=== PATIENT | female | born 1940 | race Caucasian/White ===

== ENCOUNTER 2017-12-13 06:09 | Inpatient (IN) | payer MEDICARE, BC ==
--- NOTE | 2017-12-02 13:29 | HP ---
HISTORY AND PHYSICAL: DATE OF ADMISSION/SURGERY: 12/13/17 DATE OF OFFICE VISIT: 11/30/17 SURGEON: Riya Calderon MD * (DICTATED BY SUSI EASTON) PROCEDURE: Left total knee arthroplasty. CHIEF COMPLAINT: Left knee pain. HISTORY OF PRESENT ILLNESS: Ms. Means is a 77-year-old female with complaints of left knee pain. She has failed conservative treatment and elected to proceed with a left total knee arthroplasty. PAST MEDICAL HISTORY: Parkinson's, sleep apnea, glaucoma, high cholesterol, pulmonary embolism in 2002, TIA, and anxiety. PAST SURGICAL HISTORY: Appendectomy, cholecystectomy, hernia repair, cataract removal. CURRENT MEDICATIONS: 1. Amantadine 50 mg/5 mL. 2. Mirapex 0.5 mg 4 caps daily. 3. Biotin 1000 mcg daily. 4. Latanoprost 2.5% one drop in each eye daily. 5. Carbidopa/levodopa 25/100 mg 1 tab 3 times a day. 6. Azilect 1 mg tab daily. 7. Dorzolamide HCl/timolol maleate 22.3/6.8 mg/mL. 8. Vitamin D. 9. Gabapentin 100 mg 2 tabs every night. 10. Calcium. 11. Acetaminophen as needed. ALLERGIES: CEFTIN and CIPRO. FAMILY HISTORY: Diabetes, stroke, AL, and DVT. SOCIAL HISTORY: She is a 77-year-old female. She lives with her spouse. She does not smoke, use drugs or alcohol. REVIEW OF SYSTEMS: A complete 14-point review of systems was reviewed with the patient. It was positive for history of a TIA and pulmonary embolism in 2002. She denies a history of hepatitis, HIV, MRSA, or anesthesia problems. PHYSICAL EXAMINATION GENERAL: She is well developed, well nourished, in no acute distress. VITAL SIGNS: She stands 60 inches tall. Blood pressure is 124/82, heart rate 60. HEENT: Normocephalic, atraumatic. NECK: Supple. No palpable lymph nodes. PULMONARY: The lungs are clear to auscultation bilaterally. The abdomen is soft, nontender, nondistended. CARDIO: Regular rate and rhythm. Strong S1 and S2. MUSCULOSKELETAL: Left lower extremity: The skin is intact. She has no open wounds or abrasions. She has a moderate joint effusion. Some tenderness over the medial and lateral joint line. Range of motion is 10 to 125 degrees of flexion with patellofemoral crepitus and there is a 15-degree valgus deformity. She has 2+ dorsalis pedis pulse, intact sensation. Her lower extremity muscle group strengths are intact at 5/5. NEUROLOGIC: She is alert and oriented x3. ASSESSMENT AND PLAN: Ms. Means is a 77-year-old female with end-stage osteoarthritis of the left knee. She has failed conservative treatment and elected to proceed with a left total knee arthroplasty, which is scheduled for 12/13/[address] Calderon discussed the risks and benefits of the surgery at today's visit and all of her questions were answered. She will follow up with Dr. Calderon 2 weeks after the surgery. NO TXA FOR THIS PATIENT. SUSI EASTON [id number]/[facility] #: [id number] [place]
[~2017-12-13 06:09] MED LIST: Buffered Lidocaine 0.9% SYRIN* 5 ML/SYR SYRINGE INTRADERM ONE
[2017-12-13] MEDS ORDERED: ceFAZolin 2 GM in NS PREMIX(*) 2 GM/100 ML BAG IVPB ONE (06:16)
--- OUTSIDE RECORDS SUMMARY | 2017-12-13 06:17 | XMS REPORT ---
:1940 External Reference #:[id number] Author Organization Owned it Address [address] [place] [address] [place] [address] Phone [phone] Care Team Providers Name Role Phone Darrel Griffin III, MD Primary Care Physician Unavailable Payers Type Date Identification Numbers Payment Provider Subscriber Medicare Primary Policy Number: [id number] Medicare Marlen Means PayID: [id number] [address] [place] [address] Medigap Part B Effective: 2011 Policy Number: JOVANNA [facility] Marlen Means [id number] PayID: [id number] [address] [place] [address] Commercial Policy Number: [id number] [facility] Marlen Means PayID: [id number] [address] [place] [address] Medigap Part B Expires: 2009 Policy Number: BS ERICK Means [id number] Group Number: [id number] [address] PayID: [id number] [address] [place] [address] Advance Directives Type Date Description Status Comment Other Directive 03/08/2016 Health Care Proxy Current and Verified Other Directive 02/05/2016 Current and Verified Other Directive 03/02/2012 Power Of Stone Circular Sawyer Current and Verified Other Directive 10/23/2009 Health Care Proxy/Living Will Current and Verified Other Directive 03/09/2006 Living Will Current and Verified Problems Date Description Provider Status Onset: 12/08/2010 Pure hypercholesterolemia Darrel Griffin M.D. Active Onset: 02/01/2011 Shoulder joint pain Darrel Griffin M.D. Active Onset: 08/30/2011 Impaired fasting glycaemia Darrel Griffin M.D. Active Onset: 08/30/2011 Sleep apnea Darrel Griffin M.D. Active Onset: 08/30/2011 Parkinson's disease Darrel Griffin M.D. Active Note: MoCA 03/05: , 03/06: Onset: 09/20/2011 Nonvenomous insect bite of Blossom Fanny-Jaimes, N.P. Active thigh without infection Onset: 12/02/2011 Urgent desire to urinate Darrel Griffin M.D. Active Onset: 02/23/2012 Left lower quadrant pain Blossom Fanny-Theodore, N.P. Active Onset: 08/10/2013 Osteochondropathy Darrel Griffin M.D. Active Onset: 01/02/2015 Disorder of bone Darrel Griffin M.D. Active Onset: 07/02/2015 Headache Carmen Jean M.D. Active Onset: 08/15/2015 Pain in limb Peter Serna MD Active Onset: 03/01/2016 Chest pain Tristin Luna M.D., [facility], Active FASNC Onset: 03/29/2016 Peripheral venous insufficiency Tristin Luna M.D., [facility], Active FASNC Onset: 11/17/2016 Knee pain Darrel Griffin M.D. 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 Cigarette Use Former Cigarette Smoker ETOH Use 08/24/2012 Denies alcohol use ETOH Use Has consumed alcohol in the past Smoking Patient is a former smoker quit ~ 1985 Recreational Drug Use Denies Drug Use Daily Caffeine Consumes on average 2 cups of regular coffee per day Daily Caffeine Consumes on average 1 cup of hot tea per day Exercise Type/Frequency Exercises regularly walks, yoga, weights Allergies, Adverse Reactions, Alerts Date Description Reaction Status Severity Comments 09/28/2006 Ceftin active GI 12/02/2011 Cipro colitis active Medications Medication Date Status Form Strength Qnty SIG Indications Ordering Provider TMelaniEStanton 09/26 Active Misc 2unit wear during R60.0 Eveline Anti-Embolism /2018 s the day, rt Dorothy, Stockings Knee 43cm, N.P. Length 20.5cm, 32cm; Lt 43cm, 20.5cm, 30.5cm (toe less) give 2 pairs Atorvastatin 03/26 Active Tablets 20mg 90tab Take One Darrel Mcgowan s Tablet By Gaby Mouth AT M.D. Bedtime Amantadine HCL 08/19 Active Syrup 50mg/5ML 900ml take 5ml by G20 Carmen mouth in in Cowdery, the morning M.D. and 5mls by mouth at noon as need for dyskinesias Mirapex 01/23 Active Tablets 0.5mg 360ta 1 tab by bs mouth 4 Cowdery, times daily M.D. Biotin Active Tablets 1000mcg 1 daily Latanoprost Active Solution 2.5% 1 drop in each eye once qhs Carbidopa-Levod Active Tablets 25-100mg 270ta 1 by mouth Carmen bs three times Cowdery, a day M.D. Azilect Active Tablets 1mg 90tab 1 tab by s mouth every Cowdery, day M.D. Dorzolamide Active Solution 22.3-6.8m instill 1 Unknown HCL/Timolol / g/ml drops each Maleate eye Am/PM Vitamin D Active Capsules 1000 1 tab po qam Unknown (Ergocalciferol ) Gabapentin Active Capsules 100mg 180ca Usually Carmen /0000 ps takes Cowdery, one---2 tab M.D. by mouth every night Calcium 00/00 Active Tablets 1 by mouth Unknown /0000 every day Acetaminophen 0000 Active Tablets 325mg 1 tablet by Unknown /0000 mouth every 6 hours as needed for pain/fever Hydrocodone-Colby 12/31 Hx Tablets 5-325mg 120ta 1-2 tabs by W10.9xxA Ricardo taminophen bs mouth q4 Jon, [employer] - hours as 08/13 needed pain /2016 limit 8 tabs per day Debrox 08/08 Hx Solution 6.5% 1bott 5 drops in 380.4 Eveline le each ear Dorothy, - every month N.P. 12/31 Lidoderm 11/12 Hx Patches 5% 30uni apply 724.1 Darrel E. ts topically Gaby, - every day as M.D. 10/04 needed Amantadine HCL 07/18 Hx Tablets 100mg 60tab 1 by mouth 333.85 Hattie s every Millicent, [employer] - morning. July 23 take 1 tab /2014 by mouth in afternoon if needed Xarelto 12/25 Hx Tablets 20mg 70tab 1 po qd with 415.1 Darrel E. /2012 s evening meal Hannah Griffin M.D. 03/12 Enoxaparin 12/25 Hx Solution 60mg/0.6M 2unit prefilled 415.1 Darrel E. L s syringes 1 Gaby, - dose q 12 M.D. 01/11 Oxycodone/Aceta 11/24 Hx Tablets 5-325mg 15tab take 1 807.2 Heidi minophen s tablet by Laz, - mouth every M.D. 12/27 6 hours as needed Cymbalta 08/[address] 20mg 30cap take 2 po Carmen Part s qday Ted, - M.D. 11/16 Amoxicillin 07/07 Hx Capsules 500mg 20cap 1 cap bid 461.0 Eveline s for 10 days Dorothy, - N.P. 08/24 Robitussin DM 06/22 Hx Syrup 100-10mg/ 355ml take 1 786.2 Blossom 5ML teaspoons po [place]-W - q 4 hrs prn atson, 08/24 for cough N.P. /2012 Sinemet 03/05 Hx Tablets 25-100mg 360ta 1 po tid Hannah Lennon M.D. 01/28 Doxycycline 09/19 Hx Capsules 100mg 20cap take one 916.4 Blossom Hycl s pill twice [place]-W - daily for 10 atson, 12/01 days N.P. /2011 Effexor XR 07/03 Hx Caps ER 75mg 30cap 1 po qd Darrel Mcgowan 24HR Hannah Govea M.D. 07/03 Zoloft 07/03 Hx Tablets 100mg 90tab 1 po qd Darrel Mcgowan Hannah Govea M.D. 07/03 Septra DS 07/03 Hx Tablets 800-160mg 6tabs 1 po bid 788.1 Darrel Mcgowan Hannah Griffin M.D. 07/26 Robitussin With 11/20 Hx 6Oz 10 cc qhs Darrel Mcgowan Codeine and q 4 hrs Hannah Griffin M.D. 12/19 Zithromax Z-Yayo 11/20 Hx Tablets 250mg 1Pack as per Darrel Mcgowan directions Hannah Griffin M.D. 12/03 Septra DS 08/06 Hx Tablets 800-160mg 20tab 1 po bid Darrel Mcgowan Hannah Govea M.D. 11/20 Physical 01/22 Hx 20uni pt Darrel Mcgowan ts evaluation Letty Griffin 12/19 treatment for neck pain Lidocaine 04/03 Hx Solution 2% 100cc 3 tsp po q 3 Darrel Mcgowan hrs prn Hannah Griffin M.D. 12/30 Pravachol 03/27 Hx Tablets 20mg 90tab 1 Tablet PO Darrel Mcgowan s Hannah Murray M.D. 12/30 Zocor 11/26 Hx Tablets 20mg 90tab 1 po qhs Darrel Mcgowan Hannah Govea M.D. 02/01 Actonel 04/18 Hx Tablets 35mg 3Mont 1 po twice a Darrel E. h month to Gaby, - start on M.D. 12/30 2/03/28 Lipitor Hx Tablets 10mg 30tab 1 PO QHS Barken, s MD Bony - 11/26 Neurontin Hx Capsules 100mg 90cap 1 tabs by Carmen / s mouth every , - night at M.D. 03/15 bedtime Mirapex Hx Tablets 0.5mg 120ta 1 PO qid Cowdery, bs MD Carmen - 04/18 Zoloft Hx Tablets 25mg. 90tab 1 qod Cowdery, s MD Carmen - 08/06 Sinemet Hx Tablets 25/100 45tab 1 po tid Cowdery, s MD Carmen - 03/05 Aspirin Hx Tablets 325mg 1 PO qd Unknown / - 08/29 Nupro Hx Patch 2mg. Starting on 2 mg. patch MD Carmen - and will be 01/23 to 4 mg. patch on 2007 Flonase Hx Suspension 50mcg/Act 3unit 1 [place] Each Darrel E. s Nostril [facility] Hannah Griffin M.D. 01/23 Azilect Hx Tablets 1mg 90tab 1 tab PO Hattie / s daily PROSPER Ricks - 10/04 Xalatan Hx Solution 0.005% ou hs 1 ggt Unknown / - 08/29 Simvastatin Hx Tablets 20mg 90tab 1 po qd Darrel E. / s Hannah Griffin M.D. 12/27 Aspirin Low Hx Tablets 81mg 1 po qd Unknown Dose / - 12/01 Cosopt Hx Solution 22.3-6.8m 1 drop both Unknown / g/ml eyes qd - 12/01 Glucosamine-Cho Hx Capsules 500-400mg 60cap 1 tab po qd Unknown ndroitin / s - 02/28 Dorzolamide HCL 00/ Hx Solution 2% 22.3 gtts Unknown /0000 both eyes - bid 12/27 Calcium 00/00 Hx Tablets 400mg 60tab 1 po qd Unknown /0000 s - 07/19 Simvastatin 00/00 Hx Tablets 20mg 90tab 1 by mouth Darrel E. /0000 s every day Hannah Griffin M.D. 02/24 Evening 00/00 Hx Capsules 1 capsule Unknown [place] Oil /0000 daily - 11/12 Cholacol 00/ Hx Tablet 1 tablet Unknown /0000 daily - 08/24 Fish Oil 00/00 Hx Capsules 1000mg 1 po qd Unknown /0000 - 10/04 Co Q-10 Hx Capsules 30mg 1 PO qd Unknown /0000 - 02/28 Nasonex 00 Hx Suspension 50mcg/Act 17g 2 sprays in Unknown /0000 each nostril - once daily 08/24 Oxycodone/Aceta 00 Hx Tablets 5-325mg 1 tab po q Unknown minophen /0000 4-6 hrs prn - pain 12/27 Acetaminophen 00/ Hx Capsules 100ca take 2 Unknown /0000 ps tablets - three times 12/27 daily needed Cosopt 00/00 Hx Solution 22.3-6.8m 1 gtt each Unknown /0000 g/ml eye bid - 10/04 Lidoderm 00 Hx Patches 5% 30uni topical 10 Unknown /0000 ts hours - 12/27 Warfarin Sodium 00/00 Hx Tablets 5mg 90tab take as Unknown /0000 s directed - 12/27 Vitamin D-1000 00/ Hx Tablets 1000Unit 1 by mouth Unknown Maximum /0000 every day Strength - 10/04 Aspirin Ec 00/ Hx Tablets DR 81mg 90tab 1 tablet po Unknown Lo-Dose /0000 s daily. - 01/28 Acetaminophen 00/00 Hx Liquid 5ml take 1 Unknown /0000 tablets by - mouth every 02/28 6 hours needed for pain Evening 00/00 Hx Capsules 1000mg Unknown [place] Oil /0000 - 12/31 Hydrocodone-Colby 0000 Hx Tablets 5-325mg 1-2 tab po q Unknown taminophen /0000 4 hours prn - 12/31 Robitussin DM Hx Syrup 100-10mg/ 5-10 Unknown /0000 5ML milliliters - by mouth q 12/31 4 hours /2014 Ibuprofen Hx Tablets 200mg as needed Unknown /0000 - 09/26 Glucosamine Hx Tablets 1 tab po qd Unknown Chondroitin /0000 Complex - Advanced 11/30 Medications Administered in Office Medication Date Status Form Strength Qnty SIG Indications Ordering Provider Triamcinolone 10/03/ Administered Injection Keyla (Kenalog) 2017 JULIA Manzano Triamcinolone 07/21/ Administered Injection Zaneb (Kenalog) 2017 MD Edwar Triamcinolone 04/07/ Administered Injection Zaneb (Kenalog) 2017 MD Edwar Triamcinolone 04/07/ Administered Injection Zaneb (Kenalog) 2017 MD Edwar Triamcinolone 11/23/ Administered Injection Zaneb (Kenalog) 2016 MD Edwar Triamcinolone 11/23/ Administered Injection Zaneb (Kenalog) 2016 MD Edwar Inj, 03/17/ Administered Injection Tristin Efrain Regadenoson, 0.1 2015 Jeremy, MG M.D., [facility] Technetium TC 03/17/ Administered Injection Tristinamelia Zuniga 99M Tetrofosmin, 2016 Jeremy, Per Unit Dose Up M.D., To 40 [facility], Millicuries [facility] Influenza Virus 11/19/ Administered Injection Unknown Vaccine 2013 Immunizations CPT Code Status Date Vaccine Lot # [id number] Given 01/09/2016 Influenza Virus Vaccine, Quadrivalent, Split [id number] Virus, Im Use 61753 Given 01/01/2015 Influenza Virus Vaccine, Quadrivalent, Split, Preservative Free 66396 Given 08/02/2014 Pneumococcal Conjugate Vaccine 13 Valent For [id number] Intramuscular Use 56348 Given 08/10/2013 Tdap - Tetanus/Diptheria/Acellular Pertussis [id number] 86236 Given 01/11/2013 Flu Vaccine Split Virus Preservative Free For [id number] Indiv 3Yr Older [id number] Given 12/02/2011 Fluzone Vaccine [id number] 77911 Given 09/15/2011 Pneumonia Vaccine 29355 Given 09/15/2011 Pneumonia Vaccine [id number] 80546 Given 01/03/2010 Influenza Virus 3Yrs & Over 08221 Given 09/23/2009 Zoster (Zostavax) [id number] 71711 Given 12/31/2008 Influenza Virus 3Yrs & Over 22576 Given 12/31/2008 Influenza Virus 3Yrs & Over [id number] 01457 Given 12/18/2007 Influenza Virus 3Yrs & Over 81241 Given 12/18/2007 Influenza Virus 3Yrs & Over 51454 Given 12/26/2006 Influenza Virus 3Yrs & Over 28292 Given 12/26/2006 Influenza Virus 3Yrs & Over [id number] 38429 Given Unknown Flu Vaccine Split Virus Preservative Free For Indiv 3Yr Older 86725 Given Unknown Flu Vaccine Split Virus Preservative Free For Indiv 3Yr Older Vital Signs Date Vital Result Comment 12/01/2017 Height 60 inches 5'0" Weight 96.00 lb Heart Rate 96 /min BP Systolic Sitting 102 mmHg BP Diastolic Sitting 62 mmHg O2 % BldC Oximetry 97 % BMI (Body Mass Index) 18.7 kg/m2 11/30/2017 Height 60 inches 5'0" Weight 95.75 lb Heart Rate 60 /min BP Systolic Sitting 124 mmHg BP Diastolic Sitting 82 mmHg Respiratory Rate 16 /min Body Temperature 96.1 F Pain Level 5 BMI (Body Mass Index) 18.7 kg/m2 10/14/2017 Height 60 inches 5'0" Heart Rate 73 /min BP Systolic 126 mmHg BP Diastolic 82 mmHg Respiratory Rate 16 /min Body Temperature 97.2 F Pain Level 6 10/06/2017 Height 60 inches 5'0" Weight 93.00 lb Heart Rate 59 /min BP Systolic 118 mmHg BP Diastolic 66 mmHg O2 % BldC Oximetry 97 % BMI (Body Mass Index) 18.2 kg/m2 Last Menstrual Period [id number] 10/03/2017 Height 60 inches 5'0" Weight 93.00 lb BP Systolic 106 mmHg BP Diastolic 66 mmHg Body Temperature 97.7 F BMI (Body Mass Index) 18.2 kg/m2 09/26/2017 Weight 95.00 lb Heart Rate 78 /min BP Systolic Sitting 118 mmHg BP Diastolic Sitting 88 mmHg Respiratory Rate 20 /min Body Temperature 97.0 F 07/22/2017 Height 60 inches 5'0" Weight 93.00 lb Heart Rate 68 /min BP Systolic 128 mmHg BP Diastolic 88 mmHg Respiratory Rate 16 /min BMI (Body Mass Index) 18.2 kg/m2 07/21/2017 Height 60 inches 5'0" Weight 94.00 lb BP Systolic 118 mmHg BP Diastolic 68 mmHg Respiratory Rate 20 /min Pain Level 6 BMI (Body Mass Index) 18.4 kg/m2 07/07/2017 Weight 94.00 lb Heart Rate 67 /min BP Systolic Sitting 110 mmHg BP Diastolic Sitting 62 mmHg Pain Level 2 O2 % BldC Oximetry 98 % 06/24/2017 Weight 94.25 lb Heart Rate 69 /min BP Systolic Sitting 108 mmHg BP Diastolic Sitting 72 mmHg Respiratory Rate 20 /min Body Temperature 97.4 F O2 % BldC Oximetry 98 % 06/21/2017 Heart Rate 60 /min BP Systolic 118 mmHg BP Diastolic 78 mmHg Respiratory Rate 16 /min Body Temperature 97.1 F Pain Level 0 06/17/2017 Weight 93.00 lb Heart Rate 57 /min BP Systolic Sitting 112 mmHg BP Diastolic Sitting 82 mmHg Respiratory Rate 22 /min Body Temperature 97.0 F O2 % BldC Oximetry 99 % 05/30/2017 Weight 90.00 lb Heart Rate 71 /min BP Systolic Sitting 122 mmHg BP Diastolic Sitting 84 mmHg O2 % BldC Oximetry 98 % 04/07/2017 Height 60 inches 5'0" Weight 98.00 lb BP Systolic 120 mmHg BP Diastolic 74 mmHg Respiratory Rate 18 /min Pain Level 6 BMI (Body Mass Index) 19.1 kg/m2 03/16/2017 Height 60 inches 5'0" Weight 95.38 lb Heart Rate 60 /min BP Systolic Sitting 130 mmHg BP Diastolic Sitting 82 mmHg Respiratory Rate 16 /min BMI (Body Mass Index) 18.6 kg/m2 02/22/2017 Height 60 inches 5'0" Weight 98.00 lb BP Systolic 108 mmHg BP Diastolic 68 mmHg Respiratory Rate 18 /min Pain Level 0 BMI (Body Mass Index) 19.1 kg/m2 12/06/2016 Height 60 inches 5'0" Weight 956.00 lb Heart Rate 62 /min BP Systolic Sitting 108 mmHg BP Diastolic Sitting 62 mmHg Respiratory Rate 17 /min BMI (Body Mass Index) 186.7 kg/m2 11/23/2016 Height 60 inches 5'0" Weight 98.00 lb Heart Rate 60 /min BP Systolic 115 mmHg BP Diastolic 80 mmHg Respiratory Rate 15 /min Body Temperature 98.3 F BMI (Body Mass Index) 19.1 kg/m2 11/17/2016 Height 60 inches 5'0" Weight 98.12 lb Heart Rate 54 /min BP Systolic Sitting 128 mmHg BP Diastolic Sitting 80 mmHg Body Temperature 97.3 F O2 % BldC Oximetry 96 % BMI (Body Mass Index) 19.2 kg/m2 08/25/2016 Height 60 inches 5'0" Weight 98.50 lb Heart Rate 56 /min BP Systolic Sitting 142 mmHg BP Diastolic Sitting 80 mmHg Respiratory Rate 14 /min BMI (Body Mass Index) 19.2 kg/m2 07/29/2016 Weight 103.38 lb Heart Rate 61 /min BP Systolic Sitting 96 mmHg BP Diastolic Sitting 66 mmHg Respiratory Rate 20 /min Body Temperature 96.3 F O2 % BldC Oximetry 97 % 07/01/2016 Weight 99.25 lb Heart Rate 68 /min BP Systolic Sitting 112 mmHg BP Diastolic Sitting 68 mmHg Respiratory Rate 20 /min Body Temperature 96.0 F O2 % BldC Oximetry 98 % 06/28/2016 Height 59.9 inches 4'11.90" Weight 100.00 lb Heart Rate 72 /min BP Systolic Sitting 98 mmHg BP Diastolic Sitting 60 mmHg Respiratory Rate 14 /min BMI (Body Mass Index) 19.6 kg/m2 06/10/2016 Height 59.9 inches 4'11.90" Weight 100.25 lb Heart Rate 68 /min BP Systolic Sitting 90 mmHg BP Diastolic Sitting 64 mmHg Respiratory Rate 22 /min Body Temperature 96.3 F O2 % BldC Oximetry 99 % BMI (Body Mass Index) 19.6 kg/m2 03/29/2016 Height 60.25 inches 5'0.25" Weight 100.00 lb with shoes Heart Rate 62 /min BP Systolic Sitting 124 mmHg Rue reg cuff BP Diastolic Sitting 90 mmHg Rue reg cuff BP Systolic Standing 120 mmHg Rue reg cuff BP Diastolic Standing 82 mmHg Rue reg cuff Respiratory Rate 16 /min BMI (Body Mass Index) 19.4 kg/m2 Ejection Fraction 60-65% date 03/08/16 ECHO 03/01/2016 Height 60.25 inches 5'0.25" Weight 101.00 lb with shoes Heart Rate 60 /min BP Systolic 130 mmHg Rue reg cuff BP Diastolic 76 mmHg Rue reg cuff BP Systolic Sitting 128 mmHg Lue reg cuff BP Diastolic Sitting 72 mmHg Lue reg cuff BP Systolic Standing 116 mmHg Lue reg cuff BP Diastolic Standing 70 mmHg Lue reg cuff Respiratory Rate 16 /min BMI (Body Mass Index) 19.6 kg/m2 Ejection Fraction 60-65% date 07/30/13 ECHO 02/26/2016 Height 60 inches 5'0" Weight 99.38 lb Heart Rate 60 /min BP Systolic Sitting 104 mmHg BP Diastolic Sitting 68 mmHg Respiratory Rate 14 /min BMI (Body Mass Index) 19.4 kg/m2 02/10/2016 Weight 101.00 lb Heart Rate 58 /min BP Systolic Sitting 126 mmHg BP Diastolic Sitting 82 mmHg Body Temperature 97.2 F 10/20/2015 Height 59.5 inches 4'11.50" Weight 103.00 lb Heart Rate 80 /min BP Systolic Sitting 100 mmHg BP Diastolic Sitting 60 mmHg Respiratory Rate 17 /min BMI (Body Mass Index) 20.5 kg/m2 10/02/2015 Weight 103.38 lb Heart Rate 68 /min BP Systolic Sitting 102 mmHg BP Diastolic Sitting 72 mmHg Respiratory Rate 18 /min Body Temperature 96.9 F O2 % BldC Oximetry 98 % 09/17/2015 Weight 100.00 lb Heart Rate 59 /min BP Systolic Sitting 111 mmHg BP Diastolic Sitting 69 mmHg Body Temperature 96.4 F 08/15/2015 Height 59.5 inches 4'11.50" Weight 100.00 lb BP Systolic 119 mmHg BP Diastolic 81 mmHg BMI (Body Mass Index) 19.9 kg/m2 07/09/2015 Weight 100.00 lb Heart Rate 79 /min BP Systolic Sitting 126 mmHg BP Diastolic Sitting 72 mmHg Body Temperature 97.2 F 07/02/2015 Height 59.5 inches 4'11.50" Weight 101.38 lb Heart Rate 68 /min BP Systolic Sitting 116 mmHg BP Diastolic Sitting 82 mmHg Respiratory Rate 14 /min BMI (Body Mass Index) 20.1 kg/m2 01/08/2015 Height 59.5 inches 4'11.50" Weight 104.00 lb Heart Rate 60 /min BP Systolic Sitting 98 mmHg BP Diastolic Sitting 68 mmHg Respiratory Rate 16 /min BMI (Body Mass Index) 20.7 kg/m2 01/02/2015 Height 59.5 inches 4'11.50" Weight 104.00 lb Heart Rate 74 /min BP Systolic Sitting 117 mmHg BP Diastolic Sitting 71 mmHg Body Temperature 97.6 F BMI (Body Mass Index) 20.7 kg/m2 12/31/2014 Weight 103.00 lb Heart Rate 72 /min BP Systolic Sitting 122 mmHg BP Diastolic Sitting 76 mmHg Respiratory Rate 18 /min Pain Level 4 R lower rib cage O2 % BldC Oximetry 98 % 10/04/2014 Weight 107.00 lb Heart Rate 64 /min BP Systolic Sitting 96 mmHg BP Diastolic Sitting 62 mmHg Respiratory Rate 26 /min Body Temperature 97.4 F 08/19/2014 Height 60 inches 5'0" Weight 106.00 lb Heart Rate 60 /min BP Systolic Sitting 116 mmHg BP Diastolic Sitting 64 mmHg Respiratory Rate 16 /min BMI (Body Mass Index) 20.7 kg/m2 08/08/2014 Weight 107.25 lb Heart Rate 64 /min BP Systolic Sitting 100 mmHg BP Diastolic Sitting 66 mmHg Respiratory Rate 20 /min Body Temperature 96.5 F O2 % BldC Oximetry 98 % 08/02/2014 Height 60 inches 5'0" Weight 107.00 lb Heart Rate 72 /min BP Systolic Sitting 124 mmHg BP Diastolic Sitting 72 mmHg O2 % BldC Oximetry 97 % BMI (Body Mass Index) 20.9 kg/m2 06/25/2014 Height 60 inches 5'0" Weight 104.00 lb Heart Rate 60 /min BP Systolic Sitting 110 mmHg BP Diastolic Sitting 68 mmHg Body Temperature 98.2 F O2 % BldC Oximetry 97 % BMI (Body Mass Index) 20.3 kg/m2 03/06/2014 Height 60 inches 5'0" Weight 102.12 lb Heart Rate 67 /min BP Systolic Sitting 90 mmHg BP Diastolic Sitting 70 mmHg Respiratory Rate 15 /min BMI (Body Mass Index) 19.9 kg/m2 01/28/2014 Weight 102.50 lb Heart Rate 64 /min BP Systolic Sitting 110 mmHg BP Diastolic Sitting 68 mmHg Body Temperature 97.7 F O2 % BldC Oximetry 98 % 11/14/2013 Weight 103.25 lb Heart Rate 64 /min BP Systolic Sitting 104 mmHg BP Diastolic Sitting 60 mmHg Body Temperature 97.1 F 11/14/2013 Height 60.5 inches 5'0.50" Weight 102.00 lb BP Systolic Sitting 104 mmHg BP Diastolic Sitting 70 mmHg Respiratory Rate 16 /min BMI (Body Mass Index) 19.6 kg/m2 11/12/2013 Height 60.5 inches 5'0.50" Weight 102.75 lb Heart Rate 66 /min BP Systolic Sitting 98 mmHg BP Diastolic Sitting 58 mmHg Pain Level 2 R shoulder BMI (Body Mass Index) 19.7 kg/m2 10/08/2013 Height 60.5 inches 5'0.50" Weight 103.00 lb Heart Rate 62 /min BP Systolic 114 mmHg BP Diastolic 90 mmHg BMI (Body Mass Index) 19.8 kg/m2 09/12/2013 Height 60.5 inches 5'0.50" Weight 103.00 lb Heart Rate 65 /min BP Systolic 108 mmHg BP Diastolic 61 mmHg BMI (Body Mass Index) 19.8 kg/m2 09/07/2013 Height 60.5 inches 5'0.50" Weight 103.50 lb Heart Rate 64 /min BP Systolic Sitting 102 mmHg BP Diastolic Sitting 58 mmHg Body Temperature 97.8 F BMI (Body Mass Index) 19.9 kg/m2 09/03/2013 Height 60.5 inches 5'0.50" Weight 103.00 lb Heart Rate 67 /min BP Systolic Sitting 120 mmHg BP Diastolic Sitting 60 mmHg Respiratory Rate 16 /min BMI (Body Mass Index) 19.8 kg/m2 08/10/2013 Height 60.5 inches 5'0.50" Weight 103.00 lb Heart Rate 60 /min BP Systolic Sitting 116 mmHg BP Diastolic Sitting 72 mmHg BMI (Body Mass Index) 19.8 kg/m2 07/18/2013 Height 60.5 inches 5'0.50" Weight 103.00 lb Heart Rate 62 /min BP Systolic Sitting 110 mmHg BP Diastolic Sitting 60 mmHg Respiratory Rate 16 /min BMI (Body Mass Index) 19.8 kg/m2 07/12/2013 Height 60.5 inches 5'0.50" Weight 103.50 lb Heart Rate 64 /min BP Systolic Sitting 126 mmHg BP Diastolic Sitting 80 mmHg BMI (Body Mass Index) 19.9 kg/m2 06/27/2013 Height 60.5 inches 5'0.50" Weight 103.25 lb Heart Rate 60 /min BP Systolic Sitting 124 mmHg BP Diastolic Sitting 84 mmHg Body Temperature 97.4 F BMI (Body Mass Index) 19.8 kg/m2 03/12/2013 Heart Rate 76 /min BP Systolic Sitting 110 mmHg BP Diastolic Sitting 70 mmHg Respiratory Rate 16 /min 03/12/2013 Weight 105.00 lb Heart Rate 58 /min BP Systolic Sitting 108 mmHg BP Diastolic Sitting 62 mmHg 02/08/2013 Height 60 inches 5'0" Weight 106.00 lb Heart Rate 106 /min BP Systolic 106 mmHg BP Diastolic 60 mmHg Respiratory Rate 24 /min Body Temperature 97.2 F BMI (Body Mass Index) 20.7 kg/m2 01/31/2013 Weight 104.25 lb Heart Rate 66 /min BP Systolic Sitting 106 mmHg BP Diastolic Sitting 72 mmHg 01/11/2013 Height 60.25 inches 5'0.25" Weight 103.75 lb Heart Rate 64 /min BP Systolic Sitting 104 mmHg BP Diastolic Sitting 76 mmHg BMI (Body Mass Index) 20.1 kg/m2 12/27/2012 Heart Rate 60 /min BP Systolic Sitting 106 mmHg BP Diastolic Sitting 70 mmHg Respiratory Rate 16 /min 12/25/2012 Weight 103.25 lb Heart Rate 68 /min BP Systolic Sitting 114 mmHg BP Diastolic Sitting 72 mmHg O2 % BldC Oximetry 94 % 11/28/2012 Weight 106.50 lb 11/24/2012 Weight 106.00 lb Heart Rate 54 /min BP Systolic Sitting 125 mmHg BP Diastolic Sitting 72 mmHg 11/16/2012 Weight 104.25 lb Heart Rate 76 /min BP Systolic Sitting 112 mmHg BP Diastolic Sitting 66 mmHg 08/24/2012 Height 61 inches 5'1" Weight 103.50 lb Heart Rate 64 /min BP Systolic Sitting 104 mmHg BP Diastolic Sitting 76 mmHg BMI (Body Mass Index) 19.6 kg/m2 07/07/2012 Height 60.75 inches 5'0.75" Weight 103.00 lb Heart Rate 73 /min BP Systolic Sitting 102 mmHg BP Diastolic Sitting 62 mmHg Body Temperature 98.5 F O2 % BldC Oximetry 95 % BMI (Body Mass Index) 19.6 kg/m2 06/22/2012 Height 60 inches 5'0" Weight 102.00 lb Heart Rate 56 /min BP Systolic 104 mmHg BP Diastolic 62 mmHg Respiratory Rate 20 /min Body Temperature 96.9 F BMI (Body Mass Index) 19.9 kg/m2 03/01/2012 Height 60.75 inches 5'0.75" Weight 104.00 lb Heart Rate 60 /min BP Systolic Sitting 92 mmHg BP Diastolic Sitting 62 mmHg BMI (Body Mass Index) 19.8 kg/m2 02/23/2012 Height 60.75 inches 5'0.75" Weight 104.00 lb Heart Rate 62 /min BP Systolic Sitting 102 mmHg BP Diastolic Sitting 62 mmHg Body Temperature 96.3 F BMI (Body Mass Index) 19.8 kg/m2 12/02/2011 Height 60.75 inches 5'0.75" Weight 102.38 lb Heart Rate 64 /min BP Systolic Sitting 114 mmHg BP Diastolic Sitting 88 mmHg BMI (Body Mass Index) 19.5 kg/m2 09/20/2011 Heart Rate 68 /min BP Systolic 100 mmHg BP Diastolic 74 mmHg Respiratory Rate 16 /min Body Temperature 96.9 F 08/30/2011 Height 60.75 inches 5'0.75" Weight 102.25 lb Heart Rate 64 /min BP Systolic Sitting 98 mmHg BP Diastolic Sitting 70 mmHg BMI (Body Mass Index) 19.5 kg/m2 02/01/2011 Height 60.75 inches 5'0.75" Weight 105.00 lb Heart Rate 68 /min BP Systolic Sitting 100 mmHg BP Diastolic Sitting 65 mmHg BMI (Body Mass Index) 20.0 kg/m2 09/28/2010 Weight 105.00 lb Heart Rate 62 /min BP Systolic Sitting 118 mmHg BP Diastolic Sitting 62 mmHg 07/03/2010 Weight 108.00 lb Heart Rate 68 /min BP Systolic Sitting 128 mmHg BP Diastolic Sitting 80 mmHg 12/19/2009 Weight 108.00 lb Heart Rate 62 /min BP Systolic Sitting 120 mmHg BP Diastolic Sitting 64 mmHg 12/03/2009 Weight 105.00 lb Heart Rate 78 /min BP Systolic Sitting 118 mmHg BP Diastolic Sitting 70 mmHg 11/20/2009 Weight 109.00 lb Heart Rate 76 /min BP Systolic Sitting 124 mmHg BP Diastolic Sitting 80 mmHg 08/27/2009 Height 108 inches 9'0" Heart Rate 64 /min BP Systolic Sitting 98 mmHg BP Diastolic Sitting 68 mmHg 08/06/2009 Weight 108.00 lb Heart Rate 74 /min BP Systolic Sitting 100 mmHg BP Diastolic Sitting 60 mmHg 12/30/2008 Weight 110.00 lb Heart Rate 60 /min BP Systolic Sitting 114 mmHg BP Diastolic Sitting 74 mmHg 08/22/2008 Height 61 inches 5'1" Weight 111.00 lb Heart Rate 64 /min BP Systolic Sitting 110 mmHg BP Diastolic Sitting 74 mmHg BMI (Body Mass Index) 21.0 kg/m2 08/09/2008 Height 61 inches 5'1" Weight 111.00 lb Heart Rate 68 /min BP Systolic Sitting 110 mmHg BP Diastolic Sitting 70 mmHg BMI (Body Mass Index) 21.0 kg/m2 04/03/2008 Height 61 inches 5'1" Heart Rate 60 /min BP Systolic Sitting 120 mmHg BP Diastolic Sitting 76 mmHg 01/24/2008 Height 61 inches 5'1" Weight 110.00 lb Heart Rate 56 /min BP Systolic Sitting 120 mmHg BP Diastolic Sitting 86 mmHg BMI (Body Mass Index) 20.8 kg/m2 10/19/2007 Height 61 inches 5'1" Weight 109.00 lb Heart Rate 64 /min BP Systolic Sitting 116 mmHg BP Diastolic Sitting 72 mmHg BMI (Body Mass Index) 20.6 kg/m2 06/28/2007 Height 61 inches 5'1" Weight 107.00 lb Heart Rate 76 /min BP Systolic Sitting 130 mmHg BP Diastolic Sitting 82 mmHg BMI (Body Mass Index) 20.2 kg/m2 06/28/2007 Height 61 inches 5'1" 04/27/2007 Height 61 inches 5'1" Weight 109.00 lb Heart Rate 64 /min BP Systolic Sitting 120 mmHg BP Diastolic Sitting 82 mmHg BMI (Body Mass Index) 20.6 kg/m2 04/18/2007 Height 61 inches 5'1" Weight 110.00 lb Heart Rate 56 /min BP Systolic Sitting 100 mmHg BP Diastolic Sitting 70 mmHg BMI (Body Mass Index) 20.8 kg/m2 10/06/2006 Height 61 inches 5'1" BP Systolic Sitting 116 mmHg BP Diastolic Sitting 70 mmHg 09/28/2006 Height 61 inches 5'1" Weight 109.00 lb Heart Rate 68 /min BP Systolic Sitting 110 mmHg BP Diastolic Sitting 70 mmHg BMI (Body Mass Index) 20.6 kg/m2 Results Test Date Test Result H/L Range Note Comp Metabolic Panel 11/30/2017 Sodium 140 mmol/L 135-145 Potassium 4.8 mmol/L 3.5-5.0 Chloride 103 mmol/L 101-111 Co2 Carbon Dioxide 32 mmol/L 22-32 Anion Gap 5 mmol/L 2-11 Glucose 92 mg/dL 70-100 Blood Urea Nitrogen 14 mg/dL 6-24 Creatinine 0.53 mg/dL 0.51-0.95 BUN/Creatinine Ratio 26.4 High 8-20 Calcium 9.7 mg/dL 8.6-10.3 Total Protein 6.5 g/dL 6.4-8.9 Albumin 4.4 g/dL 3.2-5.2 Globulin 2.1 g/dL 2-4 Albumin/Globulin Ratio 2.1 1-3 Total Bilirubin 0.40 mg/dL 0.2-1.0 Alkaline Phosphatase 77 U/L 34-104 Alt < 3 U/L Low 7-52 Ast 17 U/L 13-39 Egfr Non- 111.6 >60 Egfr 135.0 >60 1 Inr/Protime 11/30/2017 Inr 0.90 0.77-1.02 Laboratory test finding 11/30/2017 Partial Thrombo Time 30.3 seconds 26.0 -36.3 PTT CBC Auto Diff 11/30/2017 White Blood Count 7.6 10^3/uL 3.5-10.8 Red Blood Count 4.33 10^6/uL 4.00-5.40 Hemoglobin 14.1 g/dL 12.0-16.0 Hematocrit 41 % 35-47 Mean Corpuscular Volume 96 fL 80-97 Mean Corpuscular Hemoglobin 33 pg High 27-31 Mean Corpuscular HGB Conc 34 g/dL 31-36 Red Cell Distribution Width 14 % 10.5-15 Platelet Count 327 10^3/uL 150-450 Mean Platelet Volume 7.2 um3 Low 7.4-10.4 Abs Neutrophils 5.1 10^3/uL 1.5-7.7 Abs Lymphocytes 1.7 10^3/uL 1.0-4.8 Abs Monocytes 0.7 10^3/uL 0-0.8 Abs Eosinophils 0.1 10^3/uL 0-0.6 Abs Basophils 0.1 10^3/uL 0-0.2 Abs Nucleated RBC 0 10^3/uL Granulocyte % 66.5 % 38-83 Lymphocyte % 21.9 % Low 25-47 Monocyte % 9.0 % High 0-7 Eosinophil % 1.8 % 0-6 Basophil % 0.8 % 0-2 Nucleated Red Blood Cells % 0 Type & Screen 11/30/2017 Patient Blood Type A Positive Antibody Screen NEGATIVE Urinalysis Profile 11/30/2017 Urine Color Yellow Urine Appearance Clear Urine Specific [place] 1.012 1.010-1.030 Urine pH 6.0 5-9 Urine Urobilinogen Negative Negative Urine Ketones Negative Negative Urine Protein Negative Negative Urine Leukocytes Negative Negative Urine Blood Negative Negative * * Negative 2 Urine Nitrite Negative Negative Urine Bilirubin Negative Negative Urine Glucose Negative Negative Urine Culture And Sensitivities 11/30/2017 Urine Culture SEE RESULT BELOW 3 Urine Culture And Sensitivities 09/08/2017 Urine Culture SEE RESULT BELOW 4 Urinalysis Profile 09/08/2017 Urine Color Yellow Urine Appearance Clear Urine Specific [place] 1.008 Low 1.010-1.030 Urine pH 8.0 5-9 Urine Urobilinogen Negative Negative Urine Ketones Negative Negative Urine Protein Negative Negative Urine Leukocytes Negative Negative Urine Blood Negative Negative Urine Nitrite Negative Negative Urine Bilirubin Negative Negative Urine Glucose Negative Negative Comp Metabolic Panel 05/31/2017 Sodium 138 mmol/L 133-145 Potassium 4.1 mmol/L 3.5-5.0 Chloride 102 mmol/L 101-111 Co2 Carbon Dioxide 32 mmol/L 22-32 Anion Gap 4 mmol/L 2-11 Glucose 102 mg/dL High 70-100 Blood Urea Nitrogen 13 mg/dL 6-24 Creatinine 0.59 mg/dL 0.51-0.95 BUN/Creatinine Ratio 22.0 High 8-20 Calcium 9.6 mg/dL 8.6-10.3 Total Protein 6.3 g/dL Low 6.4-8.9 Albumin 4.2 g/dL 3.2-5.2 Globulin 2.1 g/dL 2-4 Albumin/Globulin Ratio 2.0 1-3 Total Bilirubin 0.60 mg/dL 0.2-1.0 Alkaline Phosphatase 53 U/L 34-104 Alt 14 U/L 7-52 Ast 12 U/L Low 13-39 Egfr Non- 98.8 >60 Egfr 127.1 >60 5 Laboratory test finding 05/31/2017 C Reactive Protein < 1.00 mg/L < 5.00 6 Erythrocyte Sed Rate 10 mm/Hr 0-40 CBC Auto Diff 05/31/2017 White Blood Count 8.0 10^3/uL 3.5-10.8 Red Blood Count 4.45 10^6/uL 4.0-5.4 Hemoglobin 14.7 g/dL 12.0-16.0 Hematocrit 43 % 35-47 Mean Corpuscular Volume 97 fL 80-97 Mean Corpuscular Hemoglobin 33 pg High 27-31 Mean Corpuscular HGB Conc 34 g/dL 31-36 Red Cell Distribution Width 14 % 10.5-15 Platelet Count 296 10^3/uL 150-450 Mean Platelet Volume 8 um3 7.4-10.4 Abs Neutrophils 5.4 10^3/uL 1.5-7.7 Abs Lymphocytes 1.7 10^3/uL 1.0-4.8 Abs Monocytes 0.7 10^3/uL 0-0.8 Abs Eosinophils 0.2 10^3/uL 0-0.6 Abs Basophils 0.1 10^3/uL 0-0.2 Abs Nucleated RBC 0 10^3/uL Granulocyte % 67.1 % 38-83 Lymphocyte % 21.3 % Low 25-47 Monocyte % 8.9 % High 0-7 Eosinophil % 2.0 % 0-6 Basophil % 0.7 % 0-2 Nucleated Red Blood Cells % 0 Laboratory test finding 05/31/2017 TSH (Thyroid Stim Horm) 1.79 mcIU/mL 0.34-5.60 Free T4 (Free Thyroxine) 1.06 ng/dL 0.61-1.12 Lipid Profile (Trig/Chol/HDL) 05/31/2017 Triglycerides 88 mg/dL 7 Cholesterol 191 mg/dL 8 HDL Cholesterol 72.5 mg/dL 9 LDL Cholesterol 101 mg/dL 10 CBC Auto Diff 07/05/2016 White Blood Count 7.6 10^3/uL 3.5-10.8 11 Red Blood Count 4.50 10^6/uL 4.0-5.4 11 Hemoglobin 14.3 g/dL 12.0-16.0 11 Hematocrit 43 % 35-47 11 Mean Corpuscular Volume 95 fL 80-97 11 Mean Corpuscular Hemoglobin 32 pg High 27-31 11 Mean Corpuscular HGB Conc 34 g/dL 31-36 11 Red Cell Distribution Width 14 % 10.5-15 11 Platelet Count 271 10^3/uL 150-450 11 Mean Platelet Volume 8 um3 7.4-10.4 11 Abs Neutrophils 4.9 10^3/uL 1.5-7.7 11 Abs Lymphocytes 1.9 10^3/uL 1.0-4.8 11 Abs Monocytes 0.6 10^3/uL 0-0.8 11 Abs Eosinophils 0.2 10^3/uL 0-0.6 11 Abs Basophils 0.1 10^3/uL 0-0.2 11 Abs Nucleated RBC 0.01 10^3/uL 11 Granulocyte % 63.9 % 38-83 11 Lymphocyte % 24.5 % Low 25-47 11 Monocyte % 7.4 % 1-9 11 Eosinophil % 3.2 % 0-6 11 Basophil % 1.0 % 0-2 11 Nucleated Red Blood Cells % 0.1 11 Laboratory test 07/05/2016 TSH (Thyroid Stim 0.97 mcIU/mL 0.34-5.60 11, 12 finding Horm) Vitamin D Total 25(Oh) 38.9 ng/mL 30-50 11, 13 Urinalysis Profile 10/02/2015 Urine Color Yellow 14 Urine Appearance Clear 14 Urine Specific [place] 1.008 Low 1.010-1.030 14 Urine pH 6.0 5-9 14 Urine Urobilinogen Negative Negative 14 Urine Ketones Negative Negative 14 Urine Protein Negative Negative 14 Urine Leukocytes Negative Negative 14 Urine Blood Negative Negative 14 * * Negative 14, 15 Urine Nitrite Negative Negative 14 Urine Bilirubin Negative Negative 14 Urine Glucose Negative Negative 14 Urine Culture And 10/02/2015 Urine Culture SEE RESULT BELOW 14, 16 Sensitivities Laboratory test finding 09/17/2015 Magnesium 2.2 mg/dL 1.9-2.7 TSH (Thyroid Stim Horm) 1.47 ?IU/mL 0.34-5.60 Vitamin B12 And Folate Serum 09/17/2015 Vitamin B12 500 pg/mL 180-914 17 Folic Acid (Folate) 16.82 ng/mL >3.99 Laboratory test finding 09/17/2015 Zinc Serum 0.77 g/mL 0.66-1.10 18 Basic Metabolic Panel 09/17/2015 Sodium 136 mmol/L 133-145 Potassium 4.3 mmol/L 3.5-5.0 Chloride 101 mmol/L 101-111 Co2 Carbon Dioxide 30 mmol/L 22-32 Anion Gap 5 mmol/L 2-11 Glucose 92 mg/dL 70-100 Blood Urea Nitrogen 18 mg/dL 6-24 Creatinine 0.63 mg/dL 0.51-0.95 BUN/Creatinine Ratio 28.6 High 8-20 Calcium 9.4 mg/dL 8.6-10.3 Egfr Non- 92.1 >60 Egfr 118.5 >60 19 Connective Tissue Panel 07/02/2015 Anti-Nuclear Antibody 0.2 U 20 Cyclic Citrullinated Peptide <15.6 U 21 Interpretation See Comment 22 Laboratory test finding 07/02/2015 Erythrocyte Sed Rate 10 mm/Hr 0-40 Lipid Profile (Trig/Chol/HDL) 02/26/2015 Triglycerides 60 mg/dL 23, 24 Cholesterol 198 mg/dL 23, 25 HDL Cholesterol 84.1 mg/dL 23, 26 LDL Cholesterol 102 mg/dL 23, 27 Comp Metabolic Panel 02/26/2015 Sodium 137 mmol/L 133-145 23 Potassium 4.9 mmol/L 3.5-5.0 23 Chloride 100 mmol/L Low 101-111 23 Co2 Carbon Dioxide 32 mmol/L 22-32 23 Anion Gap 5 mmol/L 2-11 23 Glucose 93 mg/dL 70-100 23 Blood Urea Nitrogen 14 mg/dL 6-24 23 Creatinine 0.62 mg/dL 0.51-0.95 23 BUN/Creatinine Ratio 22.6 High 8-20 23 Calcium 9.7 mg/dL 8.6-10.3 23 Total Protein 6.6 g/dL 6.4-8.9 23 Albumin 4.6 g/dL 3.2-5.2 23 Globulin 2.0 g/dL 2-4 23 Albumin/Globulin Ratio 2.3 1-3 23 Total Bilirubin 0.70 mg/dL 0.2-1.0 23 Alkaline Phosphatase 64 U/L 34-104 23 Alt < 3 U/L Low 7-52 23 Ast 16 U/L 13-39 23 Egfr Non- 93.8 >60 23 Egfr 120.7 >60 23, 28 Laboratory test finding 10/04/2014 Culture Throat SEE RESULT BELOW 29 Lipid Profile (Trig/Chol/HDL) 07/16/2013 Triglycerides 86 mg/dL 30 Cholesterol 188 mg/dL 31 HDL Cholesterol 75.4 mg/dL 32 LDL Cholesterol 95 mg/dL 33 Comp Metabolic Panel 07/16/2013 Sodium 137 mmol/L 133-145 Potassium 4.7 mmol/L 3.7-5.6 Chloride 102 mmol/L 101-111 Co2 Carbon Dioxide 32 mmol/L 22-32 Anion Gap 3 mmol/L 2-11 Glucose 95 mg/dL 70-100 Blood Urea Nitrogen 19 mg/dL 6-24 Creatinine 0.59 mg/dL 0.51-0.95 BUN/Creatinine Ratio 32.2 High 8-20 Calcium 9.6 mg/dL 8.6-10.3 Total Protein 6.5 g/dL 6.4-8.9 Albumin 4.6 g/dL 3.2-5.2 Globulin 1.9 g/dL Low 2-4 Albumin/Globulin Ratio 2.4 1-3 Total Bilirubin 0.60 mg/dL 0.2-1.0 Alkaline Phosphatase 44 U/L 34-104 Alt 5 U/L Low 7-52 Ast 20 U/L 13-39 Egfr Non- 99.9 >60 Egfr 128.5 >60 34 Vitamin D, 25 Hydroxy 07/16/2013 25-Hydroxy Vitamin D2 <4.0 ng/mL 25-Hydroxy Vitamin D3 44 ng/mL 25-Hydroxy Vitamin D Total 44 ng/mL 35 Cytology Non-Pharmaceutical Botanist 03/08/2013 Janae RUN DATE: 36 03/08/ <SEE NOTE> Laboratory test 03/05/2013 D Dimer Quantitative < 200 ng/mL Less Than 230 37 finding Urinalysis 02/08/2013 Urine Color Yellow Urine Appearance Clear Urine Specific [place] 1.022 1.010-1.030 Urine Esterase Negative Negative Urine Nitrate Negative Negative Urine Urobilinogen Negative E.U./dL Negative Urine Protein Negative mg/dL Negative Urine pH 6.0 5-9 Urine Blood Negative Negative Urine Ketones Negative mg/dL Negative Urine Bilirubin Negative Negative Urine Glucose Negative mg/dL Negative Urine Culture And 02/08/2013 Urine Culture (SEE NOTE) 38 Sensitivities Laboratory test finding 01/26/2013 TSH (Thyroid 1.10 miu/mL 0.34-5.60 Stimulating Horm) Free T4 0.95 ng/mL 0.61-1.24 Protime W/ Inr 12/25/2012 Prothrombin Time 15.2 Inr 1.3 Laboratory test finding 12/24/2012 Inr 1.13 High 0.87-0.97 39 Laboratory test finding 12/20/2012 Creatine Kinase 43 U/L 0-200 40 Troponin I 0 ng/mL 0-0.06 41 B Type Natriuretic Peptide 126.0 pg/mL High 0-100 Comp Metabolic Panel 12/20/2012 Sodium 135 mmol/L 133-145 Potassium 3.7 mmol/L 3.5-5.0 Chloride 100 mmol/L Low 101-111 Co2 Carbon Dioxide 30.0 mmol/L 22-32 Anion Gap 5.0 mmol/L 2-11 Glucose 107 mg/dL High 70-100 Blood Urea Nitrogen 12 mg/dL 6-24 Creatinine 0.50 mg/dL 0.50-1.40 BUN/Creatinine Ratio 24.0 High 8-20 Calcium 9.1 mg/dL 8.1-9.9 Total Protein 6.6 g/dL 6.2-8.1 Albumin 3.7 g/dL 3.2-5.2 Globulin 2.9 g/dL 2-4 Albumin/Globulin Ratio 1.3 1-3 Total Bilirubin 0.8 mg/dL 0.4-1.5 Alkaline Phosphatase 73 U/L 30-110 Alt 5 U/L Low 14-54 Ast 15 U/L 12-42 Egfr Non- 120.9 >60 Egfr 155.5 >60 42 Laboratory test finding 12/20/2012 Activated Partial 27.8 seconds 22.18- 37.18 43 Thrombo Time Inr/Protime 12/20/2012 Inr 0.94 0.87-0.97 CBC Auto Diff 12/20/2012 White Blood Count 9.2 10^3/uL 4.8-10.8 Red Blood Count 3.90 10^6/uL Low 4.0-5.4 Hemoglobin 12.0 g/dL 12.0-16.0 Hematocrit 37 % 35-47 Mean Corpuscular Volume 95 fL 80-97 Mean Corpuscular Hemoglobin 31 pg 27-31 Mean Corpuscular HGB Conc 32 g/dL 31-36 Red Cell Distribution Width 13 % 10.5-15 Platelet Count 242 10^3/uL 150-450 Mean Platelet Volume 8 um3 7.4-10.4 Abs Neutrophils 6.6 10^3/uL 1.5-7.7 Abs Lymphocytes 1.5 10^3/uL 1.0-4.8 Abs Monocytes 0.8 10^3/uL 0-0.8 Abs Eosinophils 0.2 10^3/uL 0-0.6 Abs Basophils 0.1 10^3/uL 0-0.2 Abs Nucleated RBC 0 10^3/uL Granulocyte % 72.0 % 38-83 Lymphocyte % 16.4 % Low 25-47 Monocyte % 8.6 % 1-9 Eosinophil % 2.2 % 0-6 Basophil % 0.8 % 0-2 Nucleated Red Blood Cells % 0 CBC Auto Diff 11/26/2012 White Blood Count 6.3 10^3/uL 4.8-10.8 Red Blood Count 4.04 10^6/uL 4.0-5.4 Hemoglobin 13.5 g/dL 12.0-16.0 Hematocrit 39 % 35-47 Mean Corpuscular Volume 95 fL 80-97 Mean Corpuscular Hemoglobin 33 pg High 27-31 Mean Corpuscular HGB Conc 35 g/dL 31-36 Red Cell Distribution Width 13 % 10.5-15 Platelet Count 267 10^3/uL 150-450 Mean Platelet Volume 8 um3 7.4-10.4 Abs Neutrophils 3.9 10^3/uL 1.5-7.7 Abs Lymphocytes 1.6 10^3/uL 1.0-4.8 Abs Monocytes 0.5 10^3/uL 0-0.8 Abs Eosinophils 0.3 10^3/uL 0-0.6 Abs Basophils 0.1 10^3/uL 0-0.2 Abs Nucleated RBC 0 10^3/uL Granulocyte % 61.3 % 38-83 Lymphocyte % 24.5 % Low 25-47 Monocyte % 8.0 % 1-9 Eosinophil % 5.4 % 0-6 Basophil % 0.8 % 0-2 Nucleated Red Blood Cells % 0 Comp Metabolic Panel 11/26/2012 Sodium 136 mmol/L 133-145 Potassium 4.1 mmol/L 3.5-5.0 Chloride 100 mmol/L Low 101-111 Co2 Carbon Dioxide 29.0 mmol/L 22-32 Anion Gap 7.0 mmol/L 2-11 Glucose 101 mg/dL High 70-100 Blood Urea Nitrogen 16 mg/dL 6-24 Creatinine 0.60 mg/dL 0.50-1.40 BUN/Creatinine Ratio 26.7 High 8-20 Calcium 9.3 mg/dL 8.1-9.9 Total Protein 6.6 g/dL 6.2-8.1 Albumin 3.8 g/dL 3.2-5.2 Globulin 2.8 g/dL 2-4 Albumin/Globulin Ratio 1.4 1-3 Total Bilirubin 0.5 mg/dL 0.4-1.5 Alkaline Phosphatase 45 U/L 30-110 Alt 11 U/L Low 14-54 Ast 26 U/L 12-42 Egfr Non- 98.0 >60 Egfr 126.0 >60 44 Laboratory test finding 11/26/2012 Troponin I 0 ng/mL 0-0.06 45 Urinalysis W/Microscopic 11/16/2012 Urine Color Yellow Urine Appearance Clear Urine Specific [place] 1.010 1.010-1.030 Urine Esterase Negative Negative Urine Nitrate Negative Negative Urine Urobilinogen Negative E.U./dL Negative Urine Protein Negative mg/dL Negative Urine pH 6.5 5-9 Urine Blood Negative Negative Urine Ketones Negative mg/dL Negative Urine Bilirubin Negative Negative Urine Glucose Negative mg/dL Negative Urine WBC None Seen None Seen Urine RBC None Seen None Seen Bacteria Urine None Seen None Seen Urine Culture And Sensitivities 11/16/2012 Urine Culture (SEE NOTE) 46 Ua Routine 11/16/2012 Ua Specific [place] 1.005 Ua PH 5 Ua Color yellow Ua Appera clear Ua WBC neg Ua Protein neg Ua Glucose neg Ua Ketones neg Ua Bilirubin neg Ua Urobilinogen neg Ua Nitrite neg Ua Occult Blood neg Lipid Profile (Trig/Chol/HDL) 08/11/2012 Triglycerides 58 mg/dL 40-200 Cholesterol 216 mg/dL High Less than 200 HDL Cholesterol 97 mg/dL High 40-60 47 Cholesterol/HDL Ratio 2.2 Average 1-4.44 LDL Cholesterol 107.4 mg/dL High Less Than 100 48 Comp Metabolic Panel 08/11/2012 Sodium 138 mmol/L 133-145 Potassium 4.5 mmol/L 3.5-5.0 Chloride 102 mmol/L 101-111 Co2 Carbon Dioxide 31.0 mmol/L 22-32 Anion Gap 5.0 mmol/L 2-11 Glucose 93 mg/dL 70-100 Blood Urea Nitrogen 15 mg/dL 6-24 Creatinine 0.60 mg/dL 0.50-1.40 BUN/Creatinine Ratio 25.0 High 8-20 Calcium 9.7 mg/dL 8.1-9.9 Total Protein 6.3 g/dL 6.2-8.1 Albumin 4.2 g/dL 3.2-5.2 Globulin 2.1 g/dL 2-4 Albumin/Globulin Ratio 2.0 1-3 Total Bilirubin 0.9 mg/dL 0.4-1.5 Alkaline Phosphatase 53 U/L 30-110 Alt 27 U/L 14-54 Ast 24 U/L 12-42 Egfr Non- 98.3 >60 Egfr 126.4 >60 49 Laboratory test finding 08/11/2012 Hemoglobin A1c 5.6 % Less than 6.0 50 Laboratory test finding 03/01/2012 C Reactive Protein < 0.5 mg/dL Less than 0.5 Erythrocyte Sed Rate 10 mm/Hr 0-40 CBC Auto Diff 03/01/2012 White Blood Count 7.0 10^3/uL 4.8-10.8 Red Blood Count 4.14 10^6/uL 4.0-5.4 Hemoglobin 13.2 g/dL 12.0-16.0 Hematocrit 40 % 35-47 Mean Corpuscular Volume 96 fL 80-97 Mean Corpuscular Hemoglobin 32 pg High 27-31 Mean Corpuscular HGB Conc 33 g/dL 31-36 Red Cell Distribution Width 12 % 10.5-15 Platelet Count 294 10^3/uL 150-450 Mean Platelet Volume 8 um3 7.4-10.4 Abs Neutrophils 3.6 10^3/uL 1.5-7.7 Abs Lymphocytes 2.2 10^3/uL 1.0-4.8 Abs Monocytes 0.6 10^3/uL 0-0.8 Abs Eosinophils 0.5 10^3/uL 0-0.6 Abs Basophils 0.1 10^3/uL 0-0.2 Abs Nucleated RBC 0.02 10^3/uL Granulocyte % 51.7 % 38-83 Lymphocyte % 32.2 % 25-47 Monocyte % 8.8 % 1-9 Eosinophil % 6.5 % High 0-6 Basophil % 0.8 % 0-2 Nucleated Red Blood Cells % 0.3 Urine Culture And Sensitivities 02/12/2012 Urine Culture (SEE NOTE) 51 Urinalysis 10/05/2011 Ua Color YELLOW Yellow Appearance-Urine CLEAR Clear Specific [place]-Ur 1.026 1.010-1.030 Esterase-Urine NEGATIVE Negative Nitrite NEGATIVE Negative [id number] NEGATIVE Negative Protein-Urine NEGATIVE Negative PH-Urine 5.5 5-9 Blood-Urine NEGATIVE Negative Ketones-Urine TRACE Negative Bilirubin-Ur NEGATIVE Negative Glucose-Urine NEGATIVE Negative Urine Culture & 10/05/2011 M <SEE 52 Sensitivi NOTE> Laboratory test 09/20/2011 Lyme Disease Negative Negative 53 finding Serology Laboratory test 08/30/2011 Hemoglobin A1c 5.9 5-7 finding Lipid Profile 08/09/2011 Triglyceride 90 mg/dL 40-200 (Trig/Chol/HDL) Cholesterol 211 mg/dL High Less Than 200 54 High Density Lipoprotein 92 mg/dL High 40-60 55 Cholesterol/HDL Ratio 2.29 AVERAGE 1-4.44 Low Density Lipoprotein 101 mg/dL High Less Than 100 56 Comp Metabolic Panel 08/09/2011 Sodium 135 mmol/L 135-145 Potassium 4.7 mmol/L 3.5-5.0 Chloride 101 mmol/L 101-111 Co2 (Carbon Dioxide) 29.0 mmol/L 22-32 Anion Gap 5.0 mmol/L 2-11 57 Glucose 110 mg/dL High 70-100 BUN 16 mg/dL 6-24 Creatinine 0.9 mg/dL 0.50-1.40 One Over Creatinine 1.11 BUN/Creatinine Ratio 17.8 8-20 Calcium 9.8 mg/dL 8.1-9.9 Total Protein 6.8 GM/DL 6.2-8.1 Albumin 4.8 GM/DL 3.2-5.2 Globulin 2.0 GM/DL 2-4 Albumin/Globulin Ratio 2.4 1-3 Bilirubin Total 0.8 mg/dL 0.4-1.5 58 Alkaline Phosphatase 58 U/L 30-110 Alt (SGPT) 5 U/L Low 14-54 Ast (Sgot) 17 U/L 12-42 eGFR Non- 61.7 > 60 eGFR 79.4 > 60 59 Laboratory test finding 10/12/2010 Ast (Sgot) 18 U/L 12-42 Alt (SGPT) 7 U/L Low 14-54 Lipid Profile (Trig/Chol/HDL) 10/12/2010 Triglyceride 79 mg/dL 40-200 Cholesterol 205 mg/dL High Less Than 200 60 High Density Lipoprotein 91 mg/dL High 40-60 61 Cholesterol/HDL Ratio 2.25 AVERAGE 1-4.44 Low Density Lipoprotein 98 mg/dL Less Than 100 62 Laboratory test finding 07/20/2010 BUN 16 mg/dL 6-24 Creatinine 07/20/2010 Creatinine 0.70 mg/dL 0.50-1.40 One Over Creatinine 1.40 eGFR Non- 82.7 > 60 eGFR 106.4 > 60 63 Urinalysis 07/03/2010 Ua Color YELLOW Yellow Appearance-Urine CLEAR Clear Specific [place]-Ur 1.003 Low 1.010-1.030 Esterase-Urine NEGATIVE Negative Nitrite NEGATIVE Negative [id number] NEGATIVE Negative Protein-Urine NEGATIVE Negative PH-Urine 6.5 5-9 Blood-Urine NEGATIVE Negative Ketones-Urine NEGATIVE Negative Bilirubin-Ur NEGATIVE Negative Glucose-Urine NEGATIVE Negative Urine Culture & Sensitivi 07/03/2010 Urine Culture Sensitivi NG 64 Lipid Profile 03/06/2010 Triglyceride 95 mg/dL 40-200 (Trig/Chol/HDL) Cholesterol 215 mg/dL High Less Than 200 65 High Density Lipoprotein 98 mg/dL High 40-60 66 Cholesterol/HDL Ratio 2.19 AVERAGE 1-4.44 Low Density Lipoprotein 98 mg/dL Less Than 100 67 Liver Function Panel 03/06/2010 Total Protein 5.8 GM/DL Low 6.2-8.1 Albumin 4.0 GM/DL 3.2-5.2 Globulin 1.8 GM/DL Low 2-4 Albumin/Globulin Ratio 2.2 1-3 Bilirubin Total 0.8 mg/dL 0.4-1.5 68 Bilirubin Direct 0.1 mg/dL 0.1-0.5 Indirect Bilirubin 0.7 mg/dL 0.3-1.0 69 Alkaline Phosphatase 59 U/L 30-110 Alt (SGPT) 17 U/L 14-54 Ast (Sgot) 20 U/L 12-42 Laboratory test finding 03/06/2010 TSH 2.40 MIU/ML 0.34-5.60 Hemoglobin A1c 5.9 % Less Than 6.0 70 CBC With Electronic Diff 01/28/2010 White Blood Count 6.3 CUMM 4.8-10.8 Red Cell Count 4.32 CUMM 4.2-5.4 Hemoglobin 14.1 g/dL 12.0-16.0 Hematocrit 41 % 35-47 Mean Corpuscular Volume 95 um3 79-97 Mean Corpuscular Hemoglob 33 pg High 27-31 Mean Corpuscular HGB Cone 34 g/dL 32-36 Redcell Distribution WDTH 14 % 10.5-15 Platelet Count 313 CUMM 150-450 Mean Platelet Volume 6.5 um3 Low 7.4-10.4 Gran % 47.7 % 38-83 Lymph % 37.6 % 25-47 Mononuclear % 7.7 % 1-9 Eosinophil % 6.0 % 0-6 Basophil % 1.0 % 0-2 Abs Lymphs 2.4 1.0-4.8 Abs Mononuclear 0.5 0-0.8 Absolute Neutrophil Count 3.0 1.5-7.7 Abs Eosinophils 0.4 0-0.6 Abs Basophils 0.1 0-0.2 Comp Metabolic Panel 01/28/2010 Sodium 138 mmol/L 135-145 Potassium 3.7 mmol/L 3.5-5.0 Chloride 100 mmol/L Low 101-111 Co2 (Carbon Dioxide) 32.0 mmol/L 22-32 Anion Gap 6.0 mmol/L 2-11 71 Glucose 95 mg/dL 70-100 72 BUN 17 mg/dL 6-24 Creatinine 0.56 mg/dL 0.50-1.40 One Over Creatinine 1.70 BUN/Creatinine Ratio 30.4 High 8-20 Calcium 9.6 mg/dL 8.1-9.9 Total Protein 6.8 GM/DL 6.2-8.1 Albumin 4.3 GM/DL 3.2-5.2 Globulin 2.5 GM/DL 2-4 Albumin/Globulin Ratio 1.7 1-3 Bilirubin Total 0.6 mg/dL 0.4-1.5 73 Alkaline Phosphatase 53 U/L 30-110 Alt (SGPT) 6 U/L Low 14-54 Ast (Sgot) 23 U/L 12-42 eGFR Non- 113.7 > 60 eGFR 137.6 > 60 74 Laboratory test finding 01/28/2010 Troponin-I 0 NG/ML 0-0.06 75 Protime 01/28/2010 Inr 0.91 0.82-1.17 76 Protime 10.7 SEC 10.2-14.8 77 Laboratory test finding 01/28/2010 PTT (Aptt) 27.7 25.15-38.53 D Dimer Quantitative < 200 Less Than 230 CBC With Electronic Diff 11/19/2009 White Blood Count 5.7 CUMM 4.8-10.8 Red Cell Count 3.83 CUMM Low 4.2-5.4 Hemoglobin 12.5 g/dL 12.0-16.0 Hematocrit 36 % 35-47 Mean Corpuscular Volume 95 um3 79-97 Mean Corpuscular Hemoglob 33 pg High 27-31 Mean Corpuscular HGB Cone 35 g/dL 32-36 Redcell Distribution WDTH 13 % 10.5-15 Platelet Count 217 CUMM 150-450 Mean Platelet Volume 6.4 um3 Low 7.4-10.4 Gran % 66.3 % 38-83 Lymph % 19.5 % Low 25-47 Mononuclear % 11.7 % High 1-9 Eosinophil % 2.0 % 0-6 Basophil % 0.5 % 0-2 Abs Lymphs 1.1 1.0-4.8 Abs Mononuclear 0.7 0-0.8 Absolute Neutrophil Count 3.7 1.5-7.7 Abs Eosinophils 0.1 0-0.6 Abs Basophils 0 0-0.2 78 Comp Metabolic Panel 11/19/2009 Sodium 132 mmol/L Low 135-145 Potassium 3.9 mmol/L 3.5-5.0 Chloride 100 mmol/L Low 101-111 Co2 (Carbon Dioxide) 29.0 mmol/L 22-32 Anion Gap 3.0 mmol/L 2-11 79 Glucose 97 mg/dL 70-100 80 BUN 14 mg/dL 6-24 Creatinine 0.56 mg/dL 0.50-1.40 One Over Creatinine 1.70 BUN/Creatinine Ratio 25.0 High 8-20 Calcium 8.5 mg/dL 8.1-9.9 81 Total Protein 6.2 GM/DL 6.2-8.1 Albumin 3.7 GM/DL 3.2-5.2 Globulin 2.5 GM/DL 2-4 Albumin/Globulin Ratio 1.5 1-3 Bilirubin Total 0.7 mg/dL 0.4-1.5 82 Alkaline Phosphatase 53 U/L 30-110 Alt (SGPT) 4 U/L Low 14-54 Ast (Sgot) 18 U/L 12-42 eGFR Non- 113.7 > 60 eGFR 137.6 > 60 83 Laboratory test finding 11/19/2009 D Dimer Quantitative < 200 Less Than 230 Urinalysis W/Microscopic 08/06/2009 Ua Color YELLOW Yellow Appearance-Urine CLEAR Clear Specific [place]-Ur 1.021 1.010-1.030 Esterase-Urine NEGATIVE Negative Nitrite NEGATIVE Negative [id number] NEGATIVE Negative Protein-Urine NEGATIVE Negative PH-Urine 7.0 5-9 Blood-Urine NEGATIVE Negative Ketones-Urine TRACE Negative Bilirubin-Ur NEGATIVE Negative Glucose-Urine NEGATIVE Negative WBC-Urine RARE 0-5 RBC-Urine NONE SEEN 0-2 Epith Cells-Ur SMALL None Bacteria-Urine 1+ None CBC With Electronic Diff 07/21/2009 White Blood Count 5.8 CUMM 4.8-10.8 Red Cell Count 4.18 CUMM Low 4.2-5.4 Hemoglobin 13.6 g/dL 12.0-16.0 Hematocrit 40 % 35-47 Mean Corpuscular Volume 95 um3 79-97 Mean Corpuscular Hemoglob 33 pg High 27-31 Mean Corpuscular HGB Cone 34 g/dL 32-36 Redcell Distribution WDTH 13 % 10.5-15 Platelet Count 267 CUMM 150-450 Mean Platelet Volume 7.7 um3 7.4-10.4 Gran % 60.2 % 38-83 Lymph % 28.0 % 25-47 Mononuclear % 7.0 % 1-9 Eosinophil % 4.1 % 0-6 Basophil % 0.7 % 0-2 Abs Lymphs 1.6 1.0-4.8 Abs Mononuclear 0.4 0-0.8 Absolute Neutrophil Count 3.5 1.5-7.7 Abs Eosinophils 0.2 0-0.6 Abs Basophils 0 0-0.2 Lipid Profile (Trig/Chol/HDL) 07/21/2009 Triglyceride 68 mg/dL 40-200 Cholesterol 207 mg/dL High Less Than 200 84 High Density Lipoprotein 89 mg/dL High 40-60 85 Cholesterol/HDL Ratio 2.33 AVERAGE 1-4.44 Low Density Lipoprotein 104 mg/dL High Less Than 100 86 Comp Metabolic Panel 07/21/2009 Sodium 141 mmol/L 135-145 Potassium 4.8 mmol/L 3.5-5.0 Chloride 106 mmol/L 101-111 Co2 (Carbon Dioxide) 30.0 mmol/L 22-32 Anion Gap 5.0 mmol/L 2-11 87 Glucose 102 mg/dL High 70-100 88 BUN 11 mg/dL 6-24 Creatinine 0.70 mg/dL 0.50-1.40 One Over Creatinine 1.40 BUN/Creatinine Ratio 15.7 8-20 Calcium 9.7 mg/dL 8.1-9.9 89 Total Protein 6.0 GM/DL Low 6.2-8.1 Albumin 4.2 GM/DL 3.2-5.2 Globulin 1.8 GM/DL Low 2-4 Albumin/Globulin Ratio 2.3 1-3 Bilirubin Total 0.9 mg/dL 0.4-1.5 90 Alkaline Phosphatase 47 U/L 30-110 Alt (SGPT) 8 U/L Low 14-54 Ast (Sgot) 21 U/L 12-42 eGFR Non- 88.2 > 60 eGFR 106.7 > [address] Griffin's Lab Panel 07/21/2009 TSH 1.31 MIU/ML 0.34-5.60 Laboratory test finding 01/08/2009 CPK (Creatine Kinase) 105 U/L 0-170 Lipid Profile 12/25/2008 Triglyceride 72 mg/dL 40-200 (Trig/Chol/HDL) Cholesterol 216 mg/dL High Less Than 200 92 High Density Lipoprotein 92 mg/dL High 40-60 93 Cholesterol/HDL Ratio 2.35 AVERAGE 1-4.44 Low Density Lipoprotein 110 mg/dL High Less Than 100 94 Liver Function Panel 12/25/2008 Total Protein 6.6 GM/DL 6.2-8.1 Albumin 4.4 GM/DL 3.2-5.2 Globulin 2.2 GM/DL 2-4 Albumin/Globulin Ratio 2.0 1-3 Bilirubin Total 0.9 mg/dL 0.4-1.5 95 Bilirubin Direct 0.1 mg/dL 0.1-0.5 Indirect Bilirubin 0.8 mg/dL High 0.1-0.75 Alkaline Phosphatase 52 U/L 30-110 Alt (SGPT) 8 U/L Low 14-54 Ast (Sgot) 21 U/L 12- Lipid Profile (Trig/Chol/HDL) 06/24/2008 Triglyceride 92 mg/dL 40-200 Cholesterol 226 mg/dL High Less Than 200 96 High Density Lipoprotein 93 mg/dL High 40-60 97 Cholesterol/HDL Ratio 2.43 AVERAGE 1-4.44 Low Density Lipoprotein 115 mg/dL High Less Than 100 98 Laboratory test finding 06/24/2008 Alt (SGPT) 13 U/L Low 14-54 Ast (Sgot) 20 U/L 12 Liver Function Panel 04/12/2008 Total Protein 6.1 GM/DL Low 6.2-8.1 Albumin 4.2 GM/DL 3.2-5.2 Globulin 1.9 GM/DL Low 2-4 Albumin/Globulin Ratio 2.2 1-3 Bilirubin Total 0.7 mg/dL 0.4-1.5 Bilirubin Direct 0.1 mg/dL 0.1-0.5 Indirect Bilirubin 0.6 mg/dL 0.1-0.75 Alkaline Phosphatase 45 U/L 30-110 Alt (SGPT) 21 U/L 14-54 Ast (Sgot) 22 U/L 12- Lipid Profile (Trig/Chol/HDL) 04/12/2008 Triglyceride 90 mg/dL 40-200 Cholesterol 245 mg/dL High Less Than 200 99 High Density Lipoprotein 99 mg/dL High 40-60 100 Cholesterol/HDL Ratio 2.47 AVERAGE 1-4.44 Low Density Lipoprotein 128 mg/dL High Less Than 100 101 CBC With Electronic Diff 02/21/2008 White Blood Count 7.3 CUMM 4.8-10.8 102 Red Cell Count 4.21 CUMM 4.2-5.4 102 Hemoglobin 13.4 g/dL 12.0-16.0 102 Hematocrit 40 % 35-47 102 Mean Corpuscular Volume 94 um3 79-97 102 Mean Corpuscular Hemoglob 32 pg High 27-31 102 Mean Corpuscular HGB Cone 34 g/dL 32-36 102 Redcell Distribution WDTH 13 % 10.5-15 102 Platelet Count 292 CUMM 150-450 102 Mean Platelet Volume 8.1 um3 7.4-10.4 102 Gran % 62.4 % 38-83 102 Lymph % 26.6 % 25-47 102 Mononuclear % 5.8 % 1-9 102 Eosinophil % 4.6 % 0-6 102 Basophil % 0.6 % 0-2 102 Abs Lymphs 1.9 1.0-4.8 102 Abs Mononuclear 0.4 0-0.8 102 Absolute Neutrophil Count 4.5 1.5-7.7 102 Abs Eosinophils 0.3 0-0.6 102 Abs Basophils 0 0-0.2 102 Laboratory test finding 02/21/2008 CPK (Creatine Kinase) 91 U/L 0-170 102 Iron & Iron Binding Capacity 02/21/2008 Iron Total 83 g/dL 28-170 102 Unsaturated Iron Binding 237 g/dL 102 Total Iron Binding Capacity 320 g/dL 250-450 102 % Iron Saturation 26 % 15-55 102 Thyroxine Free 02/21/2008 Free Thyroxine 0.73 NG/ML 0.61-1.24 102, 103 Laboratory test finding 02/21/2008 TSH 0.78 MIU/ML 0.34-5.60 102 Lipid Profile 01/22/2008 Triglyceride 64 mg/dL 40-200 104 (Trig/Chol/HDL) Cholesterol 204 mg/dL High Less Than 200 104, 105 High Density Lipoprotein 80 mg/dL High 40-60 104, 106 Cholesterol/HDL Ratio 2.55 AVERAGE 1-4.44 104 Low Density Lipoprotein 111 mg/dL High Less Than 100 104, 107 Laboratory test finding 01/22/2008 Alt (SGPT) 23 U/L 14-54 104 Ast (Sgot) 21 U/L 12-42 104 Lipid Profile (Trig/Chol/HDL) 10/04/2007 Triglyceride 103 mg/dL 40-200 108 Cholesterol 191 mg/dL Less Than 200 108, 109 High Density Lipoprotein 75 mg/dL High 40-60 108, 110 Cholesterol/HDL Ratio 2.55 AVERAGE 1-4.44 108 Low Density Lipoprotein 95 mg/dL Less Than 100 108, 111 Laboratory test finding 10/04/2007 Alt (SGPT) 20 U/L 14-54 108 Ast (Sgot) 29 U/L 12-42 108 CBC W/ Electronic Diff 09/29/2006 White Blood Count 5.7 CUMM 4.8-10.8 112 Abs Basophils 0.1 0-0.2 112 Abs Eosinophils 0.3 0-0.6 112 Absolute Neutrophil Count 3.4 1.5-7.7 112 Abs Lymphs 1.4 1.0-4.8 112 Abs Mononuclear 0.5 0-0.8 112 Basophil % 1.0 % 0-2 112 Hematocrit 40 % 35-47 112 Hemoglobin 13.7 g/dL 12.0-16.0 112 Eosinophil % 5.7 % 0-6 112 Gran % 60.0 % 38-83 112 Lymph % 25.1 % 20-45 112 Mean Corpuscular HGB Cone 34 g/dL 32-36 112 Mean Corpuscular Hemoglob 31 pg 27-31 112 Mean Corpuscular Volume 91 um3 79-97 112 Mean Platelet Volume 8.5 um3 7.4-10.4 112 Mononuclear % 8.2 % 1-9 112 Platelet Count 286 CUMM 150-450 112 Red Cell Count 4.41 CUMM 4.2-5.4 112 Redcell Distribution WDTH 13 % 10.5-15 112 Comp Metabolic Panel 09/29/2006 One Over Creatinine 1.42 112 Anion Gap 7.0 mmol/L 2-11 112, 113 Albumin/Globulin Ratio 2.6 1-3 112 Albumin 4.4 GM/DL 3.2-5.2 112 Alkaline Phosphatase 60 U/L 30-110 112 Alt (SGPT) 8 U/L Low 14-54 112 Ast (Sgot) 21 U/L 12-42 112 BUN 13 mg/dL 6-24 112 Calcium 9.0 mg/dL 8.7-10.2 112 Chloride 101 mmol/L 101-111 112 Co2 (Carbon Dioxide) 32.0 mmol/L 22-32 112 Globulin 1.7 GM/DL Low 2-4 112 Glucose 91 mg/dL 70-105 112 Potassium 5.1 mmol/L High 3.5-5.0 112 Sodium 140 mmol/L 135-145 112 Bilirubin Total 0.7 mg/dL 0.4-1.5 112 Total Protein 6.1 GM/DL Low 6.2-8.1 112 BUN/Creatinine Ratio 18.6 8-20 112 Creatinine 0.7 mg/dL 0.5-1.4 112 Lipid Profile 09/29/2006 Cholesterol/HDL Ratio 2.76 AVERAGE 1-4.44 112 (Trig/Chol/HDL) Cholesterol 188 mg/dL Less Than 200 112, 114 Triglyceride 91 mg/dL 40-200 112 High Density Lipoprotein 68 mg/dL High 40-60 112, 115 Low Density Lipoprotein 102 mg/dL High Less Than 100 112, 116 Laboratory test finding 09/29/2006 TSH 0.72 MIU/ML 0.34-5.60 112 1 Because ethnic data is not always readily available, this report includes an eGFR for both -Americans and non- Americans. The National Kidney Disease Education Program (NKDEP) does not endorse the use of the MDRD equation for patients that are not between the ages of 18 and 70, are , have extremes of body size, muscle mass, or nutritional status, or are non- or non-. According to the National Kidney Foundation, irrespective of diagnosis, the stage of the disease is based on the level of kidney function: Stage Description GFR(mL/min/1.73 m(2)) 1 Kidney damage with normal or decreased GFR 90 2 Kidney damage with mild decrease in GFR 60-89 3 Moderate decrease in GFR 30-59 4 Severe decrease in GFR 15-29 5 Kidney failure <15 (or dialysis) 2 *Ascorbic acid is present which may interfere with detection of blood. 3 SEE RESULT BELOW Name: MARLEN MEANS Juan : [address]: Riya Calderon MD Acct: [id number] Unit: [id number] AGE: 77 Location: [facility] Re11/30/17 SEX: F Status: REG REF SPEC: [id number] KELLY: 11/30/17-1055 [facility] DR: Riya Calderon MD REQ: [id number] RECD: 11/30/17 STATUS: JOHN MCCAIN DR: Carmen Griffin III, MD _ SOURCE: URINE SPDESC: ORDERED: Urine Culture QUERIES: Urine Source: Random Procedure Result Reported Site Urine Culture Final 12/01/17- 907 ML No growth of clinically significant organisms * ML - Main Lab . END OF REPORT DEPARTMENT OF PATHOLOGY, [address] [place] [address] Master Khan M.D. Director [facility] # [id number] 4 SEE RESULT BELOW Name: MARLEN MEANS Juan : [address]: Eveline De La Cruz NP Acct: [id number] Unit: [id number] AGE: 76 Location: [facility] Re09/08/17 SEX: F Status: REG REF SPEC: [id number] KELLY: 09/08/17-[address]: Eveline De La Cruz NP REQ: [id number] RECD: 09/08/17-1141 EXPLICIT FAX#: [id number] STATUS: JOHN MCCAIN DR: Pili Camacho SOURCE: URINE SPDESC: ORDERED: Urine Culture COMMENTS: [id number] Urine Source: Random Procedure Result Reported Site Urine Culture Final 09/09/17- 1204 ML No Growth (<1,000 CFU/mL) * ML - Main Lab . END OF REPORT DEPARTMENT OF PATHOLOGY, [address] [place] [address] Master Khan M.D. Director [facility] # [id number] 5 Because ethnic data is not always readily available, this report includes an eGFR for both -Americans and non- Americans. The National Kidney Disease Education Program (NKDEP) does not endorse the use of the MDRD equation for patients that are not between the ages of 18 and 70, are , have extremes of body size, muscle mass, or nutritional status, or are non- or non-. According to the National Kidney Foundation, irrespective of diagnosis, the stage of the disease is based on the level of kidney function: Stage Description GFR(mL/min/1.73 m(2)) 1 Kidney damage with normal or decreased GFR 90 2 Kidney damage with mild decrease in GFR 60-89 3 Moderate decrease in GFR 30-59 4 Severe decrease in GFR 15-29 5 Kidney failure <15 (or dialysis) 6 Acute inflammation: >10.00 7 Desirable: <150 Borderline High: 150-199 High: 200-499 Very High: >500 8 Desirable: <200 Borderline High: 200-239 High: >239 9 Low: <40 Desirable: 40-60 High: >60 10 Desirable: <100 Near Optimal: 100-129 Borderline High: 130-159 High: 160-189 Very High: >189 11 [id number] 12 [id number] 13 [id number] 15 *Ascorbic acid is present which may interfere with detection of blood. 16 SEE RESULT BELOW Name: MARLEN MEANS : [address]: Eveline De La Cruz NP Acct: [id number] Unit: [id number] AGE: 74 Location: [facility] Re10/02/15 SEX: F Status: REG REF SPEC: [id number] KELLY: 10/02/15-999 [facility] DR: Eveline De La Cruz NP REQ: [id number] RECD: 10/02/15 STATUS: JOHN MCCAIN DR: Pili Camacho SOURCE: URINE SPDESC: ORDERED: Urine Culture COMMENTS: [id number] Procedure Result Reported Site Urine Culture Final 10/04/15- 1102 ML No Growth (<1,000 CFU/mL) * ML - MAIN LAB ([facility]) . END OF REPORT * ML=Testing performed at Main Lab DEPARTMENT OF PATHOLOGY, [address] [place] [address] Master Khan M.D. Director [facility] # [id number] 17 Normal Range 180 to 914 Indeterminate Range 145 to 180 Deficient Range <145 18 Test Performed by: [place] [address] Information Technology Intern: Ion Monteiro II, M.D., Ph.D. 19 Because ethnic data is not always readily available, this report includes an eGFR for both -Americans and non- Americans. The National Kidney Disease Education Program (NKDEP) does not endorse the use of the MDRD equation for patients that are not between the ages of 18 and 70, are , have extremes of body size, muscle mass, or nutritional status, or are non- or non-. According to the National Kidney Foundation, irrespective of diagnosis, the stage of the disease is based on the level of kidney function: Stage Description GFR(mL/min/1.73 m(2)) 1 Kidney damage with normal or decreased GFR 90 2 Kidney damage with mild decrease in GFR 60-89 3 Moderate decrease in GFR 30-59 4 Severe decrease in GFR 15-29 5 Kidney failure <15 (or dialysis) 20 REFERENCE VALUE <=1.0 (Negative) 21 REFERENCE VALUE <20.0 (Negative) 22 Tests for antibodies to dsDNA and JAMIE antigens are not performed automatically unless the RADHA result is > or= 3.0 U. Studies performed at [facility] indicate that positive RADHA results <3.0 U are rarely accompanied by positive second order tests. Test Performed by: [facility] - [address] [address] Information Technology Intern: Ion Monteiro II, M.D., Ph.D. 23 FASTING 10 HOUR 24 Desirable <150 Borderline high 150-199 High 200-499 Very High >500 25 Desirable <200 Borderline high 200-239 High >239 26 Low <40 Desirable: 40-60 High: >60 27 Desirable: <100 mg/dL Near Optimal: 100-129 mg/dL Borderline High: 130-159 mg/dL High: 160-189 mg/dL Very High: >189 mg/dL 28 Because ethnic data is not always readily available, this report includes an eGFR for both -Americans and non- Americans. The National Kidney Disease Education Program (NKDEP) does not endorse the use of the MDRD equation for patients that are not between the ages of 18 and 70, are , have extremes of body size, muscle mass, or nutritional status, or are non- or non-. According to the National Kidney Foundation, irrespective of diagnosis, the stage of the disease is based on the level of kidney function: Stage Description GFR(mL/min/1.73 m(2)) 1 Kidney damage with normal or decreased GFR 90 2 Kidney damage with mild decrease in GFR 60-89 3 Moderate decrease in GFR 30-59 4 Severe decrease in GFR 15-29 5 Kidney failure <15 (or dialysis) 29 SEE RESULT BELOW Name: MARLEN MEANS : [address]: Eveline De La Cruz NP Acct: [id number] Unit: [id number] AGE: 73 Location: [facility] Re10/04/14 SEX: F Status: REG REF SPEC: [id number] KELLY: 10/04/14-151 [facility] DR: Eveline De La Cruz NP REQ: [id number] RECD: 10/04/14 STATUS: JOHN MCCAIN DR: Pili _ SOURCE: THROAT SPDESC: ORDERED: Throat Culture Procedure Result Verified Site Throat Culture Final 10/06/14- 0817 ML Organism 1 NORMAL NICOLE Quantity 3+ Throat cultures are clinically indicated to detect the presence of group A strep, arcanobacterium and yeast. In certain cases, predominating organisms will be reported. * ML - [facility] ([facility]) . END OF REPORT * ML=Testing performed at [facility] DEPARTMENT OF PATHOLOGY, [address] [place] [address] Master Khan M.D. Director [facility] # [id number] 30 Desirable <150 Borderline high 150-199 High 200-499 Very High >500 31 Desirable <200 Borderline high 200-239 High >239 32 Low <40 Desirable: 40-60 High: >60 33 Desirable <100 Near Optimal 100-129 Borderline high 130-159 High 160-189 Very High >189 34 Because ethnic data is not always readily available, this report includes an eGFR for both -Americans and non- Americans. The National Kidney Disease Education Program (NKDEP) does not endorse the use of the MDRD equation for patients that are not between the ages of 18 and 70, are , have extremes of body size, muscle mass, or nutritional status, or are non- or non-. According to the National Kidney Foundation, irrespective of diagnosis, the stage of the disease is based on the level of kidney function: Stage Description GFR(mL/min/1.73 m(2)) 1 Kidney damage with normal or decreased GFR 90 2 Kidney damage with mild decrease in GFR 60-89 3 Moderate decrease in GFR 30-59 4 Severe decrease in GFR 15-29 5 Kidney failure <15 (or dialysis) 35 -- REFERENCE VALUE -- 25-HYDROXY D TOTAL (D2+D3) Optimum levels in the healthy population are 20-50, patients with bone disease may benefit from higher levels within this range. Test Performed by: [address] [address] Information Technology Intern: Harish Kwok III, M.D. 36 RUN DATE: 03/08/13 [facility] LAB LIVE PAGE 1 RUN TIME: [address] [facility] [place], [place] [address] Specimen Inquiry Name: MARLEN MEANS : [address]: Giuliano Dawson MD Acct: [id number] Unit: [id number] AGE: 72 Location: [facility]ROID Re03/08/13 SEX: F Status: REG REF SPEC: [id number] KELLY: 03/08/13- SUBM DR: Giuliano Dawson MD REQ: [id number] RECD: 03/08/1333 STATUS: MAHAMED MCCAIN DR: Darrel Griffin III, MD _ ORDERED: FN ASP DEEP, FNA IMMEDIATE S FINAL DIAGNOSIS RIGHT THYROID, Ultrasound guided, fine needle aspiration: Benign thyroid nodule: Colloid/ Involutional type (see comment). COMMENTS: The specimen demonstrates moderate watery colloid, a modest amount of benign appearing follicular epithelium arranged in uniform sheets, medium sized follicles and only occasional small groups. No features of papillary carcinoma are seen. In this clinical setting the risk of malignancy is less than 3%. Clinical management of this thyroid nodule should be based on clinical and radiographic features as well as the above. THYROID RIGHT - US GUIDED FINE NEEDLE ASPIRATION CLINICAL HISTORY Right thyroid nodule mid pole 1.1 cm CONTINUED ON NEXT PAGE * ML=Testing performed at Main Lab DEPARTMENT OF PATHOLOGY, [facility] [place], [place] [address] Master Khna M.D. Director [facility] Permit #[id number] RUN DATE: 03/08/13 [facility] LAB LIVE PAGE 2 RUN TIME: [address] [facility] [place], [place] [address] Specimen Inquiry Patient: MARLEN MEANS [id number] (Continued) IMMEDIATE INTERPRETATION (Continued) IMMEDIATE INTERPRETATION Pass 1 + 2- both adequate GROSS DESCRIPTION Ultrasound guided, fine needle aspiration Passes-2 Slides-7 Needle rinse in CytoLyt solution for thin layer non-bilingual operator test. Signed (signature on file) Usha Gandara MD 1113 END OF REPORT * ML=Testing performed at Main Lab DEPARTMENT OF PATHOLOGY, [facility] [place], [place] [address] Master Khan M.D. Director [facility] Permit #[id number] 37 Please note: The following may produce a false positive D Dimer test: - Rheumatoid factor greater than 60 IU/ml - Plasma hemoglobin greater than 0.05 gm/dl - Bilirubin greater than 50 mg/dl - Lipids greater than 1000 mg/dl - FDP greater than 20 ug/ml 38 RUN DATE: 02/10/13 [facility] LAB LIVE PAGE 1 RUN TIME: [address] [place] [address] Specimen Inquiry Name: MARLEN MEANS : [address]: Blossom Mann Acct: [id number] Unit: [id number] AGE: 72 Location: [facility] Re02/08/13 SEX: F Status: REG REF SPEC: [id number] KELLY: 02/08/13 [facility] DR: Blossom Jaimes RIVET HOLE MACHINE OPERATOR REQ: [id number] RECD: 02/08/13 STATUS: JOHN MCCAIN DR: Pili _ SOURCE: URINE SPDESC: ORDERED: Urine Culture Procedure Result Verified Site Urine Culture Final 02/10/13- 0953 ML Organism 1 NORMAL NICOLE [place] Count 1-10,000 (Few) CFU/ML END OF REPORT * ML=Testing performed at Main Lab DEPARTMENT OF PATHOLOGY, [address] [place] [address] Master Khan M.D. Director [facility] Permit #[id number] RESULTS TO DR. GABY ROWLAND ON OR BEFORE Tuesday12/25/12- PER ORDER -[id number] Comment: b Comment: d Comment: s 41 Reference Range and Interpretation: TnI (ng/mL) Interpretation Less Than 0.06 ng/mL Not supportive of diagnosis of [place] 0.06 - 0.50 ng/mL Indeterminate: suggest serial studies if clinically indicated. Greater than 0.5 ng/mL Consistent with diagnosis of [place] 42 Because ethnic data is not always readily available, this report includes an eGFR for both -Americans and non- Americans. The National Kidney Disease Education Program (NKDEP) does not endorse the use of the MDRD equation for patients that are not between the ages of 18 and 70, are , have extremes of body size, muscle mass, or nutritional status, or are non- or non-. According to the National Kidney Foundation, irrespective of diagnosis, the stage of the disease is based on the level of kidney function: Stage Description GFR(mL/min/1.73 m(2)) 1 Kidney damage with normal or decreased GFR 90 2 Kidney damage with mild decrease in GFR 60-89 3 Moderate decrease in GFR 30-59 4 Severe decrease in GFR 15-29 5 Kidney failure <15 (or dialysis) 43 Comment: n Comment: d 44 Because ethnic data is not always readily available, this report includes an eGFR for both -Americans and non- Americans. The National Kidney Disease Education Program (NKDEP) does not endorse the use of the MDRD equation for patients that are not between the ages of 18 and 70, are , have extremes of body size, muscle mass, or nutritional status, or are non- or non-. According to the National Kidney Foundation, irrespective of diagnosis, the stage of the disease is based on the level of kidney function: Stage Description GFR(mL/min/1.73 m(2)) 1 Kidney damage with normal or decreased GFR 90 2 Kidney damage with mild decrease in GFR 60-89 3 Moderate decrease in GFR 30-59 4 Severe decrease in GFR 15-29 5 Kidney failure <15 (or dialysis) 45 Reference Range and Interpretation: TnI (ng/mL) Interpretation Less Than 0.06 ng/mL Not supportive of diagnosis of [place] 0.06 - 0.50 ng/mL Indeterminate: suggest serial studies if clinically indicated. Greater than 0.5 ng/mL Consistent with diagnosis of [place] 46 RUN DATE: 11/18/12 [facility] LAB LIVE PAGE 1 RUN TIME: [address] [place] [address] Specimen Inquiry Name: MARLEN MEANS : [address]: Darrel Griffin III, MD Acct: [id number] Unit: [id number] AGE: 72 Location: [facility] Re11/16/12 SEX: F Status: REG REF SPEC: [id number] KELLY: 11/16/12-[address]: Darrel Griffin III, MD REQ: [id number] RECD: 11/16/12 STATUS: COMP _ SOURCE: URINE SPDESC: ORDERED: Urine Culture QUERIES: Med[employer] Number [id number] Procedure Result Verified Site Urine Culture Final 11/18/12- 0946 ML No Growth Day 2 (<1,000 CFU/mL) END OF REPORT * ML=Testing performed at Main Lab DEPARTMENT OF PATHOLOGY, [facility] [place], [place] [address] Master Khan M.D. Director [facility] Permit #[id number] 47 HDL Interpretation: Undesirable: High Risk: Less than 40 mg/dL Desirable: Low Risk: Greater than 60 mg/dL 48 LDL Interpretation: Low Risk Optimal Level: LDL Less than 100 mg/dL Near or Above Optimal: LDL 100-129 mg/dL Borderline High Risk: LDL 130-159 mg/dL High Risk: LDL 160-189 mg/dL Very High Risk: LDL Greater than 189 mg/dL 49 Because ethnic data is not always readily available, this report includes an eGFR for both -Americans and non- Americans. The National Kidney Disease Education Program (NKDEP) does not endorse the use of the MDRD equation for patients that are not between the ages of 18 and 70, are , have extremes of body size, muscle mass, or nutritional status, or are non- or non-. According to the National Kidney Foundation, irrespective of diagnosis, the stage of the disease is based on the level of kidney function: Stage Description GFR(mL/min/1.73 m(2)) 1 Kidney damage with normal or decreased GFR 90 2 Kidney damage with mild decrease in GFR 60-89 3 Moderate decrease in GFR 30-59 4 Severe decrease in GFR 15-29 5 Kidney failure <15 (or dialysis) 50 Therapeutic target for the treatment of diabetes Mellitus patients is <7% HBA1C, and in selective patients <6.0%.Please refer to [place] [employer] Diabetic care guidelines for further information. 51 RUN DATE: 02/14/12 [facility] LAB LIVE PAGE 1 RUN TIME: 8[address] [facility] [place], [place] [address] Specimen Inquiry Name: MARLEN MEANS : [address]: Manny Rawls MD Acct: [id number] Unit: [id number] AGE: 71 Location: [facility] Re02/12/12 SEX: F Status: DEP ER SPEC: [id number] KELLY: 02/12/12 [facility] DR: Manny Rawls MD REQ: [id number] RECD: 02/12/12 STATUS: JOHN MCCAIN DR: Darrel Griffin III, MD _ SOURCE: URINE SPDESC: ORDERED: Urine Culture Procedure Result Verified Site Urine Culture Final 02/14/12- 0848 ML No Growth Day 2 (<1,000 CFU/mL) END OF REPORT * ML=Testing performed at Main Lab DEPARTMENT OF PATHOLOGY, [address] [place] [address] Master Khan M.D. [facility] Permit #[id number] RUN DATE: 10/07/11 [facility] NMI LIVE PAGE 1 RUN TIME: 1013 Specimen Inquiry RUN USER: INTERFACE Name: MARLEN MEANS Accamelia#: [id number] Status: REG REF Re10/05/11 Age/Sex: 70/F Unit#: [id number] Location: [facility] : 39 SPEC #: [id number] KELLY: 10/05/11 STATUS: COMP REQ #: [id number] RECD: 10/05/[address]: Blossom Escobedo NP SOURCE: URINE ENTR: 10/05/[address]: [facility] at [facility] SPDESC: ORDERED: URINE C S QUERIES: SPECIMEN DESCRIPTION: URINE, RANDOM ACT WKST: UR 10/07/11 #1 Procedure Result Verified Site > URINE CULTURE SENSITIVI Final 10/07/11- 1013 ML SCANT NORMAL URETHRAL OR PERINEAL NICOLE ML - [facility] Permit #[id number] [address] [place], [place] [id number] DEPARTMENT OF PATHOLOGY, [address] [place] [address] [facility] Permit #[id number] Master Khan M.D. Director Roxana Patel M.D. Retail Customer Service Representative 53 Serologic response to B. burgdorferi infection is not detected, but cannot rule out early infection during which low or undetectable antibody levels to B. burgdorferi may be present. If clinically indicated, a new serum specimen should be submitted in 7-14 days. Test Performed by: [place] [address] Information Technology Intern: Harish Kwok III, M.D. 54 CHOLESTEROL INTERPRETATION: Desirable: Less than 200 MG/DL Borderline-High Risk: 200-239 MG/DL High-Risk: 240 MG/DL and over 55 HDL INTERPRETATION: Undesirable: High Risk: Less than 40 MG/DL Desirable: Low Risk: Greater than 60 MG/DL 56 LDL INTERPRETATION: Low Risk Optimal Level: LDL Less than 100 MG/DL Near or Above Optimal: LDL 100-129 MG/DL Borderline High Risk: LDL 130-159 MG/DL High Risk: LDL 160-189 MG/DL Very High Risk: LDL Greater than 189 MG/DL 57 Anion gap measurement may be of limited value in the presence of any alkalosis, especially in a combined acid base disorder. . 58 A metabolite of Naproxen, O-desmethylnaproxen, has been shown to interfere with the [place] method for measuring total bilirubin. Samples from patients who have taken Naproxen have shown spurious elevation in total bilirubin levels. 59 Because ethnic data is not always readily available, this report includes an eGFR for both -Americans and non- Americans. The National Kidney Disease Education Program (NKDEP) does not endorse the use of the MDRD equation for patients that are not between the ages of 18 and 70, are , have extremes of body size, muscle mass, or nutritional status, or are non- or non-. According to the National Kidney Foundation, irrespective of diagnosis, the stage of the disease is based on the level of kidney function: Stage Description GFR(mL/min/1.73 m(2)) 1 Kidney damage with normal or decreased GFR 90 2 Kidney damage with mild decrease in GFR 60-89 3 Moderate decrease in GFR 30-59 4 Severe decrease in GFR 15-29 5 Kidney failure <15 (or dialysis) 60 CHOLESTEROL INTERPRETATION: Desirable: Less than 200 MG/DL Borderline-High Risk: 200-239 MG/DL High-Risk: 240 MG/DL and over 61 HDL INTERPRETATION: Undesirable: High Risk: Less than 40 MG/DL Desirable: Low Risk: Greater than 60 MG/DL 62 LDL INTERPRETATION: Low Risk Optimal Level: LDL Less than 100 MG/DL Near or Above Optimal: LDL 100-129 MG/DL Borderline High Risk: LDL 130-159 MG/DL High Risk: LDL 160-189 MG/DL Very High Risk: LDL Greater than 189 MG/DL 63 Because ethnic data is not always readily available, this report includes an eGFR for both -Americans and non- Americans. The National Kidney Disease Education Program (NKDEP) does not endorse the use of the MDRD equation for patients that are not between the ages of 18 and 70, are , have extremes of body size, muscle mass, or nutritional status, or are non- or non-. According to the National Kidney Foundation, irrespective of diagnosis, the stage of the disease is based on the level of kidney function: Stage Description GFR(mL/min/1.73 m(2)) 1 Kidney damage with normal or decreased GFR 90 2 Kidney damage with mild decrease in GFR 60-89 3 Moderate decrease in GFR 30-59 4 Severe decrease in GFR 15-29 5 Kidney failure <15 (or dialysis) 64 FINAL: NO GROWTH DAY 2 (<1,000 CFU/mL) 65 CHOLESTEROL INTERPRETATION: Desirable: Less than 200 MG/DL Borderline-High Risk: 200-239 MG/DL High-Risk: 240 MG/DL and over 66 HDL INTERPRETATION: Undesirable: High Risk: Less than 40 MG/DL Desirable: Low Risk: Greater than 60 MG/DL 67 LDL INTERPRETATION: Low Risk Optimal Level: LDL Less than 100 MG/DL Near or Above Optimal: LDL 100-129 MG/DL Borderline High Risk: LDL 130-159 MG/DL High Risk: LDL 160-189 MG/DL Very High Risk: LDL Greater than 189 MG/DL 68 A metabolite of Naproxen, O-desmethylnaproxen, has been shown to interfere with the Jendrassik-[place] method for measuring total bilirubin. Samples from patients who have taken Naproxen have shown spurious elevation in total bilirubin levels. 69 Please note updated reference range, effective 10/09/09 70 THERAPEUTIC TARGET FOR THE TREATMENT OF DIABETES MELLITUS PATIENTS IS <7% HBA1C, AND IN SELECTIVE PATIENTS <6.0%. PLEASE REFER TO [place] [employer]ATION DIABETIC CARE GUIDELINES FOR FURTHER INFORMATION. 71 Anion gap measurement may be of limited value in the presence of any alkalosis, especially in a combined acid base disorder. . 72 Note change in reference range as of 11/09/07. The change was based on recommendations from the [place] [employer]. 73 A metabolite of Naproxen, O-desmethylnaproxen, has been shown to interfere with the Jendrassik-Kaylie method for measuring total bilirubin. Samples from patients who have taken Naproxen have shown spurious elevation in total bilirubin levels. 74 Because ethnic data is not always readily available, this report includes an eGFR for both -Americans and non- Americans. The National Kidney Disease Education Program (NKDEP) does not endorse the use of the MDRD equation for patients that are not between the ages of 18 and 70, are , have extremes of body size, muscle mass, or nutritional status, or are non- or non-. According to the National Kidney Foundation, irrespective of diagnosis, the stage of the disease is based on the level of kidney function: Stage Description GFR(mL/min/1.73 m(2)) 1 Kidney damage with normal or decreased GFR 90 2 Kidney damage with mild decrease in GFR 60-89 3 Moderate decrease in GFR 30-59 4 Severe decrease in GFR 15-29 5 Kidney failure <15 (or dialysis) 75 New Reference Range and Interpretation effective 12/22/2001 TnI (ng/ml) INTERPRETATION Less Than 0.06 ng/mL NOT SUPPORTIVE OF DIAGNOSIS OF [place] 0.06 - 0.50 ng/ml INDETERMINATE: SUGGEST SERIAL STUDIES IF CLINICALLY INDICATED. Greater than 0.5 ng/mL CONSISTENT WITH DIAGNOSIS OF [place] . 76 Recommended INR for Patients on Oral Anticoagulants Prophylaxis 2.0 - 3.0 Treatment of thrombosis 2.0 - 3.0 Prevention of embolism 2.0 - 3.0 Prevention of embolism from prosthetic heart valves 2.5 - 3.5 77 DIAGNOSIS,TREATMENT,AND THERAPY MUST BE BASED ON THE INR VALUE ALONE. 78 Lymphopenia % 79 Anion gap measurement may be of limited value in the presence of any alkalosis, especially in a combined acid base disorder. . 80 Note change in reference range as of 11/09/07. The change was based on recommendations from the [place] [employer]. 81 Please note change in reference range effective 07 . 82 A metabolite of Naproxen, O-desmethylnaproxen, has been shown to interfere with the Jendrassik-Kaylie method for measuring total bilirubin. Samples from patients who have taken Naproxen have shown spurious elevation in total bilirubin levels. 83 Because ethnic data is not always readily available, this report includes an eGFR for both -Americans and non- Americans. The National Kidney Disease Education Program (NKDEP) does not endorse the use of the MDRD equation for patients that are not between the ages of 18 and 70, are , have extremes of body size, muscle mass, or nutritional status, or are non- or non-. According to the National Kidney Foundation, irrespective of diagnosis, the stage of the disease is based on the level of kidney function: Stage Description GFR(mL/min/1.73 m(2)) 1 Kidney damage with normal or decreased GFR 90 2 Kidney damage with mild decrease in GFR 60-89 3 Moderate decrease in GFR 30-59 4 Severe decrease in GFR 15-29 5 Kidney failure <15 (or dialysis) 84 CHOLESTEROL INTERPRETATION: Desirable: Less than 200 MG/DL Borderline-High Risk: 200-239 MG/DL High-Risk: 240 MG/DL and over 85 HDL INTERPRETATION: Undesirable: High Risk: Less than 40 MG/DL Desirable: Low Risk: Greater than 60 MG/DL 86 LDL INTERPRETATION: Low Risk Optimal Level: LDL Less than 100 MG/DL Near or Above Optimal: LDL 100-129 MG/DL Borderline High Risk: LDL 130-159 MG/DL High Risk: LDL 160-189 MG/DL Very High Risk: LDL Greater than 189 MG/DL 87 Anion gap measurement may be of limited value in the presence of any alkalosis, especially in a combined acid base disorder. . 88 Note change in reference range as of 11/09/07. The change was based on recommendations from the [place] [employer]. 89 Please note change in reference range effective 07 . 90 A metabolite of Naproxen, O-desmethylnaproxen, has been shown to interfere with the Jendrass[place] method for measuring total bilirubin. Samples from patients who have taken Naproxen have shown spurious elevation in total bilirubin levels. 91 Because ethnic data is not always readily available, this report includes an eGFR for both -Americans and non- Americans. The National Kidney Disease Education Program (NKDEP) does not endorse the use of the MDRD equation for patients that are not between the ages of 18 and 70, are , have extremes of body size, muscle mass, or nutritional status, or are non- or non-. According to the National Kidney Foundation, irrespective of diagnosis, the stage of the disease is based on the level of kidney function: Stage Description GFR(mL/min/1.73 m(2)) 1 Kidney damage with normal or decreased GFR 90 2 Kidney damage with mild decrease in GFR 60-89 3 Moderate decrease in GFR 30-59 4 Severe decrease in GFR 15-29 5 Kidney failure <15 (or dialysis) 92 CHOLESTEROL INTERPRETATION: Desirable: Less than 200 MG/DL Borderline-High Risk: 200-239 MG/DL High-Risk: 240 MG/DL and over 93 HDL INTERPRETATION: Undesirable: High Risk: Less than 40 MG/DL Desirable: Low Risk: Greater than 60 MG/DL 94 LDL INTERPRETATION: Low Risk Optimal Level: LDL Less than 100 MG/DL Near or Above Optimal: LDL 100-129 MG/DL Borderline High Risk: LDL 130-159 MG/DL High Risk: LDL 160-189 MG/DL Very High Risk: LDL Greater than 189 MG/DL 95 A metabolite of Naproxen, O-desmethylnaproxen, has been shown to interfere with the J[place]rass[place] method for measuring total bilirubin. Samples from patients who have taken Naproxen have shown spurious elevation in total bilirubin levels. 96 CHOLESTEROL INTERPRETATION: Desirable: Less than 200 MG/DL Borderline-High Risk: 200-239 MG/DL High-Risk: 240 MG/DL and over 97 HDL INTERPRETATION: Undesirable: High Risk: Less than 40 MG/DL Desirable: Low Risk: Greater than 60 MG/DL 98 LDL INTERPRETATION: Low Risk Optimal Level: LDL Less than 100 MG/DL Near or Above Optimal: LDL 100-129 MG/DL Borderline High Risk: LDL 130-159 MG/DL High Risk: LDL 160-189 MG/DL Very High Risk: LDL Greater than 189 MG/DL 99 CHOLESTEROL INTERPRETATION: Desirable: Less than 200 MG/DL Borderline-High Risk: 200-239 MG/DL High-Risk: 240 MG/DL and over 100 HDL INTERPRETATION: Undesirable: High Risk: Less than 40 MG/DL Desirable: Low Risk: Greater than 60 MG/DL 101 LDL INTERPRETATION: Low Risk Optimal Level: LDL Less than 100 MG/DL Near or Above Optimal: LDL 100-129 MG/DL Borderline High Risk: LDL 130-159 MG/DL High Risk: LDL 160-189 MG/DL Very High Risk: LDL Greater than 189 MG/DL 102 PATIENT MAY HAVE RESULTS PER DOCTOR'S AUTHORIZATION. Questions regarding this report should be directed to your doctor. 103 PLEASE NOTE NEW REFERENCE RANGES. 104 FASTING 105 CHOLESTEROL INTERPRETATION: Desirable: Less than 200 MG/DL Borderline-High Risk: 200-239 MG/DL High-Risk: 240 MG/DL and over 106 HDL INTERPRETATION: Undesirable: High Risk: Less than 40 MG/DL Desirable: Low Risk: Greater than 60 MG/DL 107 LDL INTERPRETATION: Low Risk Optimal Level: LDL Less than 100 MG/DL Near or Above Optimal: LDL 100-129 MG/DL Borderline High Risk: LDL 130-159 MG/DL High Risk: LDL 160-189 MG/DL Very High Risk: LDL Greater than 189 MG/DL 108 PATIENT MAY HAVE RESULTS PER DOCTOR'S AUTHORIZATION. Questions regarding this report should be directed to your doctor. FASTING 109 CHOLESTEROL INTERPRETATION: Desirable: Less than 200 MG/DL Borderline-High Risk: 200-239 MG/DL High-Risk: 240 MG/DL and over 110 HDL INTERPRETATION: Undesirable: High Risk: Less than 40 MG/DL Desirable: Low Risk: Greater than 60 MG/DL 111 LDL INTERPRETATION: Low Risk Optimal Level: LDL Less than 100 MG/DL Near or Above Optimal: LDL 100-129 MG/DL Borderline High Risk: LDL 130-159 MG/DL High Risk: LDL 160-189 MG/DL Very High Risk: LDL Greater than 189 MG/DL 112 PATIENT MAY HAVE RESULTS PER DOCTOR'S AUTHORIZATION. Questions regarding this report should be directed to your doctor. 113 Anion gap measurement may be of limited value in the presence of any alkalosis, especially in a combined acid base disorder. . 114 Classification: Desirable . 115 Classification: High . 116 CALCULATED LDL APPROXIMATES THE VALUE OF A DIRECT LDL MEASUREMENT. Classification: Near or above optimal . Procedures Date CPT Code Description Status Comment 10/03/201739665 Inject/Drain Joint/Bursa Major W/O US Completed 08/08/2017 Colonoscopy Completed 07/21/201709200 Inject/Drain Joint/Bursa Major W/O US Completed 06/24/2017 16575 Remove Impacted Cerumen Completed 06/03/2017 Mammogram Completed 04/07/2017 30940 Inject/Drain Joint/Bursa Major W/O US Completed 04/07/2017 38207 Inject/Drain Joint/Bursa Major W/O US Completed 11/23/201647238 Inject/Drain Joint/Bursa Major W/O US Completed 11/23/201626868 Inject/Drain Joint/Bursa Major W/O US Completed 07/28/2016 85967 Remove Impacted Cerumen Completed 03/17/2016 48063 Stress Test Completed 03/17/2016 03977 Myocardial Perfusion Imaging Tomographic Completed (Spect) Multiple Studies 03/16/2016 01573 Myocardial Perfusion Imaging Tomographic Completed (Spect) Multiple Studies 03/09/2016 68487 Holter Monitor Review (24 hr)dr sibley & tiffani Completed only 03/08/2016 00192 ECHO Transthoracic, Real-Time 2D With Doppler Completed And Color Flow 03/08/2016 49303 ECG Monitor/Recording W/Visual Superimposition Completed Scanning 03/01/2016 75793 EKG Tracing & Interpretation Completed 02/27/2016 Mammogram Completed 02/20/2015 Mammogram Completed 08/08/2014 48530 Remove Impacted Cerumen Completed 01/28/2014 73078 EKG Tracing & Interpretation Completed 10/08/2013 19064 Rad Exam; Wrist, Comp, Min 3 Views Completed rt 08/06/2013 94001 Holter Monitoring 24 HR New Completed 08/06/2013 38099 Holter Monitoring 24 HR New Completed 07/30/2013 82321 ECHO Transthoracic, Real-Time 2D With Doppler Completed And Color Flow 07/03/2013 Bone Mineral Density Test Completed 02/12/2013 Mammogram Completed 11/24/2012 41485 EKG Tracing & Interpretation Completed 10/08/2010 Bone Mineral Density Test Completed 11/12/2008 Mammogram Completed 01/02/2008 Colonoscopy Completed 05/08/2007 20828 Treadmill Interp/Report Only Completed 05/08/2007 52799 Stress Test Supervsn W/Out I/R Completed 05/08/2007 79716 Treadmill Interp/Report Only Completed 09/28/2006 84560 Spirometry Incl Graphic Record, Timed Completed Expiratory Flow Rate 09/28/2006 20111 Spirometry Incl Graphic Record, Timed Completed Expiratory Flow Rate 09/28/2006 92885 EKG Tracing & Interpretation Completed Encounters Type Date Location Provider CPT E/M Dx Office Visit 10/14/2017 [facility] Riya Calderon M.D. 57719 M25.562 9:30a Of [place].M.AMelani M25.462 M17.12 M21.062 Office Visit 09/26/2017 8:10a [facility] Eveline De La Cruz, N.P. 42479 R60.0 Office Visit 07/22/2017 11:00a [facility] Carmen Jean M.D. 21350 G20 Services Of [facility] G24.01 Office Visit 07/07/2017 9:00a [facility] Internal Medicine Darrel Griffin, 44103 M19.011 - Chelo Davenport Office Visit 06/21/2017 9:30a [place] [address] S40.021D Of C.M.AMelani M19.011 M75.41 Office Visit 06/17/2017 8:13a [facility] [place] [address] M25.511 S40.021D M25.562 H61.23 Office Visit 05/30/2017 9:20a [facility] Internal Medicine Darrel Griffin, 27560 R63.4 - Chelo Davenport G20 L65.9 R53.83 G47.30 Z12.31 E78.00 Z12.11 Office Visit 03/16/2017 1:15p [facility] Carmen Jean M.D. 65842 G20 Services Of [facility] G24.01 R51 Office Visit 02/22/2017 10:45a [facility] [place] [address] M75.41 C.M.A. M19.011 M17.12 Office Visit 12/06/2016 2:30p [facility] Carmen Jean M.D. 61402 G20 Services Of [facility] G24.01 R51 Office Visit 11/23/2016 8:00a [facility] [place] [address] M75.41 C.M.A. M19.011 M17.12 Office Visit 11/17/2016 9:00a [facility] Internal Medicine Darrel Griffin, 14295 M25.511 - Chelo Davenport M25.562 Office Visit 08/25/2016 11:30a [facility] Carmen Jean M.D. 73557 R20.2 Services Of [facility] Office Visit 07/01/2016 8:47a [facility] Eveline De La Cruz, N.P. 98528 L60.3 M17.12 M25.511 M25.562 Office Visit 06/28/2016 11:00a [facility] Carmen Jean M.D. 50795 G20 Services Of [facility] G24.01 R51 Office Visit 06/10/2016 10:37a [facility] Eveline De La Cruz, N.P. 27610 M54.32 Office Visit 03/29/2016 1:00p [facility] Of Tristin Luna, 71221 I87.2 Pablo Davenport, ALTAGRACIA, [facility] R07.9 Office Visit 03/01/2016 1:00p [facility] Of Tristin Luna, 07636 R07.9 Pablo Davenport, FACNeftaly, FASLUIS Office Visit 02/26/2016 9:30a [facility] Carmen Jean M.D. 68224 G20 Services Of [facility] R51 G24.01 Office Visit 02/10/2016 10:00a [facility] Internal Medicine Darrel Griffin, 17010 G47.62 - Chelo Davenport R07.89 Office Visit 10/20/2015 1:45p [facility] Carmen Jean M.D. 21920 G20 Services Of [facility] G24.01 R51 Office Visit 10/02/2015 9:16a [facility] Eveline De La Cruz, N.P. 23904 R35.0 R35.0 Office Visit 09/17/2015 9:00a [facility] Internal Medicine Darrel Griffin, 60531 R20.9 - Raphael Davenport N39.41 Office Visit 09/12/2015 3:20p [place] [address] M79.644 [employer] [facility] [place] Office Visit 08/15/2015 1:00p [facility] [place] [address] M79.644 [employer] Appraiser [facility] [place] Office Visit 07/09/2015 1:40p [facility] Internal Medicine Darrel Griffin, 18829 L98.9 - Raphael Davenport Office Visit 07/02/2015 11:15a [facility] Carmen Jean M.D. 44337 G20 Services Of [facility] G24.01 R51 Office Visit 01/08/2015 1:00p [facility] Carmen Jean M.D. 10178 G20 Services Of Insurance Appraiser Office Visit 01/02/2015 11:00a [facility] Internal Medicine Darrel Griffin, 27309 Z01.810 - Raphael Davenport H26.9 G20 E78.0 G47.30 M85.9 Office Visit 12/31/2014 11:00a [facility] [place] [address] W10.9xxA Raphael R07.81 W10.8xxA Office Visit 10/04/2014 3:27p [facility] Eveline De La Cruz, N.P. 24707 462 462 478.19 Office Visit 08/19/2014 3:15p [facility] Carmen Jean M.D. 13762 332.0 Services Of [facility] 333.85 Office Visit 08/02/2014 1:00p [facility] Internal Medicine Darrel Griffin, 92017 729.5 - Raphael Davenport v03.82 Office Visit 06/25/2014 1:40p [facility] Internal Medicine Darrel Griffin, 75674 719.47 - Raphael Davenport 703.8 Office Visit 03/06/2014 8:30a [facility] Carmen Jean M.D. 40513 332.0 Services Of Insurance Appraiser 333.85 784.0 Office Visit 01/28/2014 1:40p [facility] Internal Medicine Darrel Griffin, 75281 786.50 - Raphael Davenport Office Visit 11/14/2013 9:40a [facility] Internal Medicine Darrel Griffin, 44123 380.4 - Raphael Davenport Office Visit 11/14/2013 8:45a [facility] Carmen Jean M.D. 01622 332.0 Services Of Insurance Appraiser 333.85 784.0 Office Visit 11/12/2013 10:00a [facility] Internal Medicine Darrel Griffin, 06199 724.1 - Raphael Davenport Office Visit 10/08/2013 8:15a [facility] Of Rich Esteban M.D. 32912 715.94 C.M.A. 715.93 Office Visit 09/12/2013 2:30p [facility] Of [place]SEF [place] 39359 719.44 C.M.A. Office Visit 09/07/2013 11:40a [facility] Internal Medicine Darrel Griffin, 42090 719.44 - Raphael Davenport Office Visit 09/03/2013 9:45a [facility] Carmen Jean M.D. 04011 332.0 Services Of Insurance Appraiser 435.9 368.2 784.0 333.85 Office Visit 07/18/2013 8:30a [facility] Carmen Jean M.D. 21944 332.0 Services Of Insurance Appraiser 333.85 784.0 Office Visit 07/12/2013 11:40a [facility] Internal Medicine Darrel Griffin 37789 786.2 - Raphael Davenport 719.41 Office Visit 06/27/2013 11:20a [facility] Internal Medicine Darrel Griffin, 03725 465.9 - Raphael Davenport 733.90 Office Visit 03/12/2013 1:00p [facility] Carmen Jean M.D. 43584 332.0 Services Of [facility] 784.0 Office Visit 03/12/2013 10:20a [facility] Internal Medicine Darrel Griffin, 63565 415.19 - Raphael Davenport Office Visit 02/08/2013 12:18p [facility] 39459 789.00 Melani Sanchez Office Visit 01/31/2013 3:20p [facility] Internal Medicine Darrel Griffin, 53142 794.5 - Raphael Davenport 415.19 Office Visit 01/11/2013 9:40a [facility] Internal Medicine Darrel Griffin, 42815 415.19 - Raphael Davenport 794.5 v04.81 Office Visit 12/27/2012 8:30a [facility] Carmen Jean M.D. 81265 332.0 Services Of [facility] Office Visit 12/25/2012 2:20p [facility] Internal Medicine Darrel Griffin, 09036 415.1 - Raphael Davenport V58.61 Office Visit 12/22/2012 10:29a [facility], Angelita Valdivia, 24360 415.19 Hospitalists D.OMelani 780.53 332.0 Office Visit 12/21/2012 10:29a [facility] [facility] Radha Stevens, 35598 415.19 [facility]oc, [facility] [place] 780.53 332.0 Office Visit 11/28/2012 11:40a [facility] Internal Medicine Darrel Griffin, 40423 807.20 - Raphael Davenport Office Visit 11/24/2012 11:20a [facility] Internal Medicine Heidi Nesbitt M.D. 81046 807.2 - [place] 794.31 Office Visit 11/16/2012 9:40a [facility] Internal Medicine Darrel Griffin, 84080 788.63 - Raphael Davenport Office Visit 08/24/2012 2:40p [facility] Internal Medicine Darrel Griffin, 99285 272.0 - Raphael Davenport 790.21 780.57 332.0 Office Visit 07/07/2012 3:00p [facility] Internal Medicine Eveline Pascualll, N.P. 44465 461.0 - [place] 380.4 Office Visit 07/03/2012 8:30a [facility] Carmen Jean M.D. 55191 332.0 Services Of Insurance Appraiser 784.0 Office Visit 06/22/2012 10:32a [facility] Blossom Sanchez, 42358 786.2 Home N.P. Office Visit 03/01/2012 2:00p [facility] Internal Darrel Griffin M.D. 72234 784.0 Medicine - [place] Office Visit 02/23/2012 10:30a [facility] Internal Blossom Sanchez, 56095 789.04 Medicine - N.P. [place] Office Visit 01/03/2012 8:45a [facility] Carmen Jean M.D. 66776 332.0 Services Of Insurance Appraiser 784.0 Office Visit 12/02/2011 3:20p [facility] Internal Medicine Darrel Griffin, 30538 727.43 - Raphael Davenport 788.63 V04.81 Office Visit 09/20/2011 11:09a [facility] Blossom Sanchez, 81946 916.4 Home N.P. Office Visit 08/30/2011 10:20a [facility] Internal Darrel Griffin M.D. 37292 272.0 [facility] [place] 790.21 780.57 332.0 Office Visit 02/01/2011 1:00p DO Not Use Insurance Appraiser AT Darrel Griffin, 10591 719.41 Julia Davenport Office Visit 09/28/2010 11:40a DO Not Use Insurance Appraiser AT Darrel Griffin 19137 733.90 Julia Davenport 272.0 780.57 Office Visit 07/03/2010 11:20a DO Not Use Insurance Appraiser AT Darrel Griffin 14657 780.57 Julia Davenport 788.1 Office Visit 12/19/2009 2:20p DO Not Use Insurance Appraiser AT Sebastian Lindod, 67326 845.09 [facility]..,FACP 453.40 Office Visit 12/03/2009 11:40a DO Not Use Insurance Appraiser AT [facility], [phone] [facility] M.D. Office Visit 11/20/2009 2:20p DO Not Use Insurance Appraiser AT [facility], [phone] [facility] M.D. Office Visit 08/27/2009 3:20p DO Not Use Insurance Appraiser AT [facility], 36552 782.1 [facility] M.D. Office Visit 08/06/2009 2:40p DO Not Use Insurance Appraiser AT [facility], 39641 599.0 [facility] M.D. Office Visit 01/22/2009 2:30p DO Not Use Insurance Appraiser AT [facility], 62972 723.1 [facility].D. Office Visit 12/30/2008 10:15a DO Not Use Insurance Appraiser AT [facility], 85041 723.1 [facility] 780.79 272.0 332.0 Office Visit 08/22/2008 10:45a [facility], 96010 784.0 [facility] M.D. 780.79 Office Visit 08/09/2008 10:30a [facility], 50211 780.79 [facility] Hospital.D. 784.0 Office Visit 04/03/2008 3:15p [facility], 13896 528.2 [facility] M.D. Office Visit 02/21/2008 2:00p [facility], 58923 780.79 [facility] M.D. Office Visit 01/24/2008 9:30a [facility], 82918 272.0 [facility] M.D. Office Visit 11/27/2007 2:00p [facility], 26848 272.0 [facility] M.D. Office Visit 10/19/2007 11:30a [facility], 93404 719.45 [facility] Hospital.D 272.0 332.0 Office Visit 06/28/2007 10:30a [facility], 47677 332.0 [facility] Office Visit 04/27/2007 3:15p [facility], 35959 786.50 [facility] 04/18/2007 10:00a [facility], 42439 724.2 [facility] Office Visit 10/06/2006 3:30p [facility], 40181 782.8 [facility] Plan of Care Future Appointment(s):12/26/2017 9:45 am - Riya Calderon M.D. at [facility]12/13/2017 7:30 am - Keyla Manzano PA-C at [facility]12/13/2017 7:30 am - SUSI Zapata at [facility]12/13/2017 7:30 am - Riya Calderon M.D. at [facility]12/01/2017 - Darrel Griffin M.D.Z01.810 Encounter for preprocedural cardiovascular examinationComments:No contraindications to planned knee [id number] Unilateral primary osteoarthritis, left kneeComments: L TKA planned per [id number] Parkinson's diseaseComments:Stable with Rx; continue usual meds pre-opE78.00 Pure hypercholesterolemia, unspecifiedComments:On RxG47.30 Sleep apnea, unspecifiedComments:On CPAP
--- OUTSIDE RECORDS SUMMARY | 2017-12-13 06:18 | XMS REPORT ---
:1940 External Reference #:[id number] Author Organization [employer] Address [address] [place] [address] [place] [address] Phone [phone] Care Team Providers Name Role Phone Darrel Griffin III, MD Primary Care Physician Unavailable Payers Type Date Identification Numbers Payment Provider Subscriber Medicare Primary Policy Number: [id number] Medicare Marlen Means PayID: [id number] [address] [place] [address] Medigap Part B Effective: 2011 Policy Number: JOVANNA [facility] Marlen Means [id number] PayID: [id number] [address] [place] [address] Commercial Policy Number: [id number] [facility] Marlen Means PayID: [id number] [place] [address] Medigap Part B Expires: 2009 Policy Number: BS ERICK Means [id number] Group Number: [id number] [address] PayID: [id number] [place] [address] Advance Directives Type Date Description Status Comment Other Directive 03/08/2016 Health Care Proxy Current and Verified Other Directive 02/05/2016 Current and Verified Other Directive 03/02/2012 Power Of Safety Leader Current and Verified Other Directive 10/23/2009 Health [...] Onset: 03/01/2016 Chest pain Tristin Luna M.D., [facility], Active FASNC Onset: 03/29/2016 Peripheral venous insufficiency Tristin Luna M.D., [facility], Active FASNC Onset: 11/17/2016 Knee pain Darrel Griffin M.D. 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 July 23 take 1 tab [...] take 1 786.2 Blossom 5ML teaspoons po Westlake-W - q 4 hrs prn atson, 08/24 for cough N.P. /2012 Sinemet 03/05 Hx Tablets 25-100mg 360ta 1 po tid Hannah Lennon M.D. 01/28 Doxycycline 09/19 Hx Capsules 100mg 20cap take one 916.4 Blossom Hycl s pill twice [place]lake-W - daily for 10 atson, 12/01 days [...] 2007 Flonase Hx Suspension 50mcg/Act 3unit 1 Lutz Each Darrel E. s Nostril [facility] Hannah Griffin M.D. 01/23 Azilect Hx [...] Evening 00/00 Hx Capsules 1 capsule Unknown [facility] Oil /0000 daily - 11/12 Cholacol 00/ [...] pain Evening 00/00 Hx Capsules 1000mg Unknown [facility] Oil /0000 - 12/31 Hydrocodone-Colby 0000 Hx [...] Efrain Regadenoson, 0.1 2015 Jeremy, MG M.D., [facility] Technetium TC 03/17/ Administered Injection Tristinamelia Zuniga 99M Tetrofosmin, 2016 Jeremy, Per Unit Dose Up M.D., To [address] [facility], Millicuries [facility] Influenza Virus 11/19/ Administered Injection Unknown Vaccine 2013 Immunizations CPT Code Status Date Vaccine Lot # [id number] Given 01/09/2016 Influenza Virus Vaccine, Quadrivalent, Split [id number] Virus, [place] Use [address] Given 01/01/2015 Influenza Virus Vaccine, Quadrivalent, Split, Preservative Free 62756 Given 08/02/2014 Pneumococcal Conjugate Vaccine 13 Valent For [id number] Intramuscular Use 85445 Given 08/10/2013 Tdap - Tetanus/Diptheria/Acellular Pertussis [id number] 13598 Given 01/11/2013 Flu Vaccine Split Virus Preservative Free For [id number] Indiv 3Yr Older Q2038 Given 12/02/2011 Fluzone Vaccine [id number] 52780 Given 09/15/2011 Pneumonia Vaccine 49106 Given 09/15/2011 Pneumonia Vaccine [id number] 70389 Given 01/03/2010 Influenza Virus 3Yrs & Over 12681 Given 09/23/2009 Zoster (Zostavax) [id number] 66053 Given 12/31/2008 Influenza Virus 3Yrs & Over 55153 Given 12/31/2008 Influenza Virus 3Yrs & Over [id number] 58125 Given 12/18/2007 Influenza Virus 3Yrs & Over 57079 Given 12/18/2007 Influenza Virus 3Yrs & Over 35867 Given 12/26/2006 Influenza Virus 3Yrs & Over 41388 Given 12/26/2006 Influenza Virus 3Yrs & Over 64031 92943 Given Unknown Flu Vaccine Split Virus Preservative Free For Indiv 3Yr Older 05296 Given Unknown Flu Vaccine Split Virus Preservative [...] Mass Index) 18.2 kg/m2 Last Menstrual Period [id number] 10/03/2017 Height 60 inches 5'0" Weight 93.00 [...] Color Yellow Urine Appearance Clear Urine Specific Smoaks 1.012 1.010-1.030 Urine pH 6.0 5-9 Urine [...] Color Yellow Urine Appearance Clear Urine Specific Smoaks 1.008 Low 1.010-1.030 Urine pH 8.0 5-9 [...] 14 Urine Appearance Clear 14 Urine Specific Smoaks 1.008 Low 1.010-1.030 14 Urine pH 6.0 [...] Vitamin D Total 44 ng/mL 35 Cytology Non-Bed Spring Maker 03/08/2013 Janae RUN DATE: 36 03/08/ <SEE NOTE> Laboratory test 03/05/2013 D Dimer Quantitative < 200 ng/mL Less Than 230 37 finding Urinalysis 02/08/2013 Urine Color Yellow Urine Appearance Clear Urine Specific Smoaks 1.022 1.010-1.030 Urine Esterase Negative Negative Urine [...] Color Yellow Urine Appearance Clear Urine Specific Smoaks 1.010 1.010-1.030 Urine Esterase Negative Negative Urine [...] NOTE) 46 Ua Routine 11/16/2012 Ua Specific Smoaks 1.005 Ua PH 5 Ua Color yellow [...] Color YELLOW Yellow Appearance-Urine CLEAR Clear Specific Smoaks-Ur 1.026 1.010-1.030 Esterase-Urine NEGATIVE Negative Nitrite NEGATIVE Negative Mcoitcduvsqq-Qa-VOP NEGATIVE Negative Protein-Urine NEGATIVE Negative PH-Urine 5.5 [...] Color YELLOW Yellow Appearance-Urine CLEAR Clear Specific Smoaks-Ur 1.003 Low 1.010-1.030 Esterase-Urine NEGATIVE Negative Nitrite NEGATIVE Negative Qizbjnagsljk-Xy-OXQ NEGATIVE Negative Protein-Urine NEGATIVE Negative PH-Urine 6.5 [...] Color YELLOW Yellow Appearance-Urine CLEAR Clear Specific Smoaks-Ur 1.021 1.010-1.030 Esterase-Urine NEGATIVE Negative Nitrite NEGATIVE Negative Arqvghqakeiz-Ko-KYR NEGATIVE Negative Protein-Urine NEGATIVE Negative PH-Urine 7.0 [...] [address]: Riya Calderon MD Acct: [id number] Unit: [id number] AGE: 77 Location: [facility] Re11/30/17 SEX: F Status: REG REF SPEC: [id number] KELLY: 11/30/17-[address] [facility] [address]: Riya Calderon MD REQ: [id number] RECD: 11/30/17 STATUS: JOHN MCCAIN DR: Carmen Griffin III, MD _ SOURCE: URINE SPDESC: ORDERED: Urine Culture QUERIES: Urine Source: Random Procedure Result Reported Site Urine Culture Final 12/01/17- 907 ML No growth of clinically significant organisms * ML - Main Lab . END OF REPORT DEPARTMENT OF PATHOLOGY, [address] [place] [address] Master Khan M.D. Director [facility] # [id number] 4 SEE RESULT BELOW Name: MARLEN MEANS Juan : [address]: Eveline De La Cruz NP Acct: [id number] Unit: [id number] AGE: 76 Location: [facility] Re09/08/17 SEX: F Status: REG REF SPEC: [id number] KELLY: 09/08/17-[address]: Eveline De La Cruz NP REQ: [id number] RECD: 09/08/17-1141 EXPLICIT FAX#: [id number] STATUS: JOHN MCCAIN DR: Pili Camacho SOURCE: URINE SPDESC: ORDERED: Urine Culture COMMENTS: [id number] Urine Source: Random Procedure Result Reported Site Urine Culture Final 09/09/17- 1204 ML No Growth (<1,000 CFU/mL) * ML - Main Lab . END OF REPORT DEPARTMENT OF PATHOLOGY, [address] [place] [address] Master Khan M.D. Director [facility] # [id number] 5 Because ethnic data is not always [...] 130-159 High: 160-189 Very High: >189 11 [id number] 12 [id number] 13 [id number] 14 [id number] 15 *Ascorbic acid is present which may interfere with detection of blood. 16 SEE RESULT BELOW Name: MARLEN MEANS : [address]: Eveline De La Cruz NP Acct: [id number] Unit: [id number] AGE: 74 Location: [facility] Re10/02/15 SEX: F Status: REG REF SPEC: [id number] KELLY: 10/02/15-[address] [facility] [address]: Eveline De La Cruz NP REQ: [id number] RECD: 10/02/15 STATUS: JOHN MCCAIN DR: Pili Camacho SOURCE: URINE SPDESC: ORDERED: Urine Culture COMMENTS: [id number] Procedure Result Reported Site Urine Culture Final 10/04/15- 1102 ML No Growth (<1,000 CFU/mL) * ML - MAIN LAB ([facility]) . END OF REPORT * ML=Testing performed at Main Lab DEPARTMENT OF PATHOLOGY, [address] [place] [address] Master Khan M.D. Director [facility] # [id number] 17 Normal Range 180 to 914 Indeterminate Range 145 to 180 Deficient Range <145 18 Test Performed by: [place] [address] Pulp Cooker: Ion Monteiro II, M.D., Ph.D. 19 Because [...] > or= 3.0 U. Studies performed at [facility] indicate that positive RADHA results <3.0 U are rarely accompanied by positive second order tests. Test Performed by: [facility] - [address] [address] Pulp Cooker: Ion Monteiro II, M.D., Ph.D. 23 FASTING [...] Dr: Eveline De La Cruz NP Acct: [id number] Unit: [id number] AGE: 73 Location: [facility] Re10/04/14 SEX: F Status: REG REF SPEC: [id number] KELLY: 10/04/14-[address] [facility] [address]: Eveline De La Cruz NP REQ: [id number] RECD: 10/04/14 STATUS: JOHN MCCAIN DR: Pili _ SOURCE: THROAT SPDESC: ORDERED: Throat Culture Procedure Result Verified Site Throat Culture Final 10/06/14- 0817 ML Organism 1 NORMAL NICOLE Quantity 3+ Throat cultures are clinically indicated to detect the presence of group A strep, arcanobacterium and yeast. In certain cases, predominating organisms will be reported. * ML - [facility] ([facility]) . END OF REPORT * ML=Testing performed at [facility] Lab DEPARTMENT OF PATHOLOGY, [address] [place] [address] Master Khan M.D. Director [facility] # [id number] 30 Desirable <150 Borderline high 150-199 High [...] levels within this range. Test Performed by: [address] [address] Pulp Cooker: Harish Kwok III, M.D. 36 RUN DATE: 03/08/13 [facility] LAB LIVE PAGE 1 RUN TIME: 1113 [facility] [employer] [place], [place] [address] Specimen Inquiry Name: MARLEN MEANS : [address]: Giuliano Dawson MD Acct: [id number] Unit: [id number] AGE: 72 Location: [facility] Re03/08/13 SEX: F Status: REG REF SPEC: [id number] KELLY: 03/08/13- SUBM DR: Giuliano Dawson MD REQ: [id number] RECD: 03/08/1333 STATUS: MAHAMED MCCAIN DR: Darrel [...] performed at Main Lab DEPARTMENT OF PATHOLOGY, [facility] [employer] [place], [place] [address] Master Khan M.D. Director [facility] Permit #[id number] RUN DATE: 03/08/13 [facility] LAB LIVE PAGE 2 RUN TIME: 1113 [facility] [employer] [place], [place] [address] Specimen Inquiry Patient: MARLEN MEANS [id number] (Continued) IMMEDIATE INTERPRETATION (Continued) IMMEDIATE INTERPRETATION Pass 1 + 2- both adequate GROSS DESCRIPTION Ultrasound guided, fine needle aspiration Passes-2 Slides-7 Needle rinse in CytoLyt solution for thin layer non-quality assurance practice manager test. Signed (signature on file) Usha Gandara MD 1113 END OF REPORT * ML=Testing performed at Main Lab DEPARTMENT OF PATHOLOGY, [facility] [employer] [place], [place] [address] Master Khan M.D. Director [facility] Permit #[id number] 37 Please note: The following may produce a false positive D Dimer test: - Rheumatoid factor greater than 60 IU/ml - Plasma hemoglobin greater than 0.05 gm/dl - Bilirubin greater than 50 mg/dl - Lipids greater than 1000 mg/dl - FDP greater than 20 ug/ml 38 RUN DATE: 02/10/13 [facility] LAB LIVE PAGE 1 RUN TIME: [address] [place] [address] Specimen Inquiry Name: MARLEN MEANS : [address]: Blossom Mann Acct: [id number] Unit: [id number] AGE: 72 Location: [facility] Re02/08/13 SEX: F Status: REG REF SPEC: [id number] KELLY: 02/08/[address] [facility] [address]: Blossom Jaimes [employer] REQ: [id number] RECD: 02/08/13 STATUS: JOHN MCCAIN DR: Pili _ SOURCE: URINE SPDESC: ORDERED: Urine Culture Procedure Result Verified Site Urine Culture Final 02/10/13- 0953 ML Organism 1 NORMAL NICOLE [place] Count 1-10,000 (Few) CFU/ML END OF REPORT * ML=Testing performed at Main Lab DEPARTMENT OF PATHOLOGY, [address] [place] [address] Master Khan M.D. Director [facility] Permit #[id number] 39 [address]END RESULTS TO DR. GABY ROWLAND ON OR BEFORE Tuesday12/25/12- PER ORDER -[id number] Comment: b Comment: d Comment: s 41 Reference Range and Interpretation: TnI (ng/mL) Interpretation Less Than 0.06 ng/mL Not supportive of diagnosis of MD 0.06 - 0.50 ng/mL Indeterminate: suggest serial studies if clinically indicated. Greater than 0.5 ng/mL Consistent with diagnosis of MD 42 Because ethnic data is not always [...] 0.06 ng/mL Not supportive of diagnosis of MD 0.06 - 0.50 ng/mL Indeterminate: suggest serial studies if clinically indicated. Greater than 0.5 ng/mL Consistent with diagnosis of MD 46 RUN DATE: 11/18/12 [facility] LAB LIVE PAGE 1 RUN TIME: [address] [place] [address] Specimen Inquiry Name: MARLEN MEANS : [address]: Darrel Griffin III, MD Acct: [id number] Unit: [id number] AGE: 72 Location: [facility] Re11/16/12 SEX: F Status: REG REF SPEC: [id number] KELLY: 11/16/12-[address]: Darrel Griffin III, MD REQ: [id number] RECD: 11/16/12 STATUS: COMP _ SOURCE: URINE SPDESC: ORDERED: Urine Culture QUERIES: Med[employer] Number [id number] Procedure Result Verified Site Urine Culture Final 11/18/12- 0946 ML No Growth Day 2 (<1,000 CFU/mL) END OF REPORT * ML=Testing performed at Main Lab DEPARTMENT OF PATHOLOGY, [facility] [employer] [place], [place] [address] Master Khan M.D. Director [facility] Permit #[id number] 47 HDL Interpretation: Undesirable: High Risk: Less [...] and in selective patients <6.0%.Please refer to [place] [employer] Diabetic care guidelines for further information. 51 RUN DATE: 02/14/12 [facility] LAB LIVE PAGE 1 RUN TIME: 847 [facility] [employer] [place], [place] [address] Specimen Inquiry Name: MARLEN MEANS : [address]: Manny Rawls MD Acct: [id number] Unit: [id number] AGE: 71 [facility] Re02/12/12 SEX: F Status: DEP ER SPEC: [id number] KELLY: 02/12/[address] [facility] [address]: Manny Rawls MD REQ: [id number] RECD: 02/12/12 STATUS: JOHN MCCAIN DR: Darrel Griffin III, MD _ SOURCE: URINE SPDESC: ORDERED: Urine Culture Procedure Result Verified Site Urine Culture Final 02/14/12- 0848 ML No Growth Day 2 (<1,000 CFU/mL) END OF REPORT * ML=Testing performed at Main Lab DEPARTMENT OF PATHOLOGY, [address] [place] [address] Master Khan M.D. [facility] Permit #[id number] RUN DATE: 10/07/11 [facility] NMI LIVE PAGE 1 RUN TIME: 1013 Specimen Inquiry RUN USER: INTERFACE Name: MARLEN MEANS Accamelia#: [id number] Status: REG REF Re10/05/11 Age/Sex: 70/F Unit#: [id number] Location: [facility] : 39 SPEC #: [id number] KELLY: 10/05/11 STATUS: COMP REQ #: [id number] RECD: 10/05/[address]: Blossom Escobedo NP SOURCE: URINE ENTR: 10/05/[address]: Pili at [facility] SPDESC: ORDERED: URINE C S QUERIES: SPECIMEN DESCRIPTION: URINE, RANDOM ACT WKST: UR 10/07/11 #1 Procedure Result Verified Site > URINE CULTURE SENSITIVI Final 10/07/11- 1013 ML SCANT NORMAL URETHRAL OR PERINEAL NICOLE ML - [facility] Permit #[id number] [address] [place], [place] [address] DEPARTMENT OF PATHOLOGY, [address] [place] [address] [facility] Permit #[id number] Master Khan M.D. Director Roxana Patel M.D. Byproducts Extractor 53 Serologic response to B. burgdorferi infection is not detected, but cannot rule out early infection during which low or undetectable antibody levels to B. burgdorferi may be present. If clinically indicated, a new serum specimen should be submitted in 7-14 days. Test Performed by: [place] [address] Pulp Cooker: Harish Kwok III, M.D. 54 CHOLESTEROL INTERPRETATION: [...] has been shown to interfere with the [place] method for measuring total bilirubin. Samples from [...] IN SELECTIVE PATIENTS <6.0%. PLEASE REFER TO [place] [employer] DIABETIC CARE GUIDELINES FOR FURTHER INFORMATION. 71 Anion gap measurement may be of limited value in the presence of any alkalosis, especially in a combined acid base disorder. . 72 Note change in reference range as of 11/09/07. The change was based on recommendations from the [place] [employer]. 73 A metabolite of Naproxen, [...] 0.06 ng/mL NOT SUPPORTIVE OF DIAGNOSIS OF MD 0.06 - 0.50 ng/ml INDETERMINATE: SUGGEST SERIAL STUDIES IF CLINICALLY INDICATED. Greater than 0.5 ng/mL CONSISTENT WITH DIAGNOSIS OF MD . 76 Recommended INR for Patients on [...] change was based on recommendations from the [place] [employer]. 81 Please note change in [...] change was based on recommendations from the [place] [employer]. 89 Please note change in reference range effective 07 . 90 A metabolite of Naproxen, O-desmethylnaproxen, has been shown to interfere with the [place] method for measuring total bilirubin. Samples from [...] has been shown to interfere with the [place] method for measuring total bilirubin. Samples from [...] Procedures Date CPT Code Description Status Comment 10/03/201762684 Inject/Drain Joint/Bursa Major W/O US Completed 08/08/2017 Colonoscopy Completed 07/21/201788791 Inject/Drain Joint/Bursa Major W/O US Completed 06/24/2017 89641 Remove Impacted Cerumen Completed 06/03/2017 Mammogram Completed 04/07/2017 07660 Inject/Drain Joint/Bursa Major W/O US Completed 04/07/2017 32233 Inject/Drain Joint/Bursa Major W/O US Completed 11/23/201634286 Inject/Drain Joint/Bursa Major W/O US Completed 11/23/201604952 Inject/Drain Joint/Bursa Major W/O US Completed 07/28/2016 15937 Remove Impacted Cerumen Completed 03/17/2016 00693 Stress Test Completed 03/17/2016 39169 Myocardial Perfusion Imaging Tomographic Completed (Spect) Multiple Studies 03/16/2016 94675 Myocardial Perfusion Imaging Tomographic Completed (Spect) Multiple Studies 03/09/2016 25244 Holter Monitor Review (24 hr)dr sibley & tiffani Completed only 03/08/2016 09656 ECHO Transthoracic, Real-Time 2D With Doppler Completed And Color Flow 03/08/2016 58497 ECG Monitor/Recording W/Visual Superimposition Completed Scanning 03/01/2016 26215 EKG Tracing & Interpretation Completed 02/27/2016 Mammogram Completed 02/20/2015 Mammogram Completed 08/08/2014 23249 Remove Impacted Cerumen Completed 01/28/2014 39725 EKG Tracing & Interpretation Completed 10/08/2013 33916 Rad Exam; Wrist, Comp, Min 3 Views Completed rt 08/06/2013 57989 Holter Monitoring 24 HR New Completed 08/06/2013 31884 Holter Monitoring 24 HR New Completed 07/30/2013 04076 ECHO Transthoracic, Real-Time 2D With Doppler Completed And Color Flow 07/03/2013 Bone Mineral Density Test Completed 02/12/2013 Mammogram Completed 11/24/2012 67764 EKG Tracing & Interpretation Completed 10/08/2010 Bone Mineral Density Test Completed 11/12/2008 Mammogram Completed 01/02/2008 Colonoscopy Completed 05/08/2007 17483 Treadmill Interp/Report Only Completed 05/08/2007 39488 Stress Test Supervsn W/Out I/R Completed 05/08/2007 50038 Treadmill Interp/Report Only Completed 09/28/2006 39079 Spirometry Incl Graphic Record, Timed Completed Expiratory Flow Rate 09/28/2006 16985 Spirometry Incl Graphic Record, Timed Completed Expiratory Flow Rate 09/28/2006 31445 EKG Tracing & Interpretation Completed Encounters Type Date Location Provider CPT E/M Dx Office Visit 10/14/2017 [facility] Riya Calderon M.D. 35899 M25.562 9:30a Of [place].M.AMelani M25.462 M17.12 M21.062 Office Visit 09/26/2017 8:10a [facility] Eveline De La Cruz, N.P. 74826 R60.0 Office Visit 07/22/2017 11:00a [facility] Carmen Jean M.D. 52525 G20 Services Of [facility] G24.01 Office Visit 07/07/2017 9:00a [facility] Internal Medicine Darrel Griffin, 13053 M19.011 - Chelo Daven[place] Office Visit 06/21/2017 9:30a [place] [address] S40.021D Of C.M.AMelani M19.011 M75.41 Office Visit 06/17/2017 8:13a [facility] [place] [address] M25.511 S40.021D M25.562 H61.23 Office Visit 05/30/2017 9:20a [facility] Internal Medicine Darrel Griffin, 52955 R63.4 - Chelo Davenport G20 L65.9 R53.83 G47.30 Z12.31 E78.00 Z12.11 Office Visit 03/16/2017 1:15p [facility] Carmen Jean M.D. 73414 G20 Services Of [facility] G24.01 R51 Office Visit 02/22/2017 10:45a [facility] [place] [address] M75.41 C.M.A. M19.011 M17.12 Office Visit 12/06/2016 2:30p [facility] Carmen Jean M.D. 81525 G20 Services Of [facility] G24.01 R51 Office Visit 11/23/2016 8:00a [facility] [place] [address] M75.41 C.M.A. M19.011 M17.12 Office Visit 11/17/2016 9:00a [facility] Internal Medicine Darrel Griffin, 64526 M25.511 - Chelo Davenport M25.562 Office Visit 08/25/2016 11:30a [facility] Carmen Jean M.D. 65374 R20.2 Services Of [facility] Office Visit 07/01/2016 8:47a [facility] Evelien De La Cruz, N.P. 69319 L60.3 M17.12 M25.511 M25.562 Office Visit 06/28/2016 11:00a [facility] Carmen Jean M.D. 99604 G20 Services Of [facility] G24.01 R51 Office Visit 06/10/2016 10:37a [facility] Eveline De La Cruz, N.P. 83961 M54.32 Office Visit 03/29/2016 1:00p [facility] Tristin Luna, 46770 I87.2 Pablo Davenport, ALTAGRACIA, [facility] R07.9 Office Visit 03/01/2016 1:00p [facility] Tristin Luna, 51110 R07.9 Pablo Davenport, FACNeftaly, FASLUIS Office Visit 02/26/2016 9:30a [facility] Carmen Jean M.D. 94352 G20 Services Of [facility] R51 G24.01 Office Visit 02/10/2016 10:00a [facility] Internal Medicine Darrel Griffin, 33456 G47.62 - Chelo Davenport R07.89 Office Visit 10/20/2015 1:45p [facility] Carmen Jean M.D. 36880 G20 Services Of [facility] G24.01 R51 Office Visit 10/02/2015 9:16a [facility] Eveline De La Cruz, N.P. 36398 R35.0 R35.0 Office Visit 09/17/2015 9:00a [facility] Internal Medicine Darrel Griffin, 59728 R20.9 - Raphael Davenport N39.41 Office Visit 09/12/2015 3:20p [place] [address] M79.644 [employer] [facility] [place] Office Visit 08/15/2015 1:00p [place] [address] M79.644 [employer] [facility] [place] Office Visit 07/09/2015 1:40p [facility] Internal Medicine Darrel Griffin, 23308 L98.9 - Raphael Davenport Office Visit 07/02/2015 11:15a [facility] Carmen Jean M.D. 29755 G20 Services Of [facility] G24.01 R51 Office Visit 01/08/2015 1:00p [facility] Carmen Jean M.D. 42208 G20 Services Of [employer] Office Visit 01/02/2015 11:00a [facility] Internal Medicine Darrel Griffin, 88563 Z01.810 - Raphael Davenport H26.9 G20 E78.0 G47.30 M85.9 Office Visit 12/31/2014 11:00a [facility] [place] [address] W10.9xxA Raphael R07.81 W10.8xxA Office Visit 10/04/2014 3:27p [facility] Eveline De La Cruz, N.P. 81464 462 462 478.19 Office Visit 08/19/2014 3:15p [facility] Caremn Jean M.D. 59558 332.0 Services Of [facility] 333.85 Office Visit 08/02/2014 1:00p [facility] Internal Medicine Darrel Griffin, 04940 729.5 - Raphael Davenport v03.82 Office Visit 06/25/2014 1:40p [facility] Internal Medicine Darrel Griffin, 35736 719.47 - Raphael Davenport 703.8 Office Visit 03/06/2014 8:30a [facility] Carmen Jean M.D. 35900 332.0 Services Of [facility] 333.85 784.0 Office Visit 01/28/2014 1:40p [facility] Internal Medicine Darrel Griffin, 79899 786.50 - Raphael Davenport Office Visit 11/14/2013 9:40a [facility] Internal Medicine Darrel Griffin, 95262 380.4 - Raphael Davenport Office Visit 11/14/2013 8:45a [facility] Carmen Jean M.D. 96189 332.0 Services Of [facility] 333.85 784.0 Office Visit 11/12/2013 10:00a [facility] Internal Medicine Darrel Grfifin, 67079 724.1 - Raphael Davenport Office Visit 10/08/2013 8:15a [facility] Esteban M.D. 72259 715.94 C.M.A. 715.93 Office Visit 09/12/2013 2:30p [facility] JOSEF Sun 87838 719.44 C.M.A. Office Visit 09/07/2013 11:40a [facility] Internal Medicine Darrel Griffin, 45441 719.44 - Raphael Davenport Office Visit 09/03/2013 9:45a [facility] Carmen Jean M.D. 23123 332.0 Services [facility] 435.9 368.2 784.0 333.85 Office Visit 07/18/2013 8:30a [facility] Carmen Jean M.D. 74841 332.0 Services Of [facility] 333.85 784.0 Office Visit 07/12/2013 11:40a [facility] Internal Medicine Darrel Griffin 89714 786.2 - Raphael Davenport 719.41 Office Visit 06/27/2013 11:20a [facility] Internal Medicine Darrel Griffin, 55867 465.9 - Raphael Davenport 733.90 Office Visit 03/12/2013 1:00p [facility] Carmen Jean M.D. 76544 332.0 Services Of [facility] 784.0 Office Visit 03/12/2013 10:20a [facility] Internal Medicine Darrel Griffin, 63177 415.19 - Raphael Davenport Office Visit 02/08/2013 12:18p [facility] 58367 789.00 Melani Sanchez Office Visit 01/31/2013 3:20p [facility] Internal Medicine Darrel Griffin, 85398 794.5 - Raphael Davenport 415.19 Office Visit 01/11/2013 9:40a [facility] Internal Medicine Darrel Griffin, 09969 415.19 - Raphael Davenport 794.5 v04.81 Office Visit 12/27/2012 8:30a [facility] Carmen Jean M.D. 97157 332.0 Services Of [facility] Office Visit 12/25/2012 2:20p [facility] Internal Medicine Darrel Griffin, 25400 415.1 - Raphael Davenport V58.61 Office Visit 12/22/2012 10:29a [facility], Angelita Valdivia, 72764 415.19 Hospitalists D.OMelani 780.53 332.0 Office Visit 12/21/2012 10:29a [facility] Radha Stevens, 76865 415.19 Assoc, Hospitalists MStanton 780.53 332.0 Office Visit 11/28/2012 11:40a [facility] Internal Medicine Darrel Griffin, 33335 807.20 - Raphael Davenport Office Visit 11/24/2012 11:20a [facility] Internal Medicine Heidi Nesbitt M.D. 53998 807.2 - Raphael 794.31 Office Visit 11/16/2012 9:40a [facility] Internal Medicine Darrel Griffin, 62382 788.63 - Raphael Davenport Office Visit 08/24/2012 2:40p [facility] Internal Medicine Darrel Griffin, 00155 272.0 - Raphael Davenport 790.21 780.57 332.0 Office Visit 07/07/2012 3:00p [facility] Internal Medicine Eveline Pascualll, N.P. 31510 461.0 - [place] 380.4 Office Visit 07/03/2012 8:30a [facility] Carmen Jean M.D. 11985 332.0 Services Of [facility] [employer] 784.0 Office Visit 06/22/2012 10:32a [facility] Blossom Sanchez, 92917 786.2 Home N.P. Office Visit 03/01/2012 2:00p [facility] Internal Darrel Griffin M.D. 64309 784.0 Medicine - [place] Office Visit 02/23/2012 10:30a [facility] Internal Blossom Sanchez, 95587 789.04 Medicine - N.P. [place] Office Visit 01/03/2012 8:45a [facility] Carmen Jean M.D. 84349 332.0 Services Of [facility] 784.0 Office Visit 12/02/2011 3:20p [facility] Internal Medicine Darrel Griffin, 58571 727.43 - Raphael Davenport 788.63 V04.81 Office Visit 09/20/2011 11:09a [facility] Blossom Sanchez, 74149 916.4 Home N.P. Office Visit 08/30/2011 10:20a [facility] Internal Darrel Griffin M.D. 02409 272.0 [facility] [place] 790.21 780.57 332.0 Office Visit 02/01/2011 1:00p DO Not Use [facility] [employer] [facility] AT Darrel Griffin, 83289 719.41 Julia Davenport Office Visit 09/28/2010 11:40a DO Not Use [facility] [employer] [facility] AT Darrel Griffin 37227 733.90 Julia Davenport 272.0 780.57 Office Visit 07/03/2010 11:20a DO Not Use [facility] [employer] [facility] AT Darrel Griffin 78402 780.57 Julia Davenport 788.1 Office Visit 12/19/2009 2:20p DO Not Use [facility] [employer] AT Sebastian Lindod, 74251 845.09 [facility]..,FACP 453.40 Office Visit 12/03/2009 11:40a DO Not Use [facility] AT [facility], 93405 486 [facility] M.D. Office Visit 11/20/2009 2:20p DO Not Use [facility] AT [facility], 72160 486 [facility] M.D. Office Visit 08/27/2009 3:20p DO Not Use [facility] AT [facility], 00329 782.1 [facility] M.D. Office Visit 08/06/2009 2:40p DO Not Use [facility] AT [facility], 50556 599.0 [facility] M.D. Office Visit 01/22/2009 2:30p DO Not Use [facility] AT [facility], 37293 723.1 [facility].D. Office Visit 12/30/2008 10:15a DO Not Use [facility] AT [facility], 55090 723.1 [facility].. 780.79 272.0 332.0 Office Visit 08/22/2008 10:45a [facility], 75672 784.0 [facility] M.D. 780.79 Office Visit 08/09/2008 10:30a [facility], 84825 780.79 [facility].D. 784.0 Office Visit 04/03/2008 3:15p [facility], 12486 528.2 [facility] M.D. Office Visit 02/21/2008 2:00p [facility], 31907 780.79 [facility] M.D. Office Visit 01/24/2008 9:30a [facility], 90851 272.0 [facility] M.D. Office Visit 11/27/2007 2:00p [facility], 54488 272.0 [facility] M.D. Office Visit 10/19/2007 11:30a [facility], 67690 719.45 [facility].D 272.0 332.0 Office Visit 06/28/2007 10:30a [facility], 00747 332.0 [facility] 04/27/2007 3:15p [facility], 39631 786.50 [facility].D. Office Visit 04/18/2007 10:00a [facility], 18758 724.2 [facility] 10/06/2006 3:30p [facility], 34367 782.8 [facility]. Plan of Care Future Appointment(s):12/26/2017 9:45 am - Riya Calderon M.D. at [facility]12/13/2017 7:30 am - Keyla Manzano PA-C at [facility]12/13/2017 7:30 am - SUSI Zapata at [facility]12/13/2017 7:30 am - Riya Calderon M.D. at [facility]12/02/2017 3:15 pm - Carmen Jean M.D. at [facility]12/01/2017 - Darrel Griffin M.D.Z01.810 Encounter for preprocedural cardiovascular examinationComments:No contraindications to planned knee afvhpxiM34.12 Unilateral primary osteoarthritis, left kneeComments: L TKA planned per [id number] Parkinson's diseaseComments:Stable with Rx; continue usual meds pre-opE78.00 Pure hypercholesterolemia, unspecifiedComments:On RxG47.30 Sleep apnea, unspecifiedComments:On CPAP
--- OUTSIDE RECORDS SUMMARY | 2017-12-13 06:20 | XMS REPORT | Continuity of Care Document ---
:1940 External Reference #:[id number] Author Name Cullen Farooq M.D. Address [address] [place] [address] Care Team Providers Name Role Phone Darrel Griffin MD Care Team Information Stretcher Operator Unavailable Darrel Griffin MD Primary Care Physician Unavailable Payers Type Date Identification Numbers Payment Provider Subscriber Policy Number: [id number] Medicare [place] [facility] PayID: [id number] [address] [place] [address] Policy Number: [id number] Medicare Dme Helen Cooil PayID: [id number] [address] [place] [address] Policy Number: [id number] BC/BS [facility] [facility] PayID: [id number] [address] [address] [place] [address] Advance Directives Description No Information Available Problems Date Description Provider Status Onset: 10/27/2015 Epiretinal membrane Cullen Farooq M.D. Active Onset: 01/28/2015 Presence of intraocular lens Massimo Grimes O.D. Active Onset: 01/22/2015 Primary open-angle glaucoma, mild stage Cullen Farooq M.D. Active Onset: 01/15/2015 Convalescence after surgery Cullen Farooq M.D. Active Onset: 11/16/2014 Superficial injury of cornea Cullen Farooq M.D. Active Onset: 11/09/2013 Vitreous degeneration Cullen Farooq M.D. Active Onset: 11/09/2013 Nuclear senile cataract Cullen Farooq M.D. Active Onset: 11/09/2013 Open-angle glaucoma Cullen Farooq M.D. Active Onset: 08/09/2013 Alternating esotropia Cullen Farooq M.D. Active Onset: 08/09/2013 Primary angle-closure glaucoma Cullen Farooq M.D. Active Family History Date Family Member(s) Problem(s) Comments General Thyroid Disease General Blindness General Diabetes General Cancer Mother Arthritis Mother Heart Disease Social History Type Date Description Comments Sex Unknown ETOH Use Denies alcohol use Tobacco Use Start: Unknown End: Unknown Patient is a former smoker Smoking Status Reviewed: 11/16/17 Patient is a former smoker Allergies, Adverse Reactions, Alerts Date Description Reaction Status Severity Comments 07/12/2013 Ceftin Active 07/12/2013 Cipro Active Medications Medication Date Status Form Strength Qnty SIG Indications Ordering Provider Azilect // Active Tablets 1mg Unknown 0000 Carbidopa/Levodop / Active Tablets 25-100mg Unknown a 0000 Gabapentin / Active Capsules 100mg Unknown 0000 Pramipexole / Active Tablets 0.5mg Unknown Dihydrochloride 0000 Amantadine HCL / Active Syrup 50mg/5ML Jose, 0000 MD Ricardo Atorvastatin / Active Tablets 20mg Gaby, Calcium 0000 Darrel Real MD Latanoprost / Active Solution 0.005% 2.5un Instill Cullen 0000 its One Drop Oseas, In Each M.D. Eye Every Night Dorzolamide / Active Solution 22.3-6.8m 10uni Instill Cullen HCL/Timolol 0000 g/ml ts 1 Drop Oseas, Maleate In Each M.D. Eye Two Times A Day Brimonidine 01/30/ Hx Solution 0.15% 15ml 1 drop Cullen Tartrate 2014 - both Oseas, 10/26/ eyes M.D. 2016 twice a day Vigamox 12/23/ Hx Solution 0.5% 3ml 1 drop Cullen 2014 - drops Oseas, 01/28/ right M.D. 2015 eye four times a day Pred Forte 12/23/ Hx Suspension 1% 10ml 1 drops Cullen 2014 - right Oseas, 10/26/ eye four M.D. 2016 times a day Erythromycin 11/16/ Hx Ointment 5mg/GM 3.500 apply 918.1 Cullen 2014 - gm 1/4 inch Oseas, 11/21/ strip to M.D. 2015 left eye three times daily Pramipexole / Hx Tablets 0.5mg Unknown Dihydrochloride - 2013 Fluticasone / Hx Suspension 50mcg/Act Unknown Propionate 2013 Simvastatin 00/00/ Hx Tablets 20mg Unknown 2016 Clonazepam 00/00/ Hx Tablets 0.5mg Unknown 2014 Xarelto 00/00/ Hx Tablets 20mg Unknown 2013 Enoxaparin Sodium 00/00/ Hx Solution 60mg/0.6M Unknown 0000 - L 2013 Levofloxacin 00/00/ Hx Tablets 250mg Unknown 2013 Warfarin Sodium 00/00/ Hx Tablets 5mg Unknown 2013 Ciclopirox Nail 00/00/ Hx Solution 8% Unknown Lacquer 2013 Lidoderm 00/00/ Hx Patches 5% Unknown 2013 Oxycodone/Acetami 00/00/ Hx Tablets 5-325mg Unknown nophen 2013 Polyethylene 00/00/ Hx Powder 3350NF Unknown Glycol 3350 2013 Cymbalta 00/00/ Hx Caps DR Part 20mg Unknown 2013 Amantadine HCL 00/00/ Hx Capsules 100mg Unknown 2014 Fluticasone 00/00/ Hx Suspension 50mcg/Act Unknown Propionate 2014 Xarelto 00/00/ Hx Tablets 20mg Unknown 2014 Warfarin Sodium 00/00/ Hx Tablets 5mg Unknown 2014 Levofloxacin 00/00/ Hx Tablets 250mg Unknown 2016 Enoxaparin Sodium 00/00/ Hx Solution 60mg/0.6M Unknown 0000 L 2014 Ciclopirox 00/00/ Hx Solution 8% Unknown 2014 Lidoderm 00/00/ Hx Patches 5% Unknown 2016 Oxycodone-Acetami 00/00/ Hx Tablets 5-325mg Unknown nophen 2016 Polyethylene 00/00/ Hx Powder 3350NF Unknown Glycol 3350 2016 Immunizations Description No Information Available Vital Signs Date Vital Result Comment 11/16/2017 1:30pm Intraocular Pressure Right Eye 13 mmHg Intraocular Pressure Left Eye 12 mmHg 08/04/2017 10:37am Intraocular Pressure Right Eye 12 mmHg Intraocular Pressure Left Eye 12 mmHg 05/06/2017 2:00pm Intraocular Pressure Right Eye 13 mmHg Intraocular Pressure Left Eye 12 mmHg 01/21/2017 8:55am Intraocular Pressure Right Eye 12 mmHg Intraocular Pressure Left Eye 12 mmHg 10/01/2016 8:22am Intraocular Pressure Right Eye 12 mmHg Intraocular Pressure Left Eye 12 mmHg 07/02/2016 11:19am Intraocular Pressure Right Eye 13 mmHg Intraocular Pressure Left Eye 13 mmHg 01/20/2016 8:27am Intraocular Pressure Right Eye 13 mmHg Intraocular Pressure Left Eye 12 mmHg 10/27/2015 8:18am Intraocular Pressure Right Eye 12 mmHg Intraocular Pressure Left Eye 15 mmHg 02/18/2015 8:48am Intraocular Pressure Right Eye 15 mmHg Intraocular Pressure Left Eye 15 mmHg 01/28/2015 9:08am Intraocular Pressure Right Eye 14 mmHg Intraocular Pressure Left Eye 16 mmHg 01/24/2015 8:58am Intraocular Pressure Right Eye 18 mmHg Intraocular Pressure Left Eye 14 mmHg 01/22/2015 8:19am Intraocular Pressure Right Eye 30 mmHg Intraocular Pressure Left Eye 34 mmHg 01/15/2015 8:15am Intraocular Pressure Right Eye 27 mmHg 11/21/2014 8:12am Intraocular Pressure Right Eye 15 mmHg Intraocular Pressure Left Eye 14 mmHg 11/16/2014 10:01am Intraocular Pressure Right Eye 15 mmHg Intraocular Pressure Left Eye 15 mmHg 07/26/2014 8:55am Intraocular Pressure Right Eye 16 mmHg Intraocular Pressure Left Eye 16 mmHg 07/02/2014 1:51pm Intraocular Pressure Right Eye 15 mmHg Intraocular Pressure Left Eye 15 mmHg 02/11/2014 8:41am Intraocular Pressure Right Eye 16 mmHg Intraocular Pressure Left Eye 15 mmHg 11/09/2013 8:16am Intraocular Pressure Right Eye 18 mmHg Intraocular Pressure Left Eye 18 mmHg 08/09/2013 3:06pm Intraocular Pressure Right Eye 16 mmHg Intraocular Pressure Left Eye 16 mmHg Results Description No Information Available Procedures Date Code Description Status 11/16/2017 19858 Fundus Photography W/Interpretation & Report Completed 11/16/2017 46060 Ophthalmoscopy Subsequent Completed 11/16/2017 49692 Refraction Completed 11/16/2017 93041 Eye Exam Est Comprehensive Completed 08/04/2017 94956 Eye Exam Est Intermediate Completed 05/06/2017 86495 Oct, Optic Nerve Completed 05/06/2017 31723 Visual Field Exam Extended, Unilateral Or Bilateral Completed 05/06/2017 68527 Eye Exam Est Intermediate Completed 01/21/2017 19369 Eye Exam Est Intermediate Completed 01/21/2017 02027 Visual Field Exam Extended, Unilateral Or Bilateral Completed 01/21/2017 50395 Oct Retina Completed 10/01/2016 22427 Fundus Photography W/Interpretation & Report Completed 10/01/2016 92386 Ophthalmoscopy Subsequent Completed 10/01/2016 87708 Refraction Completed 10/01/2016 81363 Eye Exam Est Comprehensive Completed 07/02/2016 90073 Oct, Optic Nerve Completed 07/02/2016 12861 Eye Exam Est Intermediate Completed 01/20/2016 88263 Eye Exam Est Intermediate Completed 01/20/2016 48500 Visual Field Exam Extended, Unilateral Or Bilateral Completed 10/27/2015 40536 Fundus Photography W/Interpretation & Report Completed 10/27/2015 60983 Refraction Completed 10/27/2015 85002 Eye Exam Est Comprehensive Completed 01/21/2015 58292 Extracapsular Cataract Extraction W/Intraocular Lens Completed 01/14/2015 27608 Extracapsular Cataract Extraction W/Intraocular Lens Completed 11/21/2014 87942 Eye Exam Est Comprehensive Completed 11/21/2014 06063 Ophthalmic Biometry By Partial Coherence Interferometry Completed W/Intra 11/21/2014 05484 Ophthalmoscopy Subsequent Completed 11/21/2014 17598 Fundus Photography W/Interpretation & Report Completed 11/18/2014 81939 Eye Exam Est Intermediate Completed 11/16/2014 42771 Eye Exam Est Intermediate Completed 07/26/2014 69933 Visual Field Exam Extended, Unilateral Or Bilateral Completed 07/26/2014 71890 Eye Exam Est Intermediate Completed 07/02/2014 16505 Refraction Completed 07/02/2014 59403 Eye Exam Est Intermediate Completed 02/11/2014 53836 Eye Exam Est Intermediate Completed 02/11/2014 61735 Oct, Optic Nerve Completed 11/09/2013 58346 Fundus Photography W/Interpretation & Report Completed 11/09/2013 12761 Ophthalmoscopy Subsequent Completed 11/09/2013 43417 Eye Exam Est Comprehensive Completed 08/09/2013 20934 Visual Field Exam Extended, Unilateral Or Bilateral Completed 08/09/2013 58698 Eye Exam Est Intermediate Completed 06/30/2011 51590 Eye Exam Est Intermediate Completed 02/08/2011 82999 Eye Exam Est Intermediate Completed 09/30/2010 63786 Corneal Pachymetry, Unilateral/Bilateral Completed 09/30/2010 34281 Eye Exam Est Comprehensive Completed 09/30/2010 62363 Ophthalmoscopy Subsequent Completed 09/30/2010 14435 Fundus Photography W/Interpretation & Report Completed 06/30/2010 74992 Eye Exam Est Intermediate Completed 03/11/2010 14524 Eye Exam Est Intermediate Completed 03/04/2010 15141 Visual Field Exam Extended, Unilateral Or Bilateral Completed 03/04/2010 59238 Eye Exam Est Intermediate Completed 09/03/2009 13169 Corneal Pachymetry, Unilateral/Bilateral Completed 09/03/2009 66240 Eye Exam Est Comprehensive Completed 09/03/2009 07578 Ophthalmoscopy Subsequent Completed 09/03/2009 16096 Fundus Photography W/Interpretation & Report Completed 07/09/2009 83212 Visual Field Exam Extended, Unilateral Or Bilateral Completed 07/09/2009 11537 Eye Exam Est Intermediate Completed 03/11/2009 57954 Visual Field Exam Extended, Unilateral Or Bilateral Completed 03/11/2009 14404 Eye Exam Est Intermediate Completed 03/05/2009 57142 Eye Exam Est Intermediate Completed 09/03/2008 09926 Visual Field Exam Extended, Unilateral Or Bilateral Completed 09/03/2008 31788 Eye Exam Est Intermediate Completed 09/03/2008 50650 Corneal Pachymetry, Unilateral/Bilateral Completed 08/24/2008 86406 Eye Exam Est Intermediate Completed 08/15/2008 68280 Fundus Photography W/Interpretation & Report Completed 08/15/2008 82496 Ophthalmoscopy Initial Completed 08/15/2008 49594 Sensorimotor Examination W/Mult Measurements Ocular Completed Deviation 08/15/2008 05391 Gonioscopy Completed 08/15/2008 80073 Eye Exam New Comprehensive Completed Encounters Type Date Location Provider Dx Diagnosis Office Visit 01/24/2015 Main Office Cullen Farooq, H40.11x1 Primary open- angle 8:45a M.D. glaucoma, mild stage Office Visit 03/12/2011 Main Office Cullen Farooq, 365.00 Preglaucoma Unspec 9:45a M.D. Office Visit 03/09/2011 Main Office Cullen Farooq, 365.10 Glaucoma Open Angle 1:15p M.D. Unspec Office Visit 03/05/2011 Main Office Cullen Farooq, 365.10 Glaucoma Open Angle 10:30a M.D. Unspec Office Visit 12/24/2010 Main Office Cullen Farooq, 365.10 Glaucoma Open Angle 10:15a M.D. Unspec Plan of Treatment 11/16/2017 - Peter Farooq, M.D.H35.371 Puckering of macula, right eyeH40.1131 Primary open-angle glaucoma, bilateral, mild hybjhO35.05 Alternating zsqugbsleH71.813 Vitreous degeneration, szqkpiaxnW53.1 Presence of intraocular lensFollow up:3 mos iop
--- OUTSIDE RECORDS SUMMARY | 2017-12-13 06:20 | XMS REPORT ---
:1940 External Reference #:[id number] Author Organization [facility] Address [address] [facility] [address] [place] [address] [place] [address] Phone [phone] Care Team Providers Name Role Phone Darrel Griffin III, MD Primary Care Physician Unavailable Payers Type Date Identification Numbers Payment Provider Subscriber Medicare Primary Policy Number: [id number] Medicare Marlen Means PayID: [id number] [address] [place] [address] Medigap Part B Effective: 2011 Policy Number: JOVANNA [facility] Marlen Means [id number] PayID: [id number] [address] [place] [address] Commercial Policy Number: [id number] [facility] Marlen Means PayID: [id number] [address] [place] [address] Medigap Part B Expires: 2009 Policy Number: BS ERICK Means [id number] Group Number: [id number] [address] PayID: [id number] [place] [address] Advance Directives Type Date Description Status Comment Other Directive 03/08/2016 Health Care Proxy Current and Verified Other Directive 02/05/2016 Current and Verified Other Directive 03/02/2012 Power Of [employer] Current and Verified Other Directive 10/23/2009 Health [...] Onset: 03/01/2016 Chest pain Tristin Luna M.D., [facility], Active FASNC Onset: 03/29/2016 Peripheral venous insufficiency Tristin Luna M.D., [facility], Active FASNC Onset: 11/17/2016 Knee pain Darrel Griffin M.D. 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 Biotin Active Tablets 1000mcg 1 daily Unknown Latanoprost Active Solution 2.5% 1 drop in each eye once qhs Carbidopa-Levod Active Tablets 25-100mg 270ta 1 by mouth Carmen bs three times Cowdery, a day M.D. Azilect Active Tablets 1mg 90tab 1 tab by Carmen s mouth every Cowdery, day M.D. Dorzolamide Active Solution 22.3-6.8m instill 1 Unknown HCL/Timolol /0000 g/ml drops each Maleate eye Am/PM Vitamin D Active Capsules 1000 1 tab po qam Unknown (Ergocalciferol ) Glucosamine Active Tablets 1 tab po qd Unknown Chondroitin /0000 Complex Advanced Gabapentin 00 Active Capsules 100mg 180ca Usually Carmen / ps takes Cowdery, one---2 tab M.D. by mouth every night Calcium 00 Active Tablets 1 by mouth Unknown /0000 every day Acetaminophen 00 Active Tablets 325mg 1 tablet by Unknown /0000 mouth every 6 hours as needed for pain/fever Hydrocodone-Colby 12/31 Hx Tablets 5-325mg 120ta 1-2 tabs by [id number] Ricardo taminophen bs mouth q4 Jon, [employer] - hours as 08/13 needed pain /2015 limit 8 tabs per day Debrox 08/08 Hx Solution 6.5% 1bott 5 drops in 380.4 Eveline le each ear Dorothy, - every month N.P. 12/31 Lidoderm 11/12 Hx Patches 5% 30uni apply 724.1 Darrel E. ts topically Gaby, - every day as M.D. 10/04 needed Amantadine HCL 07/18 Hx Tablets 100mg 60tab 1 by mouth 333.85 Hattie s every Millicent, [employer] - morning. July 23 take 1 tab /2014 by mouth in afternoon if needed Xarelto 12/25 Hx Tablets 20mg 70tab 1 po qd with 415.1 Darrel EMelani s evening meal Hnanah Griffin.DMelani 03/12 Enoxaparin 12/25 Hx Solution 60mg/0.6M 2unit prefilled 415.1 Darrel EMelani L s syringes 1 Gaby, - dose q 12 M.D. 01/11 Oxycodone/Aceta 11/24 Hx Tablets 5-325mg 15tab take 1 807.2 Heidi minophen s tablet by Laz, - mouth every M.D. 12/27 6 hours needed Cymbalta 08/[address] 20mg 30cap take 2 po Part s qday Ted - M.D. 11/16 Amoxicillin 07/07 Hx Capsules 500mg 20cap 1 cap bid 461.0 Eveline s for 10 days Dorothy - N.P. 08/24 Robitussin DM 06/22 Hx Syrup 100-10mg/ 355ml take 1 786.2 Blossom 5ML teaspoons po [place]-W - q 4 hrs prn atson, 08/24 for cough N.P. /2012 Sinemet 03/05 Hx Tablets 25-100mg 360ta 1 po tid Carmen Hannah Lennon M.D. 01/28 Doxycycline 09/19 Hx Capsules 100mg 20cap take one 916.4 Blossom Hyclate s pill twice [place]-W - daily for 10 atson, 12/01 days [...] 6Oz 10 cc qhs Darrel Mcgowan Codeine x and q 4 hrs Hannah Griffin M.D. 12/19 Zithromax Z-Yayo 11/20 Hx Tablets 250mg 1Pack as per Darrel Mcgowan /2009 directions Hannah Griffin M.D. 12/03 Septra DS 08/06 Hx Tablets 800-160mg 20tab 1 po bid Darrel Mcgowan Hannah Govea M.D. 11/20 Physical 01/22 Hx 20uni pt Darrel Mcgowan Therapy ts evaluation Letty Griffin 12/19 treatment for [...] 35mg 3Mont 1 po twice a Darrel EMelani h month to Gaby, - start on M.D. 12/3004/21/07 Lipitor Hx Tablets 10mg 30tab 1 PO QHS Barken, / s MD Bony - 11/26 Neurontin Hx Capsules 100mg 90cap 1 tabs by Carmen / s mouth every der, - night at M.D. 03/15 bedtime Mirapex Hx Tablets 0.5mg 120ta 1 PO qid Cowmelany, bs MD Carmen - 04/18 Zoloft Hx Tablets 25mg. 90tab 1 qod Cowsebastien, s MD Carmen - 08/06 Sinemet Hx Tablets 25/100 45tab 1 po tid Ted, s MD Carmen - 03/05 Aspirin Hx Tablets 325mg 1 PO qd Unknown / - 08/29 Nupro Hx Patch 2mg. Starting on der 2 mg. patch MD Carmen - and will be 01/23 to 4 mg. patch on 2007 Flonase Hx Suspension 50mcg/Act 3unit 1 [place] Each Darrel E. s Nostril [facility] Hannah Griffin M.D. 01/23 Azilect Hx Tablets 1mg 90tab 1 tab PO Hattie / s daily PROSPER Ricks - 10/04 Xalatan Hx Solution 0.005% ou qhs 1 ggt Unknown / - 08/29 Simvastatin Hx Tablets 20mg 90tab 1 po qd Darrel E. / Hannah Govea M.D. 12/27 Aspirin Low Hx Tablets 81mg 1 po qd Unknown Dose / - 12/01 Cosopt Hx Solution 22.3-6.8m 1 drop both Unknown / g/ml eyes qd - 12/01 Glucosamine-Cho Hx Capsules 500-400mg 60cap 1 tab po qd Unknown ndroitin /0000 s - 02/28 Dorzolamide HCL Hx Solution 2% 22.3 gtts Unknown /0000 both eyes - bid 12/27 Calcium 00/ Hx Tablets 400mg 60tab 1 po qd Unknown /0000 s - 07/19 Simvastatin 00/ Hx Tablets 20mg 90tab 1 by mouth Darrel Mcgowan /0000 s every day Hannah Griffin M.D. 02/24 Evening 00 Hx Capsules 1 capsule Unknown [place] Oil /0000 daily - 11/12 Cholacol 00 Hx Tablet 1 tablet Unknown /0000 daily - 08/24 Fish Oil 00 Hx Capsules 1000mg 1 po qd Unknown /0000 - 10/04 Co Q-10 Hx Capsules 30mg 1 PO qd Unknown /0000 - 02/28 Nasonex 00 Hx Suspension 50mcg/Act 17g 2 sprays in Unknown /0000 each nostril - once daily 08/24 Oxycodone/Aceta Hx Tablets 5-325mg 1 tab po q Unknown minophen /0000 4-6 hrs prn - pain 12/27 Acetaminophen 00 Hx Capsules 100ca take 2 Unknown /0000 ps tablets - three times 12/27 daily needed Cosopt 00/ Hx Solution 22.3-6.8m 1 gtt each Unknown /0000 g/ml eye bid - 10/04 Lidoderm Hx Patches 5% 30uni topical 10 Unknown /0000 ts hours - 12/27 Warfarin Sodium 0000 Hx Tablets 5mg 90tab take as Unknown /0000 s directed - 12/27 Vitamin D-1000 00/ Hx Tablets 1000Unit 1 by mouth Unknown Maximum /0000 every day Strength - 10/04 Aspirin Ec [address] 81mg 90tab 1 tablet po Unknown Lo-Dose /0000 s daily. - 01/28 Acetaminophen 00/ Hx Liquid 5ml take 1 Unknown /0000 tablets by - mouth every 02/28 6 hours needed for pain Evening 0000 Hx Capsules 1000mg Unknown [place] Oil /0000 - 12/31 Hydrocodone-Colby Hx Tablets 5-325mg 1-2 tab po q Unknown taminophen /0000 4 hours prn - 12/31 Robitussin DM Hx Syrup 100-10mg/ 5-10 Unknown / 5ML milliliters - by mouth q 12/31 4 hours /2014 Ibuprofen Hx Tablets 200mg as needed Unknown /0000 - 09/26 Medications Administered in Office Medication Date Status [...] Efrain Regadenoson, 0.1 2015 Jeremy, MG M.D., [facility], [facility] Technetium TC 03/17/ Administered Injection Tristinamelia Zuniga 99M Tetrofosmin, 2016 Jeremy, Per Unit Dose Up M.D., To [address] [facility], Millicuries [facility] Influenza Virus 11/19/ Administered Injection Unknown Vaccine 2013 Immunizations CPT Code Status Date Vaccine Lot # [id number] Given 01/09/2016 Influenza Virus Vaccine, Quadrivalent, Split [id number] Virus, [place] Use 77197 Given 01/01/2015 Influenza Virus Vaccine, Quadrivalent, Split, Preservative Free [id number] Given 08/02/2014 Pneumococcal Conjugate Vaccine 13 Valent For [id number] Intramuscular Use 40568 Given 08/10/2013 Tdap - Tetanus/Diptheria/Acellular Pertussis [id number] 61403 Given 01/11/2013 Flu Vaccine Split Virus Preservative Free For [id number] Indiv 3Yr Older [id number] Given 12/02/2011 Fluzone Vaccine [id number] 57414 Given 09/15/2011 Pneumonia Vaccine 57382 Given 09/15/2011 Pneumonia Vaccine [id number] 14169 Given 01/03/2010 Influenza Virus 3Yrs & Over 24709 Given 09/23/2009 Zoster (Zostavax) [id number] 99745 Given 12/31/2008 Influenza Virus 3Yrs & Over 23310 Given 12/31/2008 Influenza Virus 3Yrs & Over [id number] 46105 Given 12/18/2007 Influenza Virus 3Yrs & Over 13238 Given 12/18/2007 Influenza Virus 3Yrs & Over 91466 Given 12/26/2006 Influenza Virus 3Yrs & Over 89774 Given 12/26/2006 Influenza Virus 3Yrs & Over [id number] 26447 Given Unknown Flu Vaccine Split Virus Preservative Free For Indiv 3Yr Older 13408 Given Unknown Flu Vaccine Split Virus Preservative Free For Indiv 3Yr Older Vital Signs Date Vital Result Comment 11/30/2017 Height 60 inches 5'0" Weight 95.75 [...] Mass Index) 18.2 kg/m2 Last Menstrual Period 1967885 10/03/2017 Height 60 inches 5'0" Weight 93.00 [...] Test Date Test Result H/L Range Note Urinalysis Profile 09/08/2017 Urine Color Yellow Urine Appearance Clear Urine Specific [place] 1.008 Low 1.010-1.030 Urine pH 8.0 5-9 Urine Urobilinogen Negative Negative Urine Ketones Negative Negative Urine Protein Negative Negative Urine Leukocytes Negative Negative Urine Blood Negative Negative Urine Nitrite Negative Negative Urine Bilirubin Negative Negative Urine Glucose Negative Negative Urine Culture And 09/08/2017 Urine Culture SEE RESULT BELOW 1 Sensitivities Comp Metabolic Panel 05/31/2017 Sodium 138 mmol/L [...] Egfr Non- 98.8 >60 Egfr 127.1 >60 2 Laboratory test finding 05/31/2017 C Reactive Protein < 1.00 mg/L < 5.00 3 Erythrocyte Sed Rate 10 mm/Hr 0-40 CBC [...] Lipid Profile (Trig/Chol/HDL) 05/31/2017 Triglycerides 88 mg/dL 4 Cholesterol 191 mg/dL 5 HDL Cholesterol 72.5 mg/dL 6 LDL Cholesterol 101 mg/dL 7 CBC Auto Diff 07/05/2016 White Blood Count 7.6 10^3/uL 3.5-10.8 8 Red Blood Count 4.50 10^6/uL 4.0-5.4 8 Hemoglobin 14.3 g/dL 12.0-16.0 8 Hematocrit 43 % 35-47 8 Mean Corpuscular Volume 95 fL 80-97 8 Mean Corpuscular Hemoglobin 32 pg High 27-31 8 Mean Corpuscular HGB Conc 34 g/dL 31-36 8 Red Cell Distribution Width 14 % 10.5-15 8 Platelet Count 271 10^3/uL 150-450 8 Mean Platelet Volume 8 um3 7.4-10.4 8 Abs Neutrophils 4.9 10^3/uL 1.5-7.7 8 Abs Lymphocytes 1.9 10^3/uL 1.0-4.8 8 Abs Monocytes 0.6 10^3/uL 0-0.8 8 Abs Eosinophils 0.2 10^3/uL 0-0.6 8 Abs Basophils 0.1 10^3/uL 0-0.2 8 Abs Nucleated RBC 0.01 10^3/uL 8 Granulocyte % 63.9 % 38-83 8 Lymphocyte % 24.5 % Low 25-47 8 Monocyte % 7.4 % 1-9 8 Eosinophil % 3.2 % 0-6 8 Basophil % 1.0 % 0-2 8 Nucleated Red Blood Cells % 0.1 8 Laboratory test finding 07/05/2016 TSH (Thyroid Stim 0.97 mcIU/mL 0.34- 5.60 8, 9 Horm) Vitamin D Total 25(Oh) 38.9 ng/mL 30-50 8, 10 Urinalysis Profile 10/02/2015 Urine Color Yellow 11 Urine Appearance Clear 11 Urine Specific [place] 1.008 Low 1.010-1.030 11 Urine pH 6.0 5-9 11 Urine Urobilinogen Negative Negative 11 Urine Ketones Negative Negative 11 Urine Protein Negative Negative 11 Urine Leukocytes Negative Negative 11 Urine Blood Negative Negative 11 * * Negative 11, 12 Urine Nitrite Negative Negative 11 Urine Bilirubin Negative Negative 11 Urine Glucose Negative Negative 11 Urine Culture And 10/02/2015 Urine Culture SEE RESULT BELOW 11, 13 Sensitivities Laboratory test finding 09/17/2015 Magnesium 2.2 mg/dL 1.9-2.7 TSH (Thyroid Stim Horm) 1.47 ?IU/mL 0.34-5.60 Vitamin B12 And Folate Serum 09/17/2015 Vitamin B12 500 pg/mL 180-914 14 Folic Acid (Folate) 16.82 ng/mL >3.99 Laboratory test finding 09/17/2015 Zinc Serum 0.77 g/mL 0.66-1.10 15 Basic Metabolic Panel 09/17/2015 Sodium 136 mmol/L 133-145 Potassium 4.3 mmol/L 3.5-5.0 Chloride 101 mmol/L 101-111 Co2 Carbon Dioxide 30 mmol/L 22-32 Anion Gap 5 mmol/L 2-11 Glucose 92 mg/dL 70-100 Blood Urea Nitrogen 18 mg/dL 6-24 Creatinine 0.63 mg/dL 0.51-0.95 BUN/Creatinine Ratio 28.6 High 8-20 Calcium 9.4 mg/dL 8.6-10.3 Egfr Non- 92.1 >60 Egfr 118.5 >60 16 Connective Tissue Panel 07/02/2015 Anti-Nuclear Antibody 0.2 U 17 Cyclic Citrullinated Peptide <15.6 U 18 Interpretation See Comment 19 Laboratory test finding 07/02/2015 Erythrocyte Sed Rate 10 mm/Hr 0-40 Lipid Profile (Trig/Chol/HDL) 02/26/2015 Triglycerides 60 mg/dL 20, 21 Cholesterol 198 mg/dL 20, 22 HDL Cholesterol 84.1 mg/dL 20, 23 LDL Cholesterol 102 mg/dL 20, 24 Comp Metabolic Panel 02/26/2015 Sodium 137 mmol/L 133-145 20 Potassium 4.9 mmol/L 3.5-5.0 20 Chloride 100 mmol/L Low 101-111 20 Co2 Carbon Dioxide 32 mmol/L 22-32 20 Anion Gap 5 mmol/L 2-11 20 Glucose 93 mg/dL 70-100 20 Blood Urea Nitrogen 14 mg/dL 6-24 20 Creatinine 0.62 mg/dL 0.51-0.95 20 BUN/Creatinine Ratio 22.6 High 8-20 20 Calcium 9.7 mg/dL 8.6-10.3 20 Total Protein 6.6 g/dL 6.4-8.9 20 Albumin 4.6 g/dL 3.2-5.2 20 Globulin 2.0 g/dL 2-4 20 Albumin/Globulin Ratio 2.3 1-3 20 Total Bilirubin 0.70 mg/dL 0.2-1.0 20 Alkaline Phosphatase 64 U/L 34-104 20 Alt < 3 U/L Low 7-52 20 Ast 16 U/L 13-39 20 Egfr Non- 93.8 >60 20 Egfr 120.7 >60 20, 25 Laboratory test finding 10/04/2014 Culture Throat SEE RESULT BELOW 26 Lipid Profile (Trig/Chol/HDL) 07/16/2013 Triglycerides 86 mg/dL 27 Cholesterol 188 mg/dL 28 HDL Cholesterol 75.4 mg/dL 29 LDL Cholesterol 95 mg/dL 30 Comp Metabolic Panel 07/16/2013 Sodium 137 mmol/L [...] Egfr Non- 99.9 >60 Egfr 128.5 >60 31 Vitamin D, 25 Hydroxy 07/16/2013 25-Hydroxy Vitamin D2 <4.0 ng/mL 25-Hydroxy Vitamin D3 44 ng/mL 25-Hydroxy Vitamin D Total 44 ng/mL 32 Cytology Non-Planograph Operator 03/08/2013 Janae RUN DATE: 33 <SEE NOTE> Laboratory test 03/05/2013 D Dimer Quantitative < 200 ng/mL Less Than 230 34 finding Urinalysis 02/08/2013 Urine Color Yellow Urine Appearance Clear Urine Specific [place] 1.022 1.010-1.030 Urine Esterase Negative Negative Urine Nitrate Negative Negative Urine Urobilinogen Negative E.U./dL Negative Urine Protein Negative mg/dL Negative Urine pH 6.0 5-9 Urine Blood Negative Negative Urine Ketones Negative mg/dL Negative Urine Bilirubin Negative Negative Urine Glucose Negative mg/dL Negative Urine Culture And 02/08/2013 Urine Culture (SEE NOTE) 35 Sensitivities Laboratory test finding 01/26/2013 TSH (Thyroid 1.10 miu/mL 0.34-5.60 Stimulating Horm) Free T4 0.95 ng/mL 0.61-1.24 Protime W/ Inr 12/25/2012 Prothrombin Time 15.2 Inr 1.3 Laboratory test finding 12/24/2012 Inr 1.13 High 0.87-0.97 36 Laboratory test finding 12/20/2012 Creatine Kinase 43 U/L 0-200 37 Troponin I 0 ng/mL 0-0.06 38 B Type Natriuretic Peptide 126.0 pg/mL High [...] Egfr Non- 120.9 >60 Egfr 155.5 >60 39 Laboratory test finding 12/20/2012 Activated Partial 27.8 seconds 22.18- 37.18 40 Thrombo Time Inr/Protime 12/20/2012 Inr 0.94 0.87-0.97 [...] Egfr Non- 98.0 >60 Egfr 126.0 >60 41 Laboratory test finding 11/26/2012 Troponin I 0 ng/mL 0-0.06 42 Urinalysis W/Microscopic 11/16/2012 Urine Color Yellow Urine Appearance Clear Urine Specific [place] 1.010 1.010-1.030 Urine Esterase Negative Negative Urine [...] And Sensitivities 11/16/2012 Urine Culture (SEE NOTE) 43 Ua Routine 11/16/2012 Ua Specific [place] 1.005 Ua PH 5 Ua Color yellow Ua Appera clear Ua WBC neg Ua Protein neg Ua Glucose neg Ua Ketones neg Ua Bilirubin neg Ua Urobilinogen neg Ua Nitrite neg Ua Occult Blood neg Lipid Profile (Trig/Chol/HDL) 08/11/2012 Triglycerides 58 mg/dL 40-200 Cholesterol 216 mg/dL High Less than 200 HDL Cholesterol 97 mg/dL High 40-60 44 Cholesterol/HDL Ratio 2.2 Average 1-4.44 LDL Cholesterol 107.4 mg/dL High Less Than 100 45 Comp Metabolic Panel 08/11/2012 Sodium 138 mmol/L [...] Egfr Non- 98.3 >60 Egfr 126.4 >60 46 Laboratory test finding 08/11/2012 Hemoglobin A1c 5.6 % Less than 6.0 47 Laboratory test finding 03/01/2012 C Reactive Protein [...] And Sensitivities 02/12/2012 Urine Culture (SEE NOTE) 48 Urinalysis 10/05/2011 Ua Color YELLOW Yellow Appearance-Urine CLEAR Clear Specific [place]-Ur 1.026 1.010-1.030 Esterase-Urine NEGATIVE Negative Nitrite NEGATIVE Negative Cjehzaebkfev-Nb-SLF NEGATIVE Negative Protein-Urine NEGATIVE Negative PH-Urine 5.5 5-9 Blood-Urine NEGATIVE Negative Ketones-Urine TRACE Negative Bilirubin-Ur NEGATIVE Negative Glucose-Urine NEGATIVE Negative Urine Culture & 10/05/2011 M <SEE 49 Sensitivi NOTE> Laboratory test 09/20/2011 Lyme Disease Negative Negative 50 finding Serology Laboratory test 08/30/2011 Hemoglobin A1c 5.9 5-7 finding Lipid Profile 08/09/2011 Triglyceride 90 mg/dL 40-200 (Trig/Chol/HDL) Cholesterol 211 mg/dL High Less Than 200 51 High Density Lipoprotein 92 mg/dL High 40-60 52 Cholesterol/HDL Ratio 2.29 AVERAGE 1-4.44 Low Density Lipoprotein 101 mg/dL High Less Than 100 53 Comp Metabolic Panel 08/09/2011 Sodium 135 mmol/L 135-145 Potassium 4.7 mmol/L 3.5-5.0 Chloride 101 mmol/L 101-111 Co2 (Carbon Dioxide) 29.0 mmol/L 22-32 Anion Gap 5.0 mmol/L 2-11 54 Glucose 110 mg/dL High 70-100 BUN 16 mg/dL 6-24 Creatinine 0.9 mg/dL 0.50-1.40 One Over Creatinine 1.11 BUN/Creatinine Ratio 17.8 8-20 Calcium 9.8 mg/dL 8.1-9.9 Total Protein 6.8 GM/DL 6.2-8.1 Albumin 4.8 GM/DL 3.2-5.2 Globulin 2.0 GM/DL 2-4 Albumin/Globulin Ratio 2.4 1-3 Bilirubin Total 0.8 mg/dL 0.4-1.5 55 Alkaline Phosphatase 58 U/L 30-110 Alt (SGPT) 5 U/L Low 14-54 Ast (Sgot) 17 U/L 12-42 eGFR Non- 61.7 > 60 eGFR 79.4 > 60 56 Laboratory test finding 10/12/2010 Ast (Sgot) 18 U/L 12-42 Alt (SGPT) 7 U/L Low 14-54 Lipid Profile (Trig/Chol/HDL) 10/12/2010 Triglyceride 79 mg/dL 40-200 Cholesterol 205 mg/dL High Less Than 200 57 High Density Lipoprotein 91 mg/dL High 40-60 58 Cholesterol/HDL Ratio 2.25 AVERAGE 1-4.44 Low Density Lipoprotein 98 mg/dL Less Than 100 59 Laboratory test finding 07/20/2010 BUN 16 mg/dL 6-24 Creatinine 07/20/2010 Creatinine 0.70 mg/dL 0.50-1.40 One Over Creatinine 1.40 eGFR Non- 82.7 > 60 eGFR 106.4 > 60 60 Urinalysis 07/03/2010 Ua Color YELLOW Yellow Appearance-Urine CLEAR Clear Specific [place]-Ur 1.003 Low 1.010-1.030 Esterase-Urine NEGATIVE Negative Nitrite NEGATIVE Negative Txnlscuvmeau-Si-IYI NEGATIVE Negative Protein-Urine NEGATIVE Negative PH-Urine 6.5 5-9 Blood-Urine NEGATIVE Negative Ketones-Urine NEGATIVE Negative Bilirubin-Ur NEGATIVE Negative Glucose-Urine NEGATIVE Negative Urine Culture & Sensitivi 07/03/2010 Urine Culture Sensitivi NG 61 Lipid Profile 03/06/2010 Triglyceride 95 mg/dL 40-200 (Trig/Chol/HDL) Cholesterol 215 mg/dL High Less Than 200 62 High Density Lipoprotein 98 mg/dL High 40-60 63 Cholesterol/HDL Ratio 2.19 AVERAGE 1-4.44 Low Density Lipoprotein 98 mg/dL Less Than 100 64 Liver Function Panel 03/06/2010 Total Protein 5.8 GM/DL Low 6.2-8.1 Albumin 4.0 GM/DL 3.2-5.2 Globulin 1.8 GM/DL Low 2-4 Albumin/Globulin Ratio 2.2 1-3 Bilirubin Total 0.8 mg/dL 0.4-1.5 65 Bilirubin Direct 0.1 mg/dL 0.1-0.5 Indirect Bilirubin 0.7 mg/dL 0.3-1.0 66 Alkaline Phosphatase 59 U/L 30-110 Alt (SGPT) 17 U/L 14-54 Ast (Sgot) 20 U/L 12-42 Laboratory test finding 03/06/2010 TSH 2.40 MIU/ML 0.34-5.60 Hemoglobin A1c 5.9 % Less Than 6.0 67 CBC With Electronic Diff 01/28/2010 White Blood [...] mmol/L 22-32 Anion Gap 6.0 mmol/L 2-11 68 Glucose 95 mg/dL 70-100 69 BUN 17 mg/dL 6-24 Creatinine 0.56 mg/dL 0.50-1.40 One Over Creatinine 1.70 BUN/Creatinine Ratio 30.4 High 8-20 Calcium 9.6 mg/dL 8.1-9.9 Total Protein 6.8 GM/DL 6.2-8.1 Albumin 4.3 GM/DL 3.2-5.2 Globulin 2.5 GM/DL 2-4 Albumin/Globulin Ratio 1.7 1-3 Bilirubin Total 0.6 mg/dL 0.4-1.5 70 Alkaline Phosphatase 53 U/L 30-110 Alt (SGPT) 6 U/L Low 14-54 Ast (Sgot) 23 U/L 12-42 eGFR Non- 113.7 > 60 eGFR 137.6 > 60 71 Laboratory test finding 01/28/2010 Troponin-I 0 NG/ML 0-0.06 72 Protime 01/28/2010 Inr 0.91 0.82-1.17 73 Protime 10.7 SEC 10.2-14.8 74 Laboratory test finding 01/28/2010 PTT (Aptt) 27.7 [...] Eosinophils 0.1 0-0.6 Abs Basophils 0 0-0.2 75 Comp Metabolic Panel 11/19/2009 Sodium 132 mmol/L Low 135-145 Potassium 3.9 mmol/L 3.5-5.0 Chloride 100 mmol/L Low 101-111 Co2 (Carbon Dioxide) 29.0 mmol/L 22-32 Anion Gap 3.0 mmol/L 2-11 76 Glucose 97 mg/dL 70-100 77 BUN 14 mg/dL 6-24 Creatinine 0.56 mg/dL 0.50-1.40 One Over Creatinine 1.70 BUN/Creatinine Ratio 25.0 High 8-20 Calcium 8.5 mg/dL 8.1-9.9 78 Total Protein 6.2 GM/DL 6.2-8.1 Albumin 3.7 GM/DL 3.2-5.2 Globulin 2.5 GM/DL 2-4 Albumin/Globulin Ratio 1.5 1-3 Bilirubin Total 0.7 mg/dL 0.4-1.5 79 Alkaline Phosphatase 53 U/L 30-110 Alt (SGPT) 4 U/L Low 14-54 Ast (Sgot) 18 U/L 12-42 eGFR Non- 113.7 > 60 eGFR 137.6 > 60 80 Laboratory test finding 11/19/2009 D Dimer Quantitative < 200 Less Than 230 Urinalysis W/Microscopic 08/06/2009 Ua Color YELLOW Yellow Appearance-Urine CLEAR Clear Specific [place]-Ur 1.021 1.010-1.030 Esterase-Urine NEGATIVE Negative Nitrite NEGATIVE Negative Diignujdcsfq-Gx-NSC NEGATIVE Negative Protein-Urine NEGATIVE Negative PH-Urine 7.0 [...] Cholesterol 207 mg/dL High Less Than 200 81 High Density Lipoprotein 89 mg/dL High 40-60 82 Cholesterol/HDL Ratio 2.33 AVERAGE 1-4.44 Low Density Lipoprotein 104 mg/dL High Less Than 100 83 Comp Metabolic Panel 07/21/2009 Sodium 141 mmol/L 135-145 Potassium 4.8 mmol/L 3.5-5.0 Chloride 106 mmol/L 101-111 Co2 (Carbon Dioxide) 30.0 mmol/L 22-32 Anion Gap 5.0 mmol/L 2-11 84 Glucose 102 mg/dL High 70-100 85 BUN 11 mg/dL 6-24 Creatinine 0.70 mg/dL 0.50-1.40 One Over Creatinine 1.40 BUN/Creatinine Ratio 15.7 8-20 Calcium 9.7 mg/dL 8.1-9.9 86 Total Protein 6.0 GM/DL Low 6.2-8.1 Albumin 4.2 GM/DL 3.2-5.2 Globulin 1.8 GM/DL Low 2-4 Albumin/Globulin Ratio 2.3 1-3 Bilirubin Total 0.9 mg/dL 0.4-1.5 87 Alkaline Phosphatase 47 U/L 30-110 Alt (SGPT) 8 U/L Low 14-54 Ast (Sgot) 21 U/L 12-42 eGFR Non- 88.2 > 60 eGFR 106.7 > [address] Griffin's Lab Panel 07/21/2009 TSH 1.31 MIU/ML 0.34-5.60 Laboratory test finding 01/08/2009 CPK (Creatine Kinase) 105 U/L 0-170 Lipid Profile 12/25/2008 Triglyceride 72 mg/dL 40-200 (Trig/Chol/HDL) Cholesterol 216 mg/dL High Less Than 200 89 High Density Lipoprotein 92 mg/dL High 40-60 90 Cholesterol/HDL Ratio 2.35 AVERAGE 1-4.44 Low Density Lipoprotein 110 mg/dL High Less Than 100 91 Liver Function Panel 12/25/2008 Total Protein 6.6 GM/DL 6.2-8.1 Albumin 4.4 GM/DL 3.2-5.2 Globulin 2.2 GM/DL 2-4 Albumin/Globulin Ratio 2.0 1-3 Bilirubin Total 0.9 mg/dL 0.4-1.5 92 Bilirubin Direct 0.1 mg/dL 0.1-0.5 Indirect Bilirubin 0.8 mg/dL High 0.1-0.75 Alkaline Phosphatase 52 U/L 30-110 Alt (SGPT) 8 U/L Low 14-54 Ast (Sgot) 21 U/L 12-42 Lipid Profile (Trig/Chol/HDL) 06/24/2008 Triglyceride 92 mg/dL 40-200 Cholesterol 226 mg/dL High Less Than 200 93 High Density Lipoprotein 93 mg/dL High 40-60 94 Cholesterol/HDL Ratio 2.43 AVERAGE 1-4.44 Low Density Lipoprotein 115 mg/dL High Less Than 100 95 Laboratory test finding 06/24/2008 Alt (SGPT) 13 U/L Low 14-54 Ast (Sgot) 20 U/L 12-42 Liver Function Panel 04/12/2008 Total Protein 6.1 GM/DL Low 6.2-8.1 Albumin 4.2 GM/DL 3.2-5.2 Globulin 1.9 GM/DL Low 2-4 Albumin/Globulin Ratio 2.2 1-3 Bilirubin Total 0.7 mg/dL 0.4-1.5 Bilirubin Direct 0.1 mg/dL 0.1-0.5 Indirect Bilirubin 0.6 mg/dL 0.1-0.75 Alkaline Phosphatase 45 U/L 30-110 Alt (SGPT) 21 U/L 14-54 Ast (Sgot) 22 U/L 12-42 Lipid Profile (Trig/Chol/HDL) 04/12/2008 Triglyceride 90 mg/dL 40-200 Cholesterol 245 mg/dL High Less Than 200 96 High Density Lipoprotein 99 mg/dL High 40-60 97 Cholesterol/HDL Ratio 2.47 AVERAGE 1-4.44 Low Density Lipoprotein 128 mg/dL High Less Than 100 98 CBC With Electronic Diff 02/21/2008 White Blood Count 7.3 CUMM 4.8-10.8 99 Red Cell Count 4.21 CUMM 4.2-5.4 99 Hemoglobin 13.4 g/dL 12.0-16.0 99 Hematocrit 40 % 35-47 99 Mean Corpuscular Volume 94 um3 79-97 99 Mean Corpuscular Hemoglob 32 pg High 27-31 99 Mean Corpuscular HGB Cone 34 g/dL 32-36 99 Redcell Distribution WDTH 13 % 10.5-15 99 Platelet Count 292 CUMM 150-450 99 Mean Platelet Volume 8.1 um3 7.4-10.4 99 Gran % 62.4 % 38-83 99 Lymph % 26.6 % 25-47 99 Mononuclear % 5.8 % 1-9 99 Eosinophil % 4.6 % 0-6 99 Basophil % 0.6 % 0-2 99 Abs Lymphs 1.9 1.0-4.8 99 Abs Mononuclear 0.4 0-0.8 99 Absolute Neutrophil Count 4.5 1.5-7.7 99 Abs Eosinophils 0.3 0-0.6 99 Abs Basophils 0 0-0.2 99 Laboratory test finding 02/21/2008 CPK (Creatine Kinase) 91 U/L 0-170 99 Iron & Iron Binding Capacity 02/21/2008 Iron Total 83 g/dL 28-170 99 Unsaturated Iron Binding 237 g/dL 99 Total Iron Binding Capacity 320 g/dL 250-450 99 % Iron Saturation 26 % 15-55 99 Thyroxine Free 02/21/2008 Free Thyroxine 0.73 NG/ML 0.61-1.24 99, 100 Laboratory test finding 02/21/2008 TSH 0.78 MIU/ML 0.34-5.60 99 Lipid Profile 01/22/2008 Triglyceride 64 mg/dL 40-200 101 (Trig/Chol/HDL) Cholesterol 204 mg/dL High Less Than 200 101, 102 High Density Lipoprotein 80 mg/dL High 40-60 101, 103 Cholesterol/HDL Ratio 2.55 AVERAGE 1-4.44 101 Low Density Lipoprotein 111 mg/dL High Less Than 100 101, 104 Laboratory test finding 01/22/2008 Alt (SGPT) 23 U/L 14- 101 Ast (Sgot) 21 U/L 12- 101 Lipid Profile (Trig/Chol/HDL) 10/04/2007 Triglyceride 103 mg/dL 40-200 105 Cholesterol 191 mg/dL Less Than 200 105, 106 High Density Lipoprotein 75 mg/dL High 40-60 105, 107 Cholesterol/HDL Ratio 2.55 AVERAGE 1-4.44 105 Low Density Lipoprotein 95 mg/dL Less Than 100 105, 108 Laboratory test finding 10/04/2007 Alt (SGPT) 20 U/L 14- 105 Ast (Sgot) 29 U/L - 105 CBC W/ Electronic Diff 09/29/2006 White Blood Count 5.7 CUMM 4.8-10.8 109 Abs Basophils 0.1 0-0.2 109 Abs Eosinophils 0.3 0-0.6 109 Absolute Neutrophil Count 3.4 1.5-7.7 109 Abs Lymphs 1.4 1.0-4.8 109 Abs Mononuclear 0.5 0-0.8 109 Basophil % 1.0 % 0-2 109 Hematocrit 40 % 35-47 109 Hemoglobin 13.7 g/dL 12.0-16.0 109 Eosinophil % 5.7 % 0-6 109 Gran % 60.0 % 38-83 109 Lymph % 25.1 % 20-45 109 Mean Corpuscular HGB Cone 34 g/dL 32-36 109 Mean Corpuscular Hemoglob 31 pg 27-31 109 Mean Corpuscular Volume 91 um3 79-97 109 Mean Platelet Volume 8.5 um3 7.4-10.4 109 Mononuclear % 8.2 % 1-9 109 Platelet Count 286 CUMM 150-450 109 Red Cell Count 4.41 CUMM 4.2-5.4 109 Redcell Distribution WDTH 13 % 10.5-15 109 Comp Metabolic Panel 09/29/2006 One Over Creatinine 1.42 109 Anion Gap 7.0 mmol/L 2-11 109, 110 Albumin/Globulin Ratio 2.6 1-3 109 Albumin 4.4 GM/DL 3.2-5.2 109 Alkaline Phosphatase 60 U/L 30-110 109 Alt (SGPT) 8 U/L Low 14-54 109 Ast (Sgot) 21 U/L 12-42 109 BUN 13 mg/dL 6-24 109 Calcium 9.0 mg/dL 8.7-10.2 109 Chloride 101 mmol/L 101-111 109 Co2 (Carbon Dioxide) 32.0 mmol/L 22-32 109 Globulin 1.7 GM/DL Low 2-4 109 Glucose 91 mg/dL 70-105 109 Potassium 5.1 mmol/L High 3.5-5.0 109 Sodium 140 mmol/L 135-145 109 Bilirubin Total 0.7 mg/dL 0.4-1.5 109 Total Protein 6.1 GM/DL Low 6.2-8.1 109 BUN/Creatinine Ratio 18.6 8-20 109 Creatinine 0.7 mg/dL 0.5-1.4 109 Lipid Profile 09/29/2006 Cholesterol/HDL Ratio 2.76 AVERAGE 1-4.44 109 (Trig/Chol/HDL) Cholesterol 188 mg/dL Less Than 200 109, 111 Triglyceride 91 mg/dL 40-200 109 High Density Lipoprotein 68 mg/dL High 40-60 109, 112 Low Density Lipoprotein 102 mg/dL High Less Than 100 109, 113 Laboratory test finding 09/29/2006 TSH 0.72 MIU/ML 0.34-5.60 109 1 SEE RESULT BELOW Name: MARLEN MEANS DOB: [address]: Eveline De La Cruz NP Acct: [id number] Unit: [id number] AGE: 76 Location: [facility] Re09/08/17 SEX: F Status: REG REF SPEC: [id number] KELLY: 09/08/17-[address]: Eveline De La Cruz NP REQ: [id number] RECD: 09/08/17-1141 EXPLICIT FAX#: [id number] STATUS: JOHN MCCAIN DR: Pili _ SOURCE: URINE SPDESC: ORDERED: Urine Culture COMMENTS: [id number] Urine Source: Random Procedure Result Reported Site Urine Culture Final 09/09/17- 1204 ML No Growth (<1,000 CFU/mL) * - [facility] . END OF REPORT DEPARTMENT OF PATHOLOGY, [address] [place] [address] Master Khan M.D. Director [facility] # [id number] 2 Because ethnic data is not always readily [...] 15-29 5 Kidney failure <15 (or dialysis) 3 Acute inflammation: >10.00 4 Desirable: <150 Borderline High: 150-199 High: 200-499 Very High: >500 5 Desirable: <200 Borderline High: 200-239 High: >239 6 Low: <40 Desirable: 40-60 High: >60 7 Desirable: <100 Near Optimal: 100-129 Borderline High: 130-159 High: 160-189 Very High: >189 8 [id number] 10 [id number] 11 [id number] 12 *Ascorbic acid is present which may interfere with detection of blood. 13 SEE RESULT BELOW Name: MARLEN MEANS : [address]: Eveline De La Cruz NP Acct: [id number] Unit: [id number] AGE: 74 Location: [facility] Re10/02/15 SEX: F Status: REG REF SPEC: [id number] KELLY: 10/02/15-999 [facility] [address]: Eveline De La Cruz NP REQ: [id number] RECD: 10/02/15 STATUS: JOHN MCCAIN DR: Pili _ SOURCE: URINE SPDESC: ORDERED: Urine Culture COMMENTS: [id number] Procedure Result Reported Site Urine Culture Final 10/04/15- 1102 ML No Growth (<1,000 CFU/mL) * ML - MAIN LAB ([facility]) . END OF REPORT * ML=Testing performed at Main Lab DEPARTMENT OF PATHOLOGY, [address] [place] [address] Master Khan M.D. Director [facility] # [id number] Normal Range 180 to 914 Indeterminate Range 145 to 180 Deficient Range <145 15 Test Performed by: [facility] [place] [address] Coupling Machine Operator: Ion Monteiro II, M.D., Ph.D. 16 Because ethnic data is not always readily [...] 15-29 5 Kidney failure <15 (or dialysis) 17 REFERENCE VALUE <=1.0 (Negative) 18 REFERENCE VALUE <20.0 (Negative) 19 Tests for antibodies to dsDNA and JAMIE antigens are not performed automatically unless the RADHA result is > or= 3.0 U. Studies performed at [facility] indicate that positive RADHA results <3.0 U are rarely accompanied by positive second order tests. Test Performed by: [facility] - [address] [address] Coupling Machine Operator: Ion Monteiro II, M.D., Ph.D. 20 FASTING 10 HOUR 21 Desirable <150 Borderline high 150-199 High 200-499 Very High >500 22 Desirable <200 Borderline high 200-239 High >239 23 Low <40 Desirable: 40-60 High: >60 24 Desirable: <100 mg/dL Near Optimal: 100-129 mg/dL Borderline High: 130-159 mg/dL High: 160-189 mg/dL Very High: >189 mg/dL 25 Because ethnic data is not always readily [...] 15-29 5 Kidney failure <15 (or dialysis) 26 SEE RESULT BELOW Name: MARLEN MEANS Juan : [address]: Eveline De La Cruz NP Acct: [id number] Unit: [id number] AGE: 73 Location: [facility] Re10/04/14 SEX: F Status: REG REF SPEC: [id number] KELLY: 10/04/14-[address]: Eveline De La Cruz NP REQ: [id number] RECD: 10/04/14 STATUS: JOHN MCCAIN DR: Pili _ SOURCE: THROAT SPDESC: ORDERED: Throat Culture Procedure Result Verified Site Throat Culture Final 10/06/14- 0817 ML Organism 1 NORMAL NICOLE Quantity 3+ Throat cultures are clinically indicated to detect the presence of group A strep, arcanobacterium and yeast. In certain cases, predominating organisms will be reported. * ML - MAIN LAB ([facility]) . END OF REPORT * ML=Testing performed at Main Lab DEPARTMENT OF PATHOLOGY, [facility] [place], [place] [address] Master Khan M.D. Director [facility] # [id number] 27 Desirable <150 Borderline high 150-199 High 200-499 Very High >500 28 Desirable <200 Borderline high 200-239 High >239 29 Low <40 Desirable: 40-60 High: >60 30 Desirable <100 Near Optimal 100-129 Borderline high 130-159 High 160-189 Very High >189 31 Because ethnic data is not always readily [...] 15-29 5 Kidney failure <15 (or dialysis) 32 -- REFERENCE VALUE -- 25-HYDROXY D TOTAL (D2+D3) Optimum levels in the healthy population are 20-50, patients with bone disease may benefit from higher levels within this range. Test Performed by: [facility] [address] [address] Coupling Machine Operator: Harish Kwok III, M.D. 33 RUN DATE: 03/08/13 [facility] LAB LIVE PAGE 1 RUN TIME: [address] [place] [address] Specimen Inquiry Name: MARLEN MEANS : [address]: Giuliano Dawson MD Acct: [id number] Unit: [id number] AGE: 72 Location: THYROID Re03/08/13 SEX: F Status: REG REF SPEC: [id number] KELLY: 03/08/13- SUBM DR: Giuliano Dawson MD REQ: [id number] RECD: 03/08/13 STATUS: MAHAMED MCCAIN DR: Darrel Griffin III, [...] performed at Main Lab DEPARTMENT OF PATHOLOGY, [facility] [place], [place] [address] Master Khan M.D. Director [facility] Permit #[id number] RUN DATE: 03/08/13 [facility] LAB LIVE PAGE 2 RUN TIME: 1113 [facility] [employer] [place], [place] [address] Specimen Inquiry Patient: MARLEN MEANS [id number] (Continued) IMMEDIATE INTERPRETATION (Continued) IMMEDIATE INTERPRETATION Pass 1 + 2- both adequate GROSS DESCRIPTION Ultrasound guided, fine needle aspiration Passes-2 Slides-7 Needle rinse in CytoLyt solution for thin layer non-exterminator test. Signed (signature on file) Usha Gandara MD 1113 END OF REPORT * ML=Testing performed at Main Lab DEPARTMENT OF PATHOLOGY, [address] [place] [address] Masetr Khan M.D. Director [place] [employer] Permit #[id number] 34 Please note: The following may produce a false positive D Dimer test: - Rheumatoid factor greater than 60 IU/ml - Plasma hemoglobin greater than 0.05 gm/dl - Bilirubin greater than 50 mg/dl - Lipids greater than 1000 mg/dl - FDP greater than 20 ug/ml 35 RUN DATE: 02/10/13 [facility] LAB LIVE PAGE 1 RUN TIME: [address] [place] [address] Specimen Inquiry Name: MARLEN MEANS : [address]: Blossom Mann Acct: [id number] Unit: [id number] AGE: 72 Location: [facility] Re02/08/13 SEX: F Status: REG REF SPEC: [id number] KELLY: 02/08/[address]: Blossom Jaimes MATERIALS AND CORROSION ENGINEER REQ: [id number] RECD: 02/08/13 STATUS: JOHN MCCAIN DR: Pili _ SOURCE: URINE SPDESC: ORDERED: Urine Culture Procedure Result Verified Site Urine Culture Final 02/10/13- 0953 ML Organism 1 NORMAL NICOLE Monte[place] Count 1-10,000 (Few) CFU/ML END OF REPORT * ML=Testing performed at Main Lab DEPARTMENT OF PATHOLOGY, [address] [place] [address] Master Khan M.D. Director [facility] Permit #[id number] 36 [address] SEND RESULTS TO DR. GABY ROWLAND ON OR BEFORE Tuesday12/25/12- PER ORDER -[id number] Comment: b Comment: d Comment: s 38 Reference Range and Interpretation: TnI (ng/mL) Interpretation Less Than 0.06 ng/mL Not supportive of diagnosis of AR 0.06 - 0.50 ng/mL Indeterminate: suggest serial studies if clinically indicated. Greater than 0.5 ng/mL Consistent with diagnosis of AR 39 Because ethnic data is not always readily [...] 15-29 5 Kidney failure <15 (or dialysis) 40 Comment: n Comment: d 41 Because ethnic data is not always readily [...] 15-29 5 Kidney failure <15 (or dialysis) 42 Reference Range and Interpretation: TnI (ng/mL) Interpretation Less Than 0.06 ng/mL Not supportive of diagnosis of AR 0.06 - 0.50 ng/mL Indeterminate: suggest serial studies if clinically indicated. Greater than 0.5 ng/mL Consistent with diagnosis of AR 43 RUN DATE: 11/18/12 [facility] LAB LIVE PAGE 1 RUN TIME: [address] [place] [address] Specimen Inquiry Name: MARLEN MEANS : [address]: Darrel Griffin III, MD Acct: [id number] Unit: [id number] AGE: 72 Location: [facility] Re11/16/12 SEX: F Status: REG REF SPEC: [id number] KELLY: 11/16/12-[address]: Darrel Griffin III, MD REQ: [id number] RECD: 11/16/12 STATUS: COMP _ SOURCE: URINE SPDESC: ORDERED: Urine Culture QUERIES: Medent Number [id number] Procedure Result Verified Site Urine Culture Final 11/18/12- 0946 ML No Growth Day 2 (<1,000 CFU/mL) END OF REPORT * ML=Testing performed at Main Lab DEPARTMENT OF PATHOLOGY, [address] [place] [address] Master Khan M.D. Director [facility] Permit #[id number] 44 HDL Interpretation: Undesirable: High Risk: Less than 40 mg/dL Desirable: Low Risk: Greater than 60 mg/dL 45 LDL Interpretation: Low Risk Optimal Level: LDL Less than 100 mg/dL Near or Above Optimal: LDL 100-129 mg/dL Borderline High Risk: LDL 130-159 mg/dL High Risk: LDL 160-189 mg/dL Very High Risk: LDL Greater than 189 mg/dL 46 Because ethnic data is not always readily [...] 15-29 5 Kidney failure <15 (or dialysis) 47 Therapeutic target for the treatment of diabetes Mellitus patients is <7% HBA1C, and in selective patients <6.0%.Please refer to [place] [employer] Diabetic care guidelines for further information. 48 RUN DATE: 02/14/12 [facility] LAB LIVE PAGE 1 RUN TIME: [address] [place] [address] Specimen Inquiry Name: CECELIA MEANSMEIR Martinez : [address]: Manny Rawls MD Acct: [id number] Unit: [id number] AGE: 71 Location: [facility] Re02/12/12 SEX: F Status: DEP ER SPEC: [id number] KELLY: 02/12/12 [facility] DR: Sinai ANDERSON, Manny Benedict REQ: [id number] RECD: 02/12/12 STATUS: JOHN MCCAIN DR: Gaby GRANADOS MD,Darrel _ SOURCE: URINE [facility]: ORDERED: Urine Culture Procedure Result Verified Site Urine Culture Final 02/14/12- 0848 ML No Growth Day 2 (<1,000 CFU/mL) END OF REPORT * ML=Testing performed at Main Lab DEPARTMENT OF PATHOLOGY, [address] [place] [address] Master Khan M.D. Director [facility] Permit #[id number] RUN DATE: 10/07/11 [facility] LIVE PAGE 1 RUN TIME: 1013 Specimen Inquiry RUN USER: INTERFACE Name: MARLEN MEANS Juan Status: REG REF Re10/05/11 Age/Sex: 70/F Unit#: [id number] Location: [facility] : 38 SPEC #: [id number] KELLY: 10/05/11-5 STATUS: COMP REQ #: [id number] RECD: 10/05/[address]: Fanny CHENG,Blossom Mcgowan SOURCE: URINE ENTR: 10/05/[address]: Pili at [facility]. SPDESC: ORDERED: URINE C S QUERIES: SPECIMEN DESCRIPTION: URINE, RANDOM ACT WKST: UR 10/07/11 #1 Procedure Result Verified Site > URINE CULTURE SENSITIVI Final 10/07/11- 1013 ML SCANT NORMAL URETHRAL OR PERINEAL NICOLE - [facility] Permit #[id number] [address] [place] [address] DEPARTMENT OF PATHOLOGY, [address] [place] [address] [facility] Permit #[id number] Issac Sheth M.D. Figure Clerk 50 Serologic response to B. burgdorferi infection is not detected, but cannot rule out early infection during which low or undetectable antibody levels to B. burgdorferi may be present. If clinically indicated, a new serum specimen should be submitted in 7-14 days. Test Performed by: [address] [address] Coupling Machine Operator: Harish Kwok III, M.D. 51 CHOLESTEROL INTERPRETATION: Desirable: Less than 200 MG/DL Borderline-High Risk: 200-239 MG/DL High-Risk: 240 MG/DL and over 52 HDL INTERPRETATION: Undesirable: High Risk: Less than 40 MG/DL Desirable: Low Risk: Greater than 60 MG/DL 53 LDL INTERPRETATION: Low Risk Optimal Level: LDL Less than 100 MG/DL Near or Above Optimal: LDL 100-129 MG/DL Borderline High Risk: LDL 130-159 MG/DL High Risk: LDL 160-189 MG/DL Very High Risk: LDL Greater than 189 MG/DL 54 Anion gap measurement may be of limited value in the presence of any alkalosis, especially in a combined acid base disorder. . 55 A metabolite of Naproxen, O-desmethylnaproxen, has been shown to interfere with the Jendrassik-Antonito method for measuring total bilirubin. Samples from patients who have taken Naproxen have shown spurious elevation in total bilirubin levels. 56 Because ethnic data is not always readily [...] 15-29 5 Kidney failure <15 (or dialysis) 57 CHOLESTEROL INTERPRETATION: Desirable: Less than 200 MG/DL Borderline-High Risk: 200-239 MG/DL High-Risk: 240 MG/DL and over 58 HDL INTERPRETATION: Undesirable: High Risk: Less than 40 MG/DL Desirable: Low Risk: Greater than 60 MG/DL 59 LDL INTERPRETATION: Low Risk Optimal Level: LDL Less than 100 MG/DL Near or Above Optimal: LDL 100-129 MG/DL Borderline High Risk: LDL 130-159 MG/DL High Risk: LDL 160-189 MG/DL Very High Risk: LDL Greater than 189 MG/DL 60 Because ethnic data is not always readily [...] 15-29 5 Kidney failure <15 (or dialysis) 61 FINAL: NO GROWTH DAY 2 (<1,000 CFU/mL) 62 CHOLESTEROL INTERPRETATION: Desirable: Less than 200 MG/DL Borderline-High Risk: 200-239 MG/DL High-Risk: 240 MG/DL and over 63 HDL INTERPRETATION: Undesirable: High Risk: Less than 40 MG/DL Desirable: Low Risk: Greater than 60 MG/DL 64 LDL INTERPRETATION: Low Risk Optimal Level: LDL Less than 100 MG/DL Near or Above Optimal: LDL 100-129 MG/DL Borderline High Risk: LDL 130-159 MG/DL High Risk: LDL 160-189 MG/DL Very High Risk: LDL Greater than 189 MG/DL 65 A metabolite of Naproxen, O-desmethylnaproxen, has been shown to interfere with the Jendrassik-Antonito method for measuring total bilirubin. Samples from patients who have taken Naproxen have shown spurious elevation in total bilirubin levels. 66 Please note updated reference range, effective 10/09/09 67 THERAPEUTIC TARGET FOR THE TREATMENT OF DIABETES MELLITUS PATIENTS IS <7% HBA1C, AND IN SELECTIVE PATIENTS <6.0%. PLEASE REFER TO [place] [employer] DIABETIC CARE GUIDELINES FOR FURTHER INFORMATION. 68 Anion gap measurement may be of limited value in the presence of any alkalosis, especially in a combined acid base disorder. . 69 Note change in reference range as of 11/09/07. The change was based on recommendations from the [place] [employer]. 70 A metabolite of Naproxen, O-desmethylnaproxen, has been shown to interfere with the Jendrassik-Antonito method for measuring total bilirubin. Samples from patients who have taken Naproxen have shown spurious elevation in total bilirubin levels. 71 Because ethnic data is not always readily [...] 15-29 5 Kidney failure <15 (or dialysis) 72 New Reference Range and Interpretation effective 12/22/2001 TnI (ng/ml) INTERPRETATION Less Than 0.06 ng/mL NOT SUPPORTIVE OF DIAGNOSIS OF AR 0.06 - 0.50 ng/ml INDETERMINATE: SUGGEST SERIAL STUDIES IF CLINICALLY INDICATED. Greater than 0.5 ng/mL CONSISTENT WITH DIAGNOSIS OF AR . 73 Recommended INR for Patients on Oral Anticoagulants Prophylaxis 2.0 - 3.0 Treatment of thrombosis 2.0 - 3.0 Prevention of embolism 2.0 - 3.0 Prevention of embolism from prosthetic heart valves 2.5 - 3.5 74 DIAGNOSIS,TREATMENT,AND THERAPY MUST BE BASED ON THE INR VALUE ALONE. 75 Lymphopenia % 76 Anion gap measurement may be of limited value in the presence of any alkalosis, especially in a combined acid base disorder. . 77 Note change in reference range as of 11/09/07. The change was based on recommendations from the [place] [employer]. 78 Please note change in reference range effective 07 . 79 A metabolite of Naproxen, O-desmethylnaproxen, has been shown to interfere with the Jendrassik-Kaylie method for measuring total bilirubin. Samples from patients who have taken Naproxen have shown spurious elevation in total bilirubin levels. 80 Because ethnic data is not always readily [...] 15-29 5 Kidney failure <15 (or dialysis) 81 CHOLESTEROL INTERPRETATION: Desirable: Less than 200 MG/DL Borderline-High Risk: 200-239 MG/DL High-Risk: 240 MG/DL and over 82 HDL INTERPRETATION: Undesirable: High Risk: Less than 40 MG/DL Desirable: Low Risk: Greater than 60 MG/DL 83 LDL INTERPRETATION: Low Risk Optimal Level: LDL Less than 100 MG/DL Near or Above Optimal: LDL 100-129 MG/DL Borderline High Risk: LDL 130-159 MG/DL High Risk: LDL 160-189 MG/DL Very High Risk: LDL Greater than 189 MG/DL 84 Anion gap measurement may be of limited value in the presence of any alkalosis, especially in a combined acid base disorder. . 85 Note change in reference range as of 11/09/07. The change was based on recommendations from the [place] [employer]. 86 Please note change in reference range effective 07 . 87 A metabolite of Naproxen, O-desmethylnaproxen, has been shown to interfere with the Jendrassik-Kaylie method for measuring total bilirubin. Samples from patients who have taken Naproxen have shown spurious elevation in total bilirubin levels. 88 Because ethnic data is not always readily [...] 15-29 5 Kidney failure <15 (or dialysis) 89 CHOLESTEROL INTERPRETATION: Desirable: Less than 200 MG/DL Borderline-High Risk: 200-239 MG/DL High-Risk: 240 MG/DL and over 90 HDL INTERPRETATION: Undesirable: High Risk: Less than 40 MG/DL Desirable: Low Risk: Greater than 60 MG/DL 91 LDL INTERPRETATION: Low Risk Optimal Level: LDL Less than 100 MG/DL Near or Above Optimal: LDL 100-129 MG/DL Borderline High Risk: LDL 130-159 MG/DL High Risk: LDL 160-189 MG/DL Very High Risk: LDL Greater than 189 MG/DL 92 A metabolite of Naproxen, O-desmethylnaproxen, has been shown to interfere with the Jendrassik-Antonito method for measuring total bilirubin. Samples from patients who have taken Naproxen have shown spurious elevation in total bilirubin levels. 93 CHOLESTEROL INTERPRETATION: Desirable: Less than 200 MG/DL Borderline-High Risk: 200-239 MG/DL High-Risk: 240 MG/DL and over 94 HDL INTERPRETATION: Undesirable: High Risk: Less than 40 MG/DL Desirable: Low Risk: Greater than 60 MG/DL 95 LDL INTERPRETATION: Low Risk Optimal Level: LDL Less than 100 MG/DL Near or Above Optimal: LDL 100-129 MG/DL Borderline High Risk: LDL 130-159 MG/DL High Risk: LDL 160-189 MG/DL Very High Risk: LDL Greater than 189 MG/DL 96 CHOLESTEROL INTERPRETATION: Desirable: Less than 200 [...] Risk: LDL Greater than 189 MG/DL 99 PATIENT MAY HAVE RESULTS PER DOCTOR'S AUTHORIZATION. Questions regarding this report should be directed to your doctor. 10 PLEASE NOTE NEW REFERENCE RANGES. 0 10 FASTING 1 10 CHOLESTEROL INTERPRETATION: 2 Desirable: Less than 200 MG/DL Borderline-High Risk: 200-239 MG/DL High-Risk: 240 MG/DL and over 10 HDL INTERPRETATION: 3 Undesirable: High Risk: Less than 40 MG/DL Desirable: Low Risk: Greater than 60 MG/DL 10 LDL INTERPRETATION: 4 Low Risk Optimal Level: LDL Less than 100 MG/DL Near or Above Optimal: LDL 100-129 MG/DL Borderline High Risk: LDL 130-159 MG/DL High Risk: LDL 160-189 MG/DL Very High Risk: LDL Greater than 189 MG/DL 10 PATIENT MAY HAVE RESULTS PER DOCTOR'S AUTHORIZATION. Questions regarding this report should 5 be directed to your doctor. FASTING 10 CHOLESTEROL INTERPRETATION: 6 Desirable: Less than 200 MG/DL Borderline-High Risk: 200-239 MG/DL High-Risk: 240 MG/DL and over 10 HDL INTERPRETATION: 7 Undesirable: High Risk: Less than 40 MG/DL Desirable: Low Risk: Greater than 60 MG/DL 10 LDL INTERPRETATION: 8 Low Risk Optimal Level: LDL Less than 100 MG/DL Near or Above Optimal: LDL 100-129 MG/DL Borderline High Risk: LDL 130-159 MG/DL High Risk: LDL 160-189 MG/DL Very High Risk: LDL Greater than 189 MG/DL 10 PATIENT MAY HAVE RESULTS PER DOCTOR'S AUTHORIZATION. Questions regarding this report should 9 be directed to your doctor. 11 Anion gap measurement may be of limited value in the 0 presence of any alkalosis, especially in a combined acid base disorder. . 11 Classification: Desirable 1 . 11 Classification: High 2 . 11 3 CALCULATED LDL APPROXIMATES THE VALUE OF A DIRECT LDL MEASUREMENT. Classification: Near or above optimal . Procedures Date CPT Code Description Status Comment 10/03/2017 Inject/Drain Joint/Bursa Major W/O US Completed 08/08/2017 Colonoscopy Completed 07/21/201787776 Inject/Drain Joint/Bursa Major W/O US Completed 06/24/2017 68468 Remove Impacted Cerumen Completed 06/03/2017 Mammogram Completed 04/07/201702466 Inject/Drain Joint/Bursa Major W/O US Completed 04/07/201788565 Inject/Drain Joint/Bursa Major W/O US Completed 11/23/2016 Inject/Drain Joint/Bursa Major W/O US Completed 11/23/2016 Inject/Drain Joint/Bursa Major W/O US Completed 07/28/2016 02429 Remove Impacted Cerumen Completed 03/17/2016 51945 Stress Test Completed 03/17/2016 96691 Myocardial Perfusion Imaging Tomographic Completed (Spect) Multiple Studies 03/16/2016 39344 Myocardial Perfusion Imaging Tomographic Completed (Spect) Multiple Studies 03/09/2016 72217 Holter Monitor Review (24 hr)dr sibley & tiffani Completed only 03/08/2016 12693 ECHO Transthoracic, Real-Time 2D With Doppler Completed And Color Flow 03/08/2016 66912 ECG Monitor/Recording W/Visual Superimposition Completed Scanning 03/01/2016 94076 EKG Tracing & Interpretation Completed 02/27/2016 Mammogram Completed 02/20/2015 Mammogram Completed 08/08/2014 03162 Remove Impacted Cerumen Completed 01/28/2014 10234 EKG Tracing & Interpretation Completed 10/08/2013 44392 Rad Exam; Wrist, Comp, Min 3 Views Completed rt 08/06/2013 80019 Holter Monitoring 24 HR New Completed 08/06/2013 13415 Holter Monitoring 24 HR New Completed 07/30/2013 83843 ECHO Transthoracic, Real-Time 2D With Doppler Completed And Color Flow 07/03/2013 Bone Mineral Density Test Completed 02/12/2013 Mammogram Completed 11/24/2012 90173 EKG Tracing & Interpretation Completed 10/08/2010 Bone Mineral Density Test Completed 11/12/2008 Mammogram Completed 01/02/2008 Colonoscopy Completed 05/08/2007 38067 Treadmill Interp/Report Only Completed 05/08/2007 54389 Stress Test Supervsn W/Out I/R Completed 05/08/2007 60654 Treadmill Interp/Report Only Completed 09/28/2006 67985 Spirometry Incl Graphic Record, Timed Completed Expiratory Flow Rate 09/28/2006 96706 Spirometry Incl Graphic Record, Timed Completed Expiratory Flow Rate 09/28/2006 75739 EKG Tracing & Interpretation Completed Encounters Type Date Location Provider CPT E/M Dx Office Visit 10/14/2017 [facility] Riya Calderon M.D. 28775 M25.562 9:30a [facility] M25.462 M17.12 M21.062 Office Visit 09/26/2017 8:10a [facility] Eveline Dorothy, N.P. 41687 R60.0 Office Visit 07/22/2017 11:00a [facility] Carmen Jean M.D. 21847 G20 Services Of [facility] G24.01 Office Visit 07/07/2017 9:00a [facility] Darrel Griffin, 14539 M19.011 - Chelo Davenport Office Visit 06/21/2017 9:30a [place] [address] S40.021D Of C.M.AMelani M19.011 M75.41 Office Visit 06/17/2017 8:13a [facility] [place] [address] M25.511 S40.021D M25.562 H61.23 Office Visit 05/30/2017 9:20a [facility] Darrel Griffin, 25337 R63.4 - Chelo Davenport G20 L65.9 R53.83 G47.30 Z12.31 E78.00 Z12.11 Office Visit 03/16/2017 1:15p [facility] Carmen Jean M.D. 35638 [facility] G24.01 R51 Office Visit 02/22/2017 10:45a [facility] [place] [address] M75.41 [facility] M19.011 M17.12 Office Visit 12/06/2016 2:30p [facility] Carmen Jean M.D. 02080 [facility]20 [facility] G24.01 R51 Office Visit 11/23/2016 8:00a [facility] [place] [address] M75.41 [facility] M19.011 M17.12 Office Visit 11/17/2016 9:00a [facility] Darrel Griffin, 50841 M25.511 - Chelo Davenport M25.562 Office Visit 08/25/2016 11:30a [facility] Carmen Jean M.D. 69155 R20.2 Services Of [facility] Office Visit 07/01/2016 8:47a [facility] Eveline De La Cruz, N.P. 29337 L60.3 M17.12 M25.511 M25.562 Office Visit 06/28/2016 11:00a [facility] Carmen Jean M.D. 07526 [facility] G24.01 R51 Office Visit 06/10/2016 10:37a [facility] Eveline De La Cruz, N.P. 90964 M54.32 Office Visit 03/29/2016 1:00p [facility] Tristin Luna, 60060 I87.2 Pablo Davenport, FAC, [facility] R07.9 Office Visit 03/01/2016 1:00p [facility] Tristin Luna, 90365 R07.9 Pablo Davenport, FAC, FASMS Office Visit 02/26/2016 9:30a [facility] Carmen Jean M.D. 04474 [facility] R51 G24.01 Office Visit 02/10/2016 10:00a [facility] Darrel Griffin, 88775 G47.62 - Chelo Davenport R07.89 Office Visit 10/20/2015 1:45p [facility] Carmen Jean M.D. 97746 [facility] G24.01 R51 Office Visit 10/02/2015 9:16a [facility] Eveline De La Cruz, N.P. 70142 R35.0 R35.0 Office Visit 09/17/2015 9:00a [facility] Darrel Griffin, 15254 R20.9 - Raphael Davenport N39.41 Office Visit 09/12/2015 3:20p [place] [address] M79.644 [facility] [place] Office Visit 08/15/2015 1:00p [facility] MD Daphne 20447 M79.644 Interactive [facility] Techn[facility] AT [place] Office Visit 07/09/2015 1:40p [facility] Darrel Griffin, 27765 L98.9 - Raphael Davenport Office Visit 07/02/2015 11:15a [facility] Carmen Jean M.D. 21039 [facility] G24.01 R51 Office Visit 01/08/2015 1:00p [facility] Carmen Jean M.D. 65378 G20 Services Of [employer] Office Visit 01/02/2015 11:00a [facility] Darrel Griffin, 43766 Z01.810 - Raphael Davenport H26.9 G20 E78.0 G47.30 M85.9 Office Visit 12/31/2014 11:00a [facility] [place] [address] W10.9xxA Raphael R07.81 W10.8xxA Office Visit 10/04/2014 3:27p [facility] Eveline De La Cruz, N.P. 86401 462 462 478.19 Office Visit 08/19/2014 3:15p [facility] Carmen Jean M.D. 95341 332.0 Services Of Interactive Video Technician 333.85 Office Visit 08/02/2014 1:00p [facility] Darrel Griffin, 82426 729.5 - Raphael Davenport v03.82 Office Visit 06/25/2014 1:40p [facility] Darrel Griffin, 07987 719.47 - Raphael Davenport 703.8 Office Visit 03/06/2014 8:30a [facility] Carmen Jean M.D. 34444 332.0 Services Of Interactive Video Technician 333.85 784.0 Office Visit 01/28/2014 1:40p [facility] Darrel Griffin, 28141 786.50 - Raphael Davenport Office Visit 11/14/2013 9:40a [facility] Darrel Griffin, 59006 380.4 - Raphael Davenport Office Visit 11/14/2013 8:45a [facility] Carmen Jean M.D. 40771 332.0 Services Of Interactive Video Technician 333.85 784.0 Office Visit 11/12/2013 10:00a [facility] Darrel Griffin, 25611 724.1 - Raphael Davenport Office Visit 10/08/2013 8:15a [facility] Of Rich Esteban M.D. 07805 715.94 C.M.AMelani 715.93 Office Visit 09/12/2013 2:30p [facility] [place] 61180 719.44 C.M.A. Office Visit 09/07/2013 11:40a [facility] Darrel Griffin, 82985 719.44 - Raphael Davenport Office Visit 09/03/2013 9:45a [facility] Carmen Jean M.D. 60020 332.0 Services Of Interactive Video Technician 435.9 368.2 784.0 333.85 Office Visit 07/18/2013 8:30a [facility] Carmen Jean M.D. 64191 332.0 Services Of Interactive Video Technician 333.85 784.0 Office Visit 07/12/2013 11:40a [facility] Darrel Griffin, 36291 786.2 - Raphael Davenport 719.41 Office Visit 06/27/2013 11:20a [facility] Darrel Griffin, 67219 465.9 - Raphael Davenport 733.90 Office Visit 03/12/2013 1:00p [facility] Carmen Jean M.D. 51381 332.0 Services Of Interactive Video Technician 784.0 Office Visit 03/12/2013 10:20a [facility] Darrel Griffin, 83009 415.19 - Raphael Davenport Office Visit 02/08/2013 12:18p [facility] 74647 789.00 Daniel N.P. Office Visit 01/31/2013 3:20p [facility] Darrel Griffin, 25681 794.5 - Raphael Davenport 415.19 Office Visit 01/11/2013 9:40a [facility] Darrel Griffin, 54877 415.19 - Raphael Davenport 794.5 v04.81 Office Visit 12/27/2012 8:30a [facility] Carmen Jean M.D. 01775 332.0 Services Of [facility] Office Visit 12/25/2012 2:20p [facility] Darrel Griffin, 83177 415.1 - Raphael Davenport V58.61 Office Visit 12/22/2012 10:29a [facility] Angelita Valdivia, 26709 415.19 Hospitalists D.O. 780.53 332.0 Office Visit 12/21/2012 10:29a [facility] Radha Stevens, 16257 415.19 Assoc, Hospitalists M.DMelani 780.53 332.0 Office Visit 11/28/2012 11:40a [facility] Darrel Griffin, 78213 807.20 - Raphael Davenport Office Visit 11/24/2012 11:20a [facility] Heidi Nesbitt M.D. 12908 807.2 - Raphael 794.31 Office Visit 11/16/2012 9:40a [facility] Darrel Griffin, 15622 788.63 - Raphael Davenport Office Visit 08/24/2012 2:40p [facility] Darrel Griffin, 68870 272.0 - Raphael Davenport 790.21 780.57 332.0 Office Visit 07/07/2012 3:00p [facility] Eveline De La Cruz, N.P. 59103 461.0 - [place] 380.4 Office Visit 07/03/2012 8:30a [facility] Carmen Jean M.D. 86326 332.0 Services Of Interactive Video Technician 784.0 Office Visit 06/22/2012 10:32a [facility] Blossom Sanchez, 17139 786.2 Home N.P. Office Visit 03/01/2012 2:00p [facility] Internal Darrel Griffin M.D. 21016 784.0 [facility] Office Visit 02/23/2012 10:30a [facility] Daniel, [address] [facility] Office Visit 01/03/2012 8:45a [facility] Carmen Jean M.D. 45148 332.0 Services Of Interactive Video Technician 784.0 Office Visit 12/02/2011 3:20p [facility] Darrel Griffin, 28034 727.43 [facility] 788.63 V04.81 Office Visit 09/20/2011 11:09a [facility] Blossom Sanchez, 20380 916.4 Home N.P. Office Visit 08/30/2011 10:20a [facility] Internal Darrel Griffin M.D. 89802 272.0 [facility] 790.21 780.57 332.0 Office Visit 02/01/2011 1:00p DO Not Use Interactive Video Technician AT Darrel Griffin, 78267 719.41 Julia Daven[place] Office Visit 09/28/2010 11:40a DO Not Use [facility] Video Techn[facility] AT Darrel Griffin, 42884 733.90 Julia Davenport 272.0 780.57 Office Visit 07/03/2010 11:20a DO Not Use [facility] Video Techn[facility] AT Darrel Griffin, 26552 780.57 Julia Davneport 788.1 Office Visit 12/19/2009 2:20p DO Not Use Interactive Video Technician AT Sebastian Guzmán, 27202 845.09 Julia Davenport,FACP 453.40 Office Visit 12/03/2009 11:40a DO Not Use [facility] Video Technician AT Darrel Griffin, 29043 486 Julia Davenport Office Visit 11/20/2009 2:20p DO Not Use Interactive Video Technician AT Darrel Griffin, 81092 486 Calderkirill Dav[place] Office Visit 08/27/2009 3:20p DO Not Use Interactive Video Technician AT [facility], 63186 782.1 [facility] M.D. Office Visit 08/06/2009 2:40p DO Not Use Interactive Video Technician AT [facility], 18128 599.0 [facility].D. Office Visit 01/22/2009 2:30p DO Not Use Interactive Video Technician AT [facility], 60480 723.1 [facility] M.D. Office Visit 12/30/2008 10:15a DO Not Use Interactive Video Technician AT [facility], 14260 723.1 [facility].D. 780.79 272.0 332.0 Office Visit 08/22/2008 10:45a [facility], 48639 784.0 [facility] M.D. 780.79 Office Visit 08/09/2008 10:30a [facility] AT [facility], 20924 780.79 [facility] M.D. 784.0 Office Visit 04/03/2008 3:15p [facility] AT [facility], 65423 528.2 [facility] M.D. Office Visit 02/21/2008 2:00p [facility] AT [facility], 09706 780.79 [facility] M.D. Office Visit 01/24/2008 9:30a [facility] AT [facility], 68639 272.0 [facility] M.D. Office Visit 11/27/2007 2:00p [facility] AT [facility], 71890 272.0 [facility] M.D. Office Visit 10/19/2007 11:30a [facility] AT [facility], 71186 719.45 [facility] M.D. 272.0 332.0 Office Visit 06/28/2007 10:30a [facility] AT [facility], 86092 332.0 [facility] M.D. Office Visit 04/27/2007 3:15p [facility] AT [facility], 14470 786.50 [facility] M.D. Office Visit 04/18/2007 10:00a [facility] AT [facility], 07357 724.2 [facility] [place] Office Visit 10/06/2006 3:30p [facility], 25133 782.8 [facility] [place] Plan of Care Future Appointment(s):12/26/2017 9:45 am - Riya Calderon M.D. at [facility]12/13/2017 9:30 am - Keyla Manzano PA-C at [facility]12/13/2017 9:30 am - SUSI Zapata at [facility]12/01/2017 1:20 pm - Darrel Griffin M.D. at [facility] - Mdrlrzdkt14/25/2018 9:30 am - Riya Calderon M.D. at [facility]12/02/2017 3:15 pm - Carmen Jean M.D. at [facility]11/30/2017 - Riya Calderon M.D.M25.562 Pain in left kneeFollow up:Follow up: 2 weeks after fqesembT57.062 Valgus deformity, not elsewhere classified, left kneeM25.462 Effusion, left knee
[2017-12-13] MEDS ORDERED: Midazolam* 1 MG/ML 2 ML VIAL (2 MG) ONE (07:01)
[2017-12-13] MEDS ORDERED: Bupivacaine 0.25% EPI 200,000* 30 ML SDV ONE (07:01)
[2017-12-13] MEDS ORDERED: Propofol* 10 MG/ML 20 ML BTL IV PUSH ONE ×2 (07:01→09:07)
[2017-12-13] MEDS ORDERED: Lidocaine 1%* 5 ML VIAL ONE (07:21)
[2017-12-13] MEDS ORDERED: ROPIVACAINE 5 MG/ML 30 ML BTL (0.5%) ONE ×2 (07:21→09:15)
[2017-12-13] MEDS ORDERED: Bupivacaine-MPF SPINAL* 7.5 MG/ML - 2ML AMP ONE (09:07)
[2017-12-13] MEDS ORDERED: Lidocaine 2% PF * 5 ML VIAL ONE (09:07)
[2017-12-13] MEDS ORDERED: Naloxone* 0.4 MG/ML 1 ML VIAL IV PRN (09:41)
[2017-12-13] MEDS ORDERED: Morphine INJ* 2 MG/ML 1 ML SYRINGE (TWO MG - NEW SYRINGE VERSION) IV PRN (09:41)
[2017-12-13] MEDS ORDERED: Ondansetron INJ* 2 MG/ML VIAL IV PRN ×2 (09:41→10:09)
[2017-12-13] MEDS ORDERED: HYDROcodone/ACETAMIN 5-325 MG* 1 TAB PO PRN (09:41)
[2017-12-13] MEDS ORDERED: Ibuprofen TAB* 400 MG PO PRN (09:41)
[2017-12-13] MEDS ORDERED: Acetaminophen TAB* 325 MG PO PRN (09:41)
[2017-12-13] MEDS ORDERED: diPHENhydraMINE IV* 50 MG/ML 1 ml VIAL (BENADRYL) IV PRN ×2 (09:41→10:09)
[2017-12-13] MEDS ORDERED: Ondansetron TAB* 4 MG PO PRN (10:09)
[2017-12-13] MEDS ORDERED: oxyCODONE/Acetamin 5/325 MG* TAB PO PRN (10:09)
[2017-12-13] MEDS ORDERED: traMADol TAB* 50 MG PO PRN (10:09)
[2017-12-13] MEDS ORDERED: Bisacodyl SUPP* 10 MG SUPP PR PRN (10:09)
[2017-12-13] MEDS ORDERED: Magnesium Hydroxide LIQ* 30 ML UDC PO PRN (10:09)
[2017-12-13] MEDS ORDERED: Morphine INJ** 4 MG/ML 1 ML CARPUJECT IV PRN (10:09)
[2017-12-13] MEDS ORDERED: Polyethylene Glycol 3350* 17 GM PACKET PO PRN (10:09)
[2017-12-13] MEDS ORDERED: Acetaminophen TAB* 325 MG ONE ×2 (10:30→10:40)
--- NOTE | 2017-12-13 10:53 | RAD ---
INDICATION: Status post left knee arthroplasty COMPARISON: Preoperative knee radiograph October 14, 2017 TECHNIQUE: 2 view radiograph of the left knee. FINDINGS: The left knee prosthesis is anatomically aligned in the AP and lateral projections. There is no evidence of periprosthetic fracture or loosening. IMPRESSION: Anatomic alignment of left knee prosthesis.
[2017-12-13] MEDS ORDERED: fentaNYL* 50 MCG/ML 2 ML VIAL (100 MCG VIAL) ONE (11:42)
[2017-12-13] MEDS: fentaNYL* 50 MCG/ML 2 ML VIAL (100 MCG VIAL) IV PRN ×3 (11:43→13:02)
[2017-12-13] MEDS ORDERED: Ibuprofen TAB* 400 MG ONE (11:56)
[2017-12-13] MEDS ORDERED: Morphine INJ* 2 MG/ML 1 ML SYRINGE (TWO MG - NEW SYRINGE VERSION) ONE (12:01)
[2017-12-13] MEDS ORDERED: HYDROmorphone INJ* 1 MG/ML CARPUJECT SYRINGE IV SLOW PU ONE (12:13)
[2017-12-13] MEDS ORDERED: HYDROmorphone INJ1* 1 MG/ML SYRINGE ONE (12:14)
[2017-12-13] MEDS ORDERED: HYDROcodone/ACETAMIN 5-325 MG* 1 TAB ONE (12:31)
[2017-12-13] MEDS ORDERED: Carbidopa/Levodop 25/100 MG TAB(*) PO ONE (13:00)
[2017-12-13] MEDS ORDERED: Morphine INJ* 4 MG/ML 1 ML SYRINGE (NEW SYRINGE VERSION) ONE (14:12)
--- NOTE | 2017-12-13 14:49 | PN ---
Progress Note - Progress Note Date of Service: 12/13/17 Note: resting comfortably, denies SOB/ chest pain; dressing clean and intact; able to dorsi flex/plantar flex, intact sensation
[2017-12-13] MEDS: Enoxaparin(*) 30 MG/0.3 ML SYR SUBCUT SCH (15:21)
[2017-12-13] MEDS: oxyCODONE TAB* 5 MG TAB PO PRN ×2 (15:31→19:51)
[2017-12-13] MEDS: ceFAZolin 1 GM in Dextrose (*) 1 GM/50 ML BAG IVPB SCH (16:31)
[2017-12-13] MEDS ORDERED: Warfarin TAB(*) 6 MG PO ONE (17:00)
[2017-12-13] MEDS: Pramipexole TAB* 0.5 MG PO SCH ×2 (17:20→21:57)
[2017-12-13] MEDS: Carbidopa/Levodop 25/100 MG TAB(*) PO SCH (17:20)
[2017-12-13] MEDS ORDERED: Acetaminophen TAB* 325 MG PO SCH (18:30)
[2017-12-13] MEDS: Latanoprost 0.005%* 2.5 ml BTL BOTH EYES SCH (19:48)
[2017-12-13] MEDS: Docusate CAP* 100 MG PO SCH (19:51)
[2017-12-13] MEDS: Magnesium Hydroxide LIQ* 30 ML UDC PO SCH (19:55)
[2017-12-13] MEDS: PTO: Dorzolamide/Timolol OPTH (NF) 10 ML BOT BOTH EYES SCH (20:33)
[2017-12-13] MEDS: Atorvastatin* 20 MG TAB PO SCH (21:57)
[2017-12-13] MEDS: oxyCODONE/Acetamin 5/325 MG* TAB PO PRN (21:58)
[2017-12-13] MEDS: Gabapentin CAP(*) 100 MG PO SCH (21:58)
[2017-12-13] MEDS: Acetaminophen TAB* 325 MG PO SCH (22:00)
[2017-12-14] MEDS: ceFAZolin 1 GM in Dextrose (*) 1 GM/50 ML BAG IVPB SCH ×2 (00:03→09:11)
[2017-12-14] MEDS: oxyCODONE/Acetamin 5/325 MG* TAB PO PRN ×5 (03:03→21:42)
[2017-12-14] MEDS: Acetaminophen TAB* 325 MG PO SCH ×3 (06:22→21:41)
[2017-12-14] MEDS: Carbidopa/Levodop 25/100 MG TAB(*) PO SCH ×3 (06:46→17:20)
[2017-12-14] MEDS: Pramipexole TAB* 0.5 MG PO SCH ×4 (06:46→21:44)
[2017-12-14] MEDS: Amantadine LIQ* 50 MG/5 ML UDC PO SCH (06:49)
[2017-12-14 07:00] LABS: Hematocrit 36 % (35-47); Hemoglobin 12.3 g/dl (12.0-16.0); Mean Platelet Volume 7.1 um3 (7.4-10.4); Platelet Count 267 10^3/ul (150-450)
[2017-12-14 07:13] LABS: INR 1.03 (0.77-1.02)
[2017-12-14 07:20] LABS: EGFR Non-African American 131.4 (>60)
[2017-12-14] MEDS ORDERED: Cyanocobalamin TAB* 500 MCG PO SCH (07:30)
--- NOTE | 2017-12-14 08:28 | PN ---
Progress Note - Progress Note Date of Service: 12/14/17 SOAP: Subjective: []Patient seen and examined at bedside. Her pain is tolerable today. She feels quite nauseous but has not vomit. Denies CP, SOB, Dizziness. Objective: []General: Well appearing, NAD, sitting comfortably in a chair. Tremor at baseline LLE: left knee dressing CDI without surrounding erythema. DF/PF intact. Dp2+, sensation intact distally. Calves supple and nontender without erythema, edema or palpable cords Assessment: []POD 1 s/p BP elevated last night likely from pain, trending towards normal now 148/82 and remained asymptomatic throughout, no need for intervention at this time Mild hyponatremia likely from fluids given, expected to resolve with stopping IV fluids and resuming normal diet Parkinsons with associated tremor Plan: []WBAT PT/OT Given saltines and gingerale for nausea, she denies antiemetic medication Saline lock, repeat sodium levels tomorrow lovenox, coumadin 6 mg today Vital Signs Temp 98.2 F 12/14/17 07:20 Pulse 84 12/14/17 07:20 Resp 16 12/14/17 07:20 BP 148/82 12/14/17 07:20 Pulse Ox 93 12/14/17 07:20 Intake & Output 12/13/17 12/14/17 12/14/17 18:59 06:59 18:59 Intake Total 420 2750 Output Total 120 1250 Balance 300 1500 Intake: IV Fluids 100 1090 ABX - CEFAZOLIN 110 LR 980 NS 100ML, Cefazolin 2G 100 Oral 320 1660 Output: Davey 1250 Estimated Blood Loss 120 Laboratory Last Values Hgb 12.3 g/dl (12.0-16.0) 12/14/17 06:26 Hct 36 % (35-47) 12/14/17 06:26 Plt Count 267 10^3/ul (150-450) 12/14/17 06:26 MPV 7.1 um3 (7.4-10.4) L 12/14/17 06:26 INR (Anticoag Therapy) 1.03 (0.77-1.02) H 12/14/17 06:26 Sodium 131 mmol/L (135-145) L 12/14/17 06:26 Potassium 4.1 mmol/L (3.5-5.0) 12/14/17 06:26 Chloride 97 mmol/L (101-111) L 12/14/17 06:26 Carbon Dioxide 28 mmol/L (22-32) 12/14/17 06:26 Anion Gap 6 mmol/L (2-11) 12/14/17 06:26 BUN 9 mg/dL (6-24) 12/14/17 06:26 Creatinine 0.46 mg/dL (0.51-0.95) L 12/14/17 06:26 Est GFR ( Amer) 159.0 (>60) 12/14/17 06:26 Est GFR (Non-Af Amer) 131.4 (>60) 12/14/17 06:26 BUN/Creatinine Ratio 19.6 (8-20) 12/14/17 06:26 Glucose 122 mg/dL (70-100) H 12/14/17 06:26 Calcium 8.4 mg/dL (8.6-10.3) L 12/14/17 06:26
[2017-12-14] MEDS: PTO: Dorzolamide/Timolol OPTH (NF) 10 ML BOT BOTH EYES SCH ×2 (09:04→21:47)
[2017-12-14] MEDS: Magnesium Hydroxide LIQ* 30 ML UDC PO SCH ×2 (09:11→21:44)
[2017-12-14] MEDS: Docusate CAP* 100 MG PO SCH ×2 (09:11→21:43)
[2017-12-14] MEDS: Enoxaparin(*) 30 MG/0.3 ML SYR SUBCUT SCH (12:58)
--- NOTE | 2017-12-14 15:22 | OP ---
OPERATIVE REPORT: DATE OF OPERATION: 12/13/17 DATE OF : 38 SURGEON: Riya Calderon MD WHEELCHAIR VAN DRIVER: SUSI Beebe Ms. did help throughout the procedure with preparation of the leg, wound retraction, manipulation of the knee, and wound closure. ANESTHESIOLOGIST: Dr. Hardy. ANESTHESIA: Spinal with adductor canal block. 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 OPERATIVE PROCEDURE: Left total knee arthroplasty. INDICATIONS: Ms. Means is a 77-year-old female with years of increasingly severe left knee pain and valgus deformity. She failed conservative treatment with antiinflammatories, pain medications, intraarticular injection, and physical therapy. Due to continued pain and decreased quality of life, she elected to undergo left total knee arthroplasty. Radiographs showed severe arthritis. Informed consent was obtained from the patient. She understood the risks of surgery included but were not limited to bleeding, infection, damage to nearby structures, continued pain, need for further surgery, intraoperative fracture, nerve palsy, hardware failure or loosening, knee stiffness, loss of motion, stroke, heart attack, blood clot, and . She wished to proceed. TOURNIQUET TIME: 37 minutes. COMPLICATIONS: None. ESTIMATED BLOOD LOSS: 200 cc. SPECIMEN: Bone and cartilage from the left knee joint sent to Pathology. HARDWARE USED: This is uncemented Monsalve and Nephew total knee arthroplasty hardware. Two packages of Simplex bone cement. For the femur, a left size 4 posterior stabilized Legion Narrow femoral component. For the tibia, a size 3 left tibial baseplate Samreen II. For the insert, an 11-mm constrained articular insert size 3-4 and for the patella, a 29-mm 3-peg all poly patella with 7.5 thickness. INTRAOPERATIVE FINDINGS: Intraoperatively, the patient was noted to have severe end-stage arthritis with complete loss of cartilage in the lateral and patellofemoral compartments. 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 Preop flexion contracture of 10 degrees at least. Preop valgus deformity of 15 degrees. DESCRIPTION OF PROCEDURE: Ms. Means was identified in the preanesthesia unit. Her left lower extremity was marked as the correct operative side. Informed consent was signed and placed in the chart. The patient was taken to the operating room and placed under spinal anesthesia. A Davey catheter was placed. Tourniquet was placed on the left thigh. Left lower extremity was prepped and draped in the usual sterile fashion. Preop time-out was made to correctly identify the patient's side and site. Appropriate perioperative antibiotics were given within 1 hour of incision. A midline incision was made with a 10 blade once tourniquet was inflated. Dissection was made down to the extensor mechanism. A new 10 blade was used to make a standard medial parapatellar arthrotomy. The patella was subluxed laterally. Electrocautery was used to subperiosteally elevate soft tissue off the superomedial tibia to the mid sagittal plane. The anterior horn of the lateral meniscus and ACL were sharply released. A drill was used to enter the distal femur. Intramedullary distal femoral cutting guide was pinned on the distal femur and oscillating saw was used to make the distal cut. Lateral femoral condylar hypoplasia was noted and accounted for. Next, the external rotation guide was pinned on the distal femur. The distal femur was sized to a size 4. A size 4 multi-cutting jig was pinned on the distal femur. Oscillating saw was used to make the appropriate chamfer cuts. The PCL was completely released and the tibia was subluxed anteriorly. Extramedullary tibial cutting guide was pinned on the proximal tibia. Oscillating saw was used to make the proximal tibial cut perpendicular to the mechanical axis of the tibia. The knee was brought out into full extension. MCL incompetence was noted. A spacer block had good fit with the knee in full extension. The flexion and extension gaps were well balanced. The knee was flexed up. The lamina o and m supervisor was placed both medially and laterally. Any remaining meniscus was carefully removed using electrocautery. Curved osteotome was used to remove any posterior osteophytes. Tibial tray and drop rashard were once again placed and confirmed a satisfactory tibial cut. A left size 4 narrow femoral trial was impacted onto the distal femur and had good fit. The box for the posterior stabilized implant was prepared using a reamer and box cut osteotome. The trial size 3 tibial tray with an 11-mm insert trial was placed and the knee was taken through a range of motion. The knee had full extension to 130 degrees of flexion with satisfactory patellofemoral tracking. The patella was everted. 7 mm of patellar bone and cartilage were carefully removed using an oscillating saw. The patella was sized to a size 29. The 29 guide was used to drill the 3 peg holes. A 29 trial patella with 7.5 thickness was placed and the knee was taken through a range of motion. There was satisfactory patellofemoral tracking. All trials were carefully removed. Tibia was subluxed anteriorly and sized to a size 3. Proximal tibia was prepared using a size 3 keel punch. All bony cut surfaces were copiously irrigated with sterile saline and dried. Final implants were cemented into place starting with the tibia, followed by the femur, and lastly the patella. A 11-mm insert trial was placed and the knee was brought out into full extension. Tourniquet was turned down at 37 minutes. The knee was copiously irrigated with sterile saline. Electrocautery was used to obtain meticulous hemostasis. Once the cement had fully cured, the insert trial was removed. Any excess cement was removed from around the capsule and hardware. The final insert chosen was an 11-mm constrained articular insert size 3-4. This was locked into position on the tibial tray. Stability of the insert was checked and rechecked and noted to be stable. Final range of motion was 0 to 130 degrees of flexion. There was anatomic valgus of 3 to 5 degrees. Constrained liner added significant amount of medial stability and accounted for the MCL laxity. The extensor mechanism was closed using interrupted #1 Vicryls. The rest of the incision was closed in a layered fashion using 0 and 2-0 Vicryls. Skin was closed using running 3-0 nylon suture. Sterile Xeroform, 4x4s, and Webril were used to cover the incision. Colby wrap and cold pack were placed over this. The patient's anesthesia was reversed without difficulty. She was taken to the PACU in stable condition. Intended weightbearing will be weightbearing as tolerated. Intended DVT prophylaxis will be Coumadin with a Lovenox bridge. [id number]/[facility] #: [id number] NUNU
[2017-12-14] MEDS ORDERED: Warfarin TAB(*) 6 MG PO SCH (17:00)
[2017-12-14] MEDS: Atorvastatin* 20 MG TAB PO SCH (21:43)
[2017-12-14] MEDS: Gabapentin CAP(*) 100 MG PO SCH (21:43)
[2017-12-14] MEDS: Benzocaine/Menthol LOZ* 1 LOZENGE PO PRN (21:47)
[2017-12-14] MEDS: Latanoprost 0.005%* 2.5 ml BTL BOTH EYES SCH (21:48)
[2017-12-15] MEDS: oxyCODONE/Acetamin 5/325 MG* TAB PO PRN ×3 (03:27→11:53)
[2017-12-15] MEDS: Acetaminophen TAB* 325 MG PO SCH ×2 (05:09→12:10)
[2017-12-15] MEDS: Benzocaine/Menthol LOZ* 1 LOZENGE PO PRN (05:40)
[2017-12-15 06:02] LABS: Hematocrit 33 % (35-47); Hemoglobin 11.4 g/dl (12.0-16.0); Mean Platelet Volume 7.1 um3 (7.4-10.4); Platelet Count 269 10^3/ul (150-450)
[2017-12-15 06:10] LABS: INR 1.72 (0.77-1.02)
[2017-12-15] MEDS: Pramipexole TAB* 0.5 MG PO SCH ×2 (06:43→11:53)
[2017-12-15] MEDS: Amantadine LIQ* 50 MG/5 ML UDC PO SCH (06:45)
[2017-12-15] MEDS: Carbidopa/Levodop 25/100 MG TAB(*) PO SCH ×2 (07:35→11:53)
[2017-12-15] MEDS: PTO: Dorzolamide/Timolol OPTH (NF) 10 ML BOT BOTH EYES SCH (08:33)
[2017-12-15] MEDS: Magnesium Hydroxide LIQ* 30 ML UDC PO SCH (08:33)
[2017-12-15] MEDS: Docusate CAP* 100 MG PO SCH (08:34)
[2017-12-15] MEDS ORDERED: Cyanocobalamin TAB* 500 MCG PO SCH (09:00)
--- NOTE | 2017-12-15 09:26 | PN ---
Progress Note - Progress Note Date of Service: 12/15/17 SOAP: Subjective: [] Patient seen and examined OOB in chair. She feels well without CP, SOB, dizziness, nausea. Objective: []General: Well appearing, NAD, sitting comfortably in a chair. Tremor at baseline LLE: left knee dressing changed, incision CDI without surrounding erythema. DF/ PF intact. DP2+, sensation intact distally. Calves are supple and nontender without erythema, edema or palpable cords Assessment: []POD 2 s/p left total knee arthroplasty Parkinsons with associated tremor Plan: []WBAT PT/OT lovenox, coumadin 2 mg today recheck sodium tomorrow DC to [facility] today Vital Signs Temp 98.4 F 12/15/17 07:09 Pulse 76 12/15/17 07:09 Resp 18 12/15/17 09:08 BP 138/72 12/15/17 07:09 Pulse Ox 94 12/15/17 08:00 Intake & Output 12/14/17 12/15/17 12/15/17 18:59 06:59 18:59 Intake Total 1612 580 310 Output Total 1000 830 300 Balance 612 -250 10 Intake: IV Fluids 717 LR 717 IVPB 55 ABX - CEFAZOLIN 55 Oral 840 580 310 Output: Urine 1000 830 300 Other: # Bowel Movements 0 Laboratory Last Values Hgb 11.4 g/dl (12.0-16.0) L 12/15/17 05:41 Hct 33 % (35-47) L 12/15/17 05:41 Plt Count 269 10^3/ul (150-450) 12/15/17 05:41 MPV 7.1 um3 (7.4-10.4) L 12/15/17 05:41 INR (Anticoag Therapy) 1.72 (0.77-1.02) H 12/15/17 05:41 Sodium 130 mmol/L (135-145) L 12/15/17 05:41 Potassium 4.1 mmol/L (3.5-5.0) 12/14/17 06:26 Chloride 97 mmol/L (101-111) L 12/14/17 06:26 Carbon Dioxide 28 mmol/L (22-32) 12/14/17 06:26 Anion Gap 6 mmol/L (2-11) 12/14/17 06:26 BUN 9 mg/dL (6-24) 12/14/17 06:26 Creatinine 0.46 mg/dL (0.51-0.95) L 12/14/17 06:26 Est GFR ( Amer) 159.0 (>60) 12/14/17 06:26 Est GFR (Non-Af Amer) 131.4 (>60) 12/14/17 06:26 BUN/Creatinine Ratio 19.6 (8-20) 12/14/17 06:26 Glucose 122 mg/dL (70-100) H 12/14/17 06:26 Calcium 8.4 mg/dL (8.6-10.3) L 12/14/17 06:26
[2017-12-15 11:42] VITALS: BP 117/55
[2017-12-15] MEDS: Enoxaparin(*) 30 MG/0.3 ML SYR SUBCUT SCH (11:52)
--- NOTE | 2017-12-16 04:07 | DS ---
CC: Pili * DISCHARGE SUMMARY: DATE OF ADMISSION: 12/13/17 DATE OF DISCHARGE: 12/15/17 PROVIDER AND SURGEON: Dr. Riya Calderon.* (DICTATED BY SUSI EASTON) PECAN GROWER: SUSI Easton DATE OF OPERATION: 12/13/17 PRE-OP DIAGNOSIS: Severe end-stage degenerative osteoarthritis of the left knee joint with valgus deformity. OPERATIVE PROCEDURE: Left total knee arthroplasty. HISTORY: Ms. Means is a 77-year-old female with years of increasingly severe left knee pain with valgus deformity. She failed conservative management and elected to undergo a left total knee arthroplasty. HOSPITAL COURSE: The patient was admitted to [facility] on . She underwent a left total knee arthroplasty without complications. She had postoperative hypertension and that came down with pain control. On postop day 1, she was well appearing and in no acute distress. Left knee dressing is clean , dry, and intact without surrounding erythema. Dorsiflexion and plantarflexion intact. DP pulse 2+. Sensation intact distally. Blood pressure had been elevated on postop day 0, turning towards normal on postop day 1 and the patient remained asymptomatic throughout this time. She also exhibited hyponatremia on postop day 1 with sodium of 131. Again, she was asymptomatic. The patient does have baseline Parkinson with associated tremor. Postop day 2, she was well appearing in no acute distress. Dressing was changed. Incision was clean, dry and intact without any surrounding erythema. Vital signs, temperature 98.4, pulse 76, respiratory rate 18, blood pressure 138/72, pulse ox 94, hemoglobin 11.4, hematocrit 33, INR 1.72, potassium is 4.1. The patient is deemed to be medically and orthopedically stable for discharge to [facility]. DISCHARGE MEDICATIONS: 1. Latanoprost 0.005 ophthalmic 1 drop both eyes daily. 2. Calcium 1200 mg p.o. at 0700. 3. Pramipexole 0.5 mg per instructions. 4. Levodopa/carbidopa 25/100 one per instruction. 5. Rasagiline 1 mg p.o. 0700. 6. Amantadine 10 mL p.o. at 0700 and that is 50 mg per 5 mL dose. 7. Gabapentin 100 mg p.o. at bedtime. 8. Cosopt 22.3/6.8 10 mL drops both eyes b.i.d. 9. Acetaminophen 650 mg p.o. daily p.r.n. 10. Cyanocobalamin 500 mcg p.o. at 0700. 11. Atorvastatin 20 mg p.o. at bedtime. 12. Cholecalciferol 1000 units daily. 13. Biotin 1000 mcg p.o. daily. 14. Docusate 100 mg p.o. b.i.d. p.r.n. 15. Percocet 5/325 mg one to two tabs every 4 to 6 hours as needed for pain, max daily dose of 10. 16. Morphine 2 mg tabs 1 to 3 tabs daily, dose depends on INR. DISCHARGE PLAN: Weightbearing as tolerated. The patient will need her sodium rechecked on 12/16/17. Sodium on 12/15/17 was 130. Pain control, Percocet 5/ 325 mg one to two tabs by mouth every 4 to 6 hours as needed for pain, max of 10 tabs per day. Coumadin dosing 12/15/17 is 2 mg, 12/16/17 is 4 mg, 12/17/17 is 4 mg and 12/18/17 is 4 mg, 12/19/17 recheck INR. Follow up with Dr. Calderon in 10 to 14 days. Last INR on 12/15/17 was 1.72. She will be going to [facility] today. SUSI HOLLIS [id number]/[facility] #: [id number] [facility]
== END 2017-12-15 14:20 | disposition home or self-care (01) | DRG 470 ==
LOC: AA 06:09 → SSU 13:39
PROVIDERS: ADMIT Orthopaedic Surgery Adult Reconstructive Orthopaedic Surgery; ATTEND Orthopaedic Surgery Adult Reconstructive Orthopaedic Surgery
PROC: 0SRD0JA Replacement of Left Knee Joint with Synthetic Substitute, Uncemented, Open Approach (ICD-10-PCS; 2017-12-13)
PROC: 3E0R3BZ Introduction of Anesthetic Agent into Spinal Canal, Percutaneous Approach (ICD-10-PCS; principal; 2017-12-13 07:30)
DX: M17.12 Unilateral primary osteoarthritis, left knee (principal); E87.1 Hypo-osmolality and hyponatremia; M21.062 Valgus deformity, not elsewhere classified, left knee; G20 Parkinson's disease; H40.9 Unspecified glaucoma; E78.00 Pure hypercholesterolemia, unspecified; F41.9 Anxiety disorder, unspecified; M19.019 Primary osteoarthritis, unspecified shoulder; I73.9 Peripheral vascular disease, unspecified; M93.90 Osteochondropathy, unspecified of unspecified site; M25.462 Effusion, left knee; M23.8X2 Other internal derangements of left knee; M25.762 Osteophyte, left knee; G47.33 Obstructive sleep apnea (adult) (pediatric); Z90.89 Acquired absence of other organs; Z90.49 Acquired absence of other specified parts of digestive tract; Z98.49 Cataract extraction status, unspecified eye; Z88.1 Allergy status to other antibiotic agents; Z88.8 Allergy status to other drugs, medicaments and biological substances; Z86.711 Personal history of pulmonary embolism; Z86.73 Personal history of transient ischemic attack (TIA), and cerebral infarction without residual deficits; Z83.3 Family history of diabetes mellitus; Z82.3 Family history of stroke; Z82.49 Family history of ischemic heart disease and other diseases of the circulatory system; Z87.891 Personal history of nicotine dependence; R11.0 Nausea; R03.0 Elevated blood-pressure reading, without diagnosis of hypertension
CPT/HCPCS: 36415; 80048; 84300; 85014; 85018; 85049; 85610; 87641; 88305; 88311; A9270-GY; C1776; G8978-GP-CJ; G8978-GP-CK; G8979-GP-CI; G8987-GO-CK; G8988-GO-CI; J0690; J1170; J1650; J2250; J2270; J2405; J2704; J2795; J3010

== ENCOUNTER 2018-10-18 07:16 | Inpatient (IN) | payer MEDICARE, BC ==
[2018-10-18] MEDS ORDERED: NS 0.9% 1000 ML** 1,000 ML IV ONE (07:25)
[2018-10-18] MEDS ORDERED: Morphine 4 MG/ML VIAL (1 ml) 4 MG/ML VIAL IV ONE ×3 (07:26→09:33)
--- NOTE | 2018-10-18 07:29 | ED ---
Lower Extremity - HPI Summary HPI Summary: Patient is a 77-year-old female who presents emergency department for left hip pain after a fall that occurred just prior to arrival. Patient resides at [facility] assisted-living apartments. Patient states she was getting ready to go for a walk this morning when she slipped in her kitchen and landed onto her left hip. She denies head injury or loss of consciousness. Denies dizziness, lightheadedness, chest pain, shortness of breath, recent illness. Symptoms are moderate in severity. Movement makes symptoms worse. Nothing makes symptoms better. Hx of Parkinson's and hyperlipidema. - History of Current Complaint Chief Complaint: EDHipPelvisInjury Stated Complaint: FALL/ L HIP PAIN PER EMS Time Seen by Provider: 10/18/18 07:19 Hx Obtained From: Patient Pain Intensity: 9 - Allergies/Home Medications Allergies/Adverse Reactions: Allergies Allergy/AdvReac Type Severity Reaction Status Date / Time cefuroxime [From Ceftin] Allergy Intermediate COLITIS Verified 02/15/18 14:33 ciprofloxacin [From Cipro] Allergy Intermediate COLITIS Verified 02/15/18 14:33 PMH/Surg Hx/FS Hx/Imm Hx Previously Healthy: Yes Endocrine/Hematology History: Denies: Hx Diabetes, Hx Thyroid Disease, Hx Anemia Cardiovascular History: Denies: Hx Congestive Heart Failure, Hx Hypertension, Hx Pacemaker/ICD Respiratory History: Reports: Hx Pulmonary Embolism - 2012, Hx Seasonal Allergies, Hx Sleep Apnea Denies: Hx Chronic Obstructive Pulmonary Disease (COPD), Other Respiratory Problems/Disorders GI History: Reports: Hx Hiatal Hernia Denies: Hx Jaundice, Hx Ulcer History: Denies: Hx Renal Disease Musculoskeletal History: Reports: Hx Arthritis Denies: Hx Scoliosis Comment Only: Hx Osteoporosis - OSTEOPENIA Sensory History: Reports: Hx Cataracts - BILAT, Hx Contacts or Glasses, Hx Glaucoma - BILAT, Hx Hearing Aid Opthamlomology History: Reports: Hx Cataracts - BILAT, Hx Contacts or Glasses, Hx Glaucoma - BILAT Neurological History: Reports: Hx Migraine - HX OF Denies: Hx Headaches, Other Neuro Impairments/Disorders Psychiatric History: Denies: Hx Panic Disorder - Cancer History Hx Chemotherapy: No Hx Radiation Therapy: No - Surgical History Surgery Procedure, Year, and Place: CHOLECYSTECTOMY , APPENDECTOMY , HERNIA REPAIR . Sternum Fx 2012. 12/13/17 LEFT KNEE REPLACEMENT Hx Anesthesia Reactions: No Infectious Disease History: No Infectious Disease History: Denies: Hx Clostridium Difficile, Hx Hepatitis, Hx Human Immunodeficiency Virus (HIV), Hx of Known/Suspected MRSA, Hx Shingles, Hx Tuberculosis, Hx Known/ Suspected VRE, Hx Known/Suspected VRSA, History Other Infectious Disease, Traveled Outside the [place] in Last 30 Days - Family History Known Family History: Positive: Non-Contributory Family History: NON CONTRIBUTORY - Social History Occupation: Retired Lives: Assisted Living - [facility] Alcohol Use: None Alcohol Amount: recovering alcoholic x several years Substance Use Type: Reports: None Smoking Status (MU): Former Smoker Have You Smoked in the Last Year: No Review of Systems Cardiovascular: Negative Negative: Chest Pain Respiratory: Negative Negative: Shortness Of Breath Gastrointestinal: Negative Negative: Abdominal Pain Positive: Other - left hip pain Skin: Negative Neurological: Negative Negative: Headache, Weakness, Paresthesia, Numbness All Other Systems Reviewed And Are Negative: Yes Physical Exam Triage Information Reviewed: Yes Vital Signs On Initial Exam: Initial Vitals Temp Pulse Resp BP Pulse Ox 98 F 63 16 182/99 96 10/18/18 07:21 10/18/18 07:21 10/18/18 07:21 10/18/18 07:21 10/18/18 07:21 Vital Signs Reviewed: Yes Appearance: Positive: Well-Appearing - Pt. lying in bed in NAD. Pleasant. Answers questions appropriately. Skin: Positive: Warm, Dry Head/Face: Positive: Normal Head/Face Inspection Eyes: Positive: Normal, EOMI Neck: Positive: Supple, Nontender Respiratory/Lung Sounds: Positive: Clear to Auscultation, Breath Sounds Present Cardiovascular: Positive: Normal, RRR Abdomen Description: Positive: Nontender, Soft Musculoskeletal: Positive: Other - Left leg is slightly shortened. Good pedal pulse. No breaks in the skin. Neurological: Positive: Normal, Alert, Oriented to Person Place, Time, CN Intact II-III Psychiatric: Positive: Affect/Mood Appropriate - Lorena Coma Scale Best Eye Response: 4 - Spontaneous Best Motor Response: 6 - Obeys Commands Best Verbal Response: 5 - Oriented Coma Scale Total: 15 Diagnostics - Vital Signs Vital Signs Temp Pulse Resp BP Pulse Ox 10/18/18 07:21 98 F 63 16 182/99 96 - Laboratory Result Diagrams: 10/18/18 07:36 10/18/18 07:36 Lab Statement: Any lab studies that have been ordered have been reviewed, and results considered in the medical decision making process. Lower Extremity Course/Dx - Course Course Of Treatment: Pt. presenting of hip after mechanical fall. VS stable. IV morphine given for pain. ECG done at 0739 shows a sinus bradycardia of 57 bpm, normal axis, no STEMI. Hip xray shows a displaced fx through femoral neck. Labs unremarkable. Ortho. paged for consult. Case discussed with Dr. Stevens, hospitalist, and she will admit to her service. 0940: Case discussed with pawel fan, Dr. French, and they will consult. - Diagnoses Differential Diagnosis/HQI/PQRI: Positive: Dislocation, Fracture (Closed), Sprain, Strain Provider Diagnoses: Femoral neck fracture Discharge - Sign-Out/Discharge Documenting (check all that apply): Patient Departure Patient Received Moderate/Deep Sedation with Procedure: No - Discharge Plan Condition: Stable Disposition: ADMITTED TO [facility] Referrals: Tino Bartholomew MD [Primary Care Provider] - - Billing Disposition and Condition Condition: STABLE Disposition: Admitted to [facility]
--- OUTSIDE RECORDS SUMMARY | 2018-10-18 07:32 | XMS REPORT | Continuity of Care Document ---
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 Onset: 10/27/2015 Presence of intraocular lens Massimo Grimes O.D. Onset: 01/28/2015 Primary open-angle glaucoma, mild stage Cullen Farooq M.D. Onset: 2014 Convalescence after surgery Cullen Farooq M.D. Onset: 01/15/2015 Superficial injury of cornea Cullen Farooq M.D. Onset: 11/16/2014 Vitreous degeneration Cullen Farooq M.D. Onset: 11/09/2013 Nuclear senile cataract Cullen Farooq M.D. Onset: 11/09/2013 Open-angle glaucoma Cullen Farooq M.D. Onset: 11/09/2013 Alternating esotropia Cullen Farooq M.D. Onset: 08/09/2013 Primary angle-closure glaucoma Cullen Farooq M.D. Onset: 08/09/2013 Family History Date Family Member(s) Observation Comments General Thyroid Disease General Blindness General Diabetes General Cancer Mother Arthritis Mother Heart Disease Social History Type Date Description Comments Sex Unknown ETOH Use Denies alcohol use Tobacco Use Start: Unknown End: Unknown Patient is a former smoker Smoking Status Reviewed: 09/28/18 Patient is a former smoker Allergies, Adverse Reactions, Alerts Active Allergies Reaction Severity Comments Date Ceftin 07/12/2013 Cipro 07/12/2013 Medications Active Medications SIG Qnty Indications Ordering Date Provider Latanoprost 1 drops both 7.5ml Cullen Farooq, 09/12/2018 0.005% Solution eyes every M.D. night Azilect Unknown 1mg Tablets Carbidopa/Levodopa Unknown 25-100mg Tablets Gabapentin Unknown 100mg Capsules Pramipexole Unknown Dihydrochloride 0.5mg Tablets Amantadine HCL Ricardo Garcia, 50mg/5ML MD Syrup Atorvastatin Calcium Darrel Griffin 20mg EMD Tablets Dorzolamide HCL/Timolol Instill 1 Drop 10units Cullen Farooq, Maleate In Each Eye Two M.D. 22.3-6.8mg/ml Times A Day Solution Butalbital-Acetaminophe Unknown n 50-300mg Capsules Divalproex Sodium Unknown 125mg CSDR Megestrol Acetate Unknown 400mg/10ML Suspension Melatonin Unknown 3mg Capsules Metoprolol Succinate ER Unknown 50mg Tablets ER 24HR Metoprolol Succinate ER Tino Bartholomew MD 50mg Tablets ER 24HR History Medications Brimonidine Tartrate 1 drop both 15ml Cullen Farooq, 01/30/2015 - 0.15% eyes twice a M.D. 10/27/2015 Solution day Pred Forte 1 drops right 10ml Cullen Farooq, 12/23/2014 - 1% Suspension eye four times M.D. 10/27/2015 a day Vigamox 1 drop drops 3ml Cullen Farooq, 12/23/2014 - 0.5% Solution right eye four M.D. 01/28/2015 times a day Erythromycin apply 1/4 inch 3.500gm 918.1 Cullen Farooq, 11/16/2014 - 5mg/GM strip to left M.D. 11/21/2014 Ointment eye three times daily Latanoprost Instill One 2.5units Cullen Farooq, - 0.005% Solution Drop In Each M.D. 09/12/2018 Eye Every Night Polyethylene Glycol Unknown - 3350 07/02/2016 3350NF Powder Oxycodone-Acetaminophen Unknown - 07/02/2016 5-325mg Tablets Lidoderm Unknown - 5% Patches 07/02/2016 Ciclopirox Unknown - 8% Solution 07/02/2014 Enoxaparin Sodium Unknown - 07/02/2014 60mg/0.6ML Solution Levofloxacin Unknown - 250mg Tablets 07/02/2016 Warfarin Sodium Unknown - 5mg Tablets 07/02/2014 Xarelto Unknown - 20mg Tablets 07/02/2014 Fluticasone Propionate Unknown - 07/02/2014 50mcg/Act Suspension Amantadine HCL Unknown - 100mg 07/02/2014 Capsules Cymbalta Unknown - 20mg Caps DR Silva 08/09/2013 Polyethylene Glycol Unknown - 3350 08/09/2013 3350NF Powder Oxycodone/Acetaminophen Unknown - 08/09/2013 5-325mg Tablets Lidoderm Unknown - 5% Patches 08/09/2013 Ciclopirox Nail Lacquer Unknown - 8% 08/09/2013 Solution Warfarin Sodium Unknown - 5mg Tablets 08/09/2013 Levofloxacin Unknown - 250mg Tablets 08/09/2013 Enoxaparin Sodium Unknown - 08/09/2013 60mg/0.6ML Solution Xarelto Unknown - 20mg Tablets 08/09/2013 Clonazepam Unknown - 0.5mg Tablets 07/02/2014 Simvastatin Unknown - 20mg Tablets 07/02/2016 Fluticasone Propionate Unknown - 08/09/2013 50mcg/Act Suspension Pramipexole Unknown - Dihydrochloride 08/09/2013 0.5mg Tablets Vital Signs Date Vital Result Comment 09/28/2018 8:19am Intraocular Pressure Right Eye 13 mmHg Intraocular Pressure Left Eye 13 mmHg 07/04/2018 1:28pm Intraocular Pressure Right Eye 16 mmHg Intraocular Pressure Left Eye 15 mmHg 02/08/2018 10:20am Intraocular Pressure Right Eye 13 mmHg Intraocular Pressure Left Eye 13 mmHg 11/16/2017 1:30pm Intraocular Pressure Right Eye 13 [...] mmHg Intraocular Pressure Left Eye 16 mmHg Procedures Date Code Description Status 09/28/2018 39041 Sensorimotor Examination W/Mult Measurements Ocular Completed Deviation 09/28/2018 52160 Eye Exam Est Intermediate Completed 07/04/2018 04609 Eye Exam Est Intermediate Completed 02/08/2018 47385 Eye Exam Est Intermediate Completed 11/16/2017 70001 Fundus Photography W/Interpretation & Report Completed 11/16/2017 47530 Refraction Completed 11/16/2017 65054 Eye Exam Est Intermediate Completed 08/04/2017 91069 Eye Exam Est Intermediate Completed 05/06/2017 77992 Eye Exam Est Intermediate Completed 05/06/2017 38087 Visual Field Exam Extended, Unilateral Or Bilateral Completed 05/06/2017 47253 Oct, Optic Nerve Completed 01/21/2017 64437 Oct Retina Completed 01/21/2017 27495 Visual Field Exam Extended, Unilateral Or Bilateral Completed 01/21/2017 53452 Eye Exam Est Intermediate Completed 10/01/2016 43665 Fundus Photography W/Interpretation & Report Completed 10/01/2016 09623 Ophthalmoscopy Subsequent Completed 10/01/2016 49480 Refraction Completed 10/01/2016 67679 Eye Exam Est Comprehensive Completed 07/02/2016 97672 Eye Exam Est Intermediate Completed 07/02/2016 68611 Oct, Optic Nerve Completed 01/20/2016 90360 Visual Field Exam Extended, Unilateral Or Bilateral Completed 01/20/2016 60800 Eye Exam Est Intermediate Completed 10/27/2015 11446 Fundus Photography W/Interpretation & Report Completed 10/27/2015 42730 Refraction Completed 10/27/2015 99526 Eye Exam Est Comprehensive Completed 01/21/2015 95541 Extracapsular Cataract Extraction W/Intraocular Lens Completed 01/14/2015 47983 Extracapsular Cataract Extraction W/Intraocular Lens Completed 11/21/2014 13334 Eye Exam Est Comprehensive Completed 11/21/2014 26896 Ophthalmic Biometry By Partial Coherence Interferometry Completed W/Intra 11/21/2014 24072 Ophthalmoscopy Subsequent Completed 11/21/2014 43981 Fundus Photography W/Interpretation & Report Completed 11/18/2014 53806 Eye Exam Est Intermediate Completed 11/16/2014 91353 Eye Exam Est Intermediate Completed 07/26/2014 59508 Visual Field Exam Extended, Unilateral Or Bilateral Completed 07/26/2014 32263 Eye Exam Est Intermediate Completed 07/02/2014 38813 Eye Exam Est Intermediate Completed 07/02/2014 74192 Refraction Completed 02/11/2014 33088 Oct, Optic Nerve Completed 02/11/2014 88066 Eye Exam Est Intermediate Completed 11/09/2013 40963 Fundus Photography W/Interpretation & Report Completed 11/09/2013 02053 Ophthalmoscopy Subsequent Completed 11/09/2013 52354 Eye Exam Est Comprehensive Completed 08/09/2013 66511 Visual Field Exam Extended, Unilateral Or Bilateral Completed 08/09/2013 27393 Eye Exam Est Intermediate Completed 06/30/2011 34026 Eye Exam Est Intermediate Completed 02/08/2011 18598 Eye Exam Est Intermediate Completed 09/30/2010 16568 Corneal Pachymetry, Unilateral/Bilateral Completed 09/30/2010 86238 Eye Exam Est Comprehensive Completed 09/30/2010 82294 Ophthalmoscopy Subsequent Completed 09/30/2010 91467 Fundus Photography W/Interpretation & Report Completed 06/30/2010 40544 Eye Exam Est Intermediate Completed 03/11/2010 50212 Eye Exam Est Intermediate Completed 03/04/2010 59707 Visual Field Exam Extended, Unilateral Or Bilateral Completed 03/04/2010 77881 Eye Exam Est Intermediate Completed 09/03/2009 63484 Corneal Pachymetry, Unilateral/Bilateral Completed 09/03/2009 41937 Eye Exam Est Comprehensive Completed 09/03/2009 07129 Ophthalmoscopy Subsequent Completed 09/03/2009 15890 Fundus Photography W/Interpretation & Report Completed 07/09/2009 72747 Visual Field Exam Extended, Unilateral Or Bilateral Completed 07/09/2009 72365 Eye Exam Est Intermediate Completed 03/11/2009 81271 Visual Field Exam Extended, Unilateral Or Bilateral Completed 03/11/2009 15637 Eye Exam Est Intermediate Completed 03/05/2009 50320 Eye Exam Est Intermediate Completed 09/03/2008 67268 Visual Field Exam Extended, Unilateral Or Bilateral Completed 09/03/2008 35856 Eye Exam Est Intermediate Completed 09/03/2008 39269 Corneal Pachymetry, Unilateral/Bilateral Completed 08/24/2008 04987 Eye Exam Est Intermediate Completed 08/15/2008 93996 Fundus Photography W/Interpretation & Report Completed 08/15/2008 36141 Ophthalmoscopy Initial Completed 08/15/2008 94230 Sensorimotor Examination W/Mult Measurements Ocular Completed Deviation 08/15/2008 48554 Gonioscopy Completed 08/15/2008 94015 Eye Exam New Comprehensive Completed Encounters Type Date Location Provider Dx Diagnosis Office Visit 01/24/2015 Main Office Cullen Farooq, H40.11x1 Primary open- angle 8:45a M.D. glaucoma, mild stage Office Visit 03/12/2011 Main Office Cullen Farooq 365.00 Preglaucoma Unspec 9:45a M.D. Office Visit 03/09/2011 Main Office Cullen Farooq, 365.10 Glaucoma Open Angle 1:15p M.D. Unspec Office Visit 03/05/2011 Main Office Cullen Farooq, 365.10 Glaucoma Open Angle 10:30a M.D. Unspec Office Visit 12/24/2010 Main Office Cullen Farooq, 365.10 Glaucoma Open Angle 10:15a M.D. Unspec Plan of Treatment 09/28/2018 - Cullen Farooq M.D.H50.05 Alternating [id number] Primary open-angle glaucoma, bilateral, mild stageFollow up:full 1-2 full
--- OUTSIDE RECORDS SUMMARY | 2018-10-18 07:33 | XMS REPORT | Continuity of Care Document ---
:1940 External Reference #:[id number] Author Name Cullen Farooq M.D. Address [address] [place] [address] Care Team Providers Name Role Phone Darrel Griffin MD Care Team Information Ambulatory Analyst Unavailable Darrel Griffin MD Primary Care Physician Unavailable Payers Date Identification Numbers Payment Provider Subscriber Policy Number: [id number] [place] Marlen Means PayID: [id number] [address] [place] [address] Policy Number: [id number] / [facility] Marlen Means PayID: [id number] [address] [address] [place] [address] Problems Active Problems Provider Date Epiretinal membrane [...] MD Syrup Atorvastatin Calcium Darrel Griffin 20mg MD Addie Tablets Dorzolamide HCL/Timolol Instill 1 Drop 10units [...] Capsules Cymbalta Unknown - 20mg Caps DR Part 08/09/2013 Polyethylene Glycol Unknown - 3350 08/09/2013 [...] mmHg Procedures Date Code Description Status 09/28/2018 42386 Sensorimotor Examination W/Mult Measurements Ocular Completed Deviation 09/28/2018 48614 Eye Exam Est Intermediate Completed 07/04/2018 71975 Eye Exam Est Intermediate Completed 02/08/2018 98472 Eye Exam Est Intermediate Completed 11/16/2017 71784 Fundus Photography W/Interpretation & Report Completed 11/16/2017 73457 Refraction Completed 11/16/2017 77878 Eye Exam Est Intermediate Completed 08/04/2017 86455 Eye Exam Est Intermediate Completed 05/06/2017 76163 Eye Exam Est Intermediate Completed 05/06/2017 20999 Visual Field Exam Extended, Unilateral Or Bilateral Completed 05/06/2017 24558 Oct, Optic Nerve Completed 01/21/2017 65772 Oct Retina Completed 01/21/2017 87287 Visual Field Exam Extended, Unilateral Or Bilateral Completed 01/21/2017 07544 Eye Exam Est Intermediate Completed 10/01/2016 71175 Fundus Photography W/Interpretation & Report Completed 10/01/2016 17162 Ophthalmoscopy Subsequent Completed 10/01/2016 89940 Refraction Completed 10/01/2016 61673 Eye Exam Est Comprehensive Completed 07/02/2016 99191 Eye Exam Est Intermediate Completed 07/02/2016 34660 Oct, Optic Nerve Completed 01/20/2016 42592 Visual Field Exam Extended, Unilateral Or Bilateral Completed 01/20/2016 56783 Eye Exam Est Intermediate Completed 10/27/2015 29106 Fundus Photography W/Interpretation & Report Completed 10/27/2015 45987 Refraction Completed 10/27/2015 10998 Eye Exam Est Comprehensive Completed 01/21/2015 43815 Extracapsular Cataract Extraction W/Intraocular Lens Completed 01/14/2015 77698 Extracapsular Cataract Extraction W/Intraocular Lens Completed 11/21/2014 41167 Eye Exam Est Comprehensive Completed 11/21/2014 67010 Ophthalmic Biometry By Partial Coherence Interferometry Completed W/Intra 11/21/2014 93941 Ophthalmoscopy Subsequent Completed 11/21/2014 19410 Fundus Photography W/Interpretation & Report Completed 11/18/2014 68943 Eye Exam Est Intermediate Completed 11/16/2014 87591 Eye Exam Est Intermediate Completed 07/26/2014 86680 Visual Field Exam Extended, Unilateral Or Bilateral Completed 07/26/2014 99042 Eye Exam Est Intermediate Completed 07/02/2014 36059 Eye Exam Est Intermediate Completed 07/02/2014 72490 Refraction Completed 02/11/2014 12802 Oct, Optic Nerve Completed 02/11/2014 84153 Eye Exam Est Intermediate Completed 11/09/2013 65307 Fundus Photography W/Interpretation & Report Completed 11/09/2013 38165 Ophthalmoscopy Subsequent Completed 11/09/2013 20684 Eye Exam Est Comprehensive Completed 08/09/2013 43160 Visual Field Exam Extended, Unilateral Or Bilateral Completed 08/09/2013 02914 Eye Exam Est Intermediate Completed 06/30/2011 79563 Eye Exam Est Intermediate Completed 02/08/2011 35245 Eye Exam Est Intermediate Completed 09/30/2010 22214 Corneal Pachymetry, Unilateral/Bilateral Completed 09/30/2010 71267 Eye Exam Est Comprehensive Completed 09/30/2010 41678 Ophthalmoscopy Subsequent Completed 09/30/2010 71552 Fundus Photography W/Interpretation & Report Completed 06/30/2010 85659 Eye Exam Est Intermediate Completed 03/11/2010 18586 Eye Exam Est Intermediate Completed 03/04/2010 79096 Visual Field Exam Extended, Unilateral Or Bilateral Completed 03/04/2010 06327 Eye Exam Est Intermediate Completed 09/03/2009 72648 Corneal Pachymetry, Unilateral/Bilateral Completed 09/03/2009 16596 Eye Exam Est Comprehensive Completed 09/03/2009 31991 Ophthalmoscopy Subsequent Completed 09/03/2009 94245 Fundus Photography W/Interpretation & Report Completed 07/09/2009 13510 Visual Field Exam Extended, Unilateral Or Bilateral Completed 07/09/2009 42376 Eye Exam Est Intermediate Completed 03/11/2009 42803 Visual Field Exam Extended, Unilateral Or Bilateral Completed 03/11/2009 08028 Eye Exam Est Intermediate Completed 03/05/2009 36934 Eye Exam Est Intermediate Completed 09/03/2008 04670 Visual Field Exam Extended, Unilateral Or Bilateral Completed 09/03/2008 36391 Eye Exam Est Intermediate Completed 09/03/2008 03325 Corneal Pachymetry, Unilateral/Bilateral Completed 08/24/2008 02546 Eye Exam Est Intermediate Completed 08/15/2008 05780 Fundus Photography W/Interpretation & Report Completed 08/15/2008 67297 Ophthalmoscopy Initial Completed 08/15/2008 60906 Sensorimotor Examination W/Mult Measurements Ocular Completed Deviation 08/15/2008 98488 Gonioscopy Completed 08/15/2008 42786 Eye Exam New Comprehensive Completed Encounters Type [...] Treatment 09/28/2018 - Cullen Farooq M.D.H50.05 Alternating [id number] Primary open-angle glaucoma, bilateral, mild stageFollow up:full 1-2 full
[2018-10-18 07:43] LABS: ABS Basophils 0.1 10^3/ul (0-0.2); ABS Eosinophils 0.1 10^3/ul (0-0.6); ABS Lymphocytes 1.2 10^3/ul (1.0-4.8); ABS Monocytes 0.5 10^3/ul (0-0.8); ABS Neutrophils 3.6 10^3/ul (1.5-7.7); Eosinophil % 2.2 %; Hematocrit 43 % (35-47); Hemoglobin 14.9 g/dL (12.0-16.0); Lymphocyte % 22.6 %; Mean Corpuscular HGB Conc 35 g/dL (31-36); Mean Corpuscular Hemoglobin 33 pg (27-31); Mean Corpuscular Volume 94 fL (80-97); Mean Platelet Volume 7.2 fL (7.4-10.4); Platelet Count 260 10^3/uL (150-450); Red Blood Count 4.55 10^6 /uL (3.70-4.87); Red Cell Distribution Width 13 % (10-15); White Blood Count 5.5 10^3/uL (3.5-10.8)
[2018-10-18 07:52] LABS: Activated Partial Thrombo Time 33.6 seconds (26.0-38.0); INR 1.02 (0.82-1.09)
[2018-10-18 08:04] LABS: Albumin 4.2 g/dL (3.2-5.2); BUN/Creatinine Ratio 20.7 (8-20); Calcium 9.5 mg/dL (8.6-10.3); EGFR African American 121.7 (>60); EGFR Non-African American 100.5 (>60); Globulin 2.1 g/dL (2-4); Potassium 3.8 mmol/L (3.5-5.0); Total Bilirubin 0.7 mg/dL (0.2-1.0); Total Protein 6.3 g/dL (6.4-8.9)
[2018-10-18] MEDS ORDERED: Ondansetron INJ* 2 MG/ML VIAL IV ONE (09:34)
[2018-10-18] MEDS ORDERED: Ondansetron INJ* 2 MG/ML VIAL IV PRN (10:07)
[2018-10-18] MEDS: Pramipexole TAB* 0.5 MG PO SCH ×5 (12:00→21:07)
[2018-10-18] MEDS: Carbidopa/Levodop 25/100 MG TAB(*) PO SCH ×2 (12:11→17:06)
[2018-10-18] MEDS: oxyCODONE/Acetamin 5/325 MG* TAB PO PRN ×2 (12:11→16:14)
--- NOTE | 2018-10-18 13:38 | HP ---
CC: Dr. Bartholomew * HISTORY AND PHYSICAL: DATE OF ADMISSION: 10/18/18 PRIMARY CARE PROVIDER: Dr. Bartholomew. ATTENDING PHYSICIAN: Dr. Radha Stevens * (dictated by SUSI Suárez). CHIEF COMPLAINT: Fall. HISTORY OF PRESENT ILLNESS: Ms. Means is a 77-year-old female with a past medical history of Parkinson's disease, history of traumatic subarachnoid hemorrhage, TIA x2, hyperlipidemia who presented to the ER today after she slipped in her sock feet, fell and landed on the left hip. She noted immediate pain in the left hip. She had no pain elsewhere. She did not hit her head. She did not lose consciousness. She has 7/10 pain without radiation. She states the pain is constant and worsened with movement. She typically walks with a walker. She notes that her last meal was approximately 5 a.m. She denies chest pain, shortness of breath, abdominal pain, nausea, vomiting, diarrhea, constipation. She denies numbness, tingling in the extremities, loss of sensation in the extremities. While in the emergency department, the patient received a full work up which included blood work with no gross abnormalities. ECG with no ST changes. Chest x- ray within normal limits. Left hip x-ray revealed transcervical left femoral neck fracture, superior displacement. Left knee without gross abnormalities. Hospital team was asked to evaluate the patient for admission. PAST MEDICAL HISTORY: 1. Parkinson's disease. 2. Hyperlipidemia. 3. History of TIA x2. 4. History of subarachnoid hemorrhage. 5. Bilateral glaucoma. 6. Obstructive sleep apnea, the patient uses CPAP. 7. 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 PAST SURGICAL HISTORY: 1 Appendectomy. 2. Hernia repair. 3. Cholecystectomy. 4. Bilateral cataracts left eye 2018. HOME MEDICATIONS: 1. Acetaminophen 650 mg p.o. daily p.r.n. 2. Atorvastatin 20 mg p.o. at bed time. 3. Carbidopa and levodopa 25-100 mg 1 tab p.o., 0700, 1200, 1700 4. Cosopt eye drops 1 drop to each eye b.i.d. 5. Gabapentin 100 mg p.o. at bed time. 6. Latanoprost 0.005% 1 drop to both eyes at 2100. 7. Mirapex 0.5 mg p.o. 0700, 1200, 1700, 2100. DRUG ALLERGIES: CEFUROXIME colitis, CIPROFLOXACIN colitis. FAMILY HISTORY: Mother of PA. Father had stroke, emphysema. Brother had diabetes mellitus. Sister with CVA. Paternal grandmother with cancer. The patient thinks it is stomach cancer. SOCIAL HISTORY: The patient quit smoking in 1984. Prior to that she smoked less than a pack per day for approximately 15 years. 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 She does not use any other drugs. 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 She lives [facility] with her . In the event that she is unable to make her own medical decision, she has appointed her Camden Means to be her surrogate decision maker. REVIEW OF SYSTEMS: A 10-point review of systems has been performed, and all the pertinent positives and negatives are in the HPI. All other systems are negative. PHYSICAL EXAMINATION GENERAL: Ms. Means is a well-developed, well-nourished, thin older white lady who is lying in bed. She appears to be in no acute distress. She is pleasant and cooperative. VITAL SIGNS: Temperature 98.2 temporal, heart rate 75, respiratory rate 16, oxygen saturation 91% on room air, blood pressure 156/88. HEENT: Visual devries grossly intact. PERRL. EOMI. Nonicteric sclerae. Hearing grossly intact. Oral mucous membranes are moist. There are no lesions. RESPIRATORY: Symmetrical chest expansion without use of accessory muscles. Lungs are clear to auscultation anteriorly and laterally without rhonchi, wheezes or rubs. There is no clubbing or cyanosis. CARDIOVASCULAR: Regular rate and rhythm with S1, S2 present without murmurs, rubs or clicks or gallops. There is no JVD. Radial and pedal pulses are palpable. Capillary refill less than 2 seconds. Bilateral lower extremities no peripheral edema. ABDOMEN: Flat. Bowel sounds in all quadrants. The abdomen is soft without tenderness to palpation. There is no hepatosplenomegaly. MUSCULOSKELETAL: The patient is able to move with full range of motion bilateral upper extremities. Left lower extremity movement is limited by pain, but patient is able to move minimally. Right lower extremity movement intact. NEURO: The patient is awake. She is alert and oriented x3 with cranial nerves grossly intact. She is able to move all of her extremities although the left lower extremity movement is limited by pain. DIAGNOSTIC STUDIES/LAB DATA: INR 1.02, APTT 33.6, CBC and CMP within normal limits. Chest x-ray no acute cardiopulmonary process by radiograph. Left hip and pelvis x-ray, impression: Transcervical left femoral neck fracture with one femoral neck with superior displacement and varus angulation. Overlying soft tissue swelling. Left knee, impression: Negative for periprosthetic fracture or evidence for prosthesis loosening. Interval decrease in volume of joint effusion. ECG right 57, normal sinus rhythm without ST changes. ASSESSMENT AND PLAN: Ms. Means is a 77-year-old female with past medical history of Parkinson's, hyperlipidemia, transient ischemic attack, subarachnoid hemorrhage in 2019, who presented to the ER today status post fall and was found to have a left femoral neck fracture. The patient will be admitted in patient for: 1. Left femoral neck fracture. The patient's pain is being relatively well controlled with morphine. We will continue pain medication. She will also be continued on antinausea medication Zofran. Ortho has been consulted and notified. Awaiting further information on plans for surgical intervention, which the patient is agreeable to, currently she is n.p.o. until further information as available. According to the revised cardiac risk index, the patient is class II risk with 6% of 30 day risk of , [place] or cardiac arrest. She is currently medically optimized for surgery. 2. Parkinson's disease. Continue the patient's home medications carbidopa- levodopa as prescribed. The patient states she is also on amantadine. We will get a med reconciliation and be sure to add this to her medication list. 3. Hyperlipidemia, continue atorvastatin. 4. Obstructive sleep apnea continue CPAP. The patient did not bring her own so she will use the hospitals. 5. Glaucoma. Continue home eye drops. 6. DVT prophylaxis: According DVT risk assessment, the patient scores 3, placing her at high risk. We will hold chemo prophylaxis at this point in time due to upcoming surgery. She will be placed on SCD's. 7. Code status: Full code. TIME SPENT: Approximately 60 minutes was spent on this admission, greater than half that time was spent with the patient and her obtaining history, performing a physical, and reviewing the plan of care. The case has been reviewed with my attending, Dr. Stevens, who is in agreement with the plan of care. ELPIDIO FRENCH, SUSI [id number]/[facility] #: [id number] [facility]
[2018-10-18] MEDS: Acetaminophen TAB* 325 MG PO PRN ×2 (14:43→18:17)
[2018-10-18] MEDS: NS 0.9% 1000 ML** 1,000 ML IV SCH (16:06)
[2018-10-18 17:26] LABS: Urine Appearance Clear; Urine Bilirubin Negative (Negative); Urine Blood Negative (Negative); Urine Color Yellow; Urine Glucose Negative (Negative); Urine Ketones Negative (Negative); Urine Nitrite Negative (Negative); Urine Protein Negative (Negative); Urine Specific Gravity 1.012 (1.010-1.030); Urine Urobilinogen Negative (Negative)
--- NOTE | 2018-10-18 19:38 | CONS ---
CONSULTATION REPORT: DATE OF CONSULT: 10/18/18 ATTENDING SURGEON: Riya Calderon MD Thank you for this orthopedic consultation. CHIEF COMPLAINT: Left hip pain. HISTORY OF PRESENT ILLNESS: Ms. Means is a 77-year-old female with significant past medical history, who fell in her home early this morning in her bathroom. She fell onto the left side, immediately had 7/10 pain in the left hip. She was unable to stand or walk because of the pain. She was brought to [facility] and diagnosed with a left displaced femoral neck fracture. She did recently have a left total knee arthroplasty with me and has done well post- operatively. She is normally an ambulator, who very much wishes to be active. She lives at [facility] with her . PAST MEDICAL HISTORY: Parkinson's disease; hyperlipidemia; osteoarthritis; TIA x2; subarachnoid hemorrhage; bilateral glaucoma; obstructive sleep apnea, uses a CPAP; chronic low back pain with sciatica; and multiple falls. PAST SURGICAL HISTORY: Appendectomy, hernia repair, cholecystectomy, bilateral cataract excision, left total knee arthroplasty. HOME MEDICATIONS: 1. Tylenol 650 mg p.o. p.r.n. 2. Atorvastatin 20 mg p.o. q.h.s. 3. Carbidopa/levodopa 25/100 three times a day 1 tablet. 4. Cosopt eye drops 1 drop eye b.i.d. each eye. 5. Gabapentin 100 mg p.o. q.h.s. 6. Latanoprost 0.005% one drop to both eyes daily. 7. Mirapex 4 times a day 0.5 mg p.o. DRUG ALLERGIES: CEFUROXIME - colitis, CIPROFLOXACIN - colitis. FAMILY HISTORY: Maternal - [place]. Paternal - stroke, emphysema, cancer. SOCIAL HISTORY: The patient lives at [facility] with her . She does not smoke, use alcohol or recreational drugs. She does have a history of tobacco use and is a recovering alcoholic, but has quit over 30 years ago. She normally ambulates with a rolling walker. REVIEW OF SYSTEMS: Fourteen systems reviewed with the patient today. Positive for left hip pain, recent fall. Positive for some muscle weakness, tremor, imbalance. She denies fevers, chills, chest pain, shortness of breath. PHYSICAL EXAM: General: The patient is a thin female, in no apparent distress , alert and oriented x3, pleasant mood and appropriate affect, accompanied by a supportive friend. Vitals: Temperature 98, pulse 75, blood pressure 128/75. HEENT: Atraumatic, normocephalic. Pupils are equal and reactive to light. Chest: Unlabored breathing. Abdomen: Soft, nontender, nondistended. Left lower extremity: The patient's skin is intact. No abrasions or open wounds. No palpable masses or lymph nodes. She has pain with any motion of the left lower extremity. She can dorsiflex and plantarflex. 2+ palpable DP pulse. Full sensation to light touch in all nerve distributions. DIAGNOSTIC STUDIES/LAB DATA: White blood cells 5.5, hematocrit 43, platelets 260. INR 1.02. Sodium 138, potassium 3.8, chloride 103, BUN and creatinine 12 and 0.58. Troponin 0. Total protein 6.3, albumin 4.2. Studies: Multiple views of the left hip and knee are reviewed. She has cemented total knee arthroplasty in satisfactory position without periprosthetic fracture. Left hip film shows a displaced femoral neck fracture. There are some mild-to- moderate arthritic changes in the acetabulum. ASSESSMENT AND PLAN: Ms. Means is a 77-year-old female status post fall with a displaced closed left femoral neck fracture. The patient and I discussed operative and nonoperative treatment options. She would like to proceed with surgery. We discussed the risks and benefits of the surgery. We discussed the advantages and disadvantages of both hemiarthroplasty and total hip arthroplasty. The patient would like to proceed with total hip arthroplasty. She does have increased dislocation risk because of the Parkinson's disease. For now, she will be on bedrest with p.r.n. analgesia. Medical team has communicated that she is medically optimized. We will plan for a left total hip arthroplasty tomorrow on 10/19/18 at the first available OR. [id number]/[facility] #: [id number] [facility]
[2018-10-18] MEDS: Gabapentin CAP(*) 100 MG PO SCH (21:07)
[2018-10-18] MEDS: Atorvastatin* 20 MG TAB PO SCH (21:07)
[2018-10-18] MEDS: Latanoprost 0.005%* 2.5 ml BTL BOTH EYES SCH (21:07)
[2018-10-18] MEDS: CMCS: Dorzolamide/Timolol OPTH (NF) 10 ML BOT BOTH EYES SCH (21:08)
[2018-10-19] MEDS: NS 0.9% 1000 ML** 1,000 ML IV SCH ×2 (02:02→12:28)
[2018-10-19 06:08] LABS: ABS Eosinophils 0.2 10^3/ul (0-0.6); ABS Lymphocytes 0.9 10^3/ul (1.0-4.8); ABS Monocytes 0.7 10^3/ul (0-0.8); ABS Neutrophils 6.1 10^3/ul (1.5-7.7); Eosinophil % 2.3 %; Hematocrit 41 % (35-47); Hemoglobin 13.9 g/dL (12.0-16.0); Lymphocyte % 10.8 %; Mean Corpuscular HGB Conc 34 g/dL (31-36); Mean Corpuscular Hemoglobin 32 pg (27-31); Mean Corpuscular Volume 94 fL (80-97); Mean Platelet Volume 7.7 fL (7.4-10.4); Platelet Count 205 10^3/uL (150-450); Red Blood Count 4.39 10^6 /uL (3.70-4.87); Red Cell Distribution Width 13 % (10-15); White Blood Count 7.9 10^3/uL (3.5-10.8)
[2018-10-19 06:13] LABS: INR 1.11 (0.82-1.09)
[2018-10-19] MEDS: Pramipexole TAB* 0.5 MG PO SCH ×4 (06:20→21:39)
[2018-10-19] MEDS: Carbidopa/Levodop 25/100 MG TAB(*) PO SCH ×4 (06:21→20:23)
[2018-10-19 06:24] LABS: Calcium 8.8 mg/dL (8.6-10.3); Potassium 3.9 mmol/L (3.5-5.0)
[2018-10-19 06:30] LABS: BUN/Creatinine Ratio 17.8 (8-20); EGFR African American 163.1 (>60); EGFR Non-African American 134.8 (>60)
[2018-10-19] MEDS: oxyCODONE/Acetamin 5/325 MG* TAB PO PRN ×2 (06:58→21:39)
[2018-10-19] MEDS: CMCS: Dorzolamide/Timolol OPTH (NF) 10 ML BOT BOTH EYES SCH ×2 (07:27→21:43)
[2018-10-19] MEDS: Morphine INJ* 2 MG/ML 1 ML SYRINGE (TWO MG - NEW SYRINGE VERSION) IV PRN ×2 (10:12→14:39)
[2018-10-19] MEDS ORDERED: amLODIPine TAB* 5 MG PO ONE (12:02)
[2018-10-19] MEDS ORDERED: hydrALAZINE IV* 20 MG/ML VIAL IV SLOW PU PRN ×2 (12:10→12:26)
[2018-10-19] MEDS ORDERED: Buffered Lidocaine 1% SYRIN* 1 ML/SYRINGE INTRADERM ONE ×2 (13:37→15:32)
[2018-10-19] MEDS ORDERED: Lactated Ringers 1000 ML Bag* 1,000 ML IV SCH (14:00)
--- NOTE | 2018-10-19 14:17 | PN ---
Subjective Date of Service: 10/19/18 Interval History: No overnight event. Patient is well, no complains. She is well aware of the hip operation. Objective Active Medications: Acetaminophen (Tylenol Tab*) 650 mg PO Q4H PRN PRN Reason: Fever/Pain- mild Last Admin: 10/18/18 18:17 Dose: 650 mg Atorvastatin Calcium (Lipitor*) 20 mg PO BEDTIME [facility] Last Admin: 10/18/18 21:07 Dose: 20 mg Carbidopa/Levodopa (Sinemet 25/100 Tab(*)) 1 tab PO 0700,1200,1700 [facility] Last Admin: 10/19/18 12:03 Dose: Not Given Dorzolamide/Timolol (Cosopt (Nf)) 1 drop BOTH EYES BID [facility]; Protocol Last Admin: 10/19/18 07:27 Dose: 1 drop Gabapentin (Neurontin Cap(*)) 100 mg PO BEDTIME [facility] Last Admin: 10/18/18 21:07 Dose: 100 mg Hydralazine HCl (Apresoline Iv*) 5 mg IV SLOW PU Q6H PRN PRN Reason: BLOOD PRESSURE Sodium Chloride (Ns 0.9% 1000 Ml) 1,000 mls @ 100 mls/hr IV PER RATE [facility] Last Admin: 10/19/18 12:28 Dose: 100 mls/hr Lactated Ringer's (Lactated Ringers 1000 Ml Bag*) 1,000 mls @ 125 mls/hr IV PER RATE [facility] Latanoprost (Xalatan 0.005%*) 1 drop BOTH EYES 2100 [facility] Last Admin: 10/18/18 21:07 Dose: 1 drop Lidocaine/Sodium Bicarbonate (Buffered Lidocaine 1% Syrin*) 0.2 ml INTRADERM ONCE ONE Stop: 10/19/18 13:38 Morphine Sulfate (Morphine Inj (Syringe))*) 2 mg IV Q4H PRN PRN Reason: Pain- severe Last Admin: 10/19/18 10:12 Dose: 2 mg Ondansetron HCl (Zofran Inj*) 4 mg IV Q4H PRN PRN Reason: NAUSEA/VOMITING Oxycodone/Acetaminophen (Percocet 5/325 Tab*) 1 tab PO Q4H PRN PRN Reason: Pain- moderate Last Admin: 10/19/18 06:58 Dose: 1 tab Pramipexole Dihydrochloride (Mirapex Tab*) 0.5 mg PO 0700,1200,1700,2100 [facility] Last Admin: 10/19/18 12:03 Dose: Not Given Vital Signs - 8 hr 10/19/18 10/19/18 10/19/18 06:58 07:44 08:00 Temperature 99.4 F Pulse Rate 81 Respiratory 18 14 14 Rate Blood Pressure 134/78 (mmHg) O2 Sat by Pulse 93 Oximetry 10/19/18 10/19/18 10/19/18 09:53 10:12 11:46 Temperature 98.6 F Pulse Rate 70 Respiratory 15 15 16 Rate Blood Pressure 186/91 (mmHg) O2 Sat by Pulse 93 Oximetry 10/19/18 10/19/18 10/19/18 11:47 12:35 13:15 Temperature Pulse Rate Respiratory 16 Rate Blood Pressure 190/86 170/90 (mmHg) O2 Sat by Pulse Oximetry Oxygen Devices in Use Now: None Exam: Alert, oriented x3 Heart S1S2 normal, no murmur Lung clear Abdomen soft non tender Left leg externally rotated Calves supple, non tender. Result Diagrams: 10/19/18 05:15 10/19/18 05:15 Assess/Plan/Problems-Billing Assessment: Ms. Means is a 77y/o female with PMH PD, HLD, TIA x2, SAH; presented with mechanical fall with left femoral #. She is scheduled for left total hip replacement today. Her revised cardiac risk index for pre-operative risk is 1 for previous TIA; which means her 30-day risk of [place], [place] or cardiac arrest is 6.0%. - Patient Problems (1) Hip fracture, left Current Visit: Yes Status: Acute Code(s): S72.002A - FRACTURE OF UNSP PART OF NECK OF LEFT FEMUR, INIT SNOMED Code(s): 137702043 Comment: plan for total left hip replacement on 10/19/2018 (2) Parkinson disease Current Visit: Yes Status: Acute Code(s): G20 - PARKINSON'S DISEASE SNOMED Code(s): 95444800 (3) Hypercholesterolemia Current Visit: No Status: Active Priority: Low Code(s): E78.0 - PURE HYPERCHOLESTEROLEMIA * DO NOT USE * SNOMED Code(s): 66530591 (4) Thyroid nodule Current Visit: No Status: Active Priority: High Code(s): E04.1 - NONTOXIC SINGLE THYROID NODULE SNOMED Code(s): 005212758 Comment: non contributory (5) TIA (transient ischemic attack) Current Visit: Yes Status: Acute Code(s): G45.9 - TRANSIENT CEREBRAL ISCHEMIC ATTACK, UNSPECIFIED SNOMED Code(s): 406095269 (6) Hyperlipidemia Current Visit: Yes Status: Acute Code(s): E78.5 - HYPERLIPIDEMIA, UNSPECIFIED SNOMED Code(s): 83359290 (7) Status post total left knee replacement Current Visit: No Status: Acute Code(s): Z96.652 - PRESENCE OF LEFT ARTIFICIAL KNEE JOINT SNOMED Code(s): 8059751892840 Comment: non contributory (8) Fall Current Visit: Yes Status: Acute Comment: multifactorial, most mainly PD, history of TIA Status and Disposition: Inpatient Medicine Attestation Documenting Resident: Rosa Elena Nails Supervising Physician: Christa Bynum Attestation: This service has been performed in part by a resident under the direction of a teaching physician.I, Christa Bynum, performed the service, or was physically present during the critical, or pedro portions of the service, furnished by the resident. I participated in the management of the patient.
--- NOTE | 2018-10-19 14:48 | PN ---
Hospitalist Progress Note Date of Service: 10/19/18 Attending Assessment and Plan I have reviewed the subjective and objective data from the residents note of which I agree and supervised. HD #1 77F PMH Parkinsons dz, hx of TIA and SAH, HTN, HLD presented s/p mechanical fall with L femoral neck fracture. Hospital stay c/b episodic HTN #L femoral neck fracture: Undergoing surgeyr -See risk assemsent via RCRI (x1 for TIA), mod risk for mod risk procedure, elects to proceed, no further testing needed -Pain control and DVT ppx per surgery #HTN: assumed episodic in regards to pain, improved with hydral and morphine, no neurologic sx -EKG wihtou any acute ischemic findings -PRN Hydral #PD: home meds #hx of TIA: on statin #HLD: Statin #DVT: Per ortho, will ensure orders are in post operatively #Code: Full #Dispo: AMEE vs Pili
[2018-10-19] MEDS ORDERED: Magnesium Hydroxide LIQ* 30 ML UDC PO PRN (15:59)
[2018-10-19] MEDS ORDERED: diPHENhydraMINE IV* 50 MG/ML 1 ml VIAL (BENADRYL) IV PRN (15:59)
[2018-10-19] MEDS ORDERED: Senna TAB 8.6 mg* TAB PO PRN (15:59)
[2018-10-19] MEDS ORDERED: Polyethylene Glycol 3350* 17 GM PACKET PO PRN (15:59)
[2018-10-19] MEDS ORDERED: diPHENhydraMINE PO* 25 MG PO PRN (15:59)
[2018-10-19] MEDS ORDERED: Clindamycin 900 MG IVPREMIX(* 900 MG/50 ML SDV IV ONE (16:07)
[2018-10-19] MEDS ORDERED: Famotidine IV* 10 MG/ML 2 ML (20 mg) ONE (17:14)
[2018-10-19] MEDS ORDERED: Midazolam* 1 MG/ML 2 ML VIAL (2 MG) ONE (17:16)
[2018-10-19] MEDS ORDERED: KETAMINE HCL* 50 MG/ML 10 ML VIAL ONE (17:16)
[2018-10-19] MEDS ORDERED: fentaNYL* 50 MCG/ML 2 ML VIAL (100 MCG VIAL) ONE (17:16)
[2018-10-19] MEDS ORDERED: Ropivacaine (OR use only) 2 MG/ML 10 ML ONE (17:18)
[2018-10-19] MEDS ORDERED: Phenylephrine 40 MCG/ML SYRINGE ONE (18:00)
[2018-10-19] MEDS ORDERED: EPHEDrine (Pressors)* 50 MG/ML VIAL ONE (18:01)
[2018-10-19] MEDS ORDERED: Propofol* 10 MG/ML 20 ML BTL ONE (18:09)
[2018-10-19] MEDS ORDERED: Lidocaine 2% PF * 5 ML VIAL ONE (18:09)
[2018-10-19] MEDS ORDERED: Bupivacaine 0.5% SDV PF* 30ML VIAL ONE (18:09)
[2018-10-19] MEDS ORDERED: Phenylephrine 10 MG/ML VIAL* 1 ML VIAL ONE (18:51)
[2018-10-19] MEDS ORDERED: Ondansetron INJ* 2 MG/ML VIAL ONE (19:06)
[2018-10-19] MEDS ORDERED: Acetaminophen IV 1GM/100ML * 100 ML ONE (19:17)
[2018-10-19] MEDS ORDERED: Bupivacaine 0.5%* 50 ML VIAL ONE (19:18)
[2018-10-19] MEDS ORDERED: Naloxone* 0.4 MG/ML 1 ML VIAL IV PRN (19:32)
[2018-10-19] MEDS ORDERED: fentaNYL* 50 MCG/ML 2 ML VIAL (100 MCG VIAL) IV PRN (19:32)
--- NOTE | 2018-10-19 20:40 | OP ---
Operative Report - Blank - Operative Report Date of Operation: 10/19/18 Note: JOSEPHINE TRACEY 1940 Date Of Surgery: 10/19/18 Surgeon: Riya Calderon MD Health Companion: Keyla GOLDMAN, did help throughout the procedure with preparation of the hip, wound retraction, manipulation of the hip, and wound closure. Anesthesiologist: Juan M Hernandez MD Anesthesia Type: Spinal Preoperative Diagnosis: Left displaced femoral neck fracture of the hip, moderate hip osteoarthritis Postoperative Diagnosis: As above Procedure Performed: Left Total Hip Arthroplasty Complications: None Specimen: Femoral head and acetabular reamings sent to pathology. Hardware used: This is uncemented [place] total hip arthroplasty hardware for the femur a size 3 accolade II with 127 neck angle femoral component, for the acetabulum a size 46C trident II tritanium cluster hole shell with a single 20 mm screw, for the insert a size 32 C trident x3 polyethylene insert, and for the femoral head a size 32 - 4 biolox ceramic V40 femoral head. Brief history/Indication: JOSEPHINE TRACEY was had a fall in her home on 10/18/18 and sustained a closed displaced left femoral neck fracture. She was optimized for surgery and wihsed to proceed. She was given different surgical options, and she elected to undergo left total hip arthroplasty. Radiographs showed moderate osteoarthritis of the hip with a displaced femoral neck fracture. Informed consent was obtained from the patient. She understood the risks of surgery included but were not limited to: bleeding, infection, damage to nearby structures, intraoperative fracture, nerve palsy, failure of the hardware, early loosening, stiffness or loss of motion, dislocation, leg length discrepancy, anesthesia complications, stroke, heart attack, blood clot and . She wished to proceed. Intra-Operative findings: Intraoperatively the patient was noted to have severe loss of cartilage of the acetabulum. She had a comminuted complete fracture of the femoral neck. She had significant osteopenia. Description of the Procedure: JOSEPHINE TRACEY was identified in the preanesthesia unit. Her left hip was marked as the correct operative side. Informed consent was signed and placed in the chart. The patient was taken to the operating room and placed under anesthesia without complication. A horn catheter was placed. The patient was placed on the peg board with all bony prominences well padded. The left lower extremity was prepped and draped in the usual sterile fashion. Preoperative time-out was made to correctly identify the patient, side and site. Appropriate intraoperative antibiotics were given within one hour of incision. A standard posterior incision was made and carried sharply down to the lateral fascia. A new 10 blade was used to make an incision in the fascia in line with the skin incision. A charnley retractor was placed. The piriformis and conjoined tendons were identified and elevated off the posterolateral femur using electrocautery. These were tagged with number 5 Ethibond. Next electrocautery was used to make a posterolateral capsular flap and this was tagged with number 5 Ethibonds. The femoral neck fracture was visualized and the proximal femur was presented. The oscillating saw was used to make the femoral neck clean-up cut. The femoral head was carefully removed. The femur was retracted anteriorly and the acetabular retractors were placed. Long-handled knife was used to sharply remove any remaining labrum from the acetabular rim. The acetabulum was sequentially reamed up to a size 46. A bleeding subchondral bone bed was obtained. A trial liner was placed and had excellent fit and stability. A 46C trident II tritanium cup with a 20mm screw was placed and had excellent stability with appropriate anteversion and abduction angle. A size 32C polyethylene liner was impacted into the acetabular shell. The liner was checked for stability and was stable. Next attention was turned to preparation of the femoral canal. A canal finder was used to enter the proximal femur. The femoral canal was sequentially broached up to a size 3 femoral broach trial. A trial neck and 32 - 4 trial femoral head was chosen. Lesser trochanter to center of the femoral head measurement was satisfactory. The hip was reduced and taken through a range of motion. The hip was stable in all positions with good soft tissue tension and appropriate leg lengths. The hip was dislocated and all trials were removed. The final implant chosen was a accolade II size 3 with 127 degree neck. This stem was impacted into the femoral canal without difficulty. The stem was stable with appropriate anteversion. The femoral head chosen was a 32 - 4 ceramic head. The head was impacted onto the femoral neck without difficulty. The final lesser trochanter to center of the femoral head measurement was satisfactory. The hip was reduced and taken through a range of motion. The hip was stable in all positions with good soft tissue tension and appropriate leg lengths. The hip was copiously irrigated with sterile saline. The previously tagged capsule and tendons were repaired to the posterolateral femur through two trochanteric drill holes. The lateral fascia layer was closed using number 1 vicryls. The rest of the incision was closed in a layered fashion using 0 and 2-0 vicryls. The skin was closed using 3-0 monocryl suture and Dermabond. Sterile adaptic, 4x4s and paper tape was used to cover the incision. The patients anesthesia was reversed without difficulty. She was taken to the PACU in stable condition. Intended weight-bearing will be as tolerated with posterior hip precautions.
[2018-10-19] MEDS ORDERED: Gabapentin CAP(*) 100 MG ONE (20:57)
[2018-10-19] MEDS: Gabapentin CAP(*) 100 MG PO SCH (20:59)
[2018-10-19] MEDS: Docusate CAP* 100 MG PO SCH (21:39)
[2018-10-19] MEDS: Atorvastatin* 20 MG TAB PO SCH (21:39)
[2018-10-19] MEDS: Magnesium Hydroxide LIQ* 30 ML UDC PO SCH (21:42)
[2018-10-19] MEDS: Latanoprost 0.005%* 2.5 ml BTL BOTH EYES SCH (21:43)
[2018-10-19 23:31] LABS: Hematocrit 41 % (35-47); Hemoglobin 13.8 g/dL (12.0-16.0); Mean Platelet Volume 7.1 fL (7.4-10.4); Platelet Count 218 10^3/uL (150-450)
[2018-10-19 23:48] LABS: BUN/Creatinine Ratio 17.7 (8-20); Calcium 8.9 mg/dL (8.6-10.3); EGFR African American 112.6 (>60); EGFR Non-African American 93.1 (>60); Potassium 3.8 mmol/L (3.5-5.0)
[2018-10-20] MEDS ORDERED: oxyCODONE/Acetamin 5/325 MG* TAB PO PRN (00:12)
[2018-10-20] MEDS ORDERED: oxyCODONE TAB* 5 MG TAB PO PRN (00:12)
[2018-10-20] MEDS ORDERED: Morphine INJ* 2 MG/ML 1 ML SYRINGE (TWO MG - NEW SYRINGE VERSION) IV PRN (01:06)
[2018-10-20] MEDS: Clindamycin 600 MG IVPREMIX(* 600 MG/50 ML SDV IV SCH ×3 (01:52→17:24)
[2018-10-20] MEDS: oxyCODONE/Acetamin 5/325 MG* TAB PO PRN ×4 (06:40→21:46)
[2018-10-20] MEDS: Carbidopa/Levodop 25/100 MG TAB(*) PO SCH ×3 (06:41→17:24)
[2018-10-20] MEDS: Pramipexole TAB* 0.5 MG PO SCH ×4 (06:41→21:49)
[2018-10-20 07:20] LABS: Hematocrit 38 % (35-47); Hemoglobin 13.2 g/dL (12.0-16.0); Mean Platelet Volume 7.6 fL (7.4-10.4); Platelet Count 203 10^3/uL (150-450)
[2018-10-20 07:33] LABS: BUN/Creatinine Ratio 23.6 (8-20); Calcium 8.6 mg/dL (8.6-10.3); EGFR African American 129.3 (>60); EGFR Non-African American 106.9 (>60); Potassium 4.1 mmol/L (3.5-5.0)
--- NOTE | 2018-10-20 07:36 | PN ---
Hospitalist Progress Note Date of Service: 10/20/18 Attending Assessment and Plan I have reviewed the subjective and objective data from the residents note of which I agree and supervised. HD #2, POD #1 pm / 77F PMH Parkinsons dz, hx of TIA and SAH, HTN, HLD presented s/p mechanical fall with L femoral neck fracture, s/p L THR, hospital stay c/b episodic HTN #L femoral neck fracture: SP L THR #HTN: assumed episodic in regards to pain, improved with hydral and morphine, no neurologic sx -EKG wihtou any acute ischemic findings -PRN Hydral #PD: home meds #hx of TIA: on statin #HLD: Statin #DVT: Per ortho, will ensure orders are in post operatively #Code: Full #Dispo: AMEE vs Pili
[2018-10-20] MEDS: Lactated Ringers 1000 ML Bag* 1,000 ML IV SCH ×2 (08:15→17:33)
[2018-10-20] MEDS: Docusate CAP* 100 MG PO SCH ×2 (08:15→21:46)
[2018-10-20] MEDS: Magnesium Hydroxide LIQ* 30 ML UDC PO SCH ×2 (08:16→21:49)
[2018-10-20] MEDS: CMCS: Dorzolamide/Timolol OPTH (NF) 10 ML BOT BOTH EYES SCH ×2 (08:16→21:52)
--- NOTE | 2018-10-20 11:36 | PN ---
Progress Note - Progress Note Date of Service: 10/20/18 SOAP: Subjective: []Krystian seen OOB in chair. She is feeling well. Alert and oriented. She denies significant hip pain, SOB, CP, SOB or dizziness. She is hoping for PMRU rehab. Objective: [] Vital Signs Temp 99.3 F 10/20/18 11:14 Pulse 83 10/20/18 11:14 Resp 16 10/20/18 11:14 BP 102/71 10/20/18 11:14 Pulse Ox 100 10/20/18 11:14 Intake & Output 10/19/18 10/20/18 10/20/18 18:59 06:59 18:59 Intake Total 980 2900 1159 Output Total 1325 1180 Balance -345 1720 1159 Weight 107 lb 6.4 oz Intake: IV Fluids 980 1500 864 LR 1500 NS (0.9%) 980 864 IVPB 55 ABX - CLINDAMYCIN 55 Oral 1400 240 Output: Davey 1325 980 Estimated Blood Loss 200 Other: # Bowel Movements 0 Laboratory Results - last 24 hr 10/19/18 10/19/18 10/20/18 23:27 23:27 07:01 Hgb 13.8 13.2 Hct 41 38 Plt Count 218 203 MPV 7.1 L 7.6 Sodium 135 Potassium 3.8 Chloride 101 Carbon Dioxide 28 Anion Gap 6 BUN 11 Creatinine 0.62 Est GFR ( Amer) 112.6 Est GFR (Non-Af Amer) 93.1 BUN/Creatinine Ratio 17.7 Glucose 119 H Calcium 8.9 10/20/18 07:01 Hgb Hct Plt Count MPV Sodium 135 Potassium 4.1 Chloride 100 L Carbon Dioxide 29 Anion Gap 6 BUN 13 Creatinine 0.55 Est GFR ( Amer) 129.3 Est GFR (Non-Af Amer) 106.9 BUN/Creatinine Ratio 23.6 H Glucose 149 H Calcium 8.6 left hip dressings are dry and intact +DF left ankle sensation and circulation intact distally LLE Assessment: []s/p left total hip arthroplasty for femoral neck fracture, POD #1 Plan: []PT/OT Total hip precautions WBAT LLE Eliquis for DVT prophy 1 month post op PMRU vs Pili rehab- await bed offer
[2018-10-20] MEDS: Apixaban* 2.5 MG TAB PO SCH (14:09)
[2018-10-20] MEDS: Atorvastatin* 20 MG TAB PO SCH (21:45)
[2018-10-20] MEDS: Gabapentin CAP(*) 100 MG PO SCH (21:45)
[2018-10-20] MEDS: Latanoprost 0.005%* 2.5 ml BTL BOTH EYES SCH (21:50)
[2018-10-21] MEDS: Apixaban* 2.5 MG TAB PO SCH ×2 (02:31→13:35)
[2018-10-21 05:15] LABS: Hematocrit 31 % (35-47); Hemoglobin 10.9 g/dL (12.0-16.0); Mean Platelet Volume 7.4 fL (7.4-10.4); Platelet Count 154 10^3/uL (150-450)
[2018-10-21 05:34] LABS: BUN/Creatinine Ratio 23.5 (8-20); Calcium 8.4 mg/dL (8.6-10.3); EGFR African American 140.8 (>60); EGFR Non-African American 116.3 (>60)
[2018-10-21] MEDS: Pramipexole TAB* 0.5 MG PO SCH ×4 (07:21→22:04)
[2018-10-21] MEDS: oxyCODONE/Acetamin 5/325 MG* TAB PO PRN ×3 (07:21→17:38)
[2018-10-21] MEDS: Carbidopa/Levodop 25/100 MG TAB(*) PO SCH ×3 (07:21→17:38)
[2018-10-21] MEDS: Magnesium Hydroxide LIQ* 30 ML UDC PO SCH ×2 (07:43→21:54)
[2018-10-21] MEDS: Docusate CAP* 100 MG PO SCH ×3 (07:43→22:02)
[2018-10-21] MEDS: CMCS: Dorzolamide/Timolol OPTH (NF) 10 ML BOT BOTH EYES SCH ×2 (07:45→21:59)
--- NOTE | 2018-10-21 07:56 | PN ---
Progress Note - Progress Note Date of Service: 10/21/18 SOAP: Subjective: Pt. is alert, reports pain is well controlled. Objective: LLE - dressing changed, inc c/d/i. distally nvi. Assessment: 78 yo F pod 2 s/p LTHA for displaced femoral neck fracture Plan: wbat with post hip precautions pt/ot eliquis x 4 weeks plan pmru tomorrow. Vital Signs: Temp Pulse Resp BP Pulse Ox 98.5 F 79 16 134/79 97 10/21/18 07:25 10/21/18 07:25 10/21/18 07:25 10/21/18 07:25 10/21/18 07:25 Laboratory Results - last 24 hr 10/21/18 10/21/18 05:02 05:02 Hgb 10.9 L Hct 31 L Plt Count 154 MPV 7.4 Sodium 135 Potassium 4.0 Chloride 100 L Carbon Dioxide 32 Anion Gap 3 BUN 12 Creatinine 0.51 Est GFR ( Amer) 140.8 Est GFR (Non-Af Amer) 116.3 BUN/Creatinine Ratio 23.5 H Glucose 118 H Calcium 8.4 L
--- NOTE | 2018-10-21 08:27 | PN ---
Subjective Date of Service: 10/21/18 Interval History: HD #3, POD #2 on 10/21 77F PMH Parkinsons dz, hx of TIA and SAH, HTN, HLD presented s/p mechanical fall with L femoral neck fracture, s/p L THR, hospital stay c/b episodic HTN Overnight no acute events, VSS doing very well Eager for PMRU Medically stable to go Labs, mild drop in Hgb to be expected This afternoon, doing well, pleasant, [birth year] birthday, she is having a muffin. Looking forward to PMRU. Objective Active Medications: Acetaminophen (Tylenol Tab*) 650 mg PO Q4H PRN PRN Reason: Fever/Pain- mild Last Admin: 10/18/18 18:17 Dose: 650 mg Apixaban (Eliquis*) 2.5 mg PO Q12H COUNTS INCLUDE 234 BEDS AT THE [facility] Last Admin: 10/21/18 02:31 Dose: 2.5 mg Atorvastatin Calcium (Lipitor*) 20 mg PO BEDTIME COUNTS INCLUDE 234 BEDS AT THE [facility] Last Admin: 10/20/18 21:45 Dose: 20 mg Carbidopa/Levodopa (Sinemet 25/100 Tab(*)) 1 tab PO 0700,1200,1700 COUNTS INCLUDE 234 BEDS AT THE [facility] Last Admin: 10/21/18 07:21 Dose: 1 tab Diphenhydramine HCl (Benadryl Iv*) 25 mg IV Q6H PRN PRN Reason: PRURITIS Diphenhydramine HCl (Benadryl Po*) 25 mg PO Q6H PRN PRN Reason: ITCHING Docusate Sodium (Colace Cap*) 100 mg PO BID COUNTS INCLUDE 234 BEDS AT THE [facility] Last Admin: 10/21/18 07:43 Dose: Not Given Dorzolamide/Timolol (Cosopt (Nf)) 1 drop BOTH EYES BID COUNTS INCLUDE 234 BEDS AT THE [facility]; Protocol Last Admin: 10/21/18 07:45 Dose: 1 drop Gabapentin (Neurontin Cap(*)) 100 mg PO BEDTIME COUNTS INCLUDE 234 BEDS AT THE [facility] Last Admin: 10/20/18 21:45 Dose: 100 mg Lactated Ringer's (Lactated Ringers 1000 Ml Bag*) 1,000 mls @ 100 mls/hr IV PER RATE COUNTS INCLUDE 234 BEDS AT THE [facility] Last Admin: 10/20/18 17:33 Dose: 100 mls/hr Latanoprost (Xalatan 0.005%*) 1 drop BOTH EYES 2100 COUNTS INCLUDE 234 BEDS AT THE [facility] Last Admin: 10/20/18 21:50 Dose: 1 drop Magnesium Hydroxide (Milk Of Magnesia Liq*) 30 ml PO BID COUNTS INCLUDE 234 BEDS AT THE [facility] Last Admin: 10/21/18 07:43 Dose: Not Given Magnesium Hydroxide (Milk Of Magnesia Liq*) 30 ml PO BID PRN PRN Reason: CONSTIPATION Morphine Sulfate (Morphine Inj (Syringe))*) 2 mg IV Q4H PRN PRN Reason: .PAIN - BREAKTHROUGH Ondansetron HCl (Zofran Inj*) 4 mg IV Q4H PRN PRN Reason: NAUSEA/VOMITING Oxycodone HCl (Roxycodone Tab*) 5 mg PO Q4H PRN PRN Reason: PAIN - SEVERE Oxycodone/Acetaminophen (Percocet 5/325 Tab*) 2 tab PO Q4H PRN PRN Reason: PAIN - MODERATE Oxycodone/Acetaminophen (Percocet 5/325 Tab*) 1 tab PO Q4H PRN PRN Reason: PAIN - MILD Last Admin: 10/21/18 07:21 Dose: 1 tab Polyethylene Glycol/Electrolytes (Miralax*) 17 gm PO DAILY PRN PRN Reason: CONSTIPATION Pramipexole Dihydrochloride (Mirapex Tab*) 0.5 mg PO 0700,1200,1700,2100 COUNTS INCLUDE 234 BEDS AT THE [facility] Last Admin: 10/21/18 07:21 Dose: 0.5 mg Senna (Senokot Tab*) 1 tab PO BEDTIME PRN PRN Reason: CONSTIPATION Vital Signs - 8 hr 10/21/18 10/21/18 10/21/18 02:46 03:17 07:21 Temperature 97.3 F Pulse Rate 74 Respiratory 18 18 18 Rate Blood Pressure 107/70 (mmHg) O2 Sat by Pulse 97 Oximetry 10/21/18 10/21/18 07:25 07:54 Temperature 98.5 F Pulse Rate 79 Respiratory 16 16 Rate Blood Pressure 134/79 (mmHg) O2 Sat by Pulse 97 Oximetry Oxygen Devices in Use Now: CPAP Appearance: Very pleasant woman in NAD Eyes: No Scleral Icterus, PERRLA Ears/Nose/Mouth/Throat: NL Teeth, Lips, Gums, Mucous Membranes Moist Neck: NL Appearance and Movements; NL JVP Respiratory: Symmetrical Chest Expansion and Respiratory Effort, Clear to Auscultation Cardiovascular: NL Sounds; No Murmurs; No JVD, RRR Abdominal: NL Sounds; No Tenderness; No Distention, No Hepatosplenomegaly Lymphatic: No Cervical Adenopathy Extremities: No Edema Skin: No Rash or Ulcers Neurological: Alert and Oriented x 3 Result Diagrams: 10/21/18 05:02 10/21/18 05:02 Assess/Plan/Problems-Billing Assessment: 77F PMH Parkinsons dz, hx of TIA and SAH, HTN, HLD presented s/p mechanical fall with L femoral neck fracture, s/p L THR, hospital stay c/b episodic HTN - Patient Problems (1) Hip fracture, left Current Visit: Yes Status: Acute Code(s): S72.002A - FRACTURE OF UNSP PART OF NECK OF LEFT FEMUR, INIT SNOMED Code(s): 216421767 Comment: - SP THR 10/19 - PAin and DVT PPX per ortho (2) Hyperlipidemia Current Visit: Yes Status: Acute Code(s): E78.5 - HYPERLIPIDEMIA, UNSPECIFIED SNOMED Code(s): 68530407 Comment: - Continue statin (3) Parkinson disease Current Visit: Yes Status: Acute Code(s): G20 - PARKINSON'S DISEASE SNOMED Code(s): 11311725 Comment: - Cont home meds (4) TIA (transient ischemic attack) Current Visit: Yes Status: Acute Code(s): G45.9 - TRANSIENT CEREBRAL ISCHEMIC ATTACK, UNSPECIFIED SNOMED Code(s): 670321306 Comment: - Continue 2/2 prevention (5) ALEKS (obstructive sleep apnea) Current Visit: Yes Status: Acute Code(s): G47.33 - OBSTRUCTIVE SLEEP APNEA ( ADULT) (PEDIATRIC) SNOMED Code(s): 59586133 Comment: -CPAP (6) DVT prophylaxis Current Visit: Yes Status: Acute Code(s): Z29.9 - ENCOUNTER FOR PROPHYLACTIC MEASURES, UNSPECIFIED SNOMED Code(s): 306277758 Comment: - Apixaban (7) Full code status Current Visit: Yes Status: Acute Code(s): Z78.9 - OTHER SPECIFIED HEALTH STATUS SNOMED Code(s): 850329012 Status and Disposition: TO [facility] tomorrow
[2018-10-21] MEDS: Gabapentin CAP(*) 100 MG PO SCH (21:54)
[2018-10-21] MEDS: Atorvastatin* 20 MG TAB PO SCH (21:54)
--- NOTE | 2018-10-21 21:56 | DS ---
CC: Dr. Bartholomew; Dr. Calderon. DISCHARGE SUMMARY: DATE OF ADMISSION: 10/18/18 ANTICIPATED DATE OF DISCHARGE: 10/22/18 PRIMARY CARE PROVIDER: Dr. Bartholomew. ORTHOPEDIC SURGEON: Dr. Calderon. DISPOSITION AT THE TIME OF DISCHARGE: Stable to be discharged to the physical medicine rehab unit at [facility] [place]. PRIMARY DIAGNOSIS: Left hip fracture status post total hip replacement. SECONDARY DIAGNOSES: 1. Parkinson's disease. 2. Frequent falls. 3. Obstructive sleep apnea, on CPAP. 4. History of transient ischemic attack. 5. History of subacute fairly recent subarachnoid hemorrhage with no residual deficits. 6. Hypertension. 7. Hyperlipidemia. MEDICATIONS AT THE TIME OF DISCHARGE: 1. Acetaminophen 650 mg p.o. q.4 hours p.r.n. for pain. 2. Apixaban 2.5 mg p.o. q.12 hours for DVT prophylaxis and to be followed up for overall presumed co urse with Orthopedics. 3. Atorvastatin 20 mg p.o. q.h.s. 4. Carbidopa/levodopa 25/100 1 tab p.o. at 0700, 1200, and 1500. 5. Docusate 100 mg p.o. b.i.d. 6. Cosopt ophthalmic drops 1 drop both eyes b.i.d. 7. Gabapentin 100 mg p.o. q.h.s. 8. Latanoprost 0.005% ophthalmic solution 1 drop both eyes, 2100. 9. Oxycodone 5 mg p.o. q.4 hours p.r.n. for severe pain. 10. Polyethylene glycol 17 g p.o. daily p.r.n. for constipation. 11. Pramipexole 0.5 mg p.o. at 0700, 1200, 1700, and 2100. 12. Senna 1 tab p.o. q.h.s. p.r.n. for constipation. Medication changes on this hospitalization are the addition of senna, polyethylene glycol, oxycodone, docusate, apixaban, all surrounding her acute pain and recent THR. HISTORY OF PRESENT ILLNESS AND HOSPITAL COURSE: A 78-year-old female with above past medical history who presented to the emergency room on 10/18/18 status post a mechanical fall where she said that sh e slipped in her sock feet and landed on her left hip. She noted immediate pain and had no pain else where. She notes no head trauma or loss of consciousness. In the emergency room, she had labs done and EKG done which were unremarkable. A chest x-ray was normal. Left hip radiograph revealed a cabrera scervical left femoral neck fracture with superior displacement. The hospitalist team admitted the talon samson. Orthopedics was consulted. On 10/19/18, the patient underwent a total hip replacement with Tino Calderon, which was described as uncomplicated. She had a mild episodic hypertension just prior to h er surgery, which was thought to be secondary to anxiety. She returned to the surgical short stay an d per postop 1 and 2, had unremarkable hospital course with no complications. Normal vital signs and only mild drop in hemoglobin with hemoglobin on 10/21/18 at 10.9, from admission 13.9. Her other me dical problems are covered in the hospital as follows: 1. Parkinson's. The patient was diagnosed 16 years ago, has been stable on the same dose of medicat ions which she should continue. 2. Sleep apnea. The patient is on home CPAP which was offered nightly at a pressure of 7 and has to lerated it well. 3. Hypertension. The patient has episodic hypertension and required p.r.n. hydralazine 1 time just prior to her operation, thought to be secondary to anxiety and resolved and had no further hypertensi on, is not on home medications for this. 4. Hyperlipidemia. The patient to continue on home statin. 5. DVT prophylaxis. As per Orthopedics team, the patient is placed on apixaban 2.5 mg p.o. q.12 dariel rs. She does have recent history of subarachnoid hemorrhage and apixaban shows a lower risk of intra cranial hemorrhage compared to other DVT prophylaxis agents used in orthopedic literature. 6. Pain control status post operation was conducted by Orthopedics and can be further titrated by PM RU unit. On day of discharge, the patient's weightbearing is tolerated, tolerating diet, voiding vern bijan, and overall has done well. She is eager for rehabilitation. Her vital signs are stable and anant girard has cleared her to start rehabilitation with PMRU. LABS AND STUDIES DONE DURING THIS HOSPITALIZATION: Labs on 10/21/18 showed hemoglobin of 10.9, hemat ocrit of 31, platelets of 154,000. BNP on 10/21/18 is fully unremarkable. Liver function testing do ne on 10/18/18 is unremarkable. Imaging included a brain CT on 10/18/18, which showed no acute intrac ranial pathology that is new and stable right frontal encephalomalacia. On 10/19/18 12:00 a.m., hip x-ray showed the left transcervical femoral neck fracture. Subsequent intraoperative hip and pelvis x-rays were done which showed successful total hip arthroplasty. Knee radiograph was done on 9 which was negative for periprosthetic fracture, evidence of prosthesis loosening. Chest x-ray was done on 10/18/18 which showed no acute intrathoracic pathology. ITEMS TO FOLLOW UP ON STATUS POST DISCHARGE: Pain control and DVT prophylaxis is as per Ortho team. The patient should be arranged for a followup with Dr. Calderon. Also, she will be receiving acute reha b in the physical medicine rehab unit, for which she would be an excellent candidate. Plan of care w as discussed with the patient and her family, who agree with plan of discharge and rehab unit. All q uestions were answered. They will arrange followup with Orthopedics. The patient is being discharge d on Tuesday and this hospitalist team is arranging this discharge for Orthopedic team. Furthermore, followup appointments can be made through PMRU as the patient progresses. TIME SPENT: Forty minutes were spent on planning this discharge with over half of that spent directl y at bedside of the patient providing direct patient care. If there are any questions about the care of this patient during this hospitalization, please do not hesitate to reach out to the hospitalist team and contact us directly. [id number]/[facility] #: [id number]
[2018-10-21] MEDS: Latanoprost 0.005%* 2.5 ml BTL BOTH EYES SCH (22:00)
[2018-10-22] MEDS: Apixaban* 2.5 MG TAB PO SCH ×2 (02:11→13:29)
[2018-10-22] MEDS: oxyCODONE/Acetamin 5/325 MG* TAB PO PRN ×2 (05:27→11:28)
[2018-10-22 05:41] LABS: Hematocrit 30 % (35-47); Hemoglobin 10.5 g/dL (12.0-16.0); Mean Platelet Volume 7.4 fL (7.4-10.4); Platelet Count 172 10^3/uL (150-450)
[2018-10-22 05:51] LABS: BUN/Creatinine Ratio 23.8 (8-20); Calcium 8.4 mg/dL (8.6-10.3); EGFR African American 176.1 (>60); EGFR Non-African American 145.5 (>60); Potassium 3.9 mmol/L (3.5-5.0)
[2018-10-22] MEDS: Pramipexole TAB* 0.5 MG PO SCH ×2 (06:11→11:28)
[2018-10-22] MEDS: Carbidopa/Levodop 25/100 MG TAB(*) PO SCH ×2 (06:11→11:28)
[2018-10-22] MEDS: CMCS: Dorzolamide/Timolol OPTH (NF) 10 ML BOT BOTH EYES SCH (08:05)
[2018-10-22] MEDS: Magnesium Hydroxide LIQ* 30 ML UDC PO SCH (08:09)
[2018-10-22] MEDS: Docusate CAP* 100 MG PO SCH (08:09)
--- NOTE | 2018-10-22 11:45 | PN ---
Progress Note - Progress Note Date of Service: 10/22/18 SOAP: Subjective: Pt seen and examined sitting comfortably in chair. Minimal complaint of pain. Denies CP, SOB, F/C. Vital Signs: Temp Pulse Resp BP Pulse Ox 98 F 66 18 133/65 94 10/22/18 08:05 10/22/18 08:05 10/22/18 11:28 10/22/18 08:05 10/22/18 08:05 Laboratory Last Values WBC 7.9 10^3/uL (3.5-10.8) 10/19/18 05:15 RBC 4.39 10^6 /uL (3.70-4.87) 10/19/18 05:15 Hgb 10.5 g/dL (12.0-16.0) L 10/22/18 05:03 Hct 30 % (35-47) L 10/22/18 05:03 MCV 94 fL (80-97) 10/19/18 05:15 MCH 32 pg (27-31) H 10/19/18 05:15 MCHC 34 g/dL (31-36) 10/19/18 05:15 RDW 13 % (10-15) 10/19/18 05:15 Plt Count 172 10^3/uL (150-450) 10/22/18 05:03 MPV 7.4 fL (7.4-10.4) 10/22/18 05:03 Neut % (Auto) 77.5 % 10/19/18 05:15 Lymph % (Auto) 10.8 % 10/19/18 05:15 [place] % (Auto) 8.8 % 10/19/18 05:15 Eos % (Auto) 2.3 % 10/19/18 05:15 Baso % (Auto) 0.6 % 10/19/18 05:15 Absolute Neuts (auto) 6.1 10^3/ul (1.5-7.7) 10/19/18 05:15 Absolute Lymphs (auto) 0.9 10^3/ul (1.0-4.8) L 10/19/18 05:15 Absolute Monos (auto) 0.7 10^3/ul (0-0.8) 10/19/18 05:15 Absolute Eos (auto) 0.2 10^3/ul (0-0.6) 10/19/18 05:15 Absolute Basos (auto) 0.0 10^3/ul (0-0.2) 10/19/18 05:15 Absolute Nucleated RBC 0.0 10^3/ul 10/19/18 05:15 Nucleated RBC % 0.0 10/19/18 05:15 INR (Anticoag Therapy) 1.11 (0.82-1.09) H 10/19/18 05:15 APTT 33.6 seconds (26.0-38.0) 10/18/18 07:36 Sodium 134 mmol/L (135-145) L 10/22/18 05:03 Potassium 3.9 mmol/L (3.5-5.0) 10/22/18 05:03 Chloride 101 mmol/L (101-111) 10/22/18 05:03 Carbon Dioxide 29 mmol/L (22-32) 10/22/18 05:03 Anion Gap 4 mmol/L (2-11) 10/22/18 05:03 BUN 10 mg/dL (6-24) 10/22/18 05:03 Creatinine 0.42 mg/dL (0.51-0.95) L 10/22/18 05:03 Est GFR ( Amer) 176.1 (>60) 10/22/18 05:03 Est GFR (Non-Af Amer) 145.5 (>60) 10/22/18 05:03 BUN/Creatinine Ratio 23.8 (8-20) H 10/22/18 05:03 Glucose 106 mg/dL (70-100) H 10/22/18 05:03 Calcium 8.4 mg/dL (8.6-10.3) L 10/22/18 05:03 Total Bilirubin 0.70 mg/dL (0.2-1.0) 10/18/18 07:36 AST 17 U/L (13-39) 10/18/18 07:36 ALT 5 U/L (7-52) L 10/18/18 07:36 Alkaline Phosphatase 97 U/L (34-104) 10/18/18 07:36 Troponin I 0.00 ng/mL (<0.04) 10/18/18 07:36 Total Protein 6.3 g/dL (6.4-8.9) L 10/18/18 07:36 Albumin 4.2 g/dL (3.2-5.2) 10/18/18 07:36 Globulin 2.1 g/dL (2-4) 10/18/18 07:36 Albumin/Globulin Ratio 2.0 (1-3) 10/18/18 07:36 Urine Color Yellow 10/18/18 17:00 Urine Appearance Clear 10/18/18 17:00 Urine pH 7.0 (5-9) 10/18/18 17:00 Ur Specific [place] 1.012 (1.010-1.030) 10/18/18 17:00 Urine Protein Negative (Negative) 10/18/18 17:00 Urine Ketones Negative (Negative) 10/18/18 17:00 Urine Blood Negative (Negative) 10/18/18 17:00 Urine Nitrate Negative (Negative) 10/18/18 17:00 Urine Bilirubin Negative (Negative) 10/18/18 17:00 Urine Urobilinogen Negative (Negative) 10/18/18 17:00 Ur Leukocyte Esterase Negative (Negative) 10/18/18 17:00 Urine Glucose Negative (Negative) 10/18/18 17:00 Blood Type A Positive 10/19/18 05:15 Antibody Screen Negative 10/19/18 05:15 Objective: A&O X3, NAD, Dressing C/D/I, Calves soft and nontender, No edema, NVI distally Assessment: 78 yo female s/p left DULCE for femoral neck fracture POD X3 Plan: OOB, PT/OT WBAT with post hip precautions Pain control DVT prophylaxis - Eliquis for 4 weeks PMRU today
[2018-10-22 11:50] VITALS: BP 142/60
== END 2018-10-22 14:30 | DRG 470 ==
LOC: ED 07:16 → SSU 10:07
PROVIDERS: ADMIT Internal Medicine; ATTEND Internal Medicine
PROC: 0SRB04A Replacement of Left Hip Joint with Ceramic on Polyethylene Synthetic Substitute, Uncemented, Open Approach (ICD-10-PCS; principal; 2018-10-19 19:15)
DX: S72.032A Displaced midcervical fracture of left femur, initial encounter for closed fracture (principal); W01.0XXA Fall on same level from slipping, tripping and stumbling without subsequent striking against object, initial encounter; M16.12 Unilateral primary osteoarthritis, left hip; G47.33 Obstructive sleep apnea (adult) (pediatric); J30.2 Other seasonal allergic rhinitis; Z96.652 Presence of left artificial knee joint; M81.0 Age-related osteoporosis without current pathological fracture; M85.88 Other specified disorders of bone density and structure, other site; H91.90 Unspecified hearing loss, unspecified ear; G43.909 Migraine, unspecified, not intractable, without status migrainosus; E78.5 Hyperlipidemia, unspecified; H40.9 Unspecified glaucoma; M54.5 Low back pain; G20 Parkinson's disease; E78.00 Pure hypercholesterolemia, unspecified; E04.1 Nontoxic single thyroid nodule; I10 Essential (primary) hypertension; F41.9 Anxiety disorder, unspecified; F32.9 Major depressive disorder, single episode, unspecified; G89.29 Other chronic pain; R29.6 Repeated falls; M54.31 Sciatica, right side; Z82.49 Family history of ischemic heart disease and other diseases of the circulatory system; Z82.3 Family history of stroke; Z88.1 Allergy status to other antibiotic agents; Z86.711 Personal history of pulmonary embolism; Z90.49 Acquired absence of other specified parts of digestive tract; Z97.4 Presence of external hearing-aid; Z87.891 Personal history of nicotine dependence; Z98.42 Cataract extraction status, left eye; Z86.73 Personal history of transient ischemic attack (TIA), and cerebral infarction without residual deficits; Z82.5 Family history of asthma and other chronic lower respiratory diseases; Z83.3 Family history of diabetes mellitus; Z80.0 Family history of malignant neoplasm of digestive organs; Z98.41 Cataract extraction status, right eye; Y92.002 Bathroom of unspecified non-institutional (private) residence as the place of occurrence of the external cause; Z79.01 Long term (current) use of anticoagulants
CPT/HCPCS: 36415; 70450; 71045; 80048; 80053; 81003; 84484; 85014; 85018; 85025; 85049; 85610; 85730; 86850; 86900; 86901; 88305; 88311; 93005; 94660; 99284; A9270-GY; C1713; C1776; G8978-GP-CL; G8979-GP-CJ; G8987-GO-CL; G8988-GO-CI; J0360; J2250; J2270; J2405; J2704; J2795; J3010; J3490

== ENCOUNTER 2019-01-04 17:11 | Emergency (ER) | payer MEDICARE, BC ==
--- OUTSIDE RECORDS SUMMARY | 2019-01-04 18:28 | XMS REPORT | Continuity of Care Document ---
:1940 External Reference #:[id number] Author Name Carmen Jean M.D. (transmitted by agent of provider Brain Arroyo) Address [address], [place] [address] Care Team Providers Name Role Phone Thyroid Nodule Clinic - Clinic/Center Care Team Information Pr Manager Tino Bartholomew MD - Internal Medicine Care Team Information Pr Manager [phone] Problems Active Problems Provider Date Pure hypercholesterolemia Darrel Griffin M.D. Onset: 12/08/2010 Shoulder joint pain Darrel Griffin M.D. Onset: 02/01/2011 Impaired fasting glycaemia Darrel Griffin M.D. Onset: 08/30/2011 Sleep apnea Darrel Griffin M.D. Onset: 08/30/2011 Parkinson's disease Darrel Griffin M.D. Onset: 08/30/2011 Note: MoCA 03/05: , 03/06: Nonvenomous insect bite of thigh Blossom Sanchez, N.P. Onset: 2011 without infection Urgent desire to urinate Darrel Griffin M.D. Onset: 12/02/2011 Left lower quadrant pain Blossom Sanchez, N.P. Onset: 02/23/2012 Osteochondropathy Darrel Griffin M.D. Onset: 08/10/2013 Disorder of bone Darrel Griffin M.D. Onset: 01/02/2015 Headache Carmen Jean M.D. Onset: 07/02/2015 Pain in limb Manolou MD Daphne Onset: 08/15/2015 Chest pain Tristin Luna M.D., [facility], Onset: 03/01/2016 FASGA Peripheral venous insufficiency Tristin Luna M.D., [facility], Onset: 2016 FASNC Knee pain Darrel Griffin M.D. Onset: 11/17/2016 Disorder of shoulder Lluvia Vann MD Onset: 02/22/2017 Localized, primary osteoarthritis Lluvia Vann MD Onset: 02/22/2017 of the shoulder region Localized, primary osteoarthritis Lluvia Vann MD Onset: 02/22/2017 Acquired genu valgum Riya Calderon M.D. Onset: 10/14/2017 Localized, primary osteoarthritis Riya Calderon M.D. Onset: 03/08/2018 of the pelvic region and thigh Social History Type Date Description Comments Sex Unknown Tobacco Use Start: Unknown End: Former Cigarette Smoker Unknown Smoking Status Reviewed: 11/10/18 Former Cigarette Smoker ETOH Use 08/24/2012 Denies alcohol use ETOH Use Has consumed alcohol in the past Tobacco Use Start: Unknown End: Patient is a former quit ~ 1984 Unknown smoker Recreational Drug Use Denies Drug Use Exercise Type/Frequency Exercises regularly walks, yoga, weights Allergies, Adverse Reactions, Alerts Active Allergies Reaction Severity Comments Date Ceftin GI 09/28/2006 Cipro colitis 12/02/2011 Medications Active Medications SIG Qnty Indications Ordering Date Provider Ensure High Protein 1 to 2 8oz of 60units R63.4 Eveline De La Cruz, 11/08/2018 ensure daily N.P. Liquid (chocolate and vanilla mix if available) Amantadine HCL take 5ml by 300ml Carmen Jean, 03/08/2018 50mg/5ML mouth in am, and M.DMelani Syrup 5ml at noon Atorvastatin Calcium Take One Tablet 90tabs Darrel Mcgowan 03/26/2016 20mg By Mouth CARLOS Griffin M.D. Tablets Bedtime Mirapex 1 tab by mouth 4 360tabs Carmen Jean, 01/24/2008 0.5mg Tablets times daily M.DMelani Carbidopa-Levodopa 1 by mouth three 270tabs Carmen Jean, times a day M.DMelani 25-100mg Tablets Gabapentin 1 tab by mouth 180caps Carmen Jean, 100mg Capsules every night M.D. Latanoprost 1 drop to both Unknown 0.005% eyes at hs daily Solution Dorzolomide-Timolol one drop each Unknown 2%-5% eye twice a day Toprol XL 1 tablet by Unknown 50mg Tablets ER mouth once a day 24HR Acetaminophen 2 tabs by mouth Unknown 325mg every 6 hours Tablets (max 3000mg qd) Fluticasone Propionate 2 spray in each Unknown nostril in in 50mcg/Act Suspension the morning Vitamin D 1 by mouth every Unknown (Cholecalciferol) day 1000Unit Tablets Medications Administered in Office Medication SIG Qnty Indications Ordering Provider Date Triamcinolone (Kenalog) Lluvia Vann MD 03/09/2018 Injection Shingrix no bill inj-pt Unknown 11/30/2017 brought in Injection Triamcinolone (Kenalog) Keyla Manzano PA-C 10/03/2017 Injection Triamcinolone (Kenalog) Lluvia Vann MD 07/21/2017 Injection Triamcinolone (Kenalog) Lluvia Vann MD 04/07/2017 Injection Triamcinolone (Kenalog) Lluvia Vann MD 04/07/2017 Injection Triamcinolone (Kenalog) Lluvia Vann MD 11/23/2016 Injection Triamcinolone (Kenalog) Lluvia Vann MD 11/23/2016 Injection Inj, Regadenoson, 0.1 MG Tristin Luna M.D., 03/17/2016 Injection CLEVE FRIAS Technetium TC 99M Tristin Luna M.D., 03/17/2016 Tetrofosmin, Per Unit Dose Up [id number] To 40 Millicuries Injection Influenza Virus Vaccine Unknown 11/19/2013 Injection Immunizations CPT Code Status Date Vaccine Lot # 46801 Given 01/09/2016 Influ Virus Vaccine, Quadrivalent, Split Virus, [place] [id number] [address] Given 01/01/2015 Influenza Virus Vaccine, Quadrivalent, Split, Preservative Free 89677 Given 08/02/2014 Pneumococcal Conjugate Vaccine 13 Valent For [id number] Intramuscular Use 23340 Given 08/10/2013 Tdap - Tetanus/Diptheria/Acellular Pertussis [id number] 27038 Given 01/11/2013 Flu Vaccine Split Virus Preservative Free For [id number] Indiv 3Yr Older Q2038 Given 12/02/2011 Fluzone Vaccine [id number] 34736 Given 09/15/2011 Pneumonia Vaccine 85816 Given 09/15/2011 Pneumonia Vaccine [id number] 24946 Given 01/03/2010 Influenza Virus 3Yrs & Over 70229 Given 09/23/2009 Zoster (Zostavax) [id number] 05672 Given 12/31/2008 Influenza Virus 3Yrs & Over 86315 Given 12/31/2008 Influenza Virus 3Yrs & Over [id number] 90190 Given 12/18/2007 Influenza Virus 3Yrs & Over 94285 Given 12/18/2007 Influenza Virus 3Yrs & Over 40990 Given 12/26/2006 Influenza Virus 3Yrs & Over 77686 Given 12/26/2006 Influenza Virus 3Yrs & Over 55377 48513 Given Unknown Flu Vaccine Split Virus Preservative Free For Indiv 3Yr Older 67688 Given Unknown Flu Vaccine Split Virus Preservative Free For Indiv 3Yr Older Vital Signs Date Vital Result Comment 11/10/2018 3:54pm Height 60 inches 5'0" Weight 89.38 lb Heart Rate 70 /min BP Systolic 108 mmHg BP Diastolic 60 mmHg BMI (Body Mass Index) 17.5 kg/m2 11/10/2018 2:18pm Height 60 inches 5'0" Weight 90.00 lb pt reports Heart Rate 72 /min BP Systolic 102 mmHg BP Diastolic 58 mmHg Body Temperature 98.0 F Pain Level 3 BMI (Body Mass Index) 17.6 kg/m2 Results Description No Information Available Procedures Date Code Description Status 10/19/2018 25253 THR Total Hip Replacement Completed 10/19/2018 37327 THR Total Hip Replacement Completed 07/10/2018 30684 Remove Impacted Cerumen Completed 08/08/2017 62182965 Colonoscopy Completed 06/03/2017 39137996 Mammogram Completed 02/27/2016 32552133 Mammogram Completed 02/20/2015 35452314 Mammogram Completed 07/03/2013 251602861 Bone Mineral Density Test Completed 02/12/2013 29438350 Mammogram Completed 10/08/2010 243581098 Bone Mineral Density Test Completed 11/12/2008 85802627 Mammogram Completed 01/02/2008 73508335 Colonoscopy Completed Medical Devices Description No Information Available Encounters Type Date Location Provider Dx Diagnosis Office Visit 11/10/2018 [facility] Lowell Kennedy Parkinson's 4:00p Services Of 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 unsp part of neck of right femur, init R63.4 Abnormal weight loss Office Visit 10/18/2018 9:05a Orthopedic Riya Calderon, S72.042A Disp fx of Services Of Deny [place] base of neck of left femur, init for clos fx W19.xxxA Unspecified fall, initial encounter Office Visit 08/11/2018 1:00p [facility] Carmen RehanLowell crowe Parkinson's Services Of Pablo MartinezMelaniDMelani disease S06.6x6D Traum subrac hem w Loc >24 hr w/o ret consc w surv, subs Office Visit 06/16/2018 11:30a [facility] Carmen Vanmelanyangelica JamarcusAmanda Parkinson's Services Of [place] MartinezMelaniDMelani disease S06.6x6D Traum subrac hem w Loc >24 hr w/o ret consc w surv, subs Assessments Date Code Description Provider 11/10/2018 G20 Parkinson's disease Carmen Jean M.D. 11/10/2018 Z96.642 Presence of left artificial hip joint Riya Calderon M.D. 11/10/2018 R29.6 Repeated falls Carmen Jean M.D. 11/10/2018 Z47.1 Aftercare following joint replacement Riya Calderon M.D. surgery 11/08/2018 S72.001A Fracture of unspecified part of neck of Eveline Dorothy, N.P. right femur, initial encounter for closed fracture 11/08/2018 R63.4 Abnormal weight loss Eveline De La Cruz, N.P. 10/21/2018 S72.001A Fracture of unspecified part of neck of Christa Bynum MD right femur, initial encounter for closed fracture 10/21/2018 G20 Parkinson's disease Christa Bynum MD 10/21/2018 G47.33 Obstructive sleep apnea (adult) Christa Bynum MD (pediatric) 10/21/2018 R29.6 Repeated falls Christa Bynum MD 10/20/2018 Z47.1 Aftercare following joint replacement JOSFE Kenny surgery 10/20/2018 Z96.642 Presence of left artificial hip joint JOSEF Kenny 10/19/2018 S72.002A Fracture of unspecified part of neck of Christa Bynum MD left femur, initial encounter for closed fracture 10/19/2018 S72.042A Displaced fracture of base of neck of Keyla Manzano PA-C left femur, initial encounter for closed fracture 10/19/2018 G20 Parkinson's disease Christa Bynum MD 10/19/2018 S72.042A Displaced fracture of base of neck of Riya Calderon M.D. left femur, initial encounter for closed fracture 10/19/2018 W19.xxxA Unspecified fall, initial encounter Keyla Manzano PA-C 10/19/2018 W19.xxxA Unspecified fall, initial encounter Riya Calderon M.D. 10/18/2018 S72.002A Fracture of unspecified part of neck of SUSI Suárez left femur, initial encounter for closed fracture 10/18/2018 G20 Parkinson's disease SUSI Suárez 10/18/2018 S72.042A Displaced fracture of base of neck of Riya Calderon M.D. left femur, initial encounter for closed fracture 10/18/2018 G47.33 Obstructive sleep apnea (adult) SUSI Suárez (pediatric) 10/18/2018 W19.xxxA Unspecified fall, initial encounter SUSI Suárez 10/18/2018 W19.xxxA Unspecified fall, initial encounter Riya Calderon M.D. 08/11/2018 G20 Parkinson's disease Carmen Jean M.D. 08/11/2018 S06.6x6D Traumatic subarachnoid hemorrhage with Carmen Jean M.D. loss of consciousness 07/10/2018 H61.23 Impacted cerumen, bilateral Eveline Dorothy, N.P. 06/16/2018 G20 Parkinson's disease Carmen Jean M.D. 06/16/2018 S06.6x6D Traumatic subarachnoid hemorrhage with Carmen Jean M.D. loss of consciousness Plan of Treatment Future Appointment(s):02/16/2019 9:00 am - Carmen Jean M.D. at [facility]12/13/2018 9:00 am - Riya Calderon M.D. at [facility]11/10/2018 - Riya Calderon M.D.Z96.642 Presence of left artificial hip jointNew Xrays:Hip Left 2 Views And Pelvis [address]1002 - [id number], Ordered: 11/10/18Follow up:Follow up: keep her appointment already schedule in one mgunwN07.1 Aftercare following joint replacement surgery Functional Status Description No Information Available Mental Status Description No Information Available Referrals Description No Information Available
--- OUTSIDE RECORDS SUMMARY | 2019-01-04 18:28 | XMS REPORT | Continuity of Care Document ---
:1940 External Reference #:[id number] Author Name Riya Calderon M.D. (transmitted by agent of provider Angely Slater) Address [address] [place] [address] Care Team Providers Name Role Phone Thyroid Nodule Clinic - Clinic/Center Care Team Information Grinder Set Up Operator Gear Tool [phone] Tino Bartholomew MD - Internal Medicine Care Team Information Grinder Set Up Operator Gear Tool Problems Active Problems Provider Date Pure hypercholesterolemia [...] Jean M.D. Onset: 07/02/2015 Pain in limb Peter Serna MD Onset: 08/15/2015 Chest pain Tristin Luna M.D., [facility], Onset: 03/01/2016 FASDC Peripheral venous insufficiency Tristin Luna M.D., [facility], Onset: 2016 FASNC Knee pain Darrel Griffin M.D. Onset: 11/17/2016 Disorder of shoulder Lluvia Vann MD Onset: 02/22/2017 Localized, primary osteoarthritis Lluvia Vann MD Onset: 02/22/2017 of the shoulder region Localized, primary osteoarthritis Lluvia Vann MD Onset: 02/22/2017 Acquired genu valgum Riya Calderon M.D. Onset: 10/14/2017 Localized, primary osteoarthritis Riya Calderon M.D. Onset: 03/08/2018 of the pelvic region and thigh Prosthetic arthroplasty of the hip Riya Calderon M.D. Onset: 12/13/2018 Arthroplasty of knee Riya Calderon M.D. Onset: 12/13/2018 Social History Type Date Description Comments Sex Unknown Tobacco Use Start: Unknown End: Former Cigarette Smoker Unknown Smoking Status Reviewed: 12/13/18 Former Cigarette Smoker ETOH Use 08/24/2012 Denies [...] 90tabs Darrel Mcgowan 03/26/2016 20mg By Mouth AT Issac Griffin Tablets Bedtime Mirapex 1 tab by mouth 4 360tabs Carmen Jean, 01/24/2008 0.5mg Tablets times daily M.D. Carbidopa-Levodopa 1 by mouth three 270tabs Carmen Jean, times a day M.D. 25-100mg Tablets Gabapentin 1 tab by mouth [...] 0.1 MG Tristin Luna M.D., 03/17/2016 [facility] 99M Tristin Luna M.D., 03/17/2016 Tetrofosmin, Per Unit Dose Up CLEVE FRIAS To 40 Millicuries Injection Influenza Virus Vaccine Unknown 11/19/2013 Injection Immunizations CPT Code Status Date Vaccine Lot # 29063 Given 01/09/2016 Influ Virus Vaccine, Quadrivalent, Split Virus, [place] [id number] [address] Given 01/01/2015 Influenza Virus Vaccine, Quadrivalent, Split, Preservative Free 01042 Given 08/02/2014 Pneumococcal Conjugate Vaccine 13 Valent For [id number] Intramuscular Use 10267 Given 08/10/2013 Tdap - Tetanus/Diptheria/Acellular Pertussis [id number] 07176 Given 01/11/2013 Flu Vaccine Split Virus Preservative Free For [id number] Indiv 3Yr Older Q2038 Given 12/02/2011 Fluzone Vaccine [id number] 12460 Given 09/15/2011 Pneumonia Vaccine 72026 Given 09/15/2011 Pneumonia Vaccine [id number] 04586 Given 01/03/2010 Influenza Virus 3Yrs & Over 48321 Given 09/23/2009 Zoster (Zostavax) [id number] 91874 Given 12/31/2008 Influenza Virus 3Yrs & Over 41344 Given 12/31/2008 Influenza Virus 3Yrs & Over [id number] 37831 Given 12/18/2007 Influenza Virus 3Yrs & Over 42007 Given 12/18/2007 Influenza Virus 3Yrs & Over 54784 Given 12/26/2006 Influenza Virus 3Yrs & Over 22332 Given 12/26/2006 Influenza Virus 3Yrs & Over 86419 10698 Given Unknown Flu Vaccine Split Virus Preservative Free For Indiv 3Yr Older 11981 Given Unknown Flu Vaccine Split Virus Preservative Free For Indiv 3Yr Older Vital Signs Date Vital Result Comment 12/13/2018 9:09am Height 60 inches 5'0" Weight 86.00 lb Heart Rate 74 /min BP Systolic 128 mmHg BP Diastolic 82 mmHg Respiratory Rate 18 /min Body Temperature 97.0 F Pain Level 0 BMI (Body Mass Index) 16.8 kg/m2 12/01/2018 11:35am Height 60 inches 5'0" Weight 86.38 lb Heart Rate 70 /min BP Systolic 112 mmHg BP Diastolic 64 mmHg BMI (Body Mass Index) 16.9 kg/m2 Results Description No Information Available Procedures Date Code Description Status 10/19/2018 48861 THR Total Hip Replacement Completed 10/19/2018 29419 THR Total Hip Replacement Completed 07/10/2018 50092 Remove Impacted Cerumen Completed 08/08/2017 63151266 Colonoscopy Completed 06/03/2017 06673703 Mammogram Completed 02/27/2016 56207046 Mammogram Completed 02/20/2015 85386681 Mammogram Completed 07/03/2013 681734169 Bone Mineral Density Test Completed 02/12/2013 89202297 Mammogram Completed 10/08/2010 380305135 Bone Mineral Density Test Completed 11/12/2008 21163127 Mammogram Completed 01/02/2008 55007100 Colonoscopy Completed Medical Devices Description No Information Available Encounters Type Date Location Provider Dx Diagnosis Office Visit 12/01/2018 [facility] Parkinson's 11:30a Services Of Pablo [place]en[place] disease R29.6 Repeated falls Office Visit 11/10/2018 4:00p [facility] Lowell Flores Parkinson's Services Of [place] disease R29.6 Repeated falls Office Visit 11/08/2018 9:22a [facility] Eveline De La Cruz, S72.001A Fracture of Home N.P. unsp part of neck of right femur, init R63.4 Abnormal weight loss Office Visit 10/19/2018 8:31a [facility] Christa Bynum, S72.002A Fracture of Assoc,claudia ANDERSON unsp part of Hospitalists neck of left femur, init G20 Parkinson's disease Office Visit 10/18/2018 [facility] Katarzyna S72.002A Fracture of 8:30a Assoc,pc SUSI Marley unsp part of Hospitalists neck of left femur, init G20 Parkinson's disease G47.33 Obstructive sleep apnea (adult) (pediatric) W19.xxxA Unspecified fall, initial encounter Office Visit 10/18/2018 9:05a [facility] Riya Calderon, S72.042A Disp fx of Services Of Deny [place]en[place] base of neck of left femur, init for clos fx W19.xxxA Unspecified fall, initial encounter Office Visit 08/11/2018 1:00p [facility] Lowell Flores Parkinson's Services Of [place] disease S06.6x6D Traum subrac hem w Loc >24 hr w/o ret consc w surv, subs Office Visit 06/16/2018 11:[facility] Carmen Cowdery, G20 Parkinson's Services Of [facility] MMelaniDMelani disease S06.6x6D Traum subrac hem w Loc >24 hr w/o ret consc w surv, subs Assessments Date Code Description Provider 12/13/2018 Z96.642 Presence of left artificial hip joint Riya Calderon M.D. 12/13/2018 Z47.1 Aftercare following joint replacement Riya Calderon M.D. surgery 12/13/2018 Z96.652 Presence of left artificial knee joint Riya Calderon M.D. 12/01/2018 G20 Parkinson's disease Carmen Jean M.D. 12/01/2018 R29.6 Repeated falls Carmen Jean M.D. 11/10/2018 G20 Parkinson's disease Carmen Jean M.D. 11/10/2018 Z96.642 Presence of left artificial hip joint Riya Calderon M.D. 11/10/2018 Z47.1 Aftercare following joint replacement Riya Calderon M.D. surgery 11/10/2018 R29.6 Repeated falls Carmen Jean M.D. 11/08/2018 S72.001A Fracture of unspecified part of neck of Eveline De La Cruz, N.P. right femur, initial encounter for closed [...] MD 10/20/2018 Z47.1 Aftercare following joint replacement JOSEF Kenny surgery 10/20/2018 Z96.642 Presence of left [...] loss of consciousness Plan of Treatment Future Appointment(s):03/05/2019 8:00 am - Riya Calderon M[facility]D. [facility]/16/2019 9:00 am - Carmen Jean M.D. at [facility] - Riya Calderon M.D.Z96.642 Presence of left artificial hip jointFollow up:Follow up: 3 krgmnaV94.1 Aftercare following joint replacement lodxnqxR58.652 Presence of left artificial knee joint Functional Status Description No Information Available Mental Status Description No Information Available Referrals Description No Information Available
--- OUTSIDE RECORDS SUMMARY | 2019-01-04 18:28 | XMS REPORT | Continuity of Care Document ---
:1940 External Reference #:[id number] Author Name Riya Calderon M.D. (transmitted by agent of provider Angely Slater) Address [address] [facility] [place] [address] Care Team Providers Name Role Phone Thyroid Nodule Clinic - Clinic/Center Care Team Information Frame Cleaner Tino Bartholomew MD - Internal Medicine Care Team Information Frame Cleaner Problems Active Problems Provider Date Pure hypercholesterolemia [...] Tristin Luna M.D., [facility], Onset: 03/01/2016 FASMO Peripheral venous insufficiency Tr[facility]in [facility] M.D., [facility] [...] mouth every Unknown (Cholecalciferol) day 1000Unit Tablets Eliquis 1 tab po bid Unknown 2.5mg Tablets Medications Administered in Office Medication SIG [...] Tristin Luna M.D., 03/17/2016 Injection [facility] Technetium TC 99M Tristin Luna M.D., 03/17/2016 Tetrofosmin, Per Unit Dose Up [facility] To 40 Millicuries Injection Influenza Virus Vaccine Unknown 11/19/2013 Injection Immunizations CPT Code Status Date Vaccine Lot # 13047 Given 01/09/2016 Influ Virus Vaccine, Quadrivalent, Split Virus, [place] [id number] [address] Given 01/01/2015 Influenza Virus Vaccine, Quadrivalent, Split, Preservative Free 60615 Given 08/02/2014 Pneumococcal Conjugate Vaccine 13 Valent For [id number] Intramuscular Use 02038 Given 08/10/2013 Tdap - Tetanus/Diptheria/Acellular Pertussis [id number] 01437 Given 01/11/2013 Flu Vaccine Split Virus Preservative Free For [id number] Indiv 3Yr Older Q2038 Given 12/02/2011 Fluzone Vaccine [id number] 39835 Given 09/15/2011 Pneumonia Vaccine 56552 Given 09/15/2011 Pneumonia Vaccine [id number] 40263 Given 01/03/2010 Influenza Virus 3Yrs & Over 09546 Given 09/23/2009 Zoster (Zostavax) [id number] 07732 Given 12/31/2008 Influenza Virus 3Yrs & Over 80577 Given 12/31/2008 Influenza Virus 3Yrs & Over [id number] 48200 Given 12/18/2007 Influenza Virus 3Yrs & Over 81323 Given 12/18/2007 Influenza Virus 3Yrs & Over 08853 Given 12/26/2006 Influenza Virus 3Yrs & Over 68511 Given 12/26/2006 Influenza Virus 3Yrs & Over 39352 95450 Given Unknown Flu Vaccine Split Virus Preservative Free For Indiv 3Yr Older 54569 Given Unknown Flu Vaccine Split Virus Preservative Free For Indiv 3Yr Older Vital Signs Date Vital Result Comment 11/10/2018 2:18pm Height 60 inches 5'0" Weight 90.00 lb pt reports Heart Rate 72 /min BP Systolic 102 mmHg BP Diastolic 58 mmHg Body Temperature 98.0 F Pain Level 3 BMI (Body Mass Index) 17.6 kg/m2 11/08/2018 9:30am Weight 86.12 lb Heart Rate 79 /min BP Systolic Sitting 118 mmHg BP Diastolic Sitting 76 mmHg Respiratory Rate 20 /min Body Temperature 97.9 F Results Description No Information Available Procedures Date Code Description Status 10/19/2018 66361 THR Total Hip Replacement Completed 10/19/2018 59107 THR Total Hip Replacement Completed 07/10/2018 02821 Remove Impacted Cerumen Completed 08/08/2017 84141223 Colonoscopy Completed 06/03/2017 03713784 Mammogram Completed 02/27/2016 13355570 Mammogram Completed 02/20/2015 84558169 Mammogram Completed 07/03/2013 612291295 Bone Mineral Density Test Completed 02/12/2013 70541212 Mammogram Completed 10/08/2010 752211857 Bone Mineral Density Test Completed 11/12/2008 25621211 Mammogram Completed 01/02/2008 19083235 Colonoscopy Completed Medical Devices Description No Information Available Encounters Type Date Location Provider Dx Diagnosis Office Visit 11/08/2018 [facility] Nursing Eveline De La Cruz, S72.001A Fracture of unsp 9:22a Home N.P. part of neck of right femur, init R63.4 Abnormal weight loss Office Visit 10/18/2018 9:05a [facility] Riya Calderon, S72.042A Disp fx of Services Of Deny Davenport base of neck of left femur, init for clos fx W19.xxxA Unspecified fall, initial encounter Office Visit 08/11/2018 1:00p [facility] Carmen Jean, G20 Parkinson's Services Of [place] [employer] M.D. disease S06.6x6D Traum subrac hem w Loc >24 hr w/o ret consc w surv, subs Office Visit 06/16/2018 11:30a [facility] Carmen Jean, G20 Parkinson's Services Of [employer] M.DMelani disease S06.6x6D Traum subrac hem w Loc >24 hr w/o ret consc w surv, subs Assessments Date Code Description Provider 11/10/2018 Z96.642 Presence of left artificial hip joint Riya Calderon M.D. 11/10/2018 Z47.1 Aftercare following joint replacement Riya Calderon M.D. surgery 11/08/2018 S72.001A Fracture of unspecified part of neck of Eveline De La Cruz, N.P. right femur, initial encounter for closed fracture 11/08/2018 R63.4 Abnormal weight loss Eveline De La Cruz N.P. 10/21/2018 S72.001A Fracture of unspecified part [...] loss of consciousness Plan of Treatment Future Appointment(s):12/13/2018 9:00 am - Riya Calderon M.D. at [facility]11/10/2018 - Riya Calderon M.D.Z96.642 Presence of left artificial hip jointNew Xrays:Hip Left 2 Views And Pelvis 31725 - 55621, Ordered : 11/10/18Follow up:Follow up: keep her appointment already schedule in one oqwrlA88.1 Aftercare following joint replacement surgery Functional Status Description No Information Available Mental Status Description No Information Available Referrals Description No Information Available
--- OUTSIDE RECORDS SUMMARY | 2019-01-04 18:28 | XMS REPORT | Summary of Care ---
:1940 Author Organization [facility] Address [address] [facility] [place] [address] Care Team Providers Name Role Phone Tino Bartholomew Primary Care Provider Reason for Visit Reason Comments Parkinson'S Disease f/u, to see Dr Jean late Nov Hip Pain f/u left hip, seen Dr Calderon 12/13/18, had f/u left knee x-ray same day Depression neighbor expressed concerns about depression, Pt doesn't feel depressed (just sad with her health and deaths in family), PHQ-9 done (score 5) Urinary Incontinence had concerns of bed wetting, she believed it was r/t excessive bowel meds for her chronic constipation issues (she was taked MOM qod and DSS qd), she stopped MOM and uses DSS prn. states the bed wetting has stopped Hypertension f/u BP 118/70 Encounter Details Date Type Department Care Team Description 12/22/2018 Office Visit Tino Lala MD Cerebral hemorrhage (HCC) (Primary Dx); [address] [facility] [address] [facility] Essential hypertension, benign; [place] [address] [place] [address] Parkinson disease (HCC); [phone] Vertigo; Urinary incontinence, unspecified type Allergies Active Allergy Reactions Severity Noted Date Comments Cefuroxime GI Reaction 11/07/2017 Ciprofloxacin Hcl Unknown Reaction 11/07/2017 Valproic Acid GI Reaction 11/14/2018 Abnormal liver enzymes. documented as of this encounter (statuses as of 12/22/2018) Medications Medication Sig Dispensed Refills Start Date End Date Status dorzolamide-timolol Place 1 Drop in 0 Active (COSOPT) 22.3-6.8 both eyes TWICE MG/ML Ophthalmic DAILY. Solution Calcium Take by mouth. 0 Active Carbonate-Vit D-Min (CALCIUM 1200 PO) Cholecalciferol Take by mouth. 0 Active (VITAMIN D3) 1000 units Oral Tab acetaminophen Take 325 mg by 0 Active (TYLENOL) 325 MG mouth EVERY SIX Oral Tab HOURS NEEDED. latanoprost Place 1 Drop in 0 Active (XALATAN) 0.005 % both eyes EVERY Ophthalmic Solution EVENING. amoxicillin (AMOXIL, Take 2,000 mg 0 Active POLYMOX, TRIMOX) 500 by mouth MG Oral Cap DIRECTED. Take 1 hr prior to dental procedures amantadine Take 5 mL by 473 mL 11 07/18/2018 Active (SYMMETREL) 50 mouth MG/5ML Oral DIRECTED. In AM SyrupIndications: and noon as Parkinson disease needed (HCC) atorvastatin Take 1 Tab by 90 Tab 3 08/16/2018 Active (LIPITOR) 20 MG Oral mouth DAILY. TabIndications: Hyperlipidemia, unspecified hyperlipidemia type gabapentin Take 2 Caps by 180 Cap 3 08/16/2018 Active (NEURONTIN) 100 MG mouth EVERY Oral CapIndications: BEDTIME. Parkinson disease ([facility]) carbidopa-levodopa Take 1 Tab by 90 Tab 11 08/24/2018 Active (SINEMET) 25-100 MG mouth THREE Oral TabIndications: TIMES DAILY. Parkinson disease ([facility]) pramipexole Take 0.5 mg by 60 Tab 11 08/24/2018 Active (MIRAPEX) 0.5 MG mouth FOUR Oral TabIndications: TIMES DAILY. Parkinson disease ([facility]) Docusate Sodium Take 1 Cap by 60 Cap 0 11/06/2018 Active (DSS) 100 MG Oral mouth TWICE Cap DAILY. metoprolol succinate Take 1 Tab by 90 Tab 3 11/15/2018 Active (TOPROL XL) 50 MG mouth DAILY. Oral TABLET SR 24 HRIndications: Essential hypertension, benign OXYcodone-acetaminop Take 1 Tab by 28 Tab 0 11/06/2018 Discontinued hen (PERCOCET) 5-325 mouth EVERY 9 MG Oral Tab FOUR HOURS NEEDED (for left hip pain). Max Daily Amount: 6 Tabs. documented as of this encounter (statuses as of 12/22/2018) Active Problems Problem Noted Date Cerebral hemorrhage 08/16/2018 Parkinson disease Overview: Dr Jean Sleep apnea Pulmonary embolism Glaucoma Hyperlipidemia Anxiety Fracture of femoral neck, left documented as of this encounter (statuses as of 12/22/2018) Immunizations Name Administration Dates Next Due Influenza Vaccine High Dose 01/07/2018, 12/29/2016 PNEUMOCOCCAL POLYSACCHARIDE VACCINE 09/15/2011 Pneumococcal Conjugate Vaccine 08/02/2014 TDAP Vaccine 08/10/2013 ZOSTER (SHINGRIX) VACCINE 02/24/2018, 11/30/2017 ZOSTER (ZOSTAVAX) VACCINE 09/23/2009 documented as of this encounter Social History Tobacco Use Types Packs/Day Years Used Date Former Smoker Quit: 1984 Smokeless Tobacco: Never Used Alcohol Use Drinks/Week oz/Week Comments No Sex Assigned at Date Recorded Not on file Job Start Date Occupation Industry Not on file Not on file Not on file Travel History Travel Start Travel End No recent travel history available. documented as of this encounter Last Filed Vital Signs Vital Sign Reading Time Taken Comments Blood Pressure 118/70 12/22/2018 3:10 PM EDT Pulse 84 12/22/2018 3:10 PM EDT Temperature - - Respiratory Rate - - Oxygen Saturation - - Inhaled Oxygen Concentration - - Weight 39.9 kg (88 lb) 12/22/2018 3:10 PM EDT Height 152.4 cm (5') 12/22/2018 3:10 PM EDT Body Mass Index 17.19 12/22/2018 3:10 PM EDT documented in this encounter Progress Notes Tino Bartholomew MD - 12/22/2018 2:40 PM EDT PATIENT: Marlen Means : 1940 DATE OF SERVICE: 12/22/2018 CHIEF COMPLAINT: Chief Complaint Patient presents with Parkinson'S Disease f/u, to see Dr Jean late Nov Hip Pain f/u left hip, seen Dr Calderon 12/13/18, had f/u left knee x-ray same day Depression neighbor expressed concerns about depression, Pt doesn't feel depressed (just sad with her health and deaths in family), PHQ-9 done (score 5) Urinary Incontinence had concerns of bed wetting, she believed it was r/t excessive bowel meds for her chronic constipation issues (she was taked MOM qod and DSS qd), she stopped MOM and uses DSS prn. states the bed wetting has stopped Hypertension f/u BP 118/70 Subjective HISTORY OF PRESENT ILLNESS: Marlen Means is a 78-y.o. female. HPI Returns in follow-up of several issues. Having some dizzy episodes lately with bending over then getting up, or when lying down in bed. Feels like things are moving. Did not have this earlier this summer. No recent head injury, viral syndrome or other febrile illness lately. Blood pressure has been under good control and she asks about continuing metoprolol and I told her to continue it. States that a neighbor was concerned about depression but patient does not feel depressed just has had some loss in her family and friends.. Does not want counseling or medication but I told her to call me if she changed her mind Had hip fracture earlier this year recently saw orthopedics, everything stable. Had left knee replacement last year, and x-rays of the knee show satisfactory positioning of hardware. Follows with Dr. Dominguez for Parkinson's disease and will be seen next month Past Medical History: Diagnosis Date Anxiety Fracture of femoral neck, left ([facility]) Glaucoma Dr Farooq H/O hernia repair History of appendectomy History of cholecystectomy Hyperlipidemia Parkinson disease ([facility]) Dr Jean Pulmonary embolism ([facility]) Rib fracture 2014 Sleep apnea uses CPAP Sternum fx Wrist fracture at Age 13 Family History Problem Relation Age of Onset Heart Disease Mother [place] Stroke Father Emphysema Father Diabetes Brother Cancer Paternal Grandmother Current Outpatient Medications Medication Sig acetaminophen (TYLENOL) 325 MG Oral Tab Take 325 mg by mouth EVERY SIX HOURS NEEDED. amantadine (SYMMETREL) 50 MG/5ML Oral Syrup Take 5 mL by mouth DIRECTED. In AM and noon asneeded amoxicillin (AMOXIL, POLYMOX, TRIMOX) 500 MG Oral Cap Take 2,000 mg by mouth DIRECTED. Take 1 hr prior to dental procedures atorvastatin (LIPITOR) 20 MG Oral Tab Take 1 Tab by mouth DAILY. Calcium Carbonate-Vit D-Min (CALCIUM 1200 PO) Take by mouth. carbidopa-levodopa (SINEMET) 25-100 MG Oral Tab Take 1 Tab by mouth THREE TIMES DAILY. Cholecalciferol (VITAMIN D3) 1000 units Oral Tab Take by mouth. Docusate Sodium (DSS) 100 MG Oral Cap Take 1 Cap by mouth TWICE DAILY. dorzolamide-timolol (COSOPT) 22.3-6.8 MG/ML Ophthalmic Solution Place 1 Drop in both eyes TWICE DAILY. gabapentin (NEURONTIN) 100 MG Oral Cap Take 2 Caps by mouth EVERY BEDTIME. latanoprost (XALATAN) 0.005 % Ophthalmic Solution Place 1 Drop in both eyes EVERY EVENING. metoprolol succinate (TOPROL XL) 50 MG Oral TABLET SR 24 HR Take 1 Tab by mouth DAILY. pramipexole (MIRAPEX) 0.5 MG Oral Tab Take 0.5 mg by mouth FOUR TIMES DAILY. No current facility-administered medications for this visit. Allergies Allergen Reactions Ceftin [Cefuroxime] GI Reaction Ciprofloxacin Hcl Unknown Reaction Valproic Acid GI Reaction Abnormal liver enzymes. Social History Socioeconomic History Marital status: Spouse name: Not on file Number of children: Not on file Years of education: Not on file Highest education level: Not on file Occupational History Not on file Social Needs Financial resource strain: Not on file Food insecurity: Worry: Not on file Inability: Not on file Transportation needs: Medical: Not on file Non-medical: Not on file Tobacco Use Smoking status: Former Smoker Last attempt to quit: 1985 Years since quittin.7 Smokeless tobacco: Never Used Substance and Sexual Activity Alcohol use: No Drug use: No Sexual activity: Not Currently Lifestyle Physical activity: Days per week: Not on file Minutes per session: Not on file Stress: Not on file Relationships Social connections: Talks on phone: Not on file Gets together: Not on file Attends taoist service: Not on file Active member of club or organization: Not on file Attends meetings of clubs or organizations: Not on file Relationship status: Not on file Intimate partner violence: Fear of current or ex partner: Not on file Emotionally abused: Not on file Physically abused: Not on file Forced sexual activity: Not on file Other Topics Concern Not on file Social History Narrative Not on file Over the last 2 weeks, have you been feeling down, depressed, anxious, or hopeless?: 0 Over the past 2 weeks, have you felt little interest or pleasure in doing things ?: 1 Trouble falling or staying asleep, or sleeping too much?: 1 Feeling tired or having little energy?: 1 Poor appetite or overeating?: 1 Feeling bad about yourself or that you are a failure or have let yourself or your family down?: 0 Trouble concentrating on things, such as reading the newspaper or watching TV?: 0 Moving or speaking so slowly that other people notice OR being fidgety and restless?: 1 Thoughts that you would be better off or of hurting yourself in some way?: 0 PHQ-9 TOTAL SCORE: 5 REVIEW OF SYSTEMS: Review of Systems Constitutional: Positive for malaise/fatigue. Negative for weight loss. HENT: Negative for congestion. Eyes: Positive for double vision. Negative for blurred vision. Respiratory: Negative for shortness of breath. Cardiovascular: Negative for chest pain and palpitations. Gastrointestinal: Negative for abdominal pain. Genitourinary: Positive for frequency. Musculoskeletal: Negative for joint pain. Skin: Negative for rash. Neurological: Positive for dizziness. Negative for seizures, loss of consciousness and headaches. Endo/Heme/Allergies: Negative for polydipsia. Psychiatric/Behavioral: Negative for depression and memory loss. The patient is not nervous/anxious. Objective PHYSICAL EXAM: VITALS: BP 118/70 | Pulse 84 | Ht 5' (1.524 m) | Wt (!) 88 lb (39.9 kg) | BMI 17.19 kg/m Body mass index is 17.19 kg/m. Physical Exam Alert, oriented, in no acute distress. Vitals as above. HEENT: Normocephalic, atraumatic. EVAN, EOMI. some nystagmus noted with fast component to the left,when she went from a sitting to supine position. Mouth and ears unremarkable. Neck: No palpable lymphadenopathy in the submandibular, submental, anterior cervical, posterior cervical, or occipital chains, nor in the supraclavicular spaces. No JVD, thyromegaly. LUNGS: clear. HEART: Regular rate and rhythm. ABDOMEN: positive bowel sounds, soft, nontender, no hepatosplenomegaly, masses or bruits. No CVA orspinal tenderness. EXTREMITIES: no cyanosis, clubbing, or edema. No tremor. Walks with a walker ASSESSMENT / IMPRESSION: ICD-9-CM ICD-10-CM 1. Cerebral hemorrhage (HCC) 431 I61.9 2. Essential hypertension, benign 401.1 I10 3. Parkinson disease (HCC) 332.0 G20 4. Vertigo 780.4 R42 5. Urinary incontinence, unspecified type 788.30 R32 She is stable after having had cerebral hemorrhage with a fall and head trauma earlier this year in [place]. Blood pressure is controlled Parkinson's disease is treated -Vertigo is a newer problem. I told her it is often self-limited. Do not want to recommend anticholinergics or benzodiazepines given her Parkinson's and history of falls. Told her to make her movements much more slowly and that this should reduce chance of getting dizzy. For incontinence, agree with stopping milk of magnesia and docusate sodium in hopes that incontinence will improve. Sad mood with several losses in her life. Offered her referral to psychologist which she willconsider but she does not want at this time. She will follow-up in 2 months, no lab work needed prior to the visit. She will call if problems get worse before then. CC: Dr. Jean author: Tino Bartholomew MD 12/22/2018 18:27 documented in this encounter Plan of Treatment Date Type Specialty Care Team Description 12/26/2018 Office Visit Internal Medicine Tino Bartholomew MD [address] [place] [address] [phone] 02/14/2019 Scan Only Encounter Medical Records Historical, Provider Health Maintenance Due Date Last Done Comments MEDICARE ANNUAL WELLNESS VISIT 1940 INFLUENZA VACCINE (#1) 2018 01/07/2018, 12/29/2016 FALL RISK ASSESSMENT 11/15/2019 11/14/2018, 11/14/2018 DEPRESSION SCREENING 12/23/2019 12/22/2018, 12/22/2018 OSTEOPOROSIS SCREENING 07/04/2023 07/03/2013 PNEUMOCOCCAL 65+YRS Completed 08/02/2014, 09/15/2011 ZOSTER IMMUNIZATION SERIES Completed 02/24/2018, 11/30/2017, 09/23/2009 HPV IMMUNIZATION SERIES Aged Out No longer eligible based on patient's age to complete this topic MENINGOCOCCAL VACCINE IMM Aged Out No longer eligible based on patient's age to complete this topic documented as of this encounter Goals Goal Patient Goal Associated Recent Patient-Stated? Author Type Problems Progress Blood Pressure Blood Pressure 118/70 No [place], < 140/90 (12/22/2018 MD Tino 3:10 PM EDT) Note: This is an individualized treatment (blood pressure) goal for Marlen Means: Displayed above (on the left) is your goal for blood pressure control. Your most recent blood pressure is also shown above, on the right. You should try to achieve blood pressures that are lower than your goal listed above (on the left). Take all prescribed medications as directed Self-management Tino Fairbanks MD Note: This is an individualized self-management goal for Marlen Means: Please take all prescribed medications as directed. 1. Do not skip doses. If you cannot afford your medications, talk with your doctor. 2. Use a pill reminder system such as a pill box if needed. Your pharmacist can help you with this. 3. Contact your Pharmacy 5 days before your medication runs out. If you cannot take your medications for any reasons, talk with your doctor. 4. Please bring all of your medication bottles and inhalers (or a list of all your medications/inhalers) with you to every visit. Potential barriers to meeting all of your care plan goals will continue to be addressed on an ongoing basis. documented as of this encounter Results Not on filedocumented in this encounter Visit Diagnoses Diagnosis Cerebral hemorrhage (HCC) - Primary Intracerebral hemorrhage Essential hypertension, benign Parkinson disease (HCC) Paralysis agitans Vertigo Dizziness and giddiness Urinary incontinence, unspecified type documented in this encounter Insurance Payer Benefit Plan / Subscriber ID Effective Dates Phone Address Type Group MEDICARE MEDICARE PART A & xxxxxxxxxxx 2004-Present Medicare B [employer] xxxxxxxxxxxx 2013-Present [employer] documented as of this encounter"
--- OUTSIDE RECORDS SUMMARY | 2019-01-04 18:28 | XMS REPORT | Summary of Care ---
:1940 Author Organization [facility] Address [address] [facility] [place] [address] Care Team Providers Name Role Phone Tino Bartholomew MD Primary Care Provider Reason for Visit Reason Comments Transitional Care Management d/c from PMRU at [facility] [place] on 11/03/18 after a fall on that led to a left hip fracture and a left total hip replacement by Dr Calderon on 10/19/18. Ambulating with her walker without difficulty. No falls since she's been home. [place] were removed while in the PMRU, will do PT at [facility] Medication Check Med changes include eliquis 5mg bid (completed on 11/07/18), percocet 5/325mg PRN (no using) and DSS 100mg bid (still using). Parkinson'S Disease seen Dr Jean 11/10/[address] Calderon 11/10/18, x-rays done 11/10/18 Hypertension discussed metoprolol, Pt states she hasn't been taking it prior to [facility] admission, but records show she has been, BP 102/56 Weight Loss keeps losing weight at each OV, was 91lbs 08/22/18, today 87lbs Encounter Details Date Type Department Care Team Description 11/14/2018 Office Visit Tnio Lala MD Closed fracture of left hip with routine healing, subsequent encounter ( Primary Dx); [address] Cerebral hemorrhage (HCC); [place] [address] [place] [address] Essential hypertension, benign; [phone] Parkinson disease ([facility]) Allergies Active Allergy Reactions Severity Noted Date Comments Cefuroxime GI Reaction 11/07/2017 Ciprofloxacin Hcl Unknown Reaction 11/07/2017 Valproic Acid GI Reaction 11/14/2018 Abnormal liver enzymes. documented as of this encounter (statuses as of 11/14/2018) Medications Medication Sig Dispensed Refills Start End Date Status Date dorzolamide-timolol Place 1 Drop 0 Active (COSOPT) 22.3-6.8 in both eyes MG/ML Ophthalmic TWICE DAILY. Solution Calcium Take by 0 Active Carbonate-Vit D-Min mouth. (CALCIUM 1200 PO) Cholecalciferol Take by 0 Active (VITAMIN D3) 1000 mouth. units Oral Tab acetaminophen Take 325 mg by 0 Active (TYLENOL) 325 MG mouth EVERY Oral Tab SIX HOURS NEEDED. latanoprost Place 1 Drop 0 Active (XALATAN) 0.005 % in both eyes Ophthalmic Solution EVERY EVENING. amoxicillin (AMOXIL, Take 2,000 mg 0 Active POLYMOX, TRIMOX) 500 by mouth MG Oral Cap DIRECTED. Take 1 hr prior to dental procedures amantadine Take 5 mL by 473 mL 11 Active (SYMMETREL) 50 mouth 9 MG/5ML Oral DIRECTED. In SyrupIndications: AM and noon as Parkinson disease needed (HCC) atorvastatin Take 1 Tab by 90 Tab 3 Active (LIPITOR) 20 MG Oral mouth DAILY. 9 TabIndications: Hyperlipidemia, unspecified hyperlipidemia type gabapentin Take 2 Caps by 180 Cap 3 Active (NEURONTIN) 100 MG mouth EVERY 9 Oral CapIndications: BEDTIME. Parkinson disease (HCC) carbidopa-levodopa Take 1 Tab by 90 Tab 11 Active (SINEMET) 25-100 MG mouth THREE 9 Oral TabIndications: TIMES DAILY. Parkinson disease (HCC) pramipexole Take 0.5 mg by 60 Tab 11 Active (MIRAPEX) 0.5 MG mouth FOUR 9 Oral TabIndications: TIMES DAILY. Parkinson disease (HCC) Docusate Sodium Take 1 Cap by 60 Cap 0 Active (DSS) 100 MG Oral mouth TWICE 9 Cap DAILY. OXYcodone-acetaminop Take 1 Tab by 28 Tab 0 Active hen (PERCOCET) 5-325 mouth EVERY 9 MG Oral Tab FOUR HOURS NEEDED (for left hip pain). Max Daily Amount: 6 Tabs. metoprolol succinate Take 1 Tab by 90 Tab 3 Active (TOPROL XL) 50 MG mouth DAILY. 9 Oral TABLET SR 24 HRIndications: Essential hypertension, benign metoprolol succinate Take 1 Tab by 90 Tab 3 11/15/19 Discontinued (TOPROL XL) 50 MG mouth DAILY. 9 19 (Reorder) Oral TABLET SR 24 HRIndications: Essential hypertension, benign documented as of this encounter (statuses as of 11/14/2018) Active Problems Problem Noted Date Cerebral hemorrhage 08/16/2018 Parkinson disease Overview: Dr Jean Sleep apnea Pulmonary embolism Glaucoma Hyperlipidemia Anxiety Fracture of femoral neck, left documented as of this encounter (statuses as of 11/14/2018) Immunizations Name Administration Dates Next Due Influenza [...] Sign Reading Time Taken Comments Blood Pressure 102/56 11/14/2018 6:10 PM EDT Pulse 66 11/14/2018 6:10 PM EDT Temperature - - Respiratory Rate - - Oxygen Saturation - - Inhaled Oxygen Concentration - - Weight 39.5 kg (87 lb) 11/14/2018 6:10 PM EDT Height 152.4 cm (5') 11/14/2018 6:10 PM EDT Body Mass Index 16.99 11/14/2018 6:10 PM EDT documented in this encounter Progress Notes Tino Bartholomew MD - 11/14/2018 5:50 PM EDT PATIENT: Marlen Means : 1940 DATE OF SERVICE: 11/14/2018 CHIEF COMPLAINT: Chief Complaint Patient presents with Transitional Care Management d/c from [facility] at [facility] [facility] on 11/03/18 after a fall on 10/18/18 that led to a left hip fracture and a lefttotal hip replacement by Dr Calderon on 10/19/18. Ambulating with her walker without difficulty. No fallssince she's been home. [place] were removed while in the PMRU, will do PT at [facility] Medication Check Med changes include percocet 5/325mg PRN (no using) and DSS 100mg bid (still using). Parkinson'S Disease seen Dr Jean 11/10/[address] Calderon 11/10/18, x-rays done 11/10/18 Hypertension discussed metoprolol, Pt states she hasn't been taking it prior to [facility] admission, but records showshe has been, BP 102/56 Weight Loss keeps losing weight at each OV, was 91lbs 08/22/18, today 87lbs Subjective HISTORY OF PRESENT ILLNESS: Marlen Means is a 78-y.o. female. HPI Fell at home in bathroom, fx'ed left hip. Had surgery, did well postoperatively and went to acute inpatient rehab at [facility]. Discharged to home. Doing well so far. Has physical therapy with [facility] provider, no longer needs visiting nurse services. Was not sure about some of her medications, asked about metoprolol told her she should take it. Shehad 1 pill left in the bottle and I asked her if she had another bottle of metoprolol at home and she denied this although prescribing record reveals that she should have more at home, with refills. New prescription for metoprolol written today. She also had prescription for valproate and told her this should be stopped and not used again because it caused liver function abnormalities previously. The bottle has been discarded and the allergy list will be updated. Appetite is fair but she is losing weight. Denies any trouble with bowels or bladder. No fevers chills or sweats. She is on Eliquis for DVT prophylaxis and this will be finished soon. Not needing to use any pain medicine at this time. Past Medical History: Diagnosis Date Anxiety Fracture of femoral neck, left (HCC) Glaucoma Dr Farooq H/O hernia repair History of appendectomy History of cholecystectomy Hyperlipidemia Parkinson disease (HCC) Dr Jean Pulmonary embolism (HCC) Rib fracture 2014 Sleep apnea uses CPAP Sternum fx Wrist fracture at Age 13 Family History Problem Relation Age of Onset Heart Disease Mother [place] Stroke Father Emphysema Father Diabetes Brother Cancer [...] HR Take 1 Tab by mouth DAILY. OXYcodone-acetaminophen (PERCOCET) 5-325 MG Oral Tab Take 1 Tab by mouth EVERY FOUR HOURS ASNEEDED (for left hip pain). Max Daily Amount: 6 Tabs. pramipexole (MIRAPEX) 0.5 MG Oral Tab Take [...] status: Former Smoker Last attempt to quit: 1984 Years since quittin.6 Smokeless tobacco: Never Used Substance and Sexual Activity Alcohol use: No Drug use: No Sexual activity: Not Currently Lifestyle Physical activity: Days per week: Not on file Minutes per session: Not on file Stress: Not on file Relationships Social connections: Talks on phone: Not on file Gets together: Not on file Attends hinduism service: Not on file Active member of [...] file Social History Narrative Not on file REVIEW OF SYSTEMS: ROS please see history of present illness otherwise noncontributory Objective PHYSICAL EXAM: VITALS: BP 102/56 | Pulse 66 | Ht 5' (1.524 m) | Wt (!) 87 lb (39.5 kg) | BMI 16.99 kg/m Body mass index is 16.99 kg/m. Physical Exam Reveals an elderly woman in no distress. HEENT is unremarkable except for decreased blink frequency and decreased facial expression consistent with her Parkinson's disease. Neck has no JVD thyromegaly or cervical adenopathy in the anterior or posterior chains. No supraclavicular adenopathy. Lungs clear. Heart regular with soft systolic murmur at the left sternal border radiating to the aortic area. Abdomen is soft nontender. There is no edema. Left hip surgical wound is clean and dry, healing well. Tiny suture material loop noted proximally. ASSESSMENT / IMPRESSION: ICD-9-CM ICD-10-CM 1. Closed fracture of left hip with routine healing, subsequent encounter doing well. Continuephysical therapy V54.13 S72.002D 2. Cerebral hemorrhage (HCC)history of, now stable 431 I61.9 3. Essential hypertension, benigncontrolled 401.1 I10 metoprolol succinate (TOPROL XL) 50 MG Oral TABLET SR 24 HR 4. Parkinson disease (HCC)treatment 332.0 G20 TCM Statement. Review of the hospitalization: I am seeing for transition of care following hospitalization. The date of discharge was: November 03, 2018 The discharge diagnosis was left hip fracture. I reviewed the discharge summary, discharge instructions, and pertinent additional documentation obtained during hospitalization. I reconciled the medications. I also reviewed the Transition of Care documentation done by staff. The tests that were not available at the time of discharge were reviewed. Additional tests which are not yet available include: None Coordination of care. - I am satisfied that appropriate referrals are in place to deal with the problems identified during hospitalization, and that the patient has adequate community resources and support in place. - Additional testing related to hospitilization was requested today: no See orders. I confirmed the patient's understanding of the diagnosis and plan of care. Specific education that was provided today: There are no Patient Instructions on file for this visit. The current and discharge medications were reconciled by an RN, telephonically on November 06, 2018 The source document was Electronic summary of care CC: Dr. Calderon author: Tino Bartholomew MD 11/14/2018 18:43 documented in this encounter Plan of Treatment Date Type Specialty Care Team Description 12/26/2018 Office Visit Internal Medicine Tino Bartholomew MD [address] [place], [place] [id number] 02/14/2019 Scan Only Encounter Medical Records Historical, Provider Health Maintenance Due Date Last Done Comments MEDICARE ANNUAL WELLNESS VISIT 1940 INFLUENZA VACCINE (#1) 2018 01/07/2018, 12/29/2016 DEPRESSION SCREENING 01/27/2019 01/27/2018 FALL RISK ASSESSMENT 11/15/2019 11/14/2018, 11/14/2018 OSTEOPOROSIS SCREENING 07/04/2023 07/03/2013 PNEUMOCOCCAL 65+YRS Completed [...] Type Problems Progress Blood Pressure Blood Pressure 102/56 No [place], < 140/90 (11/14/2018 MD Tino 6:10 PM EDT) Note: This is an individualized treatment (blood pressure) goal for Marlen [place]: Displayed above (on the left) is your [...] filedocumented in this encounter Visit Diagnoses Diagnosis Closed fracture of left hip with routine healing, subsequent encounter - Primary Cerebral hemorrhage (HCC) Intracerebral hemorrhage Essential hypertension, benign Parkinson disease (HCC) Paralysis agitans documented in this encounter Insurance Payer Benefit Plan / Subscriber ID Effective Dates Phone Address Type Group MEDICARE MEDICARE PART A & xxxxxxxxxxx 2004-Present Medicare B [employer] xxxxxxxxxxxx 2013-Present [employer] documented as of this encounter"
--- OUTSIDE RECORDS SUMMARY | 2019-01-04 18:28 | XMS REPORT | Continuity of Care Document ---
:1940 External Reference #:[id number] Author Name Carmen Jean M.D. 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, Onset: 03/01/2016 FASGA Peripheral venous insufficiency Tristin Luna M.D., [facility], Onset: 2016 FASNC Knee pain Darrel Griffin [...] Former Cigarette Smoker Unknown Smoking Status Reviewed: 12/01/18 Former Cigarette Smoker ETOH Use 08/24/2012 Denies [...] CPT Code Status Date Vaccine Lot # [id number] Given 01/09/2016 Influ Virus Vaccine, Quadrivalent, Split Virus, [place] [id number] [address] Given 01/01/2015 Influenza Virus Vaccine, Quadrivalent, Split, Preservative Free 66558 Given 08/02/2014 Pneumococcal Conjugate Vaccine 13 Valent For [id number] Intramuscular Use 10444 Given 08/10/2013 Tdap - Tetanus/Diptheria/Acellular Pertussis [id number] 92560 Given 01/11/2013 Flu Vaccine Split Virus Preservative Free For [id number] Indiv 3Yr Older [id number] Given 12/02/2011 Fluzone Vaccine [id number] 35872 Given 09/15/2011 Pneumonia Vaccine 45900 Given 09/15/2011 Pneumonia Vaccine [id number] 66848 Given 01/03/2010 Influenza Virus 3Yrs & Over 41540 Given 09/23/2009 Zoster (Zostavax) [id number] 98978 Given 12/31/2008 Influenza Virus 3Yrs & Over 06425 Given 12/31/2008 Influenza Virus 3Yrs & Over [id number] 91222 Given 12/18/2007 Influenza Virus 3Yrs & Over 49628 Given 12/18/2007 Influenza Virus 3Yrs & Over 44546 Given 12/26/2006 Influenza Virus 3Yrs & Over 26752 Given 12/26/2006 Influenza Virus 3Yrs & Over 66150 72600 Given Unknown Flu Vaccine Split Virus Preservative Free For Indiv 3Yr Older 28911 Given Unknown Flu Vaccine Split Virus Preservative Free For Indiv 3Yr Older Vital Signs Date Vital Result Comment 12/01/2018 11:35am Height 60 inches 5'0" Weight 86.38 lb Heart Rate 70 /min BP Systolic 112 mmHg BP Diastolic 64 mmHg BMI (Body Mass Index) 16.9 kg/m2 11/10/2018 3:54pm Height 60 inches 5'0" Weight 89.38 lb Heart Rate 70 /min BP Systolic 108 mmHg BP Diastolic 60 mmHg BMI (Body Mass Index) 17.5 kg/m2 Results Description No Information Available Procedures Date Code Description Status 10/19/2018 65277 THR Total Hip Replacement Completed 10/19/2018 79476 THR Total Hip Replacement Completed 07/10/2018 05399 Remove Impacted Cerumen Completed 08/08/2017 25696237 Colonoscopy Completed 06/03/2017 19211604 Mammogram Completed 02/27/2016 98105066 Mammogram Completed 02/20/2015 23799983 Mammogram Completed 07/03/2013 828688443 Bone Mineral Density Test Completed 02/12/2013 55367705 Mammogram Completed 10/08/2010 600192757 Bone Mineral Density Test Completed 11/12/2008 86781070 Mammogram Completed 01/02/2008 [id number] Colonoscopy Completed Medical Devices Description No Information Available Encounters Type Date Location Provider Dx Diagnosis Office Visit 12/01/2018 [facility] Carmen Jean, [place] [facility] 11:30a [facility] M.[facility]. disease R29.6 Repeated falls Office Visit 11/10/2018 4:00p [facility] M.[facility] disease R29.6 Repeated falls Office Visit 11/08/2018 9:22a [facility] Eveline De La Cruz, S72.001A Fracture of Home [facility] unsp part of neck of right femur, init R63.4 Abnormal weight loss Office Visit 10/19/2018 8:31a [facility] Christa Bynum, S72.002A Fracture of Assclaudia jerry MD unsp part of Hospitalists neck of left femur, init G20 Parkinson's disease Office Visit 10/18/2018 [facility] Katarzyna S72.002A Fracture of 8:30a claudia Vazquez PA unsp part of Hospitalists neck of left femur, init G20 Parkinson's disease G47.33 Obstructive sleep apnea (adult) (pediatric) W19.xxxA Unspecified fall, initial encounter Office Visit 10/18/2018 9:05a [facility] Riya Calderon, S72.042A Disp fx of [facility] [place] base of neck of left femur, init for clos fx W19.xxxA Unspecified fall, initial encounter Office Visit 08/11/2018 1:00p [facility] [place] [facility] M.D[facility] disease S06.6x6D Traum subrac hem w Loc >24 hr w/o ret consc w surv, subs Office Visit 06/16/2018 11:30a [facility] [place] [facility] M.[facility] disease S06.6x6D Traum subrac hem w Loc >24 hr w/o ret consc w surv, subs Assessments Date Code Description Provider 12/01/2018 G20 Parkinson's disease Carmen Jean M.D. [...] 9:00 am - Carmen Jean M.D. at [facility]12/13/2018 9:00 am - Riya Calderon M.D. at [facility]12/01/2018 - Carmen Jean M.D.G20 Parkinson's zdljrkpH23.6 Repeated fallsRecommendations:Use walker at all times. If there is a task that would result in you turning from your walker, ask for help. Restart using your CPAP every night. Continue to work with PT. Functional Status Description No Information Available Mental Status Description No Information Available Referrals Description No Information Available
[2019-01-04 19:21] VITALS: BP 138/80
--- NOTE | 2019-01-04 21:16 | ED ---
Complex/Multi-Sys Presentation - HPI Summary HPI Summary: Pt is a 78 y/o F presenting to the ED after a fall. Pt is present with her . Pt was making black tea in her kitchen when she lost her balance and fell. Pt admits right gluteal pain, right elbow pain, and a bump on the back of the head. Pt denies neck pain or syncope. Pts states that the pt uses a walker. Pts states that she previously fractured her skull while on vacation in [place] after a fall and was in rehab in [place]. Pt has had several falls in the past. Pt denies taking blood thinners. Pt has a PMHx of Parkinsons disease and glaucoma Pt has a PSHx of hip and knee surgery. Pt denies tobacco, drug, or alcohol use. 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 Allergies noted. Medications reviewed. - History Of Current Complaint Chief Complaint: EDFall Time Seen by Provider: 01/04/19 17:20 Hx Obtained From: Patient Onset/Duration: Sudden Onset, Still Present Timing: Constant Severity Currently: Moderate Severity Initially: Moderate Location: Pain At: - Right glutteal and right elbow Associated Signs And Symptoms: Positive: Other - Positive right glutteal and right elbow pain; positive bump on back of the head; negative neck pain. Negative: Syncope - Allergies/Home Medications Allergies/Adverse Reactions: Allergies Allergy/AdvReac Type Severity Reaction Status Date / Time cefuroxime [From Ceftin] Allergy Intermediate COLITIS Verified 10/19/18 15:08 ciprofloxacin [From Cipro] Allergy Intermediate COLITIS Verified 10/19/18 15:08 PMH/Surg Hx/FS Hx/Imm Hx Previously Healthy: Yes Endocrine/Hematology History: Denies: Hx Diabetes, Hx Thyroid Disease, Hx Anemia, Hx Unexplained Bleeding Cardiovascular History: Reports: Hx Hypercholesterolemia Denies: Hx Aneurysm, Hx Angina, Hx Angioplasty, Hx Auto Implanted Cardiovert Defib, Hx Cardiac Arrest, Hx Cardiomegaly, Hx Congenital Heart Disease, Hx Congestive Heart Failure, Hx Coronary Artery Disease, Hx Deep Vein Thrombosis, Hx Embolism, Hx Hypotension - pt states, "usually low", Hx Hypertension, Hx Pacemaker/ICD, Hx Peripheral Vascular Disease, Hx Rheumatic Fever, Hx Syncope, Hx Valvular Heart Disease, Other Cardiovascular Problems/Disorders Respiratory History: Reports: Hx Pneumonia, Hx Pulmonary Embolism - 2012, Hx Seasonal Allergies, Hx Sleep Apnea Denies: Hx Asthma, Hx Chronic Bronchitis, Hx Chronic Obstructive Pulmonary Disease (COPD), Hx Cystic Fibrosis, Hx Lung Cancer, Hx Pleural Effusion, Hx Pulmonary Edema, Other Respiratory Problems/Disorders GI History: Reports: Hx Hiatal Hernia Denies: Hx Cirrhosis, Hx Crohn's Disease, Hx Diverticulosis, Hx Gall Bladder Disease, Hx Gastroesophageal Reflux Disease, Hx Gastrointestinal Bleed, Hx Jaundice, Hx Ileostomy, Hx Ulcer History: Denies: Hx Renal Disease Musculoskeletal History: Reports: Hx Arthritis Denies: Hx Back Problems, Hx Bursitis, Hx Scoliosis, Other Musculoskeletal History Comment Only: Hx Osteoporosis - OSTEOPENIA Sensory History: Reports: Hx Contacts or Glasses, Hx Glaucoma, Hx Hearing Aid Denies: Hx Cataracts, Hx Eye Injury, Hx Eye Prosthesis, Hx Legally Blind, Hx Macular Degeneration, Hx Vision Problem, Hx Deafness, Hx Hearing Problem - slightly [place], does not have hearing aides now, Other Sensory Impairments Opthamlomology History: Reports: Hx Contacts or Glasses, Hx Glaucoma Denies: Hx Cataracts, Hx Eye Injury, Hx Eye Prosthesis, Hx Legally Blind, Hx Macular Degeneration, Hx Vision Problem, Other Sensory Impairments Neurological History: Reports: Hx Migraine - HX OF, Other Neuro Impairments/ Disorders - parkinson Denies: Hx Dementia, Hx Developmental Delay, Hx Headaches, Hx Nerve Disease, Hx Seizures, Hx Spinal Cord Injury Psychiatric History: Denies: Hx Panic Disorder - Cancer History Hx Chemotherapy: No Hx Radiation Therapy: No - Surgical History Surgical History: Yes Surgery Procedure, Year, and Place: CHOLECYSTECTOMY ', APPENDECTOMY ', HERNIA REPAIR '02. Sternum Fx 2012. 12/13/17 LEFT KNEE REPLACEMENT Hx Anesthesia Reactions: No - Immunization History Immunizations Up to Date: Yes Infectious Disease History: No Infectious Disease History: Denies: Hx Clostridium Difficile, Hx Hepatitis, Hx Human Immunodeficiency Virus (HIV), Hx of Known/Suspected MRSA, Hx Shingles, Hx Tuberculosis, Hx Known/ Suspected VRE, Hx Known/Suspected VRSA, History Other Infectious Disease, Traveled Outside the [place] in Last 30 Days - Family History Known Family History: Negative: Hypertension, Diabetes - Social History Occupation: Retired Lives: With Family - Alcohol Use: None Alcohol Amount: recovering alcoholic x several years Hx Substance Use: No Substance Use Type: Reports: None Hx Tobacco Use: Yes Smoking Status (MU): Former Smoker Have You Smoked in the Last Year: No Review of Systems Positive: Myalgia - Right glutteal and right elbow. Negative: Arthralgia - Neck Positive: Other - Positive bump on the nack of the head Negative: Syncope All Other Systems Reviewed And Are Negative: Yes Physical Exam - Summary Physical Exam Summary: Constitutional: Well-developed, Well-nourished, Alert. (-) Distressed Skin: Warm, Dry HENT: Hematoma to right posterior occiput Eyes: Conjunctiva normal Neck: Musculoskeletal ROM normal neck. (-) JVD, (-) Stridor, (-) Tracheal deviation Cardio: Rhythm regular, rate normal, Heart sounds normal; Intact distal pulses; Radial pulses are 2+ and symmetric. (-) Murmur Pulmonary/Chest wall: Effort normal. (-) Respiratory distress, (-) Wheezes, (-) Rales Abd: Soft, (-) tenderness, (-) Distension, (-) Guarding, (-) Rebound Musculoskeletal: (-) Edema. Tenderness in right buttock, full ROM of hip Lymph: (-) Cervical adenopathy Neuro: Alert, Oriented x3 Psych: Mood and affect Normal Triage Information Reviewed: Yes Vital Signs On Initial Exam: Initial Vitals Temp Pulse Resp BP Pulse Ox 98.3 F 75 18 135/102 99 01/04/19 17:15 01/04/19 17:15 01/04/19 17:15 01/04/19 17:15 01/04/19 17:15 Vital Signs Reviewed: Yes - [place] Coma Scale Best Eye Response: 4 - Spontaneous Best Motor Response: 6 - Obeys Commands Best Verbal Response: 5 - Oriented Coma Scale Total: 15 Procedures - Sedation Patient Received Moderate/Deep Sedation with Procedure: No Diagnostics - Vital Signs Vital Signs Temp Pulse Resp BP Pulse Ox 01/04/19 19:20 98.7 F 73 20 138/80 97 01/04/19 18:46 79 142/77 97 01/04/19 18:19 72 99 01/04/19 17:46 69 20 150/82 99 01/04/19 17:16 76 22 135/102 96 01/04/19 17:15 98.3 F 75 18 135/102 99 - Laboratory Lab Statement: Any lab studies that have been ordered have been reviewed, and results considered in the medical decision making process. - Radiology Hip/Pelvis X-ray Radiology Interpretation Completed By: ED Physician Summary of Radiographic Findings: Hip/Pelvis X-ray IMPRESSION: No acute fracture. Reviewed and interpreted by ED physician, pending official radiology report. - CT Brain CT CT Interpretation Completed By: Radiologist Summary of CT Findings: Brain CT IMPRESSION: There is no evidence of acute intracranial hemorrhage or significant mass. effect. Stable region of encephalomalacia noted in the right frontal lobe. Reviewed by ED physician. Complex Multi-Symp Course/Dx Course Of Treatment: Patient is here after mechanical fall. Patient has had multiple mechanical falls this year due to her Parkinson's disease. Patient had pain in her head performed which was negative. Patient had no cervical spine pain. Patient did have pain in her right buttock with full range of motion her hip. Patient had an x-ray which was negative per my read. Patient had no other injuries and did not need any other workup. - Diagnoses Provider Diagnoses: Fall, Hematoma of occipital surface of head Discharge ED - Sign-Out/Discharge Documenting (check all that apply): Patient Departure - Discharge - Discharge Plan Condition: Stable Disposition: HOME Patient Education Materials: Fall Prevention for Older Adults (ED) Referrals: Tino Bartholomew MD [Primary Care Provider] - Additional Instructions: Continue to use a walker. Follow up with your primary care physician in 1-3 days. Return to the ED for vomiting, slurred speech, or altered mental status. - Billing Disposition and Condition Condition: STABLE Disposition: Home - Attestation Statements Document Initiated by Luis Miguelibe: Yes Documenting Scribe: Carmen Altamirano Provider For Whom Luis Miguelibstefan is Documenting (Include Credential): Dinh Mata MD Scribe Attestation: Carmen Jauregui scribed for Dinh Mata MD on 01/04/19 at 2124. Scribe Documentation Reviewed: Yes Provider Attestation: The documentation as recorded by the Carmen munguia accurately reflects the service I personally performed and the decisions made by , Dinh Mata MD Status of Scribe Document: Viewed
== END 2019-01-04 19:20 | disposition home or self-care (01) ==
LOC: ED 17:11
DX: S00.93XA Contusion of unspecified part of head, initial encounter (principal); W18.39XA Other fall on same level, initial encounter; Y92.000 Kitchen of unspecified non-institutional (private) residence as the place of occurrence of the external cause; E78.00 Pure hypercholesterolemia, unspecified; Z86.711 Personal history of pulmonary embolism; Z90.49 Acquired absence of other specified parts of digestive tract; Z96.652 Presence of left artificial knee joint; Z87.891 Personal history of nicotine dependence; Z88.1 Allergy status to other antibiotic agents
CPT/HCPCS: 70450; 99282

== ENCOUNTER 2019-05-05 17:18 | Emergency (ER) | payer MEDICARE, BC ==
[2019-05-05 17:30] VITALS: BP 175/114
--- NOTE | 2019-05-05 18:45 | UC ---
Knee Pain HPI - HPI Summary HPI Summary: 78-year-old female presenting with for left knee pain 3 days. Patient also notes redness over her anterior knee. Patient states she was seen yesterday by Dr. Calderon who examined her knee and took x-rays. Patient states she was told the knee was fine and she likely had a contusion. Denies current pain. Denies difficulty ambulating. Denies decreased ROM. Denies swelling. Denies fever and chills. Patient states that Dr. Calderon told her to be seen again if she experiences increasing redness or pain. Patient states she had redness over the knee earlier and was concerned for a blood clot, as she has had a PE in the past in 2012. Denies sob, difficulty breathing, and chest pain. Also notes left knee replacement in 2018. Patient states the redness has since resolved and she "thinks the knee is fine and that she worries to much." Patient states she is now more concerned about her blood pressure on arrival than she is her knee. - History of Current Complaint Chief Complaint: UCLowerExtremity Stated Complaint: KNEE PAIN Hx Obtained From: Patient Pain Intensity: 4 Pain Scale Used: 0-10 Numeric - Allergies/Home Medications Allergies/Adverse Reactions: Allergies Allergy/AdvReac Type Severity Reaction Status Date / Time cefuroxime [From Ceftin] Allergy Intermediate COLITIS Verified 05/05/19 17:31 ciprofloxacin [From Cipro] Allergy Intermediate COLITIS Verified 05/05/19 17:31 PMH/Surg Hx/FS Hx/Imm Hx Respiratory History: Pulmonary Embolism - 2012 - Surgical History Surgical History: Yes Surgery Procedure, Year, and Place: CHOLECYSTECTOMY , APPENDECTOMY , HERNIA REPAIR . Sternum Fx 2012. 12/13/17 LEFT KNEE REPLACEMENT - Family History Known Family History: Negative: Hypertension, Diabetes - Social History Alcohol Use: None Alcohol Amount: recovering alcoholic x several years Substance Use Type: None Smoking Status (MU): Former Smoker Have You Smoked in the Last Year: No When Did the Patient Quit Smoking/Using Tobacco: 1984 - Immunization History Most Recent Influenza Vaccination: 2014/2015 Most Recent Tetanus Shot: 2012 Most Recent Pneumonia Vaccination: 2017 Review of Systems All Other Systems Reviewed And Are Negative: Yes Constitutional: Positive: Negative. Negative: Fever, Chills Skin: Positive: Other. Negative: Bruising Respiratory: Positive: Negative Cardiovascular: Positive: Negative Gastrointestinal: Positive: Negative Neurovascular: Positive: Negative Musculoskeletal: Positive: Arthralgia - L knee. Negative: Decreased ROM, Edema Neurological/Mental Status: Positive: Negative. Negative: Paresthesia, Numbness Physical Exam - Summary Physical Exam Summary: Vital Signs Reviewed: Yes A+Ox3, no distress, well-appearing Eyes: Conjunctiva Clear ENT: Hearing grossly normal Neck: Positive: Supple Respiratory: Positive: No respiratory distress, No accessory muscle use + CTA throughout no w/r Cardiovascular: RRR nl s1, s2 no m/r CBT <2 sec Musculoskeletal Exam: BROWNE x 4 without difficulty, no tenderness to palpation of L knee, no knee or LE edema, no erythema or ecchymosis, ROM and strength intact , sensation grossly intact, 2+DP/PT pulses Neurological: Positive: Alert Psychological: Positive: age appropriate behavior Skin: Positive: no rash, no ecchymosis Vital Signs: Initial Vital Signs Temp 98.3 F 05/05/19 17:25 Pulse 86 05/05/19 17:25 Resp 12 05/05/19 17:25 BP 175/114 05/05/19 17:25 Pulse Ox 100 05/05/19 17:25 Vital Signs (72 hours) 05/05/19 17:25 Temperature 98.3 F Pulse Rate 86 Respiratory 12 Rate Blood Pressure 175/114 120/58 (mmHg) manual O2 Sat by Pulse 100 Oximetry Knee Pain Course/Dx - Course Course Of Treatment: 78-year-old female presenting with left knee pain and redness earlier today. Patient states the symptoms had subsided and she "thinks the knee is fine now." Patient seen yesterday by Dr. Calderon and sent home with diagnosis of knee contusion. Physical exam findings normal today. No sign of infection or injury to the knee. Patient concerned about elevated blood pressure on arrival. I reviewed the radiographs of the knee that were taken yesterday. Report came back as normal. I instructed the patient to continue with rest and ice for any pain in her knee if it is to return. Manual blood pressure taken later during the visit which was normal at 120/58. I educated the patient on signs and symptoms of knee pain that warrant evaluation the emergency room. Instructed to continue with symptomatic treatment and follow-up if pain returns. Patient voiced understanding and agreed with the plan. - Differential Dx/Diagnosis Differential Diagnosis/HQI/PQRI: Contusion, Sprain, Strain, Tendonitis Provider Diagnosis: Left knee pain Discharge ED - Sign-Out/Discharge Documenting (check all that apply): Patient Departure All imaging exams completed and their final reports reviewed: No Studies - Discharge Plan Condition: Stable Disposition: HOME Patient Education Materials: Knee Pain (ED) Referrals: Tino Bartholomew MD [Primary Care Provider] - If Needed Additional Instructions: Continue to rest and ice the knee to help alleviate pain. Follow up with your primary care provider or Dr. Calderon if your pain persists. Go to the emergency room if you experience any new or worsening symptoms, including swelling, increasing redness and warmth to the area, severe pain, or difficulty walking. - Billing Disposition and Condition Condition: STABLE Disposition: Home
== END 2019-05-05 19:00 | disposition home or self-care (01) ==
LOC: UCEAST 17:18
DX: M25.562 Pain in left knee (principal); Z88.1 Allergy status to other antibiotic agents; Z87.891 Personal history of nicotine dependence
CPT/HCPCS: 99212; G0463

== ENCOUNTER 2020-06-06 07:06 | Inpatient (IN) ==
[2020-06-06] MEDS ORDERED: Morphine 4 MG/ML VIAL (1 ml) IV ONE ×2 (07:14→08:10)
[2020-06-06] MEDS ORDERED: NS 0.9% 1000 ml BAG 1,000 ML IV ONE (07:19)
[2020-06-06] MEDS ORDERED: Ondansetron 4 mg VIAL 2 MG/ML 2 ml VIAL IV ONE (07:19)
[2020-06-06 07:42] LABS: ABS Basophils 0.1 10^3/ul (0-0.2); ABS Eosinophils 0.2 10^3/ul (0-0.6); ABS Lymphocytes 1.3 10^3/ul (1.0-4.8); ABS Monocytes 0.5 10^3/ul (0-0.8); ABS Neutrophils 4.2 10^3/ul (1.5-7.7); Eosinophil % 2.9 %; Hematocrit 41 % (35-47); Hemoglobin 13.8 g/dL (12.0-16.0); Lymphocyte % 20.8 %; Mean Corpuscular HGB Conc 33 g/dL (31-36); Mean Corpuscular Hemoglobin 32 pg (27-31); Mean Corpuscular Volume 95 fL (80-97); Mean Platelet Volume 7.1 fL (7.4-10.4); Platelet Count 244 10^3/uL (150-450); Red Blood Count 4.33 10^6 /uL (3.70-4.87); Red Cell Distribution Width 13 % (10-15); White Blood Count 6.2 10^3/uL (3.5-10.8)
[2020-06-06 07:47] LABS: INR 1.08 (0.82-1.09)
[2020-06-06 07:57] LABS: Albumin 4.3 g/dL (3.2-5.2); BUN/Creatinine Ratio 29.5 (8-20); Calcium 9.3 mg/dL (8.6-10.3); EGFR African American 114.2 (>60); EGFR Non-African American 94.4 (>60); Globulin 2.2 g/dL (2-4); Potassium 4.2 mmol/L (3.5-5.0); Total Bilirubin 0.7 mg/dL (0.2-1.0); Total Protein 6.5 g/dL (6.4-8.9)
[2020-06-06] MEDS ORDERED: fentaNYL 100 mcg/2 ml 50 MCG/ML VIAL IV SLOW PU ONE (08:43)
[2020-06-06] MEDS ORDERED: Ondansetron 4 mg VIAL 2 MG/ML 2 ml VIAL IV PRN ×2 (09:38→15:57)
[2020-06-06] MEDS ORDERED: Morphine 2 MG/ML SYRINGE IV PRN (10:42)
[2020-06-06 12:01] LABS: Urine Appearance Clear; Urine Bilirubin Negative (Negative); Urine Blood Negative (Negative); Urine Color Yellow; Urine Glucose Negative (Negative); Urine Ketones Negative (Negative); Urine Nitrite Negative (Negative); Urine Protein Negative (Negative); Urine Specific Gravity 1.012 (1.010-1.030); Urine Urobilinogen Negative (Negative)
[2020-06-06] MEDS: NS 0.9% 1000 ml BAG 1,000 ML IV SCH (12:01)
[2020-06-06] MEDS: Carbidopa/Levodop 25/100 MG TAB PO SCH ×2 (15:34→20:57)
[2020-06-06] MEDS ORDERED: Naloxone 0.4 mg VIAL 0.4 mg/ml 1 ml VIAL IV PRN (15:57)
[2020-06-06] MEDS ORDERED: HYDROmorphone 1 MG/1 ML SYRINGE IV PRN (15:57)
[2020-06-06] MEDS ORDERED: Bupivacaine 0.5% SDV PF 30ML VIAL ONE (16:12)
[2020-06-06] MEDS ORDERED: Propofol 10 MG/ML 20 ML BTL ONE (16:13)
[2020-06-06] MEDS ORDERED: Lidocaine 2% PF 5 ML VIAL ONE (16:13)
[2020-06-06] MEDS ORDERED: fentaNYL 100 mcg/2 ml 50 MCG/ML VIAL ONE ×2 (16:14→18:41)
[2020-06-06] MEDS ORDERED: HYDROmorphone 1 MG/1 ML SYRINGE ONE (16:14)
[2020-06-06] MEDS: fentaNYL 100 mcg/2 ml 50 MCG/ML VIAL IV PRN ×5 (16:15→19:36)
[2020-06-06] MEDS ORDERED: ceFAZolin 2 GM PREMIX 2 GM/50 ML BAG ONE (16:24)
[2020-06-06] MEDS ORDERED: Ketamine HCL 50 mg/ml 10 ml VIAL (500 MG) ONE (16:44)
[2020-06-06] MEDS ORDERED: Phenylephrine 40 mcg/mL 10mL (400mcg) SYRINGE ONE ×2 (17:14→17:58)
[2020-06-06] MEDS: Amantadine SOLN ORALSYR 10 mg/ml PO SCH (20:56)
[2020-06-06] MEDS: CMCS:Dorzolamide/Timolol OPTH (NF) 10 ML BOT BOTH EYES SCH (20:58)
[2020-06-06] MEDS: Latanoprost 0.005% 2.5 ml BTL BOTH EYES SCH (20:58)
[2020-06-07 00:09] LABS: Hematocrit 32 % (35-47); Hemoglobin 10.9 g/dL (12.0-16.0); Mean Corpuscular HGB Conc 34 g/dL (31-36); Mean Corpuscular Hemoglobin 32 pg (27-31); Mean Corpuscular Volume 94 fL (80-97); Mean Platelet Volume 7.3 fL (7.4-10.4); Platelet Count 238 10^3/uL (150-450); Red Blood Count 3.43 10^6 /uL (3.70-4.87); Red Cell Distribution Width 13 % (10-15); White Blood Count 12.4 10^3/uL (3.5-10.8)
[2020-06-07] MEDS: ceFAZolin 1 GM X 3 DOSES POST-OP Q8H (AddVan) IVPB SCH ×3 (00:47→16:46)
[2020-06-07 05:38] LABS: BUN/Creatinine Ratio 35.3 (8-20); Calcium 8.1 mg/dL (8.6-10.3); EGFR African American 140.4 (>60); Potassium 4.1 mmol/L (3.5-5.0)
[2020-06-07] MEDS ORDERED: Senna TAB 8.6 mg TAB PO PRN (08:04)
[2020-06-07] MEDS ORDERED: Enoxaparin 40 MG/0.4 ML SYR SUBCUT SCH (09:00)
[2020-06-07] MEDS ORDERED: NS 0.9% 50 ML 50 ML ONE (09:22)
[2020-06-07] MEDS: Carbidopa/Levodop 25/100 MG TAB PO SCH ×3 (09:40→20:46)
[2020-06-07] MEDS: CMCS:Rasagiline 1 mg TAB (NF) PO SCH (09:46)
[2020-06-07] MEDS: Amantadine SOLN ORALSYR 10 mg/ml PO SCH ×2 (09:49→20:46)
[2020-06-07] MEDS: Polyethylene Glycol 3350 17 GM PACKET PO PRN (09:52)
[2020-06-07] MEDS: NS 0.9% 1000 ml BAG 1,000 ML IV SCH (09:57)
[2020-06-07] MEDS: CMCS:Dorzolamide/Timolol OPTH (NF) 10 ML BOT BOTH EYES SCH ×2 (10:05→20:52)
[2020-06-07 10:27] LABS: Hematocrit 30 % (35-47); Hemoglobin 10.3 g/dL (12.0-16.0)
[2020-06-07] MEDS: Latanoprost 0.005% 2.5 ml BTL BOTH EYES SCH (20:52)
[2020-06-08 04:54] LABS: Hematocrit 27 % (35-47); Hemoglobin 9.3 g/dL (12.0-16.0)
[2020-06-08 07:28] VITALS: BP 105/84
[2020-06-08] MEDS ORDERED: Enoxaparin 30 MG/0.3 ML SYR SUBCUT SCH (09:00)
[2020-06-08] MEDS: CMCS:Rasagiline 1 mg TAB (NF) PO SCH (09:16)
[2020-06-08] MEDS: Amantadine SOLN ORALSYR 10 mg/ml PO SCH (09:16)
[2020-06-08] MEDS: Carbidopa/Levodop 25/100 MG TAB PO SCH (10:27)
[2020-06-08] MEDS: Polyethylene Glycol 3350 17 GM PACKET PO PRN (10:28)
== END 2020-06-08 10:45 | DRG 482 ==
LOC: ED 07:06 → SSU 10:55 → PMRU 06-08 11:41
PROVIDERS: ADMIT Hospitalist; ATTEND Hospitalist

== ENCOUNTER 2020-06-08 10:54 | Inpatient (IN) ==
[2020-06-08] MEDS ORDERED: Al Hydrox/Mg Hydrox/Simet LIQ 30 ML UDC PO PRN (11:49)
[2020-06-08] MEDS ORDERED: Polyethylene Glycol 3350 17 GM PACKET PO PRN (12:02)
[2020-06-08] MEDS: Enoxaparin 30 MG/0.3 ML SYR SUBCUT SCH (13:39)
[2020-06-08] MEDS: Carbidopa/Levodop 25/100 MG TAB PO SCH ×2 (13:39→21:19)
[2020-06-08] MEDS: Magnesium Hydroxide LIQ 30 ML UDC PO PRN (17:47)
[2020-06-08] MEDS: Latanoprost 0.005% 2.5 ml BTL BOTH EYES SCH (21:19)
[2020-06-08] MEDS: Dorzolamide/Timolol OPTH (NF) 10 ML BOT BOTH EYES SCH (21:19)
[2020-06-09] MEDS: Dorzolamide/Timolol OPTH (NF) 10 ML BOT BOTH EYES SCH ×2 (08:03→20:08)
[2020-06-09] MEDS: Carbidopa/Levodop 25/100 MG TAB PO SCH ×3 (08:03→20:04)
[2020-06-09 08:55] LABS: ABS Eosinophils 0.1 10^3/ul (0-0.6); ABS Lymphocytes 0.9 10^3/ul (1.0-4.8); ABS Monocytes 0.4 10^3/ul (0-0.8); Eosinophil % 2.1 %; Hematocrit 25 % (35-47); Hemoglobin 8.7 g/dL (12.0-16.0); Lymphocyte % 13.4 %; Mean Corpuscular HGB Conc 35 g/dL (31-36); Mean Corpuscular Hemoglobin 33 pg (27-31); Mean Corpuscular Volume 94 fL (80-97); Mean Platelet Volume 6.9 fL (7.4-10.4); Platelet Count 223 10^3/uL (150-450); Red Blood Count 2.65 10^6 /uL (3.70-4.87); Red Cell Distribution Width 13 % (10-15); White Blood Count 6.5 10^3/uL (3.5-10.8)
[2020-06-09 09:13] LABS: Albumin 3.3 g/dL (3.2-5.2); Albumin/Globulin Ratio 1.6 (1-3); BUN/Creatinine Ratio 29.8 (8-20); Calcium 8.3 mg/dL (8.6-10.3); EGFR African American 154.3 (>60); EGFR Non-African American 127.5 (>60); Globulin 2.1 g/dL (2-4); Potassium 3.9 mmol/L (3.5-5.0); Total Bilirubin 0.8 mg/dL (0.2-1.0); Total Protein 5.4 g/dL (6.4-8.9)
[2020-06-09] MEDS: Enoxaparin 30 MG/0.3 ML SYR SUBCUT SCH (12:12)
[2020-06-09] MEDS: Magnesium Hydroxide LIQ 30 ML UDC PO PRN (17:58)
[2020-06-09] MEDS: Senna TAB 8.6 mg TAB PO PRN (20:04)
[2020-06-09] MEDS: Latanoprost 0.005% 2.5 ml BTL BOTH EYES SCH (20:08)
[2020-06-10] MEDS: Carbidopa/Levodop 25/100 MG TAB PO SCH ×3 (08:26→16:32)
[2020-06-10] MEDS: Dorzolamide/Timolol OPTH (NF) 10 ML BOT BOTH EYES SCH ×2 (08:30→21:02)
[2020-06-10] MEDS: Enoxaparin 30 MG/0.3 ML SYR SUBCUT SCH (12:17)
[2020-06-10] MEDS: Magnesium Hydroxide LIQ 30 ML UDC PO PRN (16:32)
[2020-06-10] MEDS: Senna TAB 8.6 mg TAB PO PRN (21:00)
[2020-06-10] MEDS: Latanoprost 0.005% 2.5 ml BTL BOTH EYES SCH (21:02)
[2020-06-11] MEDS: Dorzolamide/Timolol OPTH (NF) 10 ML BOT BOTH EYES SCH ×2 (08:20→21:02)
[2020-06-11] MEDS: Carbidopa/Levodop 25/100 MG TAB PO SCH ×3 (08:20→17:01)
[2020-06-11] MEDS: Enoxaparin 30 MG/0.3 ML SYR SUBCUT SCH (12:21)
[2020-06-11] MEDS: Magnesium Hydroxide LIQ 30 ML UDC PO PRN (17:12)
[2020-06-11] MEDS: Senna TAB 8.6 mg TAB PO PRN (21:02)
[2020-06-11] MEDS: Latanoprost 0.005% 2.5 ml BTL BOTH EYES SCH (21:02)
[2020-06-12] MEDS: Carbidopa/Levodop 25/100 MG TAB PO SCH ×3 (08:26→17:45)
[2020-06-12] MEDS: Dorzolamide/Timolol OPTH (NF) 10 ML BOT BOTH EYES SCH ×2 (12:29→21:04)
[2020-06-12] MEDS: Enoxaparin 30 MG/0.3 ML SYR SUBCUT SCH (12:32)
[2020-06-12] MEDS: Latanoprost 0.005% 2.5 ml BTL BOTH EYES SCH (21:05)
[2020-06-12] MEDS: Magnesium Hydroxide LIQ 30 ML UDC PO PRN (21:11)
[2020-06-13] MEDS: Carbidopa/Levodop 25/100 MG TAB PO SCH ×3 (08:11→16:44)
[2020-06-13] MEDS: Dorzolamide/Timolol OPTH (NF) 10 ML BOT BOTH EYES SCH ×2 (08:12→20:51)
[2020-06-13] MEDS: Enoxaparin 30 MG/0.3 ML SYR SUBCUT SCH (14:18)
[2020-06-13] MEDS: Latanoprost 0.005% 2.5 ml BTL BOTH EYES SCH (21:03)
[2020-06-14] MEDS: Carbidopa/Levodop 25/100 MG TAB PO SCH ×3 (08:28→17:02)
[2020-06-14] MEDS: Dorzolamide/Timolol OPTH (NF) 10 ML BOT BOTH EYES SCH ×2 (08:29→20:33)
[2020-06-14] MEDS: Enoxaparin 30 MG/0.3 ML SYR SUBCUT SCH (12:32)
[2020-06-14] MEDS: Senna TAB 8.6 mg TAB PO PRN (20:32)
[2020-06-14] MEDS: Latanoprost 0.005% 2.5 ml BTL BOTH EYES SCH (20:33)
[2020-06-15] MEDS: Dorzolamide/Timolol OPTH (NF) 10 ML BOT BOTH EYES SCH ×2 (08:16→19:42)
[2020-06-15] MEDS: Carbidopa/Levodop 25/100 MG TAB PO SCH ×3 (08:16→17:08)
[2020-06-15] MEDS: Enoxaparin 30 MG/0.3 ML SYR SUBCUT SCH (11:50)
[2020-06-15] MEDS: Senna TAB 8.6 mg TAB PO PRN (19:45)
[2020-06-15] MEDS: Latanoprost 0.005% 2.5 ml BTL BOTH EYES SCH (20:30)
[2020-06-16] MEDS: Carbidopa/Levodop 25/100 MG TAB PO SCH ×3 (07:26→17:40)
[2020-06-16 07:53] LABS: ABS Eosinophils 0.2 10^3/ul (0-0.6); ABS Lymphocytes 1.3 10^3/ul (1.0-4.8); ABS Monocytes 0.5 10^3/ul (0-0.8); ABS Neutrophils 4.7 10^3/ul (1.5-7.7); Eosinophil % 3.3 %; Hematocrit 31 % (35-47); Hemoglobin 10.6 g/dL (12.0-16.0); Lymphocyte % 19.1 %; Mean Corpuscular HGB Conc 34 g/dL (31-36); Mean Corpuscular Hemoglobin 33 pg (27-31); Mean Corpuscular Volume 98 fL (80-97); Mean Platelet Volume 6.4 fL (7.4-10.4); Nucleated Red Blood Cells % 0.2; Platelet Count 374 10^3/uL (150-450); Red Blood Count 3.19 10^6 /uL (3.70-4.87); Red Cell Distribution Width 14 % (10-15); White Blood Count 6.8 10^3/uL (3.5-10.8)
[2020-06-16 08:24] LABS: Albumin 3.9 g/dL (3.2-5.2); Albumin/Globulin Ratio 1.7 (1-3); BUN/Creatinine Ratio 20.4 (8-20); Calcium 9.3 mg/dL (8.6-10.3); EGFR Non-African American 121.5 (>60); Globulin 2.3 g/dL (2-4); Potassium 3.9 mmol/L (3.5-5.0); Total Protein 6.2 g/dL (6.4-8.9)
[2020-06-16] MEDS: Dorzolamide/Timolol OPTH (NF) 10 ML BOT BOTH EYES SCH ×2 (10:17→20:07)
[2020-06-16] MEDS: Enoxaparin 30 MG/0.3 ML SYR SUBCUT SCH (12:25)
[2020-06-16] MEDS: Magnesium Hydroxide LIQ 30 ML UDC PO PRN (18:10)
[2020-06-16] MEDS: Senna TAB 8.6 mg TAB PO PRN (20:09)
[2020-06-16] MEDS: Latanoprost 0.005% 2.5 ml BTL BOTH EYES SCH (20:10)
[2020-06-17] MEDS: Carbidopa/Levodop 25/100 MG TAB PO SCH ×3 (07:17→17:15)
[2020-06-17] MEDS: Dorzolamide/Timolol OPTH (NF) 10 ML BOT BOTH EYES SCH ×2 (07:30→19:59)
[2020-06-17] MEDS: Enoxaparin 30 MG/0.3 ML SYR SUBCUT SCH (11:34)
[2020-06-17] MEDS: Latanoprost 0.005% 2.5 ml BTL BOTH EYES SCH (19:53)
[2020-06-18 04:13] VITALS: BP 148/84
[2020-06-18] MEDS: Carbidopa/Levodop 25/100 MG TAB PO SCH (07:41)
[2020-06-18] MEDS: Dorzolamide/Timolol OPTH (NF) 10 ML BOT BOTH EYES SCH (07:52)
[2020-06-18] MEDS: Enoxaparin 30 MG/0.3 ML SYR SUBCUT SCH (10:58)
== END 2020-06-18 11:56 | disposition home health service (06) | DRG 560 ==
LOC: PMRU 11:51
PROVIDERS: ADMIT Physical Medicine & Rehabilitation; ATTEND Physical Medicine & Rehabilitation